=== PATIENT | female | born 1945 | race Caucasian/White ===

== ENCOUNTER 2022-06-04 05:24 | Emergency (ER) | payer OTHER ==
--- OUTSIDE RECORDS SUMMARY | 2022-06-04 05:28 | XMS REPORT | Continuity of Care Document ---
:1945 Author Organization [facility] t Address [address] [place] [address] Care Team Providers Name Role Phone Sharpless Primary Care Physician ABRAHAM RODRIGUEZ Attending Clinician Unavailable JULES STONE Attending Clinician Unavailable JONE HI Attending Clinician Unavailable Chandan DEMARCO, Abraham Jane Attending Clinician Jules Stone MD Attending Clinician JULES STONE Attending Clinician Unavailable JULES STONE Admitting Clinician Unavailable Payers Payer Name Policy Type Policy Number Effective Date Expiration Date S verónica MEDICARE PART A [id number] 1999 \T\ B - MEDICARE 00:00:00 [employer] [facility] [place] [facility] \T\ [id number] CASUALTY GENERIC PPO - [id number] GENERIC PAYOR Problems Condition Condition Condition Status Onset Resolution Last Treating Co mments Source Name Details Category Date Date Treatment Clinician Date Corectopia Corectopia Disease Active 2016-07 [facility] 00:00: of 00 Medicin e s/p DSAEK s/p DSAEK Disease Active Valatie bernardino OS OS 2-17 College ( ( 00:00: of 7) 7) 00 Medicin e Open-angle Open-angle Disease Active [facility] of both 00:[facility]: Medical eyes, eyes, 00 Center severe severe stage stage Glaucoma Glaucoma Disease Active [facility] filtering filtering 01-10 Deepika ege bleb, left bleb, left 00:00: of eye eye 00 Medicin e Corneal Corneal Disease Active [facility] edema, edema, 01-10 College secondary secondary 00:00: of 00 Medicin e Primary Primary Disease Active [facility] open angle open angle 01-10 Co llege glaucoma glaucoma 00:00: of of both of both 00 Medicin eyes, eyes, e severe severe stage stage Cataract Cataract Disease Active [facility] mature, mature, 01-10 [place] total total 00:00: of senile, senile, 00 Medicin right eye right eye e Pseudophak Pseudophak Disease Active [facility] ia, left ia, left 01-10 Colleg e eye eye 00:00: of 00 Medicin e Allergies, Adverse Reactions, Alerts This patient has no known allergies or adverse reactions. Social History Social Habit Start Date Stop Date Quantity Comments Source Alcohol intake 2016-09-15 2016-09-15 Current [facility] 00:00:00 00:00:00 non-drinker of Medical Ce nter alcohol (finding) Sex Ass[birth year] [facility] kes 00:00:00 [facility]00 [facility] Smoking Status Start Date Stop Date Source Never smoker [facility] o f Medicine Medications Ordered Filled Start Stop Current Ordering Indication Dosage Frequency Signature Comments Components Source Medication Medication Date Date Medication? Clinician (SIG) Name Name metformin 2018-07 Yes 500mg Take 500 Valatie bernardino (GLUCOPHAGE 0-18 mg by College ) 500 MG 18:28: mouth 2 of tablet 34 times Medicin daily e (with meals). glipiZIDE 2018-07 Yes 10mg Take 10 mg [facility] (GLUCOTROL) 0-18 by mouth Deepika ege 10 MG 18:28: two times of tablet 34 daily. Medicin e enalapril 2018-07 Yes 2.5mg Take 2.5 Valatie bernardino (VASOTEC) 0-18 mg by College 2.5 MG 18:28: mouth of tablet 34 daily. Medicin e aspirin 81 2018-07 Yes 81mg Take 81 mg [facility] tablet 0-18 by mouth Colleg e 18:28: daily. of 34 Medicin e simvastatin 2018-07 Yes 10mg Take 10 mg [facility] (ZOCOR) 10 0-18 by mouth Colle ge MG tablet 18:28: every of 34 evening. Medicin e brimonidine 2017-07 Yes 1[drp] Place 1 [facility] (ALPHAGAN 2-10 Drop into Colle ge P) 0.15 % 00:00: both eyes of ophthalmic 00 two times Medi didi solution daily. e dorzolamide 2017-07 Yes 1[drp] Place 1 [facility] -timolol 2-10 Drop into Colleg e (COSOPT) 00:00: both eyes of 22.3-6.8 00 two times Medici n MG/ML daily. e ophthalmic solution prednisoLON 2017-07 Yes 1[drp] Place 1 [facility] E acetate 2-10 Drop into Colle ge (PRED 00:00: the left of FORTE) 1 % 00 eye daily. Med icin ophthalmic Shake well e suspension before instillati on brimonidine 2017-07 Yes 1[drp] Place 1 [facility] (ALPHAGAN 2-10 Drop into Colle ge P) 0.15 % 00:00: both eyes of ophthalmic 00 two times Medi didi solution daily. e dorzolamide 2017-07 Yes 1[drp] Place 1 [facility] -timolol 2-10 Drop into Colleg e (COSOPT) 00:00: both eyes of 22.3-6.8 00 two times Medici n MG/ML daily. e ophthalmic solution prednisoLON 2017-07 Yes 1[drp] Place 1 [facility] E acetate 2-10 Drop into Colle ge (PRED 00:00: the left of FORTE) 1 % 00 eye daily. Med icin ophthalmic Shake well e suspension before instillati on metformin Yes 500mg Take 500 Valatie bernardino (GLUCOPHAGE 2-26 mg by College ) 500 MG 20:18: mouth 2 of tablet 22 times Medicin daily e (with meals). glipiZIDE Yes 10mg Take 10 mg [facility] (GLUCOTROL) 2-26 by mouth Deepika ege 10 MG 20:18: two times of tablet 22 daily. Medicin e enalapril Yes 2.5mg Take 2.5 Valatie bernardino (VASOTEC) 2-26 mg by College 2.5 MG 20:18: mouth of tablet 22 daily. Medicin e aspirin 81 Yes 81mg Take 81 mg [facility] MG tablet 2-26 by mouth Colleg e 20:18: daily. Medicin e simvastatin Yes 10mg Take 10 mg [facility] (ZOCOR) 10 2-26 by mouth Colle ge MG tablet 20:18: every of 22 evening. Medicin e pilocarpine Yes 1[drp] Q.25D [address] [facility] (PILOCAR) 1 2-16 (four) [facility] % 11:42: times Medical ophthalmic 00 daily. Center solution glipiZIDE Yes 10mg Take [address] [facility] [address] [facility] (GLUCOTROL) 2-16 by mouth 2 Brandie kes 10 MG 11:42: (two) Medical tablet 00 times Center daily before meals. metFORMIN Yes 500mg Take [address] [facility] (GLUCOPHAGE 2-16 mg by [facility] ) 500 MG 11:42: mouth 2 Medica l tablet 00 (two) Center times daily with breakfast and dinner. enalapril Yes 10mg QD Take [address] [facility] [address] [facility] (VASOTEC) 2-16 by mouth [facility] 10 MG 11:42: daily. Medical tablet 00 Center simvastatin Yes 10mg QD Take [address] [facility] (ZOCOR) 10 2-16 by mouth [facility] MG tablet 11:42: nightly. Medi alejandra 00 Center aspirin 81 Yes 81mg QD Take [address] MG EC 2-16 by mouth [facility] tablet 11:42: daily. Medical 00 [place] dorzolamide Yes 1[drp] Q.5D [address] [facility] -timolol 2-16 (two) [facility] (COSOPT) 11:42: times Medical 22.3-6.8 00 daily. Center mg/mL ophthalmic solution brimonidine Yes [facility] (ALPHAGAN 2-16 [facility] P) 0.1 % 11:42: Medical Drop 00 Center bimatoprost Yes 1[drp] QD [address] (LUMIGAN) 2-16 nightly. [facility] 0.03 % 11:42: Medical ophthalmic 00 Center drops Procedures This patient has no known procedures. Plan of Care Planned Activity Planned Date Details Comments Source Future Scheduled Test COLON CANCER SCREENING: [facility] COLONOSCOPY [code = Medicine COLON CANCER SCREENING: COLONOSCOPY] Future Scheduled Test MAMMOGRAM ANNUAL [code [facility] of = MAMMOGRAM ANNUAL] Medicine Future Scheduled Test MEDICARE AWV [code = [employer] MEDICARE AWV] Medicine Future Scheduled Test TETANUS SHOT (ADULT) [facility] [code = TETANUS SHOT Medicin e (ADULT)] Future Scheduled Test HEPATITIS C SCREENING [facility] [code = HEPATITIS C Medicine SCREENING] Future Scheduled Test FALL SCREEN [code = [facility] FALL SCREEN] Medicine Future Scheduled Test OSTEOPOROSIS SCREENING [facility] [code = OSTEOPOROSIS Medicin e SCREENING] Future Scheduled Test PNEUMOVAX >=65 (PPSV23) [facility] [code = PNEUMOVAX >=65 Medic ine (PPSV23)] Future Scheduled Test PREVNAR >= 65 (PCV13) [facility] [code = PREVNAR >= 65 Medici ne (PCV13)] Future Scheduled Test FLU VACCINE > 6 MONTHS [facility] [code = FLU VACCINE > 6 Medi cine MONTHS] Future Scheduled Test COLON CANCER SCREENING: [facility] COLONOSCOPY [code = Medicine COLON CANCER SCREENING: COLONOSCOPY] Future Scheduled Test MAMMOGRAM ANNUAL [code [facility] of = MAMMOGRAM ANNUAL] Medicine Future Scheduled Test MEDICARE AWV [code = [employer] MEDICARE AWV] Medicine Future Scheduled Test TETANUS SHOT (ADULT) [facility] [code = TETANUS SHOT Medicin e (ADULT)] Future Scheduled Test HEPATITIS C SCREENING [facility] [code = HEPATITIS C Medicine SCREENING] Future Scheduled Test FALL SCREEN [code = [facility] FALL SCREEN] Medicine Future Scheduled Test OSTEOPOROSIS SCREENING [facility] [code = OSTEOPOROSIS Medicin e SCREENING] Future Scheduled Test PNEUMOVAX >=65 (PPSV23) [facility] [code = PNEUMOVAX >=65 Medic ine (PPSV23)] Future Scheduled Test PREVNAR >= 65 (PCV13) [facility] [code = PREVNAR >= 65 Medici ne (PCV13)] Future Scheduled Test FLU VACCINE > 6 MONTHS [facility] [code = FLU VACCINE > 6 Medi cine MONTHS] Encounters Start End Encounter Admission Attending Care Care Encounter Source Date/Time Date/Time Type Type Clinicians Facility Department ID 2022-04-21 2022-04-21 Outpatient LEANDRA RODRIGUEZ [id number] [facility] 08:47:28 10:32:52 ABRAHAM alexander of Medicin e 2022-02-142022-02-14 Outpatient JESSIE [facility] [id number] [facility] 09:47:21 10:31:38 JULES Colle ge of Medicin e 2021-12-20 2021-12-20 Outpatient CHANDAN [facility] [id number] [facility] 13:12:30 14:48:43 ABRAHAM Colleg e of Medicin e 2021-09-01 2021-09-01 Outpatient JESSIE [facility] [id number] [facility] 12:38:03 13:39:03 JULES Colle ge of Medicin e 2021-08-23 2021-08-23 Outpatient CHANDAN [facility] [id number] [facility] 13:00:30 13:27:58 ABRAHAM Colleg e of Medicin e 2021-06-30 2021-06-30 Outpatient KOLTON [facility] [id number] [facility] 14:39:19 15:46:54 JONE Colleg e of Medicin e 2021-06-09 2021-06-09 Outpatient JESSIE [facility] [id number] [facility] 15:39:16 16:24:09 JULES Colle ge of Medicin e 2021-06-04 2021-06-04 Outpatient JESSIE [facility] [id number] [facility] 13:20:22 16:02:14 JULES Colle ge of Medicin e 2021-04-23 2021-04-23 Outpatient CHANDAN [facility] [id number] [facility] 14:25:15 16:32:18 ABRAHAM Colleg e of Medicin e 2019-05-17 2019-05-17 Office Chandan [facility] [id number] [facility] 13:25:40 13:35:40 Visit Abraham AMBULATOR [id number] College [employer] Y 0.2.7.2.686 of [id number] Medi didi 300 e 2019-03-06 2019-03-06 Office ROYAL Stone [id number] [facility] 09:14:55 09:29:55 Visit Jules To AMBULATOR [id number] College Y 0.2.7.2.686 of [id number] Medi didi 300 e Results Test Description Test Time Test Comments Results Result Comments Source POCT-GLUCOSE METER 2016-09-15 08:17:00 Test Item Value Reference Range Interpretation Comme nts POC-GLUCOSE METER (JUNIOR) (test 162 mg/dL 70-110 H TESTED AT [facility] 7200 code = 1538) [facility] [id number]
--- NOTE | 2022-06-04 06:56 | RAD REPORT ---
EXAM DESCRIPTION: RAD - Chest Single View - 06/04/2022 6:50 am CLINICAL HISTORY: MALAISE COMPARISON: Stone Protocol dated 05/14/2018Chest Pa And Lat (2 Views) dated 11/30/2021 FINDINGS: Lines: None. Lungs: Coarsening of the pulmonary interstitium. Pleural: No significant pleural effusions or pneumothorax. Cardiac: Mild cardiomegaly. Mediastinum: Within normal limits. Bones: No acute fractures. Other: None IMPRESSION: Coarsening of the pulmonary interstitium could reflect edema or atypical pneumonia.
--- NOTE | 2022-06-04 06:59 | RAD REPORT ---
EXAM DESCRIPTION: CT - Head Brain Wo Cont - 06/04/2022 6:47 am CLINICAL HISTORY: Syncope COMPARISON: No comparisons TECHNIQUE: All CT scans are performed using dose optimization technique as appropriate and may inclu de automated exposure control or mA/KV adjustment according to patient size. FINDINGS: No intracranial hemorrhage, hydrocephalus or extra-axial fluid collection.No areas of brai n edema or evidence of midline shift. Cerebral atrophy. Mild chronic small vessel ischemic changes. The paranasal sinuses and mastoids are clear. The calvarium is intact. IMPRESSION: No acute intracranial abnormality.
[2022-06-04 07:14] LABS: Absolute Lymphocytes (CBC) 1.5 K/uL (0.7-4.9); Hematocrit 41.3 % (36.0-45.0); Lymphocytes % 16.1 % (15.3-44.8); MCV 86.6 fL (80-100); RBC Red Blood Cell Count 4.77 M/uL (3.86-4.86)
[2022-06-04 07:20] LABS: Protime INR 1.03
[2022-06-04 07:35] LABS: Albumin 3.7 g/dL (3.4-5.0); Bilirubin Direct 0.4 mg/dL (0-0.2); Bilirubin Total 1.9 mg/dL (0.2-1.0); Protein, Total 7.2 g/dL (6.4-8.2); Troponin High Sensitivity 7.9 pg/mL (<58.9)
[2022-06-04] MEDS ORDERED: POTASSIUM CL SA 10 MEQ TAB PO ONE (08:09)
--- NOTE | 2022-06-04 08:55 | ER ---
Nurse's Notes [facility] Name: Indira Dunbar Age: 76 yrs Sex: Female : 1945 Arrival Date: 06/04/2022 Time: 05:31 Bed 6 Private MD: Diagnosis: near-syncope, orthostatic hypotension Presentation: 06/04 05:31 Chief complaint: EMS states: "we were called out because the patients daughter was as6 helping her use the bathroom and she reports the pt had a near syncopal episode. the daughter said she has been having diarrhea". Coronavirus screen: At this time, the client does not indicate any symptoms associated with coronavirus-19. Ebola Screen: No symptoms or risks identified at this time. Initial Sepsis Screen: Does the patient meet any 2 criteria? No. Patient's initial sepsis screen is negative. Does the patient have a suspected source of infection? No. Patient's initial sepsis screen is negative. Risk Assessment: Do you want to hurt yourself or someone else? Patient reports no desire to harm self or others. Onset of symptoms was June 04, 2022. Care prior to arrival: IV initiated. 22 GA, in the right hand. 05:31 Method Of Arrival: [facility] as6 05:31 Acuity: KYMBERLY 3 as6 Historical: - Allergies: 06:34 No Known Allergies; as6 - Home Meds: 05:35 donepezil 10 mg oral tab 1 tab once daily [Active]; metformin 1,000 mg Oral tab 1 tab 2 as6 times per day [Active]; hydrochlorothiazide 25 mg Oral tab 1 tab once daily [Active]; escitalopram oxalate 10 mg oral tab 1 tab once daily [Active]; aspirin 81 mg Oral cap 1 cap once daily [Active]; glipizide 10 mg Oral tab 1 tab once daily [Active]; simvastatin 40 mg Oral tab 1 tab once daily [Active]; - PMHx: 05:35 Glaucoma; Dementia; Alzheimer's disease; Diabetes mellitus; Hypercholesterolemia; as6 - Immunization history:: Adult Immunizations unknown. - Social history:: Smoking status: unknown. Screenin:43 Abuse screen: Denies threats or abuse. Denies injuries from another. Nutritional as6 screening: No deficits noted. Tuberculosis screening: No symptoms or risk factors identified. Fall Risk None identified. Assessment: 05:42 General: Appears in no apparent distress. Behavior is calm, cooperative. Pain: Denies as6 pain. Neuro: Level of Consciousness is awake, alert, obeys commands, confused, Oriented to person. Respiratory: Respiratory effort is even, unlabored. GI: Reports diarrhea. 07:33 Reassessment: Patient appears in no apparent distress at this time. No changes from kc6 previously documented assessment. Patient and/or family updated on plan of care and expected duration. Pain level reassessed. Patient is alert, oriented x 3, equal unlabored respirations, skin warm/dry/pink. pur wick in place, client cleaned up. Patient denies pain at this time. 08:48 Reassessment: Patient appears in no apparent distress at this time. No changes from kc6 previously documented assessment. Patient and/or family updated on plan of care and expected duration. Pain level reassessed. Patient is alert, oriented x 3, equal unlabored respirations, skin warm/dry/pink. Patient denies pain at this time. Vital Signs: 05:31 BP 148 / 58; Pulse 71; Resp 12 S; Temp 97.5(O); Pulse Ox 96% on R/A; Weight 75.3 kg as6 (M); Height 5 ft. 4 in. (162.56 cm) (R); Pain 0/10; 06:32 BP 127 / 54; Pulse 70; Resp 13 S; Pulse Ox 97% on R/A; as6 07:36 BP 132 / 59; Pulse 69; Resp 11 S; Pulse Ox 97% on R/A; kc6 08:49 BP 137 / 80 Supine; Pulse 68 LA; Resp 19 S; Pulse Ox 97% on R/A; kc6 08:49 BP 145 / 61 Sitting; Pulse 80; Resp 17 S; Pulse Ox 95% on R/A; kc6 08:49 BP 148 / 74 Standing; Pulse 74; Resp 20 S; Pulse Ox 96% on R/A; kc6 05:31 Body Mass Index 28.49 (75.30 kg, 162.56 cm) as6 ED Course: 05:31 Patient arrived in ED. as6 05:35 Triage completed. as6 05:38 Arm band placed on. as6 05:39 Kirsten Gaines MD is Attending Physician. sp3 05:42 Dominick Mcmahon, RN is Primary Nurse. as6 05:43 Bed in low position. Call light in reach. Side rails up X2. as6 06:33 Inserted saline lock: 22 gauge in right forearm, using aseptic technique. Maintain EMS as6 IV. Dressing intact. Good blood return noted. Site clean \\T\\ dry. Gauge \\T\\ site: 22g right hand . 06:49 CT Head Brain wo Cont In Process Unspecified. EDMS 06:52 XRAY Chest (1 view) In Process Unspecified. EDMS 07:[address] kc6 08:08 Primary Nurse role handed off by Dominick Mcmahon, RN kc6 08:08 Breanne Szymanski, RN is Primary Nurse. kc6 09:35 No provider procedures requiring assistance completed. IV discontinued, intact, kc6 bleeding controlled, No redness/swelling at site. Pressure dressing applied. Administered Medications: 08:37 Drug: Potassium Chloride 40 mEq Route: PO; kc6 09:35 Follow up: Response: No adverse reaction kc6 Medication: 06:33 VIS not applicable for this client. as6 Outcome: 08:54 Discharge ordered by . sp3 09:35 Discharged to home via wheelchair, with family. kc6 09:35 Condition: stable 09:35 Discharge instructions given to patient, family, Instructed on discharge instructions, Demonstrated understanding of instructions. 09:36 Patient left the ED. kc6 Signatures: Dispatcher [employer] Kirsten Huang MD MD sp3 Slawson, Ashby, MARIO RN as6 Breanne Szymanski RN RN kc6
--- NOTE | 2022-06-04 08:55 | EDPHYS ---
Physician Documentation [facility] Name: Indira Dunbar Age: 76 yrs Sex: Female : 1945 Arrival Date: 06/04/2022 Time: 05:31 Bed 6 Private MD: ED Physician Kirsten Gaines HPI: 06/04 06:04 This 76 yrs old Female presents to ER via EMS with complaints of near syncope. sp3 06:04 76-year-old female with history of dementia, diabetes, hypertension presents via EMS sp3 for chief complaint near syncope while in route to the restroom. EMS was activated by patient's daughter who witnessed the events. No fall syncope or trauma noted. Patient has dementia and is not able to answer any questions sufficiently. Finally, on ROS she denies any pain including chest pain and abdominal pain, nausea, vomiting, diarrhea, fever or any other aspects on limited exam.. Historical: - Allergies: 06:34 No Known Allergies; as6 - Home Meds: 05:35 donepezil 10 mg oral tab 1 tab once daily [Active]; metformin 1,000 mg Oral tab 1 tab 2 as6 times per day [Active]; hydrochlorothiazide 25 mg Oral tab 1 tab once daily [Active]; escitalopram oxalate 10 mg oral tab 1 tab once daily [Active]; aspirin 81 mg Oral cap 1 cap once daily [Active]; glipizide 10 mg Oral tab 1 tab once daily [Active]; simvastatin 40 mg Oral tab 1 tab once daily [Active]; - PMHx: 05:35 Glaucoma; Dementia; Alzheimer's disease; Diabetes mellitus; Hypercholesterolemia; as6 - Immunization history:: Adult Immunizations unknown. - Social history:: Smoking status: unknown. ROS: 06:06 Unable to obtain ROS due to baseline dementia. sp3 Exam: 06:06 Constitutional: This is a well developed, well nourished patient who is awake, alert, sp3 and in no acute distress. Head/Face: Normocephalic, atraumatic. ENT: Nares patent. No nasal discharge, no septal abnormalities noted. External auditory canals are clear. Oropharynx with no redness, swelling, or masses, exudates, or evidence of obstruction, uvula midline. Mucous membranes moist. Neck: Trachea midline, no thyromegaly or masses palpated, and no cervical lymphadenopathy. Supple, full range of motion without nuchal rigidity, or vertebral point tenderness. No Meningismus. Chest/axilla: Normal chest wall appearance and motion. Nontender with no deformity. No lesions are appreciated. Cardiovascular: Regular rate and rhythm with a normal S1 and S2. No gallops, murmurs, or rubs. Normal PMI, no JVD. No pulse deficits. Respiratory: Lungs have equal breath sounds bilaterally, clear to auscultation and percussion. No rales, rhonchi or wheezes noted. No increased work of breathing, no retractions or nasal flaring. Abdomen/GI: Soft, non-tender, with normal bowel sounds. No distension or tympany. No guarding or rebound. No evidence of tenderness throughout. Back: No spinal tenderness. No costovertebral tenderness. Full range of motion. Skin: Warm, dry with normal turgor. Normal color with no rashes, no lesions, and no evidence of cellulitis. MS/ Extremity: Pulses equal, no cyanosis. Neurovascular intact. Full, normal range of motion. Psych: Awake, alert, with orientation to person, place and time. Behavior, mood, and affect are within normal limits. 06:06 Neuro: No focal deficits noted based on limited exam. Patient's speech is normal, mentation is normal, there is no weakness on any of her muscle groups, sensory exam including gross pain and temperature and sensorineural are intact. Limited exam on cranial nerves II through XII demonstrate no abnormality. Patient's vision is baseline impaired.. 06:53 ECG was reviewed by the Attending Physician. She demonstrates normal sinus rhythm at 64 sp3 bpm with normal intervals, normal QRS, leftward axis, nonspecific diffuse ST/T changes without evidence of any acute ischemia. Vital Signs: 05:31 BP 148 / 58; Pulse 71; Resp 12 S; Temp 97.5(O); Pulse Ox 96% on R/A; Weight 75.3 kg as6 (M); Height 5 ft. 4 in. (162.56 cm) (R); Pain 0/10; 06:32 BP 127 / 54; Pulse 70; Resp 13 S; Pulse Ox 97% on R/A; as6 07:36 BP 132 / 59; Pulse 69; Resp 11 S; Pulse Ox 97% on R/A; kc6 08:49 BP 137 / 80 Supine; Pulse 68 LA; Resp 19 S; Pulse Ox 97% on R/A; kc6 08:49 BP 145 / 61 Sitting; Pulse 80; Resp 17 S; Pulse Ox 95% on R/A; kc6 08:49 BP 148 / 74 Standing; Pulse 74; Resp 20 S; Pulse Ox 96% on R/A; kc6 05:31 Body Mass Index 28.49 (75.30 kg, 162.56 cm) as6 MDM: 05:51 Patient medically screened. sp3 06:08 Data reviewed: vital signs, nurses notes. ED course: 76-year-old female with near sp3 syncope. Differential diagnosis includes vasovagal syncope, CVA ischemic and hemorrhagic, migraine headache, embolic process, vascular tear, among others. However likely diagnosis is vasovagal syncope given her current neurological exam. TIA is also a possibility. Work-up to include laboratory values, EKG, chest x-ray, CT scan of the head which will differentiate the above possibilities. If work-up is negative patient's neurological exam remains as is, we will attempt to ambulate patient and if she is back at baseline we will discharge patient home on her daughter's care with PCP follow-up. Further actions as deemed necessary for this high complexity patient.. 08:52 ED course: CT scans, laboratory values and orthostatic vital signs reviewed. Patient is sp3 no acute distress and is at her baseline mental status. I discussed this with daughter as well and we all agree that best course of action is to discharge her with monitoring and being careful about rising too fast to prevent any orthostatic hypotension. Patient to follow-up with her PCP as needed. No acute distress or abnormality noted on final disposition.. 11 05:51 Order name: Basic Metabolic Panel; Complete Time: 07:46 sp3 06/04 05:51 Order name: CBC with Diff; Complete Time: 07:46 sp3 06/04 05:51 Order name: LFT's; Complete Time: 07:46 sp3 06/04 05:51 Order name: PT-INR; Complete Time: 07:46 sp3 06/04 05:51 Order name: Troponin HS; Complete Time: 07:46 sp3 06/04 05:51 Order name: XRAY Chest (1 view); Complete Time: 07:46 sp3 06/04 05:51 Order name: EKG; Complete Time: 05:53 sp3 06/04 05:51 Order name: Cardiac monitoring; Complete Time: 05:58 sp3 06/04 05:51 Order name: EKG - Nurse/Tech; Complete Time: 06:20 sp3 06/04 05:51 Order name: IV Saline Lock; Complete Time: 05:58 sp3 06/04 05:51 Order name: Labs collected and sent; Complete Time: 07:03 sp3 06/04 05:51 Order name: O2 Per Protocol; Complete Time: 05:58 sp3 06/04 05:51 Order name: CT Head Brain wo Cont; Complete Time: 07:46 sp3 06/04 05:51 Order name: O2 Sat Monitoring; Complete Time: 05:58 sp3 06/04 07:47 Order name: Orthostatics; Complete Time: 08:37 sp3 Administered Medications: 08:37 Drug: Potassium Chloride 40 mEq Route: PO; kc6 09:35 Follow up: Response: No adverse reaction kc6 Disposition Summary: 06/04/22 08:54 Discharge Ordered Location: Home sp3 Condition: Stable sp3 Diagnosis - near-syncope, orthostatic hypotension sp3 Followup: sp3 - With: Private Physician - When: As needed - Reason: Continuance of care Discharge Instructions: - Discharge Summary Sheet sp3 - Orthostatic Hypotension sp3 - Syncope sp3 Forms: - Medication Reconciliation Form sp3 - Thank You Letter sp3 - Antibiotic Education sp3 - Prescription Opioid Use sp3 Signatures: Dispatcher [employer] Kirsten Huang MD MD sp3 Dominick Mcmhaon RN RN as6 Breanne Szymanski RN RN kc6
[2022-06-04 09:46] VITALS: TEMP 97.5
[2022-06-04 10:03] VITALS: BP 148/74; O2SAT 96
--- NOTE | 2022-06-06 08:33 | EKG ---
Test Date: 2022-06-04 Test Time: 06:14:11 Funds Transfer Clerk: MEASUREMENT RESULTS: Intervals: Rate: 64 WI: 190 QRSD: 96 QT: 472 QTc: 486 [place]: P: 50 WI: 190 QRS: -26 T: 35 INTERPRETIVE STATEMENTS: Normal sinus rhythm Minimal voltage criteria for LVH, may be normal variant Borderline ECG Compared to ECG 11/30/2021 12:36:41 Ventricular premature complex(es) no longer present Left-axis deviation no longer present Electronically Signed On 06-06-22 08:29:29 CONSULTANT RN by Eben Meza
== END 2022-06-04 09:36 | disposition home or self-care (01) ==
LOC: ER 05:24
DX: I95.1 Orthostatic hypotension (principal); G30.9 Alzheimer's disease, unspecified; F02.80 Dementia in other diseases classified elsewhere, unspecified severity, without behavioral disturbance, psychotic disturbance, mood disturbance, and anxiety; E11.9 Type 2 diabetes mellitus without complications
CPT/HCPCS: 36415; 70450; 71045; 80048; 80076; 84484; 85025; 85610; 93005; 99284

== ENCOUNTER 2022-09-08 15:58 | Emergency (ER) | payer OTHER ==
--- OUTSIDE RECORDS SUMMARY | 2022-09-08 16:06 | XMS REPORT | Continuity of Care Document ---
:1945 Author Organization [facility] t Address [address] [place] [address] Care Team Providers Name Role Phone Sharpless Primary Care Physician JESUS FERNANDEZ Attending Clinician Unavailable JESUS FERNANDEZ Attending Clinician Unavailable PARIS ARRIAGA Attending Clinician Unavailable Paris Arriaga MD Attending Clinician [phone] JUAN GUERRA Attending Clinician Unavailable Juan Guerra MD Attending Clinician MARIANO CALHOUN Attending Clinician Unavailable Lan PATEL Miranda Attending Clinician Unavailable Mariano Calhoun MD Attending Clinician Doctor Unassigned, Hernandez Attending Clinician Unavailable JULES STONE Attending Clinician Unavailable Jesus Fernandez MD Attending Clinician Lab, Ang - Db Attending Clinician Unavailable Nitza Simons Attending Clinician SUBHASH DUMONT Attending Clinician Unavailable ALYCIA SORIA Attending Clinician Unavailable Alycia Jim Attending Clinician Unknown, Attending Attending Clinician Unavailable Gauri Peace LMSW Attending Clinician NITZA CAGE Attending Clinician Unavailable Subhash Dumont MD Attending Clinician 2, Adc Lab Attending Clinician Unavailable Radha Greenberg Attending Clinician RADHA BURROWS Attending Clinician Unavailable ABRAHAM HAWLEY Attending Clinician Unavailable KOLTONJONE JULIETAKRISTINE Attending Clinician Unavailable Abraham Hawley MD Attending Clinician Jules Stone MD Attending Clinician JULES STONE Attending Clinician Unavailable PARIS ARRIAGA Admitting Clinician Unavailable JESUS FERNANDEZ Admitting Clinician Unavailable SUBHASH DUMONT Admitting Clinician Unavailable JULES STONE Admitting Clinician Unavailable Payers Payer Name Policy Type Policy Number Effective Date Expiration Date S verónica MEDICARE PART A [id number] 1999 \T\ B 00:00:00 [facility] [id number] 2021 INSURANCE 00:00:00 MEDICARE PART A [id number] 1999 \T\ B - MEDICARE 00:00:00 [employer] LIFE \T\ [id number] CASUALTY GENERIC PPO - [id number] GENERIC PAYOR Problems Condition Condition Condition Status Onset Resolution Last Treating Co mments Source Name Details Category Date Date Treatment Clinician Date Compressio Compressio Disease Active U nivers n fracture n fracture 1-18 it y of of T12 of T12 00:00: [place] vertebra vertebra 00 Medica l with with Branch routine routine healing healing Benign Benign Disease Active Univers essential essential 1-04 ity of hypertensi hypertensi [place] Blindness Blindness Disease Active Uni vers and low and low 1-04 ity of vision vision 00:00: [place] [facility] Branch Glaucoma Glaucoma Disease Active Unive rs 1-04 ity of 00:00: [place] [facility] Branch 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 1-04 ity of 00:00: [place] [facility] Mixed Mixed Disease Active Univers hyperlipid hyperlipid 1-04 it y of emia emia 00:00: [place] 00 Medical Branch Neurosis Neurosis Disease Active Unive rs 1-04 ity of 00:00: [place] [facility] Type 2 Type 2 Disease Active Univers diabetes diabetes 1-04 ity of mellitus mellitus 00:00: [place] without without 00 Medical complicati complicati Br anch on on Corectopia Corectopia Disease Active 2016-07 U nivers 1-22 ity of 00:00: [place] [facility] 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 [place] [facility] [place] Open-angle Open-angle Disease Active [facility] glaucoma [facility] 9[facility]22 [facility] both 00[facility]00: Medical eyes, eyes, 00 Center severe severe stage stage Cataract Cataract Disease Active Unive rs mature, mature, 6-13 ity of total total 00:00: [place] senile senile 00 [facility] Branch Corneal Corneal Disease Active Univers edema, edema, 6-13 it[place] of secondary secondary 00:[place] [facility] Primary Primary Disease Active Univers open angle open angle 6-13 it y of glaucoma glaucoma 00:00: [place] of both of both 00 Medical eyes, eyes, Branch severe severe stage stage Pseudophak Pseudophak Disease Active U nivers ia, left ia, left 6-13 ity of eye eye 00:00: [place] [facility] Branch Glaucoma Glaucoma Disease Active [place] [facility] filtering filtering 6-13 Deepika ege bleb, left bleb, left 00:00: of eye eye 00 Medicin e No known No known Disease Unive rs active active ity of problems problems [facility] Allergies, Adverse Reactions, Alerts Allergy Allergy Status Severity Reaction(s) Onset Inactive Treating Comm ents Source Name Type Date Date Clinician NO KNOWN Drug Active Univers ALLERGIE Class ity of S [facility] Social History Social Habit Start Date Stop Date Quantity Comments Source Exposure to 2022-08-26 2022-09-05 Not sure University of SARS-CoV-2 00:00:00 09:11:00 [facility] (event) [place] Tobacco use and 2022-07-09 2022-07-09 Smokeless tobacco Un iversity of exposure 00:00:00 00:00:00 non-user [facility] Alcohol intake 2016-09-15 2016-09-[address] [facility] 00:00:00 00:00:00 non-drinker of Medical Ce nter alcohol (finding) Sex [birth year] LUIZ Jaimes 00:00:00 00:00:00 [facility] Smoking Status Start Date Stop Date Source Never smoked tobacco [facility] Medical [place] Medications Ordered Filled Start Stop Current Ordering Indication Dosage Frequency Signature Comments Components Source Medication Medication Date Date Medication? Clinician (SIG) Name Name losartan 50 2022-0 Yes [id number] 50mg Take 1 U nivers mg tablet 1-24 tablet by ity o f 00:00: mouth in [place] 00 the Medical morning. Branch losartan 50 2022-0 Yes [id number] 50mg Take 1 U nivers mg tablet 1-24 tablet by ity o f 00:00: mouth in [place] the Medical morning. Branch losartan 50 2022-0 Yes [id number] 50mg Take 1 U nivers mg tablet 1-24 tablet by ity o f 00:00: mouth in [place] 00 the Medical morning. Branch losartan 50 2022-0 Yes [id number] 50mg Take 1 U nivers mg tablet 1-24 tablet by ity o f 00:00: mouth in [place] the Medical morning. Branch losartan 50 2022-0 Yes [id number] 50mg Take 1 U nivers mg tablet 1-24 tablet by ity o f 00:00: mouth in [place] the Medical morning. Branch losartan 50 2022-0 Yes [id number] 50mg Take 1 U nivers mg tablet 1-24 tablet by ity o f 00:00: mouth in [place] 00 the Medical morning. Branch losartan 50 2022-0 Yes [id number] 50mg Take 1 U nivers mg tablet 1-24 tablet by ity o f 00:00: mouth in [place] the Medical morning. Branch losartan 50 2022-0 Yes [id number] 50mg Take 1 U nivers mg tablet 1-24 tablet by ity o f 00:00: mouth in [place] 00 the Medical morning. Branch losartan 50 2022-0 Yes [id number] 50mg Take 1 U nivers mg tablet 1-24 tablet by ity o f 00:00: mouth in [place] 00 the Medical morning. Branch enalapril 5 2022-0 Yes [id number] 5mg Take 1 Univers mg tablet 1-10 tablet by ity o f 00:00: mouth in [place] 00 the Medical morning Branch and 1 tablet in the evening. enalapril 5 2022-0 Yes [id number] 5mg Take 1 Univers mg tablet 1-10 tablet by ity o f 00:00: mouth in [place] 00 the Medical morning Branch and 1 tablet in the evening. enalapril 5 2022-0 Yes [id number] 5mg Take 1 Univers mg tablet 1-10 tablet by ity o f 00:00: mouth in [place] 00 the Medical morning Branch and 1 tablet in the evening. enalapril 5 2022-0 Yes [id number] 5mg Take 1 Univers mg tablet 1-10 tablet by ity o f 00:00: mouth in [place] 00 the Medical morning Branch and 1 tablet in the evening. enalapril 5 2022-0 Yes [id number] 5mg Take 1 Univers mg tablet 1-10 tablet by ity o f 00:00: mouth in [place] 00 the Medical morning Branch and 1 tablet in the evening. enalapril 5 2022-0 Yes [id number] 5mg Take 1 Univers mg tablet 1-10 tablet by ity o f 00:00: mouth in [place] 00 the Medical morning Branch and 1 tablet in the evening. enalapril 5 2022-0 Yes [id number] 5mg Take 1 Univers mg tablet 1-10 tablet by ity o f 00:00: mouth in [place] 00 the Medical morning Branch and 1 tablet in the evening. enalapril 5 2022-0 2022- No [id number] 5mg Take 1 Univers mg tablet 1-10 -24 tablet by ity of 00:00: 00:00 mouth in [place] 00 :00 the Medical morning Branch and 1 tablet in the evening. enalapril 5 2022-0 2022- No [id number] 5mg Take 1 Univers mg tablet 1-10 -24 tablet by ity of 00:00: 00:00 mouth in [place] 00 :00 the Medical morning Branch and 1 tablet in the evening. benzonatate 0 2022- Yes [id number] 100mg Take 1 Univers 100 mg 08-0716 capsule by ity of capsule 00:00: 05:59 mouth 3 [place] 00 :00 (three) Medical times Branch daily as needed for Cough for up to 7 days. benzonatate 2022022- Yes [id number] 100mg Take 1 Univers 100 mg 1-08 01-16 capsule by ity of capsule 00:00: 05:59 mouth 3 [place] 00 :00 (three) Medical times Branch daily as needed for Cough for up to 7 days. benzonatate 2022- Yes [id number] 100mg Take 1 Univers 100 mg 1-08 01-16 capsule by ity of capsule 00:00: 05:59 mouth 3 [place] 00 :00 (three) Medical times Branch daily as needed for Cough for up to 7 days. benzonatate 2022- Yes [id number] 100mg Take 1 Univers 100 mg 1-08 01-16 capsule by ity of capsule 00:00: 05:59 mouth 3 [place] 00 :00 (three) Medical times Branch daily as needed for Cough for up to 7 days. benzonatate 2022- Yes [id number] 100mg Take 1 Univers 100 mg 1-08 01-16 capsule by ity of capsule 00:00: 05:59 mouth 3 [place] 00 :00 (three) Medical times Branch daily as needed for Cough for up to 7 days. benzonatate 2022- Yes [id number] 100mg Take 1 Univers 100 mg 1-08 01-16 capsule by ity of capsule 00:00: 05:59 mouth 3 [place] 00 :00 (three) Medical times Branch daily as needed for Cough for up to 7 days. benzonatate 2022- Yes [id number] 100mg Take 1 Univers 100 mg 1-08 01-16 capsule by ity of capsule 00:00: 05:59 mouth 3 [place] 00 :00 (three) Medical times Branch daily as needed for Cough for up to 7 days. glipiZIDE 2022- No 10mg Take 10 mg U nivers 10 mg 08-03-04 by mouth. ity of tablet 15:46: 00:00 [place] 34 :00 Medical Branch glipiZIDE 2022-2022- No 10mg Take 10 mg U nivers 10 mg 08-03- by mouth. ity of tablet 15:46: 00:00 [place] 34 :00 Medical Branch glipiZIDE 2022-2022- No 10mg Take 10 mg U nivers 10 mg 1-04 01-04 by mouth. ity of tablet 15:46: 00:00 [place] 34 :00 Medical Branch Calcium 2023-0 Yes 1{tbl} Take 1 Univer s Carb-Cholec 1-04 tablet by ity of alciferol 15:37: mouth 2 [place] (CALCIUM 04 (two) Medical 600 + D,3,) times Branch 600 mg-5 daily. mcg (200 unit) Tab Calcium 2023-0 Yes 1{tbl} Take 1 Univer s Carb-Cholec 1-04 tablet by ity of alciferol 15:37: mouth 2 [place] (CALCIUM 04 (two) Medical 600 + D,3,) times Branch 600 mg-5 daily. mcg (200 unit) Tab Calcium 2023-0 Yes 1{tbl} Take 1 Univer s Carb-Cholec 1-04 tablet by ity of alciferol 15:37: mouth 2 [place] (CALCIUM 04 (two) Medical 600 + D,3,) times Branch 600 mg-5 daily. mcg (200 unit) Tab Calcium 2023-0 Yes 1{tbl} Take 1 Univer s Carb-Cholec 1-04 tablet by ity of alciferol 15:37: mouth 2 [place] (CALCIUM 04 (two) Medical 600 + D,3,) times Branch 600 mg-5 daily. mcg (200 unit) Tab Calcium 2023-0 Yes 1{tbl} Take 1 Univer s Carb-Cholec 1-04 tablet by ity of alciferol 15:37: mouth 2 [place] (CALCIUM 04 (two) Medical 600 + D,3,) times Branch 600 mg-5 daily. mcg (200 unit) Tab Calcium 2023-0 Yes 1{tbl} Take 1 Univer s Carb-Cholec 1-04 tablet by ity of alciferol 15:37: mouth 2 [place] (CALCIUM 04 (two) Medical 600 + D,3,) times Branch 600 mg-5 daily. mcg (200 unit) Tab Calcium 2023-0 Yes 1{tbl} Take 1 Univer s Carb-Cholec 1-04 tablet by ity of alciferol 15:37: mouth 2 [place] (CALCIUM 04 (two) Medical 600 + D,3,) times Branch 600 mg-5 daily. mcg (200 unit) Tab Calcium 2023-0 Yes 1{tbl} Take 1 Univer s Carb-Cholec 1-04 tablet by ity of alciferol 15:37: mouth 2 [place] (CALCIUM 04 (two) Medical 600 + D,3,) times Branch 600 mg-5 daily. mcg (200 unit) Tab Calcium 2023-0 Yes 1{tbl} Take 1 Univer s Carb-Cholec 1-04 tablet by ity of alciferol 15:37: mouth 2 [place] (CALCIUM 04 (two) Medical 600 + D,3,) times Branch 600 mg-5 daily. mcg (200 unit) Tab Calcium 2023-0 Yes 1{tbl} Take 1 Univer s Carb-Cholec 1-04 tablet by ity of alciferol 15:37: mouth 2 [place] (CALCIUM 04 (two) Medical 600 + D,3,) times Branch 600 mg-5 daily. mcg (200 unit) Tab Calcium 2023-0 Yes 1{tbl} Take 1 Univer s Carb-Cholec 1-04 tablet by ity of alciferol 15:37: mouth 2 [place] (CALCIUM 04 (two) Medical 600 + D,3,) times Branch 600 mg-5 daily. mcg (200 unit) Tab Calcium 2023-0 Yes 1{tbl} Take 1 Univer s Carb-Cholec 1-04 tablet by ity of alciferol 15:37: mouth 2 [place] (CALCIUM 04 (two) Medical 600 + D,3,) times Branch 600 mg-5 daily. mcg (200 unit) Tab Calcium 2023-0 Yes 1{tbl} Take 1 Univer s Carb-Cholec 1-04 tablet by ity of alciferol 15:37: mouth 2 [place] (CALCIUM 04 (two) Medical 600 + D,3,) times Branch 600 mg-5 daily. mcg (200 unit) Tab Calcium 2023-0 Yes 1{tbl} Take 1 Univer s Carb-Cholec 1-04 tablet by ity of alciferol 15:37: mouth 2 [place] (CALCIUM 04 (two) Medical 600 + D,3,) times Branch 600 mg-5 daily. mcg (200 unit) Tab Calcium 2023-0 Yes 1{tbl} Take 1 Univer s Carb-Cholec 1-04 tablet by ity of alciferol 15:37: mouth 2 [place] (CALCIUM 04 (two) Medical 600 + D,3,) times Branch 600 mg-5 daily. mcg (200 unit) Tab Calcium 2023-0 Yes 1{tbl} Take 1 Univer s Carb-Cholec 1-04 tablet by ity of alciferol 15:37: mouth 2 [place] (CALCIUM 04 (two) Medical 600 + D,3,) times Branch 600 mg-5 daily. mcg (200 unit) Tab Calcium 2023-0 Yes 1{tbl} Take 1 Univer s Carb-Cholec 1-04 tablet by ity of alciferol 15:37: mouth 2 [place] (CALCIUM 04 (two) Medical 600 + D,3,) times Branch 600 mg-5 daily. mcg (200 unit) Tab Calcium 2023-0 Yes 1{tbl} Take 1 Univer s Carb-Cholec 1-04 tablet by ity of alciferol 15:37: mouth 2 [place] (CALCIUM 04 (two) Medical 600 + D,3,) times Branch 600 mg-5 daily. mcg (200 unit) Tab Calcium 3-0 Yes 1{tbl} Take 1 Univer s Carb-Cholec 1-04 tablet by ity of alciferol 15:37: mouth 2 [place] (CALCIUM 04 (two) Medical 600 + D,3,) times Branch 600 mg-5 daily. mcg (200 unit) Tab Calcium 3-0 Yes 1{tbl} Take 1 Univer s Carb-Cholec 1-04 tablet by ity of alciferol 15:37: mouth 2 [place] (CALCIUM 04 (two) Medical 600 + D,3,) times Branch 600 mg-5 daily. mcg (200 unit) Tab Calcium 3-0 Yes 1{tbl} Take 1 Univer s Carb-Cholec 1-04 tablet by ity of alciferol 15:37: mouth 2 [place] (CALCIUM 04 (two) Medical 600 + D,3,) times Branch 600 mg-5 daily. mcg (200 unit) Tab Calcium 2023-0 Yes 1{tbl} Take 1 Univer s Carb-Cholec 1-04 tablet by ity of alciferol 15:37: mouth 2 [place] (CALCIUM 04 (two) Medical 600 + D,3,) times Branch 600 mg-5 daily. mcg (200 unit) Tab Calcium 2023-0 Yes 1{tbl} Take 1 Univer s Carb-Cholec 1-04 tablet by ity of alciferol 15:37: mouth 2 [place] (CALCIUM 04 (two) Medical 600 + D,3,) times Branch 600 mg-5 daily. mcg (200 unit) Tab Calcium 2022-0 Yes 1{tbl} Take 1 Univer s Carb-Cholec 1-04 tablet by ity of alciferol 15:37: mouth 2 [place] (CALCIUM 04 (two) Medical 600 + D,3,) times Branch 600 mg-5 daily. mcg (200 unit) Tab Calcium 2022-0 Yes 1{tbl} Take 1 Univer s Carb-Cholec 1-04 tablet by ity of alciferol 15:37: mouth 2 [place] (CALCIUM 04 (two) Medical 600 + D,3,) times Branch 600 mg-5 daily. mcg (200 unit) Tab Calcium 0 Yes 1{tbl} Take 1 Univer s Carb-Cholec 1-04 tablet by ity of alciferol 15:37: mouth 2 [place] (CALCIUM 04 (two) Medical 600 + D,3,) times Branch 600 mg-5 daily. mcg (200 unit) Tab metFORMIN 2022-2022- No 1{tbl} Take 1 Uni vers 1,000 mg 08-03 tablet by ity o f tablet 15:34: 00:00 mouth in [place] 38 :00 the Medical morning Branch and 1 tablet in the evening. metFORMIN 2022-2022- No 1{tbl} Take 1 Uni vers 1,000 mg 08-03 tablet by ity o f tablet 15:34: 00:00 mouth in [place] 38 :00 the Medical morning Branch and 1 tablet in the evening. metFORMIN 2022-2022- No 1{tbl} Take 1 Uni vers 1,000 mg 08-03 tablet by ity o f tablet 15:34: 00:00 mouth in [place] 38 :00 the Medical morning Branch and 1 tablet in the evening. aspirin 2022-0 202- No 81mg 81 mg. Univers (ASPIR-81) 08-03 ity of 81 mg EC 15:34: 00:00 [place] tablet 28 :00 Medical Branch aspirin 2023-0 2023- No 81mg 81 mg. Univers (ASPIR-81) 08-03 ity of 81 mg EC 15:34: 00:00 [place] tablet 28 :00 Medical Branch aspirin 2023-0 2023- No 81mg 81 mg. Univers (ASPIR-81) 08-03 ity of 81 mg EC 15:34: 00:00 [place] tablet 28 :00 Medical Branch escitalopra 2023-0 2023- No 10mg 10 mg. Uni vers m oxalate 08-03 ity of 10 mg 15:33: 00:00 [place] tablet 35 :00 Medical Branch escitalopra 2023-0 2023- No 10mg 10 mg. Uni vers m oxalate 08-03 ity of 10 mg 15:33: 00:00 [place] tablet 35 :00 Medical Branch escitalopra 2023-0 2023- No 10mg 10 mg. Uni vers m oxalate 08-03 ity of 10 mg 15:33: 00:00 [place] tablet 35 :00 Medical Branch hydroCHLORO 2023-0 2023- No 25mg 25 mg. Uni vers thiazide 25 08-03 ity of mg tablet 15:33: 00:00 [place] 26 :00 Medical Branch hydroCHLORO 2023-0 2023- No 25mg 25 mg. Uni vers thiazide 25 08-03 ity of mg tablet 15:33: 00:00 [place] 26 :00 Medical Branch hydroCHLORO 2023-0 2023- No 25mg 25 mg. Uni vers thiazide 25 08-03 ity of mg tablet 15:33: 00:00 [place] 26 :00 Medical Branch glipiZIDE 3-0 Yes [id number] 10mg Take 1 U nivers 10 mg 1-04 tablet by ity of tablet 00:00: mouth 2 (two) Medical times Branch daily before breakfast and dinner. glipiZIDE 3-0 Yes [id number] 10mg Take 1 U nivers 10 mg 1-04 tablet by ity of tablet 00:00: mouth 2 (two) Medical times Branch daily before breakfast and dinner. glipiZIDE 3-0 Yes [id number] 10mg Take 1 U nivers 10 mg 1-04 tablet by ity of tablet 00:00: mouth 2 (two) Medical times Branch daily before breakfast and dinner. glipiZIDE 3-0 Yes [id number] 10mg Take 1 U nivers 10 mg 1-04 tablet by ity of tablet 00:00: mouth 2 (two) Medical times Branch daily before breakfast and dinner. glipiZIDE 2023-0 Yes [id number] 10mg Take 1 U nivers 10 mg 1-04 tablet by ity of tablet 00:00: mouth (two) Medical times Branch daily before breakfast and dinner. glipiZIDE 2023-0 Yes [id number] 10mg Take 1 U nivers 10 mg 1-04 tablet by ity of tablet 00:00: mouth (two) Medical times Branch daily before breakfast and dinner. glipiZIDE 2023-0 Yes [id number] 10mg Take 1 U nivers 10 mg 1-04 tablet by ity of tablet 00:00: mouth (two) Medical times Branch daily before breakfast and dinner. glipiZIDE 2023-0 Yes [id number] 10mg Take 1 U nivers 10 mg 1-04 tablet by ity of tablet 00:00: mouth (two) Medical times Branch daily before breakfast and dinner. glipiZIDE 3-0 Yes [id number] 10mg Take 1 U nivers 10 mg 1-04 tablet by ity of tablet 00:00: mouth (two) Medical times Branch daily before breakfast and dinner. glipiZIDE 2023-0 Yes [id number] 10mg Take 1 U nivers 10 mg 1-04 tablet by ity of tablet 00:00: mouth (two) Medical times Branch daily before breakfast and dinner. glipiZIDE 2023-0 Yes [id number] 10mg Take 1 U nivers 10 mg 1-04 tablet by ity of tablet 00:00: mouth (two) Medical times Branch daily before breakfast and dinner. glipiZIDE 2023-0 Yes [id number] 10mg Take 1 U nivers 10 mg 1-04 tablet by ity of tablet 00:00: mouth (two) Medical times Branch daily before breakfast and dinner. glipiZIDE 2023-0 Yes [id number] 10mg Take 1 U nivers 10 mg 1-04 tablet by ity of tablet 00:00: mouth (two) Medical times Branch daily before breakfast and dinner. glipiZIDE 2023-0 Yes [id number] 10mg Take 1 U nivers 10 mg 1-04 tablet by ity of tablet 00:00: mouth (two) Medical times Branch daily before breakfast and dinner. glipiZIDE 3-0 Yes [id number] 10mg Take 1 U nivers 10 mg 1-04 tablet by ity of tablet 00:00: mouth (two) Medical times Branch daily before breakfast and dinner. glipiZIDE 2023-0 Yes [id number] 10mg Take 1 U nivers 10 mg 1-04 tablet by ity of tablet 00:00: mouth (two) Medical times Branch daily before breakfast and dinner. glipiZIDE 3-0 Yes [id number] 10mg Take 1 U nivers 10 mg 1-04 tablet by ity of tablet 00:00: mouth (two) Medical times Branch daily before breakfast and dinner. glipiZIDE 3-0 Yes [id number] 10mg Take 1 U nivers 10 mg 1-04 tablet by ity of tablet 00:00: mouth (two) Medical times Branch daily before breakfast and dinner. glipiZIDE 3-0 Yes [id number] 10mg Take 1 U nivers 10 mg 1-04 tablet by ity of tablet 00:00: mouth (two) Medical times Branch daily before breakfast and dinner. glipiZIDE 3-0 Yes [id number] 10mg Take 1 U nivers 10 mg 1-04 tablet by ity of tablet 00:00: mouth (two) Medical times Branch daily before breakfast and dinner. glipiZIDE 3-0 Yes [id number] 10mg Take 1 U nivers 10 mg 1-04 tablet by ity of tablet 00:00: mouth (two) Medical times Branch daily before breakfast and dinner. glipiZIDE 2023-0 Yes [id number] 10mg Take 1 U nivers 10 mg 1-04 tablet by ity of tablet 00:00: mouth (two) Medical times Branch daily before breakfast and dinner. glipiZIDE 2023-0 Yes [id number] 10mg Take 1 U nivers 10 mg 1-04 tablet by ity of tablet 00:00: mouth (two) Medical times Branch daily before breakfast and dinner. glipiZIDE 2023-0 Yes [id number] 10mg Take 1 U nivers 10 mg 1-04 tablet by ity of tablet 00:00: mouth 2 [place] 00 (two) Medical times Branch daily before breakfast and dinner. glipiZIDE 2022-0 Yes [id number] 10mg Take 1 U nivers 10 mg 1-04 tablet by ity of tablet 00:00: mouth 2 [place] 00 (two) Medical times Branch daily before breakfast and dinner. glipiZIDE 2022-0 Yes [id number] 10mg Take 1 U nivers 10 mg 1-04 tablet by ity of tablet 00:00: mouth 2 [place] 00 (two) Medical times Branch daily before breakfast and dinner. enalapril 5 2022-0 Yes [id number] 5mg Take 1 Univers mg tablet 1-02 tablet by ity o f 00:00: mouth in [place] 00 the Medical morning. Branch enalapril 5 2022-0 Yes [id number] 5mg Take 1 Univers mg tablet 1-02 tablet by ity o f 00:00: mouth in [place] 00 the Medical morning. Branch enalapril 5 2022-0 Yes [id number] 5mg Take 1 Univers mg tablet 1-02 tablet by ity o f 00:00: mouth in [place] the Medical morning. Branch enalapril 5 2022-0 Yes [id number] 5mg Take 1 Univers mg tablet 1-02 tablet by ity o f 00:00: mouth in [place] 00 the Medical morning. Branch enalapril 5 2022-0 Yes [id number] 5mg Take 1 Univers mg tablet 1-02 tablet by ity o f 00:00: mouth in [place] 00 the Medical morning. Branch enalapril 5 2022-0 Yes [id number] 5mg Take 1 Univers mg tablet 1-02 tablet by ity o f 00:00: mouth in [place] 00 the Medical morning. Branch enalapril 5 2022-0 Yes [id number] 5mg Take 1 Univers mg tablet 1-02 tablet by ity o f 00:00: mouth in [place] 00 the Medical morning. Branch enalapril 5 2022-0 Yes [id number] 5mg Take 1 Univers mg tablet 1-02 tablet by ity o f 00:00: mouth in [place] 00 the Medical morning. Branch enalapril 5 2022-0 Yes [id number] 5mg Take 1 Univers mg tablet 1-02 tablet by ity o f 00:00: mouth in [place] 00 the Medical morning. Branch enalapril 5 2022-0 2022- No [id number] 5mg Take 1 Univers mg tablet 08-01- tablet by ity of 00:00: 00:00 mouth in [place] 00 :00 the Medical morning. Branch enalapril 5 2022-0 2022- No [id number] 5mg Take 1 Univers mg tablet 08-01 tablet by ity of 00:00: 00:00 mouth in [place] 00 :00 the Medical morning. Branch enalapril 5 2022-0 2022- No [id number] 5mg Take 1 Univers mg tablet 08-01 tablet by ity of 00:00: 00:00 mouth in [place] 00 :00 the Medical morning. Branch enalapril 5 2022-0 2022- No [id number] 5mg Take 1 Univers mg tablet 08-01 tablet by ity of 00:00: 00:00 mouth in [place] 00 :00 the Medical morning. Branch enalapril 2021-07- No 2.5mg Take 2.5 Un timothy 2.5 mg 2-12 12-12 mg by ity of tablet 14:21: 00:00 mouth. [place] 25 :00 Medical Branch enalapril 2021-07- No 2.5mg Take 2.5 Un timothy 2.5 mg 2-12 12-12 mg by ity of tablet 14:21: 00:00 mouth. [place] 25 :00 Medical Branch enalapril 2021-07- No 2.5mg Take 2.5 Un timothy 2.5 mg 2-12 12-12 mg by ity of tablet 14:21: 00:00 mouth. [place] 25 :00 Medical Branch enalapril 2021-07- No 2.5mg Take 2.5 Un timothy 2.5 mg 2-12 12-12 mg by ity of tablet 14:21: 00:00 mouth. [place] 25 :00 Medical Branch enalapril 2021-07 Yes [id number] 2.5mg Take 1 U nivers 2.5 mg 2-12 tablet by ity of tablet 00:00: mouth in [place] 00 the Medical morning. Branch enalapril 2021-07 Yes [id number] 2.5mg Take 1 U nivers 2.5 mg 2-12 tablet by ity of tablet 00:00: mouth in [place] the Medical morning. Branch enalapril 2021-07 Yes [id number] 2.5mg Take 1 U nivers 2.5 mg 2-12 tablet by ity of tablet 00:00: mouth in [place] the Medical morning. Branch enalapril 2021-07 Yes [id number] 2.5mg Take 1 U nivers 2.5 mg 2-12 tablet by ity of tablet 00:00: mouth in [place] the Medical morning. Branch enalapril 2021-07 Yes [id number] 2.5mg Take 1 U nivers 2.5 mg 2-12 tablet by ity of tablet 00:00: mouth in [place] the Medical morning. Branch enalapril 2021-07 Yes [id number] 2.5mg Take 1 U nivers 2.5 mg 2-12 tablet by ity of tablet 00:00: mouth in [place] the Medical morning. Branch enalapril 2021-07 Yes [id number] 2.5mg Take 1 U nivers 2.5 mg 2-12 tablet by ity of tablet 00:00: mouth in [place] the Medical morning. Branch enalapril 2021-07 Yes [id number] 2.5mg Take 1 U nivers 2.5 mg 2-12 tablet by ity of tablet 00:00: mouth in [place] the Medical morning. Branch enalapril 2021-07 Yes [id number] 2.5mg Take 1 U nivers 2.5 mg 2-12 tablet by ity of tablet 00:00: mouth in [place] the Medical morning. Branch enalapril 2021-07 Yes [id number] 2.5mg Take 1 U nivers 2.5 mg 2-12 tablet by ity of tablet 00:00: mouth in [place] the Medical morning. Branch enalapril 2021-07 Yes [id number] 2.5mg Take 1 U nivers 2.5 mg 2-12 tablet by ity of tablet 00:00: mouth in [place] 00 the Medical morning. Branch enalapril 2021-07- No [id number] 2.5mg Take 1 [facility] 2.5 mg 2-12 08-01 tablet by ity of tablet 00:00: 00:00 mouth in [place] 00 :00 the Medical morning. Branch enalapril 2021-07- No [id number] 2.5mg Take 1 [facility] 2.5 mg 2-12 08-01 tablet by ity of tablet 00:00: 00:00 mouth in [place] 00 :00 the Medical morning. Branch glipiZIDE 2021-07 Yes 10mg Take 10 mg Un timothy 10 mg 2-10 by mouth. ity of tablet 12:29: [place] [address] Medical Branch aspirin 81 2021-07 Yes 81mg Take 81 mg U nivers mg chewable 2-10 by mouth ity of tablet 12:29: in the [place] morning. Medical Branch glipiZIDE 2021- Yes 10mg Take 10 mg Un timothy 10 mg 2-10 by mouth. ity of tablet 12:29: [place] [address] [facility] Branch aspirin 81 2021- Yes 81mg Take 81 mg U nivers mg chewable 2-10 by mouth ity of tablet 12:29: in the [place] morning. Medical Branch glipiZIDE 2021- Yes 10mg Take 10 mg Un timothy 10 mg 2-10 by mouth. ity of tablet 12:29: [place] [address] [facility] Branch aspirin 81 2021-07 Yes 81mg Take 81 mg U nivers mg chewable 2-10 by mouth ity of tablet 12:29: in the [place] morning. Medical Branch glipiZIDE 2021- Yes 10mg Take 10 mg Un timothy 10 mg 2-10 by mouth. ity of tablet 12:29: [place] [address] [facility] Branch aspirin 81 2021- Yes 81mg Take 81 mg U nivers mg chewable 2-10 by mouth ity of tablet 12:29: in the [place] morning. Medical Branch glipiZIDE 2021- Yes 10mg Take 10 mg Un timothy 10 mg 2-10 by mouth. ity of tablet 12:29: [place] [address] [facility] Branch aspirin 81 2021- Yes 81mg Take 81 mg U nivers mg chewable 2-10 by mouth ity of tablet 12:29: in the [place] morning. Medical Branch glipiZIDE 2021- Yes 10mg Take 10 mg Un timothy 10 mg 2-10 by mouth. ity of tablet 12:29: [place] [address] [facility] Branch aspirin 81 2021-07 Yes 81mg Take 81 mg U nivers mg chewable 2-10 by mouth ity of tablet 12:29: in the morning. Medical Branch glipiZIDE 2021- Yes 10mg Take 10 mg Un timothy 10 mg 2-10 by mouth. ity of tablet 12:29: [place] [address] [facility] Branch aspirin 81 2021-07 Yes 81mg Take 81 mg U nivers mg chewable 2-10 by mouth ity of tablet 12:29: in the morning. Medical Branch glipiZIDE 2021- Yes 10mg Take 10 mg Un timothy 10 mg 2-10 by mouth. ity of tablet 12:29: [place] [address] [facility] Branch aspirin 81 2021-07 Yes 81mg Take 81 mg U nivers mg chewable 2-10 by mouth ity of tablet 12:29: in the morning. Medical Branch glipiZIDE 2021- Yes 10mg Take 10 mg Un timothy 10 mg 2-10 by mouth. ity of tablet 12:29: [place] [address] [facility] Branch aspirin 81 2021-07 Yes 81mg Take 81 mg U nivers mg chewable 2-10 by mouth ity of tablet 12:29: in the morning. Medical Branch glipiZIDE 2021- Yes 10mg Take 10 mg Un timothy 10 mg 2-10 by mouth. ity of tablet 12:29: [place] [address] [facility] Branch aspirin 81 2021-07 Yes 81mg Take 81 mg U nivers mg chewable 2-10 by mouth ity of tablet 12:29: in the morning. Medical Branch enalapril 2021- Yes 2.5mg Take 2.5 Uni vers 2.5 mg 2-10 mg by ity of tablet 12:29: mouth. [place] [address] [facility] Branch glipiZIDE 2021-07 Yes 10mg Take 10 mg Un timothy 10 mg 2-10 by mouth. ity of tablet 12:29: [place] [address] [facility] Branch aspirin 81 2021-07 Yes 81mg Take 81 mg U nivers mg chewable 2-10 by mouth ity of tablet 12:29: in the morning. Medical Branch glipiZIDE 2021- Yes 10mg Take 10 mg Un timothy 10 mg 2-10 by mouth. ity of tablet 12:29: [place] [address] [facility] Branch aspirin 81 2021- Yes 81mg Take 81 mg U nivers mg chewable 2-10 by mouth ity of tablet 12:29: in the morning. Medical Branch aspirin 81 2021- Yes 81mg Take 81 mg U nivers mg chewable 2-10 by mouth ity of tablet 12:29: in the morning. Medical Branch aspirin 81 2021- Yes 81mg Take 81 mg U nivers mg chewable 2-10 by mouth ity of tablet 12:29: in the morning. Medical Branch aspirin 81 2021- Yes 81mg Take 81 mg U nivers mg chewable 2-10 by mouth ity of tablet 12:29: in the morning. Medical Branch aspirin 81 2021- Yes 81mg Take 81 mg U nivers mg chewable 2-10 by mouth ity of tablet 12:29: in the morning. Medical Branch aspirin 81 2021- Yes 81mg Take 81 mg U nivers mg chewable 2-10 by mouth ity of tablet 12:29: in the morning. Medical Branch aspirin 81 2021- Yes 81mg Take 81 mg U nivers mg chewable 2-10 by mouth ity of tablet 12:29: in the morning. Medical Branch aspirin 81 2021- Yes 81mg Take 81 mg U nivers mg chewable 2-10 by mouth ity of tablet 12:29: in the morning. Medical Branch aspirin 81 2021- Yes 81mg Take 81 mg U nivers mg chewable 2-10 by mouth ity of tablet 12:29: in the morning. Medical Branch aspirin 81 2021- Yes 81mg Take 81 mg U nivers mg chewable 2-10 by mouth ity of tablet 12:29: in the morning. Medical Branch aspirin 81 2021- Yes 81mg Take 81 mg U nivers mg chewable 2-10 by mouth ity of tablet 12:29: in the morning. Medical Branch aspirin 81 2021- Yes 81mg Take 81 mg U nivers mg chewable 2-10 by mouth ity of tablet 12:29: in the morning. Medical Branch aspirin 81 2021- Yes 81mg Take 81 mg U nivers mg chewable 2-10 by mouth ity of tablet 12:29: in the morning. Medical Branch aspirin 81 2021- Yes 81mg Take 81 mg U nivers mg chewable 2-10 by mouth ity of tablet 12:29: in the morning. Medical Branch aspirin 81 2021- Yes 81mg Take 81 mg U nivers mg chewable 2-10 by mouth ity of tablet 12:29: in the morning. Medical Branch aspirin 81 2021- Yes 81mg Take 81 mg U nivers mg chewable 2-10 by mouth ity of tablet 12:29: in the morning. Medical Branch glipiZIDE 2021- Yes 10mg Take 10 mg Un timothy 10 mg 2-10 by mouth. ity of tablet 12:29: Medical Branch aspirin 81 2021- Yes 81mg Take 81 mg U nivers mg chewable 2-10 by mouth ity of tablet 12:29: in the morning. Medical Branch aspirin 81 2021- Yes 81mg Take 81 mg U nivers mg chewable 2-10 by mouth ity of tablet 12:29: in the morning. Medical Branch aspirin 81 2021- Yes 81mg Take 81 mg U nivers mg chewable 2-10 by mouth ity of tablet 12:29: in the morning. Medical Branch aspirin 81 2021- Yes 81mg Take 81 mg U nivers mg chewable 2-10 by mouth ity of tablet 12:29: in the morning. Medical Branch aspirin 81 2021- Yes 81mg Take 81 mg U nivers mg chewable 2-10 by mouth ity of tablet 12:29: in the morning. Medical Branch aspirin 81 2021- Yes 81mg Take 81 mg U nivers mg chewable 2-10 by mouth ity of tablet 12:29: in the morning. Medical Branch aspirin 81 2021-1 Yes 81mg Take 81 mg U nivers mg chewable 2-10 by mouth ity of tablet 12:29: in the morning. Medical Branch aspirin 81 2021- Yes 81mg Take 81 mg U nivers mg chewable 2-10 by mouth ity of tablet 12:29: in the morning. Medical Branch aspirin 81 2021- Yes 81mg Take 81 mg U nivers mg chewable 2-10 by mouth ity of tablet 12:29: in the morning. Medical Branch glipiZIDE 2021-07 Yes 10mg Take 10 mg Un timothy 10 mg 2-10 by mouth. ity of tablet 12:29: Medical Branch aspirin 81 2021-07 Yes 81mg Take 81 mg U nivers mg chewable 2-10 by mouth ity of tablet 12:29: in the morning. Medical Branch aspirin 81 2021-07 Yes 81mg Take 81 mg U nivers mg chewable 2-10 by mouth ity of tablet 12:29: in the morning. Medical Branch aspirin 81 2021-07 Yes 81mg Take 81 mg U nivers mg chewable 2-10 by mouth ity of tablet 12:29: in the morning. Medical Branch aspirin 81 2021-07 Yes 81mg Take 81 mg U nivers mg chewable 2-10 by mouth ity of tablet 12:29: in the [place] morning. Medical Branch aspirin 81 2021-07 Yes 81mg Take 81 mg U nivers mg chewable 2-10 by mouth ity of tablet 12:29: in the [place] morning. Medical Branch cephALEXin 2021-07- Yes [id number] 500mg Take 1 [facility] (KEFLEX) 2-10 12-18 capsule by ity of 500 mg 00:00: 05:59 mouth in [place] capsule 00 :[facility] and 1 capsule at noon and 1 capsule in the evening. Do all this for 7 days. cephALEXin 2021-07- Yes [id number] 500mg Take 1 [facility] (KEFLEX) 2-10 12-18 capsule by ity of 500 mg 00:00: 05:59 mouth in [place] capsule 00 :00 [facility] and 1 capsule at noon and 1 capsule in the evening. Do all this for 7 days. cephALEXin 2021-07- Yes [id number] 500mg Take 1 [facility] (KEFLEX) 2-10 12-18 capsule by ity of 500 mg 00:00: 05:59 mouth in [place] capsule 00 :00 the [facility] morning Branch and 1 capsule at noon and 1 capsule in the evening. Do all this for 7 days. cephALEXin 2021-07- Yes [id number] 500mg Take 1 [facility] (KEFLEX) 2-10 12-18 capsule by ity of 500 mg 00:00: 05:59 mouth in [place] capsule 00 :00 the Medical morning Branch and 1 capsule at noon and 1 capsule in the evening. Do all this for 7 days. cephALEXin 2021-07- Yes [id number] 500mg Take 1 [facility] (KEFLEX) 2-10 12-18 capsule by ity of 500 mg 00:00: 05:59 mouth in [place] capsule 00 :00 the Medical morning Branch and 1 capsule at noon and 1 capsule in the evening. Do all this for 7 days. cephALEXin 2021-07- No [id number] 500mg Take 1 [facility] (KEFLEX) 2-10 12-18 capsule by ity of 500 mg 00:00: 05:59 mouth in [place] capsule 00 :00 the Medical morning Branch and 1 capsule at noon and 1 capsule in the evening. Do all this for 7 days. cephALEXin 2021-07- Yes [id number] 500mg Take 1 [facility] (KEFLEX) 2-10 12-18 capsule by ity of 500 mg 00:00: 05:59 mouth in [place] capsule 00 :00 the Medical morning Branch and 1 capsule at noon and 1 capsule in the evening. Do all this for 7 days. cephALEXin 2021-07- Yes [id number] 500mg Take 1 [facility] (KEFLEX) 2-10 12-18 capsule by ity of 500 mg 00:00: 05:59 mouth in [place] capsule 00 :00 the Medical morning Branch and 1 capsule at noon and 1 capsule in the evening. Do all this for 7 days. cephALEXin 2021-07- Yes [id number] 500mg Take 1 [facility] (KEFLEX) 2-10 12-18 capsule by ity of 500 mg 00:00: 05:59 mouth in [place] capsule 00 :00 the Medical morning Branch and 1 capsule at noon and 1 capsule in the evening. Do all this for 7 days. donepeziL 2021-07 Yes [facility] 10 mg 2-08 ity of tablet 00:00: [facility] donepeziL 2021-07 Yes [facility] 10 mg 2-08 ity of tablet 00:00: [facility] donepeziL 2021-07 Yes [facility] 10 mg 2-08 ity of tablet 00:00: [facility] donepeziL 2021-07 Yes [facility] 10 mg 2-08 ity of tablet 00:00: Medical Branch donepeziL 2021-07 Yes [facility] 10 mg 2-08 ity of tablet 00:00: [place] [facility] donepeziL 2021-07 Yes [facility] 10 mg 2-08 ity of tablet 00:00: [place] [facility] donepeziL 2021-07 Yes [facility] 10 mg 2-08 ity of tablet 00:00: [place] [address] Medical Branch donepeziL 2021-07 Yes [facility] 10 mg 2-08 ity of tablet 00:00: [place] [facility] donepeziL 2021-07 Yes [facility] 10 mg 2-08 ity of tablet 00:00: [place] [address] Medical Branch donepeziL 2021-07 Yes [facility] 10 mg 2-08 ity of tablet 00:00: [place] [address] [facility] Branch donepeziL 2021-07 Yes [facility] 10 mg 2-08 ity of tablet 00:00: [place] [address] Medical Branch donepeziL 2021-07 Yes [facility] 10 mg 2-08 ity of tablet 00:00: [place] [address] Medical Branch donepeziL 2021-07 Yes [facility] 10 mg 2-08 ity of tablet 00:00: [place] [address] Medical Branch donepeziL 2021-07 Yes [facility] 10 mg 2-08 ity of tablet 00:00: [place] [address] Medical Branch donepeziL 2021-07 Yes [facility] 10 mg 2-08 ity of tablet 00:00: [place] [address] Medical Branch donepeziL 2021-07 Yes [facility] 10 mg 2-08 ity of tablet 00:00: [place] [address] [facility] Branch donepeziL 2021-07 Yes [facility] 10 mg 2-08 ity of tablet 00:00: [place] [facility] donepeziL 2021-07 Yes [facility] 10 mg 2-08 ity of tablet 00:00: [place] [address] Medical Branch donepeziL 2021-07 Yes [facility] 10 mg 2-08 ity of tablet 00:00: [place] [address] Medical Branch donepeziL 2021-07 Yes [facility] 10 mg 2-08 ity of tablet 00:00: [place] [address] Medical Branch donepeziL 2021-07 Yes [facility] 10 mg 2-08 ity of tablet 00:00: [place] [address] [facility] Branch donepeziL 2021-07 Yes [facility] 10 mg 2-08 ity of tablet 00:00: [place] [address] [facility] Branch donepeziL 2021-07 Yes [facility] 10 mg 2-08 ity of tablet 00:00: [place] [facility] donepeziL 2021- Yes [facility] 10 mg 2-08 ity of tablet 00:00: [place] [facility] donepeziL 2021- Yes [facility] 10 mg 2-08 ity of tablet 00:00: [place] [facility] donepeziL 2021-07 Yes [facility] 10 mg 2-08 ity of tablet 00:00: [place] [facility] donepeziL 2021- Yes [facility] 10 mg 2-08 ity of tablet 00:00: [place] [facility] donepeziL 2021- Yes [facility] 10 mg 2-08 ity of tablet 00:00: [place] [address] Medical Branch donepeziL 2021- Yes [facility] 10 mg 2-08 ity of tablet 00:00: [place] [address] Medical Branch donepeziL 2021-07 Yes [facility] 10 mg 2-08 ity of tablet 00:00: [place] [address] Medical Branch donepeziL 2021- Yes [facility] 10 mg 2-08 ity of tablet 00:00: [place] [facility] donepeziL 2021-07 Yes [facility] 10 mg 2-08 ity of tablet 00:00: [place] [address] Medical Branch donepeziL 2021-07 Yes [facility] 10 mg 2-08 ity of tablet 00:00: [place] [facility] donepeziL 2021- Yes [facility] 10 mg 2-08 ity of tablet 00:00: [place] [address] Medical Branch donepeziL 2021-07 Yes [facility] 10 mg 2-08 ity of tablet 00:00: [place] [address] Medical Branch donepeziL 2021- Yes [facility] 10 mg 2-08 ity of tablet 00:00: [place] [facility] donepeziL 2021- Yes [facility] 10 mg 2-08 ity of tablet 00:00: [place] [address] Medical Branch donepeziL 2021- Yes [facility] 10 mg 2-08 ity of tablet 00:00: [place] [address] Medical Branch donepeziL 2021- Yes [facility] 10 mg 2-08 ity of tablet 00:00: [place] [address] Medical Branch donepeziL 2021- Yes [facility] 10 mg 2-08 ity of tablet 00:00: [place] [address] Medical Branch donepeziL 2021- Yes [facility] 10 mg 2-08 ity of tablet 00:00: [place] [address] Medical Branch escitalopra 2022- Yes 10mg Take 10 mg [facility] m oxalate 2-04 by mouth ity of 10 mg 00:00: in the [place] tablet 00 morning. Medical Branch escitalopra 2021- Yes 10mg Take 10 mg [facility] m oxalate 2-04 by mouth ity of 10 mg 00:00: in the [place] tablet 00 morning. Medical Branch escitalopra 2021- Yes 10mg Take 10 mg [facility] m oxalate 2-04 by mouth ity of 10 mg 00:00: in the [place] tablet 00 morning. Medical Branch escitalopra 2021- Yes 10mg Take 10 mg [facility] m oxalate 2-04 by mouth ity of 10 mg 00:00: in the [place] tablet 00 morning. Medical Branch escitalopra 2021- Yes 10mg Take 10 mg [facility] m oxalate 2-04 by mouth ity of 10 mg 00:00: in the [place] tablet 00 morning. Medical Branch escitalopra 2021- Yes 10mg Take 10 mg [facility] m oxalate 2-04 by mouth ity of 10 mg 00:00: in the [place] tablet 00 morning. Medical Branch escitalopra 2021- Yes 10mg Take 10 mg [facility] m oxalate 2-04 by mouth ity of 10 mg 00:00: in the [place] tablet 00 morning. Medical Branch escitalopra 2021- Yes 10mg Take 10 mg [facility] m oxalate 2-04 by mouth ity of 10 mg 00:00: in the [place] tablet 00 morning. Medical Branch escitalopra 2021- Yes 10mg Take 10 mg [facility] m oxalate 2-04 by mouth ity of 10 mg 00:00: in the [place] tablet 00 morning. Medical Branch escitalopra 2021- Yes 10mg Take 10 mg [facility] m oxalate 2-04 by mouth ity of 10 mg 00:00: in the [place] tablet 00 morning. Medical Branch escitalopra 2021- Yes 10mg Take 10 mg [facility] m oxalate 2-04 by mouth ity of 10 mg 00:00: in the [place] tablet 00 morning. Medical Branch escitalopra 2021-1 Yes 10mg Take 10 mg [facility] m oxalate 2-04 by mouth ity of 10 mg 00:00: in the [place] tablet 00 morning. Medical Branch escitalopra 2021-1 Yes 10mg Take 10 mg [facility] m oxalate 2-04 by mouth ity of 10 mg 00:00: in the [place] tablet 00 morning. Medical Branch escitalopra 2021- Yes 10mg Take 10 mg [facility] m oxalate 2-04 by mouth ity of 10 mg 00:00: in the [place] tablet 00 morning. Medical Branch escitalopra 2021- Yes 10mg Take 10 mg [facility] m oxalate 2-04 by mouth ity of 10 mg 00:00: in the [place] tablet 00 morning. Medical Branch escitalopra 2021- Yes 10mg Take 10 mg [facility] m oxalate 2-04 by mouth ity of 10 mg 00:00: in the [place] tablet 00 morning. Medical Branch escitalopra 2021- Yes 10mg Take 10 mg [facility] m oxalate 2-04 by mouth ity of 10 mg 00:00: in the [place] tablet 00 morning. Medical Branch escitalopra 2021- Yes 10mg Take 10 mg [facility] m oxalate 2-04 by mouth ity of 10 mg 00:00: in the [place] tablet 00 morning. Medical Branch escitalopra 2021- Yes 10mg Take 10 mg [facility] m oxalate 2-04 by mouth ity of 10 mg 00:00: in the [place] tablet 00 morning. Medical Branch escitalopra 2021- Yes 10mg Take 10 mg [facility] m oxalate 2-04 by mouth ity of 10 mg 00:00: in the [place] tablet 00 morning. Medical Branch escitalopra 2021- Yes 10mg Take 10 mg [facility] m oxalate 2-04 by mouth ity of 10 mg 00:00: in the [place] tablet 00 morning. Medical Branch escitalopra 2021- Yes 10mg Take 10 mg [facility] m oxalate 2-04 by mouth ity of 10 mg 00:00: in the [place] tablet 00 morning. Medical Branch escitalopra 2021- Yes 10mg Take 10 mg [facility] m oxalate 2-04 by mouth ity of 10 mg 00:00: in the [place] tablet 00 morning. Medical Branch escitalopra 2021- Yes 10mg Take 10 mg [facility] m oxalate 2-04 by mouth ity of 10 mg 00:00: in the [place] tablet 00 morning. Medical Branch escitalopra 2021-1 Yes 10mg Take 10 mg [facility] m oxalate 2-04 by mouth ity of 10 mg 00:00: in the [place] tablet 00 morning. Medical Branch escitalopra 2021- Yes 10mg Take 10 mg [facility] m oxalate 2-04 by mouth ity of 10 mg 00:00: in the [place] tablet 00 morning. Medical Branch escitalopra 2021-07 Yes 10mg Take 10 mg [facility] m oxalate 2-04 by mouth ity of 10 mg 00:00: in the [place] tablet 00 morning. Medical Branch escitalopra 2021-07 Yes 10mg Take 10 mg [facility] m oxalate 2-04 by mouth ity of 10 mg 00:00: in the [place] tablet 00 morning. Medical Branch escitalopra 2021-07 Yes 10mg Take 10 mg [facility] m oxalate 2-04 by mouth ity of 10 mg 00:00: in the [place] tablet 00 morning. Medical Branch escitalopra 2021-07 Yes 10mg Take 10 mg [facility] m oxalate 2-04 by mouth ity of 10 mg 00:00: in the [place] tablet 00 morning. Medical Branch escitalopra 2021-07 Yes 10mg Take 10 mg [facility] m oxalate 2-04 by mouth ity of 10 mg 00:00: in the [place] tablet 00 morning. Medical Branch escitalopra 2021-07 Yes 10mg Take 10 mg [facility] m oxalate 2-04 by mouth ity of 10 mg 00:00: in the [place] tablet 00 morning. Medical Branch escitalopra 2021-07 Yes 10mg Take 10 mg [facility] m oxalate 2-04 by mouth ity of 10 mg 00:00: in the [place] tablet 00 morning. Medical Branch escitalopra 2021-07 Yes 10mg Take 10 mg [facility] m oxalate 2-04 by mouth ity of 10 mg 00:00: in the [place] tablet 00 morning. Medical Branch escitalopra 2021- Yes 10mg Take 10 mg [facility] m oxalate 2-04 by mouth ity of 10 mg 00:00: in the [place] tablet 00 morning. Medical Branch escitalopra 2021- Yes 10mg Take 10 mg [facility] m oxalate 2-04 by mouth ity of 10 mg 00:00: in the [place] tablet 00 morning. [facility] Branch escitalopra 2021-07 Yes 10mg Take 10 mg [facility] m oxalate 2-04 by mouth ity of 10 mg 00:00: in the [place] tablet 00 morning. Medical Branch escitalopra 2021-1 Yes 10mg Take 10 mg [facility] m oxalate 2-04 by mouth ity of 10 mg 00:00: in the [place] tablet 00 morning. Medical Branch escitalopra 2021- Yes 10mg Take 10 mg [facility] m oxalate 2-04 by mouth ity of 10 mg 00:00: in the [place] tablet 00 morning. Medical Branch escitalopra 2021- Yes 10mg Take 10 mg [facility] m oxalate 2-04 by mouth ity of 10 mg 00:00: in the [place] tablet 00 morning. Medical Branch escitalopra 2021- Yes 10mg Take 10 mg [facility] m oxalate 2-04 by mouth ity of 10 mg 00:00: in the [place] tablet 00 morning. Medical Branch metFORMIN 2021-1 Yes 1000mg Take 1,000 [facility] 1,000 mg 0-27 mg by ity of tablet 00:00: mouth in [place] 00 the Medical morning Branch and 1,000 mg in the evening. metFORMIN 2021-1 Yes 1000mg Take 1,000 [facility] 1,000 mg 0-27 mg by ity of tablet 00:00: mouth in [place] [address] the Medical morning Branch and 1,000 mg in the evening. metFORMIN 2022-1 Yes 1000mg Take 1,000 [facility] 1,000 mg 0-27 mg by ity of tablet 00:00: mouth in [place] [address] the Medical morning Branch and 1,000 mg in the evening. metFORMIN 2022-1 Yes 1000mg Take 1,000 [facility] 1,000 mg 0-27 mg by ity of tablet 00:00: mouth in [place] [address] the Medical morning Branch and 1,000 mg in the evening. metFORMIN 2022-1 Yes 1000mg Take 1,000 [facility] 1,000 mg 0-27 mg by ity of tablet 00:00: mouth in [place] [address] the Medical morning Branch and 1,000 mg in the evening. metFORMIN 2022-1 Yes 1000mg Take 1,000 [facility] 1,000 mg 0-27 mg by ity of tablet 00:00: mouth in [place] [address] the Medical morning Branch and 1,000 mg in the evening. metFORMIN 2022-1 Yes 1000mg Take 1,000 [facility] 1,000 mg 0-27 mg by ity of tablet 00:00: mouth in [place] [address] the Medical morning Branch and 1,000 mg in the evening. metFORMIN 2022-1 Yes 1000mg Take 1,000 [facility] 1,000 mg 0-27 mg by ity of tablet 00:00: mouth in [address] morning [place] and 1,000 mg in the evening. metFORMIN 2022-1 Yes 1000mg Take 1,000 [facility] 1,000 mg 0-27 mg by ity of tablet 00:00: mouth in [address] morning [place] and 1,000 mg in the evening. metFORMIN 2022-1 Yes 1000mg Take 1,000 [facility] 1,000 mg 0-27 mg by ity of tablet 00:00: mouth in [address] morning [place] and 1,000 mg in the evening. metFORMIN 2022-1 Yes 1000mg Take 1,000 [facility] 1,000 mg 0-27 mg by ity of tablet 00:00: mouth in [address] morning [place] and 1,000 mg in the evening. metFORMIN 2022-1 Yes 1000mg Take 1,000 [facility] 1,000 mg 0-27 mg by ity of tablet 00:00: mouth in [address] and 1,000 mg in the evening. metFORMIN 2022-1 Yes 1000mg Take 1,000 [facility] 1,000 mg 0-27 mg by ity of tablet 00:00: mouth in [address] morning [place] and 1,000 mg in the evening. metFORMIN 2022-1 Yes 1000mg Take 1,000 [facility] 1,000 mg 0-27 mg by ity of tablet 00:00: mouth in [address] morning [place] and 1,000 mg in the evening. metFORMIN 2022-1 Yes 1000mg Take 1,000 [facility] 1,000 mg 0-27 mg by ity of tablet 00:00: mouth in [address] and 1,000 mg in the evening. metFORMIN 2022-1 Yes 1000mg Take 1,000 [facility] 1,000 mg 0-27 mg by ity of tablet 00:00: mouth in [address] and 1,000 mg in the evening. metFORMIN 2022-1 Yes 1000mg Take 1,000 [facility] 1,000 mg 0-27 mg by ity of tablet 00:00: mouth in [address] and 1,000 mg in the evening. metFORMIN 2022-1 Yes 1000mg Take 1,000 [facility] 1,000 mg 0-27 mg by ity of tablet 00:00: mouth in [address] morning [place] and 1,000 mg in the evening. metFORMIN 2022-1 Yes 1000mg Take 1,000 [facility] 1,000 mg 0-27 mg by ity of tablet 00:00: mouth in [address] morning [place] and 1,000 mg in the evening. metFORMIN 2022-1 Yes 1000mg Take 1,000 [facility] 1,000 mg 0-27 mg by ity of tablet 00:00: mouth in [address] morning [place] and 1,000 mg in the evening. metFORMIN 2022-1 Yes 1000mg Take 1,000 [facility] 1,000 mg 0-27 mg by ity of tablet 00:00: mouth in [address] morning [place] and 1,000 mg in the evening. metFORMIN 2022-1 Yes 1000mg Take 1,000 [facility] 1,000 mg 0-27 mg by ity of tablet 00:00: mouth in [address] morning [place] and 1,000 mg in the evening. metFORMIN 2022-1 Yes 1000mg Take 1,000 [facility] 1,000 mg 0-27 mg by ity of tablet 00:00: mouth in [address] and 1,000 mg in the evening. metFORMIN 2022-1 Yes 1000mg Take 1,000 [facility] 1,000 mg 0-27 mg by ity of tablet 00:00: mouth in [address] and 1,000 mg in the evening. metFORMIN 2022-1 Yes 1000mg Take 1,000 [facility] 1,000 mg 0-27 mg by ity of tablet 00:00: mouth in [address] morning [place] and 1,000 mg in the evening. metFORMIN 2022-1 Yes 1000mg Take 1,000 [facility] 1,000 mg 0-27 mg by ity of tablet 00:00: mouth in [address] and 1,000 mg in the evening. metFORMIN 2022-1 Yes 1000mg Take 1,000 [facility] 1,000 mg 0-27 mg by ity of tablet 00:00: mouth in [address] morning [place] and 1,000 mg in the evening. metFORMIN 2022-1 Yes 1000mg Take 1,000 [facility] 1,000 mg 0-27 mg by ity of tablet 00:00: mouth in [address] and 1,000 mg in the evening. metFORMIN 2022-1 Yes 1000mg Take 1,000 [facility] 1,000 mg 0-27 mg by ity of tablet 00:00: mouth in [address] and 1,000 mg in the evening. metFORMIN 2022-1 Yes 1000mg Take 1,000 [facility] 1,000 mg 0-27 mg by ity of tablet 00:00: mouth in [place] [id number] the [facility] morning [place] and 1,000 mg in the evening. metFORMIN 2022-1 Yes 1000mg Take 1,000 [facility] 1,000 mg 0-27 mg by ity of tablet 00:00: mouth in [address] morning [place] and 1,000 mg in the evening. metFORMIN 2022-1 Yes 1000mg Take 1,000 [facility] 1,000 mg 0-27 mg by ity of tablet 00:00: mouth in [address] morning [place] and 1,000 mg in the evening. metFORMIN 2022-1 Yes 1000mg Take 1,000 [facility] 1,000 mg 0-27 mg by ity of tablet 00:00: mouth in [address] morning [place] and 1,000 mg in the evening. metFORMIN 2022-1 Yes 1000mg Take 1,000 [facility] 1,000 mg 0-27 mg by ity of tablet 00:00: mouth in [address] morning [place] and 1,000 mg in the evening. metFORMIN 2022-1 Yes 1000mg Take 1,000 [facility] 1,000 mg 0-27 mg by ity of tablet 00:00: mouth in [address] morning [place] and 1,000 mg in the evening. metFORMIN 2022-1 Yes 1000mg Take 1,000 [facility] 1,000 mg 0-27 mg by ity of tablet 00:00: mouth in [address] and 1,000 mg in the evening. metFORMIN 2022-1 Yes 1000mg Take 1,000 [facility] 1,000 mg 0-27 mg by ity of tablet 00:00: mouth in [address] morning [place] and 1,000 mg in the evening. metFORMIN 2022-1 Yes 1000mg Take 1,000 [facility] 1,000 mg 0-27 mg by ity of tablet 00:00: mouth in [address] morning [place] and 1,000 mg in the evening. metFORMIN 2022-1 Yes 1000mg Take 1,000 [facility] 1,000 mg 0-27 mg by ity of tablet 00:00: mouth in [address] morning [place] and 1,000 mg in the evening. metFORMIN 2022-1 Yes 1000mg Take 1,000 [facility] 1,000 mg 0-27 mg by ity of tablet 00:00: mouth in [place] 00 the Medical morning Branch and 1,000 mg in the evening. metFORMIN 2021-07 Yes 1000mg Take 1,000 [facility] 1,000 mg 0-27 mg by ity of tablet 00:00: mouth in [place] 00 the Medical morning Branch and 1,000 mg in the evening. hydroCHLORO 2021-07 Yes TAKE 1 Univ ers thiazide 25 0-15 TABLET BY ity of mg tablet 00:00: MOUTH ONCE [place] 00 DAILY WITH Medical ENALAPRIL Branch hydroCHLORO 2021-07- No TAKE 1 Uni vers thiazide 25 0-15 12-12 TABLET BY it y of mg tablet 00:00: 00:00 MOUTH ONCE [place] :00 DAILY WITH Medical ENALAPRIL Branch hydroCHLORO 2021-07- No TAKE 1 Uni vers thiazide 25 0-15 12-12 TABLET BY it y of mg tablet 00:00: 00:00 MOUTH ONCE [place] 00 :00 DAILY WITH Medical ENALAPRIL Branch hydroCHLORO 2021-07- No TAKE 1 Uni vers thiazide 25 0-15 12-12 TABLET BY it y of mg tablet 00:00: 00:00 MOUTH ONCE [place] 00 :00 DAILY WITH Medical ENALAPRIL Branch hydroCHLORO 2021-07- No TAKE 1 Uni vers thiazide 25 0-15 12-12 TABLET BY it y of mg tablet 00:00: 00:00 MOUTH ONCE [place] 00 :00 DAILY WITH Medical ENALAPRIL Branch simvastatin 2021-07 Yes 40mg Take 40 mg [facility] 40 mg 0-10 by mouth ity of tablet 00:00: every [place] 00 evening. Medical Branch simvastatin 2021-07 Yes 40mg Take 40 mg [facility] 40 mg 0-10 by mouth ity of tablet 00:00: every [place] 00 evening. Medical Branch simvastatin 2021-07 Yes 40mg Take 40 mg [facility] 40 mg 0-10 by mouth ity of tablet 00:00: every [place] 00 evening. Medical Branch simvastatin 2021-07 Yes 40mg Take 40 mg [facility] 40 mg 0-10 by mouth ity of tablet 00:00: every [place] 00 evening. Medical Branch simvastatin 2021-07 Yes 40mg Take 40 mg [facility] 40 mg 0-10 by mouth ity of tablet 00:00: every [place] 00 evening. Medical Branch simvastatin 2022-1 Yes 40mg Take 40 mg [facility] 40 mg 0-10 by mouth ity of tablet 00:00: every [place] 00 evening. [facility] Branch simvastatin 2021- Yes 40mg Take 40 mg [facility] 40 mg 0-10 by mouth ity of tablet 00:00: every [place] 00 evening. Medical Branch simvastatin 2021- Yes 40mg Take 40 mg [facility] 40 mg 0-10 by mouth ity of tablet 00:00: every 00 evening. [facility] Branch simvastatin 2021- Yes 40mg Take 40 mg [facility] 40 mg 0-10 by mouth ity of tablet 00:00: every 00 evening. [facility] Branch simvastatin 2021- Yes 40mg Take 40 mg [facility] 40 mg 0-10 by mouth ity of tablet 00:00: every 00 evening. [facility] Branch simvastatin 2021- Yes 40mg Take 40 mg [facility] 40 mg 0-10 by mouth ity of tablet 00:00: every 00 evening. [facility] Branch simvastatin 2021- Yes 40mg Take 40 mg [facility] 40 mg 0-10 by mouth ity of tablet 00:00: every 00 evening. [facility] Branch simvastatin 2021- Yes 40mg Take 40 mg [facility] 40 mg 0-10 by mouth ity of tablet 00:00: every 00 evening. [facility] Branch simvastatin 2021- Yes 40mg Take 40 mg [facility] 40 mg 0-10 by mouth ity of tablet 00:00: every 00 evening. [facility] Branch simvastatin 2021- Yes 40mg Take 40 mg [facility] 40 mg 0-10 by mouth ity of tablet 00:00: every 00 evening. [facility] Branch simvastatin 2021- Yes 40mg Take 40 mg [facility] 40 mg 0-10 by mouth ity of tablet 00:00: every 00 evening. [facility] Branch simvastatin 2021-1 Yes 40mg Take 40 mg [facility] 40 mg 0-10 by mouth ity of tablet 00:00: every [place] 00 evening. [facility] simvastatin 2021-1 Yes 40mg Take 40 mg Univers 40 mg 0-10 by mouth ity of tablet 00:00: every 00 evening. [facility] simvastatin 2021-1 Yes 40mg Take 40 mg [facility] 40 mg 0-10 by mouth ity of tablet 00:00: every 00 evening. [facility] simvastatin 2021-1 Yes 40mg Take 40 mg [facility] 40 mg 0-10 by mouth ity of tablet 00:00: every [place] 00 evening. Medical Branch simvastatin 2021- Yes 40mg Take 40 mg [facility] 40 mg 0-10 by mouth ity of tablet 00:00: every 00 evening. [facility] Branch simvastatin 2021- Yes 40mg Take 40 mg [facility] 40 mg 0-10 by mouth ity of tablet 00:00: every 00 evening. [facility] simvastatin 2021- Yes 40mg Take 40 mg [facility] 40 mg 0-10 by mouth ity of tablet 00:00: every 00 evening. [facility] Branch simvastatin 2021- Yes 40mg Take 40 mg [facility] 40 mg 0-10 by mouth ity of tablet 00:00: every 00 evening. [facility] Branch simvastatin 2021- Yes 40mg Take 40 mg [facility] 40 mg 0-10 by mouth ity of tablet 00:00: every 00 evening. [facility] simvastatin 2021- Yes 40mg Take 40 mg [facility] 40 mg 0-10 by mouth ity of tablet 00:00: every 00 evening. [facility] simvastatin 2021- Yes 40mg Take 40 mg Univers 40 mg 0-10 by mouth ity of tablet 00:00: every [place] 00 evening. [facility] simvastatin 2021- Yes 40mg Take 40 mg [facility] 40 mg 0-10 by mouth ity of tablet 00:00: every 00 evening. [facility] simvastatin 2021- Yes 40mg Take 40 mg [facility] 40 mg 0-10 by mouth ity of tablet 00:00: every 00 evening. [facility] simvastatin 2021- Yes 40mg Take 40 mg [facility] 40 mg 0-10 by mouth ity of tablet 00:00: every [place] 00 evening. [facility] simvastatin 2021- Yes 40mg Take 40 mg [facility] 40 mg 0-10 by mouth ity of tablet 00:00: every 00 evening. [facility] simvastatin 2021- Yes 40mg Take 40 mg [facility] 40 mg 0-10 by mouth ity of tablet 00:00: every [place] 00 evening. [facility] simvastatin 2021-1 Yes 40mg Take 40 mg [facility] 40 mg 0-10 by mouth ity of tablet 00:00: every [place] 00 evening. [facility] simvastatin 2021-1 Yes 40mg Take 40 mg [facility] 40 mg 0-10 by mouth ity of tablet 00:00: every 00 evening. [facility] simvastatin 2021-1 Yes 40mg Take 40 mg [facility] 40 mg 0-10 by mouth ity of tablet 00:00: every evening. Medical Branch simvastatin 2021-07 Yes 40mg Take 40 mg [facility] 40 mg 0-10 by mouth ity of tablet 00:00: every evening. Medical Branch simvastatin 2021-07 Yes 40mg Take 40 mg [facility] 40 mg 0-10 by mouth ity of tablet 00:00: every evening. Medical Branch simvastatin 2021-07 Yes 40mg Take 40 mg [facility] 40 mg 0-10 by mouth ity of tablet 00:00: every evening. Medical Branch simvastatin 2021-07 Yes 40mg Take 40 mg [facility] 40 mg 0-10 by mouth ity of tablet 00:00: every evening. Medical Branch simvastatin 2021-07 Yes 40mg Take 40 mg [facility] 40 mg 0-10 by mouth ity of tablet 00:00: every evening. Medical Branch simvastatin 2021-07 Yes 40mg Take 40 mg [facility] 40 mg 0-10 by mouth ity of tablet 00:00: every evening. Medical Branch cyanocobala Yes INJECT 1 [facility] [place] min 1,000 9-26 ML ity of mcg/mL 00:00: INTRAMUSCU [place] injection 00 LARLY ONCE [facility] EVERY Branch MONTH cyanocobala Yes INJECT 1 [place] min 1,000 9-26 ML ity of mcg/mL 00:00: INTRAMUSCU [place] injection 00 LARLY ONCE [facility] EVERY Branch MONTH cyanocobala Yes INJECT 1 [place] min 1,000 9-26 ML ity of mcg/mL 00:00: INTRAMUSCU [place] injection 00 LARLY ONCE [facility] EVERY Branch MONTH cyanocobala Yes INJECT 1 [place] min 1,000 9-26 ML ity of mcg/mL 00:00: INTRAMUSCU [place] injection 00 LARLY ONCE Med[facility] EVERY Branch MONTH cyanocobala Yes INJECT 1 [place] min 1,000 9-26 ML ity of mcg/mL 00:00: INTRAMUSCU [place] injection 00 LARLY ONCE [facility] EVERY Branch MONTH cyanocobala Yes INJECT 1 [place] min 1,000 9-26 ML ity of mcg/mL 00:00: INTRAMUSCU [place] injection 00 LARLY ONCE [facility] EVERY Branch MONTH cyanocobala 2022-0 Yes INJECT 1 [place] min 1,000 9-26 ML ity of mcg/mL 00:00: INTRAMUSCU [place] injection 00 LARLY ONCE Medi [facility] EVERY Branch MONTH cyanocobala 0 Yes INJECT 1 [place] min 1,000 9-26 ML ity of mcg/mL 00:00: INTRAMUSCU [place] injection 00 LARLY ONCE Medi [facility] EVERY Branch MONTH cyanocobala 0 Yes INJECT 1 [place] min 1,000 9-26 ML ity of mcg/mL 00:00: INTRAMUSCU [place] injection 00 LARLY ONCE Med[facility] EVERY Branch MONTH cyanocobala 0 Yes INJECT 1 [place] min 1,000 9-26 ML ity of mcg/mL 00:00: INTRAMUSCU [place] injection 00 LARLY ONCE [facility] EVERY Branch MONTH cyanocobala Yes INJECT 1 [place] min 1,000 9-26 ML ity of mcg/mL 00:00: INTRAMUSCU [place] injection 00 LARLY ONCE Med[facility] EVERY Branch MONTH cyanocobala Yes INJECT 1 [place] min 1,000 9-26 ML ity of mcg/mL 00:00: INTRAMUSCU [place] injection 00 LARLY ONCE Med[facility] EVERY Branch MONTH cyanocobala 0 Yes INJECT 1 [place] min 1,000 9-26 ML ity of mcg/mL 00:00: INTRAMUSCU [place] injection 00 LARLY ONCE Med[facility] EVERY Branch MONTH cyanocobala 0 Yes INJECT 1 [place] min 1,000 9-26 ML ity of mcg/mL 00:00: INTRAMUSCU [place] injection 00 LARLY ONCE Medi [facility] EVERY Branch MONTH cyanocobala 2021-0 Yes INJECT 1 [place] min 1,000 9-26 ML ity of mcg/mL 00:00: INTRAMUSCU [place] injection 00 LARLY ONCE Med[facility] EVERY Branch MONTH cyanocobala 0 Yes INJECT 1 [place] min 1,000 9-26 ML ity of mcg/mL 00:00: INTRAMUSCU [place] injection 00 LARLY ONCE Med[facility] EVERY Branch MONTH cyanocobala 0 Yes INJECT 1 [place] min 1,000 9-26 ML ity of mcg/mL 00:00: INTRAMUSCU [place] injection 00 LARLY ONCE Med[facility] EVERY Branch MONTH cyanocobala Yes INJECT 1 [place] min 1,000 9-26 ML ity of mcg/mL 00:00: INTRAMUSCU [place] injection 00 LARLY ONCE Med[facility] EVERY Branch MONTH cyanocobala Yes INJECT 1 [place] min 1,000 9-26 ML ity of mcg/mL 00:00: INTRAMUSCU [place] injection 00 LARLY ONCE Med[facility] EVERY Branch MONTH cyanocobala 0 Yes INJECT 1 [place] min 1,000 9-26 ML ity of mcg/mL 00:00: INTRAMUSCU [place] injection 00 LARLY ONCE Med[facility] EVERY Branch MONTH cyanocobala Yes INJECT 1 [place] min 1,000 9-26 ML ity of mcg/mL 00:00: INTRAMUSCU [place] injection 00 LARLY ONCE Med[facility] EVERY Branch MONTH cyanocobala Yes INJECT 1 [place] min 1,000 9-26 ML ity of mcg/mL 00:00: INTRAMUSCU [place] injection 00 LARLY ONCE Medi [facility] EVERY Branch MONTH cyanocobala Yes INJECT 1 [place] min 1,000 9-26 ML ity of mcg/mL 00:00: INTRAMUSCU [place] injection 00 LARLY ONCE Med[facility] EVERY Branch MONTH cyanocobala 0 Yes INJECT 1 [place] min 1,000 9-26 ML ity of mcg/mL 00:00: INTRAMUSCU [place] injection 00 LARLY ONCE [facility] EVERY Branch MONTH cyanocobala 0 Yes INJECT 1 [place] min 1,000 9-26 ML ity of mcg/mL 00:00: INTRAMUSCU [place] injection 00 LARLY ONCE [facility] EVERY Branch MONTH cyanocobala 0 Yes INJECT 1 [place] min 1,000 9-26 ML ity of mcg/mL 00:00: INTRAMUSCU [place] injection 00 LARLY ONCE [facility] EVERY Branch MONTH cyanocobala 0 Yes INJECT 1 [place] min 1,000 9-26 ML ity of mcg/mL 00:00: INTRAMUSCU [place] injection 00 LARLY ONCE [facility] EVERY Branch MONTH cyanocobala 0 Yes INJECT 1 [place] min 1,000 9-26 ML ity of mcg/mL 00:00: INTRAMUSCU [place] injection 00 LARLY ONCE Med[facility] EVERY Branch MONTH cyanocobala Yes INJECT 1 [place] min 1,000 9-26 ML ity of mcg/mL 00:00: INTRAMUSCU [place] injection 00 LARLY ONCE [facility] EVERY Branch MONTH cyanocobala 0 Yes INJECT 1 [place] min 1,000 9-26 ML ity of mcg/mL 00:00: INTRAMUSCU [place] injection 00 LARLY ONCE Medi [facility] EVERY Branch MONTH cyanocobala Yes INJECT 1 [place] min 1,000 9-26 ML ity of mcg/mL 00:00: INTRAMUSCU [place] injection 00 LARLY ONCE [facility] EVERY Branch MONTH cyanocobala Yes INJECT 1 [place] min 1,000 9-26 ML ity of mcg/mL 00:00: INTRAMUSCU [place] injection 00 LARLY ONCE Med[facility] EVERY Branch MONTH cyanocobala Yes INJECT 1 [place] min 1,000 9-26 ML ity of mcg/mL 00:00: INTRAMUSCU [place] injection 00 LARLY ONCE Med[facility] EVERY Branch MONTH cyanocobala Yes INJECT 1 [place] min 1,000 9-26 ML ity of mcg/mL 00:00: INTRAMUSCU [place] injection 00 LARLY ONCE Med[facility] EVERY Branch MONTH cyanocobala Yes INJECT 1 [place] min 1,000 9-26 ML ity of mcg/mL 00:00: INTRAMUSCU [place] injection 00 LARLY ONCE [facility] EVERY Branch MONTH cyanocobala Yes INJECT 1 [place] min 1,000 9-26 ML ity of mcg/mL 00:00: INTRAMUSCU [place] injection 00 LARLY ONCE [facility] EVERY Branch MONTH cyanocobala Yes INJECT 1 [place] min 1,000 9-26 ML ity of mcg/mL 00:00: INTRAMUSCU [place] injection 00 LARLY ONCE Medi [facility] EVERY Branch MONTH cyanocobala Yes INJECT 1 [place] min 1,000 9-26 ML ity of mcg/mL 00:00: INTRAMUSCU [place] injection 00 LARLY ONCE [facility] EVERY Branch MONTH cyanocobala 0 Yes INJECT 1 [place] min 1,000 9-26 ML ity of mcg/mL 00:00: INTRAMUSCU [place] injection 00 LARLY ONCE [facility] EVERY Branch MONTH cyanocobala Yes INJECT 1 [place] min 1,000 9-26 ML ity of mcg/mL 00:00: INTRAMUSCU [place] injection 00 LARLY ONCE [facility] EVERY Branch MONTH cyanocobala Yes INJECT 1 [place] min 1,000 9-26 ML ity of mcg/mL 00:00: INTRAMUSCU [place] injection 00 LARLY ONCE [facility] EVERY Branch MONTH brimonidine Yes 1[drp] Place 1 U nivers 0.15 % 5-23 Drop in ity of ophthalmic 00:00: each eye [place] as drops 00 in the Medical morning Branch and 1 Drop in the evening. dorzolamide Yes 1[drp] Place 1 U nivers -timoloL 5-23 Drop in ity of 22.3-6.8 00:00: [place] mg/mL 00 in the Medical ophthalmic morning Branch drops and 1 Drop in the evening. prednisoLON Yes 1[drp] Take 1 Un [place] E acetate 1 5-23 Drop by ity o f % 00:00: Intraocula [place] ophthalmic 00 r route in Med ical suspension the Branch drops morning and 1 Drop at noon and 1 Drop in the evening. brimonidine Yes 1[drp] Place 1 U nivers 0.15 % 5-23 Drop in ity of ophthalmic 00:00: each eye [place] as drops 00 in the Medical morning Branch and 1 Drop in the evening. dorzolamide Yes 1[drp] Place 1 U nivers -timoloL 5-23 Drop in ity of 22.3-6.8 00:00: [place] mg/mL 00 in the Medical ophthalmic morning Branch drops and 1 Drop in the evening. prednisoLON Yes 1[drp] Take 1 Un [place] E acetate 1 5-23 Drop by ity o f % 00:00: Intraocula [place] ophthalmic 00 r route in Med ical suspension the Branch drops morning and 1 Drop at noon and 1 Drop in the evening. brimonidine Yes 1[drp] Place 1 U nivers 0.15 % 5-23 Drop in ity of ophthalmic 00:00: each eye [place] as drops 00 in the Medical morning Branch and 1 Drop in the evening. dorzolamide Yes 1[drp] Place 1 U nivers -timoloL 5-23 Drop in ity of 22.3-6.8 00:00: [place] mg/mL 00 in the Medical ophthalmic morning Branch drops and 1 Drop in the evening. prednisoLON Yes 1[drp] Take 1 Un [place] E acetate 1 5-23 Drop by ity o f % 00:00: Intraocula [place] ophthalmic 00 r route in Med ical suspension the Branch drops morning and 1 Drop at noon and 1 Drop in the evening. brimonidine Yes 1[drp] Place 1 U nivers 0.15 % 5-23 Drop in ity of ophthalmic 00:00: each eye [place] as drops 00 in the Medical morning Branch and 1 Drop in the evening. dorzolamide Yes 1[drp] Place 1 U nivers -timoloL 5-23 Drop in ity of 22.3-6.8 00:00: [place] mg/mL 00 in the Medical ophthalmic morning Branch drops and 1 Drop in the evening. prednisoLON Yes 1[drp] Take 1 Un [place] E acetate 1 5-23 Drop by ity o f % 00:00: Intraocula [place] ophthalmic 00 r route in Med ical suspension the Branch drops morning and 1 Drop at noon and 1 Drop in the evening. brimonidine Yes 1[drp] Place 1 U nivers 0.15 % 5-23 Drop in ity of ophthalmic 00:00: each eye [place] as drops 00 in the Medical morning Branch and 1 Drop in the evening. dorzolamide Yes 1[drp] Place 1 U nivers -timoloL 5-23 Drop in ity of 22.3-6.8 00:00: [place] mg/mL 00 in the Medical ophthalmic morning Branch drops and 1 Drop in the evening. prednisoLON Yes 1[drp] Take 1 Un [place] E acetate 1 5-23 Drop by ity o f % 00:00: Intraocula [place] ophthalmic 00 r route in Med ical suspension the Branch drops morning and 1 Drop at noon and 1 Drop in the evening. brimonidine 2021-0 Yes 1[drp] Place 1 U nivers 0.15 % 5-23 Drop in ity of ophthalmic 00:00: each eye [place] drops 00 in the Medical morning Branch and 1 Drop in the evening. dorzolamide 2021-0 Yes 1[drp] Place 1 U nivers -timoloL 5-23 Drop in ity of 22.3-6.8 00:00: [place] mg/mL 00 in the Medical ophthalmic morning Branch drops and 1 Drop in the evening. prednisoLON 2021-0 Yes 1[drp] Take 1 Un [place] E acetate 1 5-23 Drop by ity o f % 00:00: Intraocula [place] ophthalmic 00 r route in Med ical suspension the Branch drops morning and 1 Drop at noon and 1 Drop in the evening. brimonidine 2021- Yes 1[drp] Place 1 U nivers 0.15 % 5-23 Drop in ity of ophthalmic 00:00: each eye [place] drops 00 in the Medical morning Branch and 1 Drop in the evening. dorzolamide 2021-0 Yes 1[drp] Place 1 U nivers -timoloL 5-23 Drop in ity of 22.3-6.8 00:00: [place] mg/mL 00 in the Medical ophthalmic morning Branch drops and 1 Drop in the evening. prednisoLON 2021-0 Yes 1[drp] Take 1 Un [place] E acetate 1 5-23 Drop by ity o f % 00:00: Intraocula [place] ophthalmic 00 r route in Med ical suspension the Branch drops morning and 1 Drop at noon and 1 Drop in the evening. brimonidine 2021-0 Yes 1[drp] Place 1 U nivers 0.15 % 5-23 Drop in ity of ophthalmic 00:00: each eye [place] drops 00 in the Medical morning Branch and 1 Drop in the evening. dorzolamide 2021-0 Yes 1[drp] Place 1 U nivers -timoloL 5-23 Drop in ity of 22.3-6.8 00:00: [place] mg/mL 00 in the Medical ophthalmic morning Branch drops and 1 Drop in the evening. prednisoLON 2022-0 Yes 1[drp] Take 1 Un [place] E acetate 1 5-23 Drop by ity o f % 00:00: Intraocula [place] ophthalmic 00 r route in Med ical suspension the Branch drops morning and 1 Drop at noon and 1 Drop in the evening. brimonidine Yes 1[drp] Place 1 U nivers 0.15 % 5-23 Drop in ity of ophthalmic 00:00: each eye [place] drops 00 in the Medical morning Branch and 1 Drop in the evening. dorzolamide Yes 1[drp] Place 1 U nivers -timoloL 5-23 Drop in ity of 22.3-6.8 00:00: [place] mg/mL 00 in the Medical ophthalmic morning Branch drops and 1 Drop in the evening. prednisoLON Yes 1[drp] Take 1 Un [place] E acetate 1 5-23 Drop by ity o f % 00:00: Intraocula [place] ophthalmic 00 r route in Med ical suspension the Branch drops morning and 1 Drop at noon and 1 Drop in the evening. brimonidine Yes 1[drp] Place 1 U nivers 0.15 % 5-23 Drop in ity of ophthalmic 00:00: each eye [place] drops 00 in the Medical morning Branch and 1 Drop in the evening. dorzolamide Yes 1[drp] Place 1 U nivers -timoloL 5-23 Drop in ity of 22.3-6.8 00:00: [place] mg/mL 00 in the Medical ophthalmic morning Branch drops and 1 Drop in the evening. prednisoLON Yes 1[drp] Take 1 Un [place] E acetate 1 5-23 Drop by ity o f % 00:00: Intraocula [place] ophthalmic 00 r route in Med ical suspension the Branch drops morning and 1 Drop at noon and 1 Drop in the evening. brimonidine Yes 1[drp] Place 1 U nivers 0.15 % 5-23 Drop in ity of ophthalmic 00:00: each eye [place] drops 00 in the Medical morning Branch and 1 Drop in the evening. dorzolamide Yes 1[drp] Place 1 U nivers -timoloL 5-23 Drop in ity of 22.3-6.8 00:00: [place] mg/mL 00 in the Medical ophthalmic morning Branch drops and 1 Drop in the evening. prednisoLON 2021-0 Yes 1[drp] Take 1 Un [place] E acetate 1 5-23 Drop by ity o f % 00:00: Intraocula [place] ophthalmic 00 r route in Med ical suspension the Branch drops morning and 1 Drop at noon and 1 Drop in the evening. brimonidine Yes 1[drp] Place 1 U nivers 0.15 % 5-23 Drop in ity of ophthalmic 00:00: each eye [place] drops 00 in the Medical morning Branch and 1 Drop in the evening. dorzolamide Yes 1[drp] Place 1 U nivers -timoloL 5-23 Drop in ity of 22.3-6.8 00:00: [place] eyes [place] mg/mL 00 in the Medical ophthalmic morning Branch drops and 1 Drop in the evening. prednisoLON 2021-0 Yes 1[drp] Take 1 Un [place] E acetate 1 5-23 Drop by ity o f % 00:00: Intraocula [place] ophthalmic 00 r route in Med ical suspension the Branch drops morning and 1 Drop at noon and 1 Drop in the evening. brimonidine 0 Yes 1[drp] Place 1 U nivers 0.15 % 5-23 Drop in ity of ophthalmic 00:00: each eye [place] drops 00 in the Medical morning Branch and 1 Drop in the evening. dorzolamide 2021- Yes 1[drp] Place 1 U nivers -timoloL 5-23 Drop in ity of 22.3-6.8 00:00: [place] eyes [place] mg/mL 00 in the Medical ophthalmic morning Branch drops and 1 Drop in the evening. prednisoLON 2021-0 Yes 1[drp] Take 1 Un [place] E acetate 1 5-23 Drop by ity o f % 00:00: Intraocula [place] ophthalmic 00 r route in Med ical suspension the Branch drops morning and 1 Drop at noon and 1 Drop in the evening. brimonidine 2021-0 Yes 1[drp] Place 1 U nivers 0.15 % 5-23 Drop in ity of ophthalmic 00:00: each eye [place] drops 00 in the Medical morning Branch and 1 Drop in the evening. dorzolamide Yes 1[drp] Place 1 U nivers -timoloL 5-23 Drop in ity of 22.3-6.8 00:00: [place] mg/mL 00 in the Medical ophthalmic morning Branch drops and 1 Drop in the evening. prednisoLON Yes 1[drp] Take 1 Un [place] E acetate 1 5-23 Drop by ity o f % 00:00: Intraocula [place] ophthalmic 00 r route in Med ical suspension the Branch drops morning and 1 Drop at noon and 1 Drop in the evening. brimonidine Yes 1[drp] Place 1 U nivers 0.15 % 5-23 Drop in ity of ophthalmic 00:00: each eye [place] drops 00 in the Medical morning Branch and 1 Drop in the evening. dorzolamide Yes 1[drp] Place 1 U nivers -timoloL 5-23 Drop in ity of 22.3-6.8 00:00: both eyes [place] mg/mL 00 in the Medical ophthalmic morning Branch drops and 1 Drop in the evening. prednisoLON Yes 1[drp] Take 1 Un [place] E acetate 1 5-23 Drop by ity o f % 00:00: Intraocula [place] ophthalmic 00 r route in Med ical suspension the Branch drops morning and 1 Drop at noon and 1 Drop in the evening. brimonidine Yes 1[drp] Place 1 U nivers 0.15 % 5-23 Drop in ity of ophthalmic 00:00: each eye [place] drops 00 in the Medical morning Branch and 1 Drop in the evening. dorzolamide Yes 1[drp] Place 1 U nivers -timoloL 5-23 Drop in ity of 22.3-6.8 00:00: [place] mg/mL 00 in the Medical ophthalmic morning Branch drops and 1 Drop in the evening. prednisoLON Yes 1[drp] Take 1 Un [place] E acetate 1 5-23 Drop by ity o f % 00:00: Intraocula [place] ophthalmic 00 r route in Med ical suspension the Branch drops morning and 1 Drop at noon and 1 Drop in the evening. brimonidine 2021-0 Yes 1[drp] Place 1 U nivers 0.15 % 5-23 Drop in ity of ophthalmic 00:00: each eye [place] drops 00 in the Medical morning Branch and 1 Drop in the evening. dorzolamide 2021-0 Yes 1[drp] Place 1 U nivers -timoloL 5-23 Drop in ity of 22.3-6.8 [place] 00 in the [facility] ophthalmic morning Branch drops and 1 Drop in the evening. prednisoLON 2021-0 Yes 1[drp] Take 1 Un timothy E acetate 1 5-23 Drop by ity o f % 00:00: [facility] [place] [facility]mic 00 r route in Med ical suspension the Branch drops morning and 1 Drop at noon and 1 Drop in the evening. brimonidine 2021- Yes 1[drp] Place 1 U nivers 0.15 % 5-23 Drop in ity of ophthalmic 00:00: [place] drops 00 in the Medical morning Branch and 1 Drop in the evening. dorzolamide 2021-0 Yes 1[drp] Place 1 U nivers -timoloL 5-23 Drop in ity of 22.3-6.8 00:[place] mg/[place] 00 in the [facility] ophthalmic morning Branch drops and 1 Drop in the evening. prednisoLON 2021-0 Yes 1[drp] Take 1 Un timothy E acetate 1 5-23 Drop by ity o f % 00:00: [facility] [place] [facility] 00 r route in Med ical suspension the Branch drops morning and 1 Drop at noon and 1 Drop in the evening. brimonidine 2021-0 Yes 1[drp] Place 1 U nivers 0.15 % 5-23 Drop in ity of ophthalmic 00:00: [place] drops 00 in the Medical morning Branch and 1 Drop in the evening. dorzolamide 2021-0 Yes 1[drp] Place 1 U nivers -timoloL 5-23 Drop in ity of 22.3-6.8 00:[place] mg[place] 00 in the [facility] ophthalmic morning Branch drops and 1 Drop in the evening. prednisoLON 2022-0 Yes 1[drp] Take 1 Un timothy E acetate 1 5-23 Drop by ity o f % 00:00: [facility] [place] ophthalmic 00 r route in Med ical suspension the Branch drops morning and 1 Drop at noon and 1 Drop in the evening. brimonidine Yes 1[drp] Place 1 U nivers 0.15 % 5-23 Drop in ity of ophthalmic 00:00: each [place] drops 00 in the Medical morning Branch and 1 Drop in the evening. dorzolamide Yes 1[drp] Place 1 [facility]ivers -timoloL 5-23 Drop in ity of 22.3-6.8 00:[place]: [place] mg/[place] 00 in the [facility] ophthalmic morning Branch drops and 1 Drop in the evening. prednisoLON Yes 1[drp] Take 1 Un timothy E acetate 1 5-23 Drop by ity o f % 00:00: [facility] [place] [facility] 00 r route in Med ical suspension the Branch drops morning and 1 Drop at noon and 1 Drop in the evening. brimonidine Yes 1[drp] Place 1 [facility] 0.15 % 5-23 Drop in ity of ophthalmic 00:00: [place] 00 in the Medical morning Branch and 1 Drop in the evening. dorzolamide Yes 1[drp] Place 1 [facility]ivers -timoloL 5-23 Drop in ity of 22.3-6.8 00:[place]: [place] mg[place]mL 00 in the [facility] ophthalmic morning Branch drops and 1 Drop in the evening. prednisoLON Yes 1[drp] Take 1 Un tim[place] E acetate 1 5-23 Drop by ity o f % 00:00: [facility] [place] [facility] 00 r route in Med ical suspension the Branch drops morning and 1 Drop at noon and 1 Drop in the evening. brimonidine Yes 1[drp] Place 1 U nivers 0.15 % 5-23 Drop in ity of ophthalmic 00:00: [place] 00 in the Medical morning Branch and 1 Drop in the evening. dorzolamide Yes 1[drp] Place 1 U nivers -timoloL 5-23 Drop in ity of 22.3-6.8 00:[place]: [place] mg/mL 00 in the [facility] ophthalmic morning Branch drops and 1 Drop in the evening. prednisoLON Yes 1[drp] Take 1 Un tim[facility] E acetate 1 5-23 Drop by ity o f % 00:00: [facility] [place] [facility] 00 r route in Med ical suspension the Branch drops morning and 1 Drop at noon and 1 Drop in the evening. brimonidine Yes 1[drp] Place 1 [facility]ivers 0.15 % 5-23 Drop in ity of ophthalmic 00:00: each [place] drops 00 in the Medical morning Branch and 1 Drop in the evening. dorzolamide Yes 1[drp] Place 1 U nivers -timoloL 5-23 Drop in ity of 22.3-6.8 00:[place]: [place] mg/mL 00 in the [facility] ophthalmic morning Branch drops and 1 Drop in the evening. prednisoLON Yes 1[drp] Take 1 Un timothy E acetate 1 5-23 Drop by ity o f % 00:00: [facility] [place] [facility] 00 r route in Med ical suspension the Branch drops morning and 1 Drop at noon and 1 Drop in the evening. brimonidine Yes 1[drp] Place 1 U nivers 0.15 % 5-23 Drop in ity of ophthalmic 00:00: each [place] 00 in the Medical morning Branch and 1 Drop in the evening. dorzolamide Yes 1[drp] Place 1 U nivers -timoloL 5-23 Drop in ity of 22.3-6.8 00:00: [place] mg/mL 00 in the [facility] ophthalmic morning Branch drops and 1 Drop in the evening. prednisoLON 2021-0 Yes 1[drp] Take 1 Un timothy E acetate 1 5-23 Drop by ity o f % 00:00: [facility] [place] [facility] 00 r route in Med ical suspension the Branch drops morning and 1 Drop at noon and 1 Drop in the evening. brimonidine Yes 1[drp] Place 1 U nivers 0.15 % 5-23 Drop in ity of ophthalmic 00:00: each [place] 00 in the Medical morning Branch and 1 Drop in the evening. dorzolamide Yes 1[drp] Place 1 [facility] nivers -timoloL 5-23 Drop in ity of 22.3-6.8 00:[place]: [place] mg/mL 00 in the [facility] ophthalmic morning Branch drops and 1 Drop in the evening. prednisoLON Yes 1[drp] Take 1 Un timothy E acetate 1 5-23 Drop by ity o f % 00:00: Intraocula [place] [facility] 00 r route in Med ical suspension the Branch drops morning and 1 Drop at noon and 1 Drop in the evening. brimonidine Yes 1[drp] Place 1 U nivers 0.15 % 5-23 Drop in ity of ophthalmic 00:00: each [place] 00 in the Medical morning Branch and 1 Drop in the evening. dorzolamide Yes 1[drp] Place 1 U [facility]ivers -timoloL 5-23 Drop in ity of 22.3-6.8 00:00: [place] mg/mL 00 in the Medical ophthalmic morning Branch drops and 1 Drop in the evening. prednisoLON Yes 1[drp] Take 1 Un timothy E acetate 1 5-23 Drop by ity o f % 00:00: [facility] [place] [facility] 00 r route in Med ical suspension the Branch drops morning and 1 Drop at noon and 1 Drop in the evening. metformin 2018-07 Yes 500mg Take 500 [facility] (GLUCOPHAGE 0-18 mg by [facility] ) 500 MG 18:28: mouth 2 of tablet 34 times Medicin daily e (with meals). glipiZIDE 2018-07 Yes 10mg Take 10 mg [facility] (GLUCOTROL) 0-18 by mouth Deepika ege 10 MG 18:28: two times of tablet 34 daily. Medicin e enalapril 2018-07 Yes 2.5mg Take 2.5 [facility] (VASOTEC) 0-18 mg by [facility] 2.5 MG 18:28: mouth of tablet 34 [...] instillati on metformin Yes 500mg Take 500 [facility] (GLUCOPHAGE 2-26 mg by [facility] ) 500 MG 20:18: mouth 2 of tablet 22 times Medicin daily e (with meals). glipiZIDE Yes 10mg Take 10 mg [facility] (GLUCOTROL) 2-26 by mouth Deepika ege 10 MG 20:18: two times of tablet 22 daily. Medicin e enalapril Yes 2.5mg Take 2.5 [facility] (VASOTEC) 2-26 mg by [facility] 2.5 MG 20:18: mouth of tablet 22 daily. Medicin e aspirin 81 Yes 81mg Take 81 mg [facility] tablet 2-26 by mouth Colleg e 20:18: daily. of Medicin e simvastatin Yes 10mg Take 10 mg [facility] (ZOCOR) 10 2-26 by mouth Colle ge MG tablet 20:18: every of 22 evening. Medicin e bimatoprost Yes 1[drp] QD [address] [facility] (LUMIGAN[facility] 2-16 [facility] % 11:[facility]: [facility] ophthalmic 00 Center drops pilocarpine Yes 1[drp] Q.25D 1 drop 4 [...] mouth [facility] tablet 11:42: daily. Medical 00 Center dorzolamide Yes 1[drp] Q.5D [address] [facility] -timolol 2-16 (two) [facility] (COSOPT) 11:42: times Medical 22.3-6.8 00 daily. Center mg/mL ophthalmic solution brimonidine Yes [facility] (ALPHAGAN 2-16 [facility]) 0.1 % 11:42: Medical Drop 00 Center bimatoprost Yes 1[drp] QD [address] [facility] (LUMIGAN) 2-16 nightly. [facility] 0.03 % 11:42: Medical ophthalmic 00 Center drops pilocarpine 0 Yes 1[drp] Q.25D [address] [facility] (PILOCAR) 1 2-16 (four) [facility] % 11:42: times Medical ophthalmic 00 daily. Center solution glipiZIDE Yes 10mg Take [address] [facility] (GLUCOTROL) 2-16 by mouth 2 Brandie kes 10 MG 11:42: (two) Medical tablet 00 times Center daily before meals. metFORMIN 2017 Yes 500mg Take [address] [facility] (GLUCOPHAGE 2-16 mg by [facility] ) 500 MG 11:42: mouth 2 Medica l tablet 00 (two) Center times daily with breakfast and dinner. enalapril Yes 10mg QD Take [address] [facility] [address] [facility] (VASOTEC) 2-16 by mouth [facility] 10 MG 11:42: daily. Medical tablet 00 [place] simvastatin Yes 10mg QD Take [address] [facility] (ZOCOR) 10 2-16 by mouth [facility] MG tablet 11:42: nightly. Medi alejandra 00 [place] aspirin 81 Yes 81mg QD Take [address] [facility] EC 2-16 by mouth [facility] tablet 11:42: daily. Medical 00 [place] dorzolamide Yes 1[drp] Q.5D [address] [facility] -timolol 2-16 (two) [facility] (COSOPT) 11:42: times Medical 22.3-6.8 00 daily. Center mg/mL ophthalmic solution brimonidine Yes [facility] (ALPHAGAN 2-16 [facility]) 0.1 % 11:42: Medical Drop 00 [place] Immunizations Ordered Filled Immunization Date Status Comments [facility] e Immunization Name Name Influenza Virus 2022-05-09 Completed [facility]it [facility] Vaccine - Whole 00:00:00 [facility] [place] Influenza Virus 2022-05-09 Completed Universit y of Vaccine - Whole 00:00:00 [facility] [place] Influenza Virus 2022-05-09 Completed Universit y of Vaccine - Whole 00:00:00 [facility] [place] Influenza Virus 2022-05-09 Completed Universit y of Vaccine - Whole 00:00:00 [facility] [place] Influenza Virus 2022-05-09 Completed Universit y of Vaccine - Whole 00:00:00 [facility] [place] Influenza Virus 2022-05-09 Completed Universit y of Vaccine - Whole 00:00:00 [facility] [place] Influenza Virus 2022-05-09 Completed Universit y of Vaccine - Whole 00:00:00 [facility] [place] Influenza Virus 2022-05-09 Completed Universit y of Vaccine - Whole 00:00:00 [facility] [place] Influenza Virus 2022-05-09 Completed Universit y of Vaccine - Whole 00:00:00 [facility] [place] Influenza Virus 2022-05-09 Completed Universit y of Vaccine - Whole 00:00:00 [facility] [place] Influenza Virus 2022-05-09 Completed Universit y of Vaccine - Whole 00:00:00 [facility] [place] Influenza Virus 2022-05-09 Completed Universit y of Vaccine - Whole 00:00:00 [facility] [place] Influenza Virus 2022-05-09 Completed Universit y of Vaccine - Whole 00:00:00 [facility] [place] Influenza Virus 2022-05-09 Completed Universit y of Vaccine - Whole 00:00:00 [facility] [place] Influenza Virus 2022-05-09 Completed Universit y of Vaccine - Whole 00:00:00 [facility] [place] Influenza Virus 2022-05-09 Completed Universit y of Vaccine - Whole 00:00:00 [facility] [place] Influenza Virus 2022-05-09 Completed Universit y of Vaccine - Whole 00:00:00 [facility] [place] Influenza Virus 2022-05-09 Completed Universit y of Vaccine - Whole 00:00:00 [facility] [place] Influenza Virus 2022-05-09 Completed Universit y of Vaccine - Whole 00:00:00 [facility] [place] Influenza Virus 2022-05-09 Completed Universit y of Vaccine - Whole 00:00:00 [facility] [place] Influenza Virus 2022-05-09 Completed Universit y of Vaccine - Whole 00:00:00 [facility] [place] Influenza Virus 2022-05-09 Completed Universit y of Vaccine - Whole 00:00:00 [facility] [place] Influenza Virus 2022-05-09 Completed Universit y of Vaccine - Whole 00:00:00 [facility] [place] Influenza Virus 2022-05-09 Completed Universit y of Vaccine - Whole 00:00:00 [facility] [place] Influenza Virus 2022-05-09 Completed Universit y of Vaccine - Whole 00:00:00 [facility] [place] Influenza Virus 2022-05-09 Completed Universit y of Vaccine - Whole 00:00:00 [facility] [place] Influenza Virus 2022-05-09 Completed Universit y of Vaccine - Whole 00:00:00 [facility] [place] Influenza Virus 2021-04-29 Completed Universit y of Vaccine (3+ yrs) 00:00:00 [facility] Influenza Virus 2021-04-29 Completed Universit y of Vaccine (3+ yrs) 00:00:00 [facility] Influenza Virus 2021-04-29 Completed Universit y of Vaccine (3+ yrs) 00:00:00 [facility] Influenza Virus 2021-04-29 Completed Universit y of Vaccine (3+ yrs) 00:00:00 [facility] Influenza Virus 2021-04-29 Completed Universit y of Vaccine (3+ yrs) 00:00:00 [facility] Influenza Virus 2021-04-29 Completed Universit y of Vaccine (3+ yrs) 00:00:00 [facility] Influenza Virus 2021-04-29 Completed Universit y of Vaccine (3+ yrs) 00:00:00 [facility] Influenza Virus 2021-04-29 Completed Universit y of Vaccine (3+ yrs) 00:00:00 [facility] Influenza Virus 2021-04-29 Completed Universit y of Vaccine (3+ yrs) 00:00:00 [facility] Influenza Virus 2021-04-29 Completed Universit y of Vaccine (3+ yrs) 00:00:00 [facility] Influenza Virus 2021-04-29 Completed Universit y of Vaccine (3+ yrs) 00:00:00 [facility] Influenza Virus 2021-04-29 Completed Universit y of Vaccine (3+ yrs) 00:00:00 [facility] Influenza Virus 2021-04-29 Completed Universit y of Vaccine (3+ yrs) 00:00:00 [facility] Influenza Virus 2021-04-29 Completed Universit y of Vaccine (3+ yrs) 00:00:00 [facility] Influenza Virus 2021-04-29 Completed Universit y of Vaccine (3+ yrs) 00:00:00 [facility] Influenza Virus 2021-04-29 Completed Universit y of Vaccine (3+ yrs) 00:00:00 [facility] Branch Influenza Virus 2021-04-29 Completed Universit y of Vaccine (3+ yrs) 00:00:00 [facility] Influenza Virus 2021-04-29 Completed Universit y of Vaccine (3+ yrs) 00:00:00 [facility] Influenza Virus 2021-04-29 Completed Universit y of Vaccine (3+ yrs) 00:00:00 [facility] Influenza Virus 2021-04-29 Completed Universit y of Vaccine (3+ yrs) 00:00:00 [facility] Influenza Virus 2021-04-29 Completed Universit y of Vaccine (3+ yrs) 00:00:00 [facility] Influenza Virus 2021-04-29 Completed Universit y of Vaccine (3+ yrs) 00:00:00 [facility] Influenza Virus 2021-04-29 Completed Universit y of Vaccine (3+ yrs) 00:00:00 [facility] Influenza Virus 2021-04-29 Completed Universit y of Vaccine (3+ yrs) 00:00:00 [facility] Influenza Virus 2021-04-29 Completed Universit y of Vaccine (3+ yrs) 00:00:00 [facility] Influenza Virus 2021-04-29 Completed Universit y of Vaccine (3+ yrs) 00:00:00 [facility] Influenza Virus 2021-04-29 Completed Universit y of Vaccine (3+ yrs) 00:00:00 [facility] Influenza Virus 2017-07-27 Completed Universit y of Vaccine (3+ yrs) 00:00:00 [facility] Influenza Virus 2017-07-27 Completed Universit y of Vaccine (3+ yrs) 00:00:00 [facility] Branch Influenza Virus 2017-07-27 Completed Universit y of Vaccine (3+ yrs) 00:00:00 [facility] Influenza Virus 2017-07-27 Completed Universit y of Vaccine (3+ yrs) 00:00:00 [facility] Influenza Virus 2017-07-27 Completed Universit y of Vaccine (3+ yrs) 00:00:00 [facility] Influenza Virus 2017-07-27 Completed Universit y of Vaccine (3+ yrs) 00:00:00 [facility] Influenza Virus 2017-07-27 Completed Universit y of Vaccine (3+ yrs) 00:00:00 [facility] Influenza Virus 2017-07-27 Completed Universit y of Vaccine (3+ yrs) 00:00:00 [facility] Influenza Virus 2017-07-27 Completed Universit y of Vaccine (3+ yrs) 00:00:00 [facility] Influenza Virus 2017-07-27 Completed Universit y of Vaccine (3+ yrs) 00:00:00 [facility] Influenza Virus 2017-07-27 Completed Universit y of Vaccine (3+ yrs) 00:00:00 [facility] Influenza Virus 2017-07-27 Completed Universit y of Vaccine (3+ yrs) 00:00:00 [facility] Influenza Virus 2017-07-27 Completed Universit y of Vaccine (3+ yrs) 00:00:00 [facility] Influenza Virus 2017-07-27 Completed Universit y of Vaccine (3+ yrs) 00:00:00 [facility] Influenza Virus 2017-07-27 Completed Universit y of Vaccine (3+ yrs) 00:00:00 [facility] Influenza Virus 2017-07-27 Completed Universit y of Vaccine (3+ yrs) 00:00:00 [facility] Influenza Virus 2017-07-27 Completed Universit y of Vaccine (3+ yrs) 00:00:00 [facility] Influenza Virus 2017-07-27 Completed Universit y of Vaccine (3+ yrs) 00:00:00 [facility] Influenza Virus 2017-07-27 Completed Universit y of Vaccine (3+ yrs) 00:00:00 [facility] Influenza Virus 2017-07-27 Completed Universit y of Vaccine (3+ yrs) 00:00:00 [facility] Influenza Virus 2017-07-27 Completed Universit y of Vaccine (3+ yrs) 00:00:00 [facility] Influenza Virus 2017-07-27 Completed Universit y of Vaccine (3+ yrs) 00:00:00 [facility] Influenza Virus 2017-07-27 Completed Universit y of Vaccine (3+ yrs) 00:00:00 [facility] Influenza Virus 2017-07-27 Completed Universit y of Vaccine (3+ yrs) 00:00:00 [facility] Influenza Virus 2017-07-27 Completed Universit y of Vaccine (3+ yrs) 00:00:00 [facility] Influenza Virus 2017-07-27 Completed Universit y of Vaccine (3+ yrs) 00:00:00 [facility] Influenza Virus 2017-07-27 Completed Universit y of Vaccine (3+ yrs) 00:00:00 [facility] Completed University o f Polysaccharide, 00:00:00 [place] [facility] ical PPSV23 (PNEUMOVAX) Branch Pneumococcal 2017-03-06 Completed University o f Polysaccharide, 00:00:00 [place] [facility] ical PPSV23 (PNEUMOVAX) Branch Pneumococcal 2017-03-06 Completed University o f Polysaccharide, 00:00:00 [place] [facility] ical PPSV23 (PNEUMOVAX) Branch Pneumococcal 2017-03-06 Completed University o f Polysaccharide, 00:00:00 [place] [facility] ical PPSV23 (PNEUMOVAX) Branch Pneumococcal 2017-03-06 Completed University o f Polysaccharide, 00:00:00 [place] [facility] ical PPSV23 (PNEUMOVAX) Branch Pneumococcal 2017-03-06 Completed University o f Polysaccharide, 00:00:00 [place] [facility] ical PPSV23 (PNEUMOVAX) Branch Pneumococcal 2017-03-06 Completed University o f Polysaccharide, 00:00:00 [place] [facility] PPSV23 (PNEUMOVAX) Branch Pneumococcal 2017-03-06 Completed University o f Polysaccharide, 00:00:00 [place] [facility] PPSV23 (PNEUMOVAX) Branch Pneumococcal 2017-03-06 Completed University o f Polysaccharide, 00:00:00 [place] [facility] PPSV23 (PNEUMOVAX) Branch Pneumococcal 2017-03-06 Completed University o f Polysaccharide, 00:00:00 [place] [facility] ical PPSV23 (PNEUMOVAX) Branch Pneumococcal 2017-03-06 Completed University o f Polysaccharide, 00:00:00 [place] [facility] ical PPSV23 (PNEUMOVAX) Branch Pneumococcal 2017-03-06 Completed University o f Polysaccharide, 00:00:00 [place] [facility] ical PPSV23 (PNEUMOVAX) Branch Pneumococcal 2017-03-06 Completed University o f Polysaccharide, 00:00:00 [place] [facility] ical PPSV23 (PNEUMOVAX) Branch Pneumococcal 2017-03-06 Completed University o f Polysaccharide, 00:00:00 [place] [facility] ical PPSV23 (PNEUMOVAX) Branch Pneumococcal 2017-03-06 Completed University o f Polysaccharide, 00:00:00 [place] [facility] ical PPSV23 (PNEUMOVAX) Branch Pneumococcal 2017-03-06 Completed University o f Polysaccharide, 00:00:00 [place] [facility] ical PPSV23 (PNEUMOVAX) Branch Pneumococcal 2017-03-06 Completed University o f Polysaccharide, 00:00:00 [place] [facility] ical PPSV23 (PNEUMOVAX) Branch Pneumococcal 2017-03-06 Completed University o f Polysaccharide, 00:00:00 [place] [facility] ical PPSV23 (PNEUMOVAX) Branch Pneumococcal 2017-03-06 Completed University o f Polysaccharide, 00:00:00 [place] [facility] ical PPSV23 (PNEUMOVAX) Branch Pneumococcal 2017-03-06 Completed University o f Polysaccharide, 00:00:00 [place] [facility] PPSV23 (PNEUMOVAX) Branch Pneumococcal 2017-03-06 Completed University o f Polysaccharide, 00:00:00 [place] [facility] PPSV23 (PNEUMOVAX) Branch Pneumococcal 2017-03-06 Completed University o f Polysaccharide, 00:00:00 [place] [facility] ical PPSV23 (PNEUMOVAX) Branch Pneumococcal 2017-03-06 Completed University o f Polysaccharide, 00:00:00 [place] [facility] ical PPSV23 (PNEUMOVAX) Branch Pneumococcal 2017-03-06 Completed University o f Polysaccharide, 00:00:00 [place] [facility] PPSV23 (PNEUMOVAX) Branch Pneumococcal 2017-03-06 Completed University o f Polysaccharide, 00:00:00 [place] [facility] ical PPSV23 (PNEUMOVAX) Branch Pneumococcal 2017-03-06 Completed University o f Polysaccharide, 00:00:00 [place] [facility] PPSV23 (PNEUMOVAX) Branch Pneumococcal 2017-03-06 Completed University o f Polysaccharide, 00:00:00 [place] [facility] PPSV23 (PNEUMOVAX) Branch Influenza Virus 2016-06-06 Completed Universit y of Vaccine (3+ yrs) 00:00:00 [facility] Influenza Virus 2016-06-06 Completed Universit y of Vaccine (3+ yrs) 00:00:00 [facility] Influenza Virus 2016-06-06 Completed Universit y of Vaccine (3+ yrs) 00:00:00 [facility] Influenza Virus 2016-06-06 Completed Universit y of Vaccine (3+ yrs) 00:00:00 [facility] Influenza Virus 2016-06-06 Completed Universit y of Vaccine (3+ yrs) 00:00:00 [facility] Influenza Virus 2016-06-06 Completed Universit y of Vaccine (3+ yrs) 00:00:00 [facility] Influenza Virus 2016-06-06 Completed Universit y of Vaccine (3+ yrs) 00:00:00 [facility] Influenza Virus 2016-06-06 Completed Universit y of Vaccine (3+ yrs) 00:00:00 [facility] Influenza Virus 2016-06-06 Completed Universit y of Vaccine (3+ yrs) 00:00:00 [facility] Influenza Virus 2016-06-06 Completed Universit y of Vaccine (3+ yrs) 00:00:00 [facility] Influenza Virus 2016-06-06 Completed Universit y of Vaccine (3+ yrs) 00:00:00 [facility] Influenza Virus 2016-06-06 Completed Universit y of Vaccine (3+ yrs) 00:00:00 [facility] Influenza Virus 2016-06-06 Completed Universit y of Vaccine (3+ yrs) 00:00:00 [facility] Influenza Virus 2016-06-06 Completed Universit y of Vaccine (3+ yrs) 00:00:00 [facility] Influenza Virus 2016-06-06 Completed Universit y of Vaccine (3+ yrs) 00:00:00 [facility] Influenza Virus 2016-06-06 Completed Universit y of Vaccine (3+ yrs) 00:00:00 [facility] Influenza Virus 2016-06-06 Completed Universit y of Vaccine (3+ yrs) 00:00:00 [facility] Influenza Virus 2016-06-06 Completed Universit y of Vaccine (3+ yrs) 00:00:00 [facility] Influenza Virus 2016-06-06 Completed Universit y of Vaccine (3+ yrs) 00:00:00 [facility] Influenza Virus 2016-06-06 Completed Universit y of Vaccine (3+ yrs) 00:00:00 [facility] Influenza Virus 2016-06-06 Completed Universit y of Vaccine (3+ yrs) 00:00:00 [facility] Influenza Virus 2016-06-06 Completed Universit y of Vaccine (3+ yrs) 00:00:00 [facility] Influenza Virus 2016-06-06 Completed Universit y of Vaccine (3+ yrs) 00:00:00 [facility] Influenza Virus 2016-06-06 Completed Universit y of Vaccine (3+ yrs) 00:00:00 [facility] Influenza Virus 2016-06-06 Completed Universit y of Vaccine (3+ yrs) 00:00:00 [facility] Influenza Virus 2016-06-06 Completed Universit y of Vaccine (3+ yrs) 00:00:00 [facility] Influenza Virus 2016-06-06 Completed Universit y of Vaccine (3+ yrs) 00:00:00 [facility] Influenza Virus 2015-06-22 Completed Universit y of Vaccine (3+ yrs) 00:00:00 [facility] Pneumococcal 2015-06-22 Completed University o f Polysaccharide, 00:00:00 [facility] ical PPSV23 (PNEUMOVAX) Branch Influenza Virus 2015-06-22 Completed Universit y of Vaccine (3+ yrs) 00:00:00 [facility] Pneumococcal 2015-06-22 Completed University o f Polysaccharide, 00:00:00 [place] [facility] PPSV23 (PNEUMOVAX) Branch Influenza Virus 2015-06-22 Completed Universit y of Vaccine (3+ yrs) 00:00:00 [facility] Pneumococcal 2015-06-22 Completed University o f Polysaccharide, 00:00:00 [place] [facility] PPSV23 (PNEUMOVAX) Branch Influenza Virus 2015-06-22 Completed Universit y of Vaccine (3+ yrs) 00:00:00 [facility] Pneumococcal 2015-06-22 Completed University o f Polysaccharide, 00:00:00 [place] [facility] PPSV23 (PNEUMOVAX) Branch Influenza Virus 2015-06-22 Completed Universit y of Vaccine (3+ yrs) 00:00:00 [facility] Pneumococcal 2015-06-22 Completed University o f Polysaccharide, 00:00:00 [place] [facility] PPSV23 (PNEUMOVAX) Branch Influenza Virus 2015-06-22 Completed Universit y of Vaccine (3+ yrs) 00:00:00 [place] [facility] Pneumococcal 2015-06-22 Completed University o f Polysaccharide, 00:00:00 [place] [facility] PPSV23 (PNEUMOVAX) Branch Influenza Virus 2015-06-22 Completed Universit y of Vaccine (3+ yrs) 00:00:00 [facility] dical Branch Pneumococcal 2015-06-22 Completed University o f Polysaccharide, 00:00:00 [place] [facility] PPSV23 (PNEUMOVAX) Branch Influenza Virus 2015-06-22 Completed Universit y of Vaccine (3+ yrs) 00:00:00 [facility] dicmi Branch Pneumococcal 2015-06-22 Completed University o f Polysaccharide, 00:00:00 [place] [facility] PPSV23 (PNEUMOVAX) Branch Influenza Virus 2015-06-22 Completed Universit y of Vaccine (3+ yrs) 00:00:00 [facility] Pneumococcal 2015-06-22 Completed University o f Polysaccharide, 00:00:00 [place] [facility] PPSV23 (PNEUMOVAX) Branch Influenza Virus 2015-06-22 Completed Universit y of Vaccine (3+ yrs) 00:00:00 [facility] Pneumococcal 2015-06-22 Completed University o f Polysaccharide, 00:00:00 [place] [facility] PPSV23 (PNEUMOVAX) Branch Influenza Virus 2015-06-22 Completed Universit y of Vaccine (3+ yrs) 00:00:00 [facility] Pneumococcal 2015-06-22 Completed University o f Polysaccharide, 00:00:00 [place] [facility] PPSV23 (PNEUMOVAX) Branch Influenza Virus 2015-06-22 Completed Universit y of Vaccine (3+ yrs) 00:00:00 [facility] Pneumococcal 2015-06-22 Completed University o f Polysaccharide, 00:00:00 [place] [facility] PPSV23 (PNEUMOVAX) Branch Influenza Virus 2015-06-22 Completed Universit y of Vaccine (3+ yrs) 00:00:00 [facility] Pneumococcal 2015-06-22 Completed University o f Polysaccharide, 00:00:00 [place] [facility] PPSV23 (PNEUMOVAX) Branch Influenza Virus 2015-06-22 Completed Universit y of Vaccine (3+ yrs) 00:00:00 [facility] Pneumococcal 2015-06-22 Completed University o f Polysaccharide, 00:00:00 [place] [facility] PPSV23 (PNEUMOVAX) Branch Influenza Virus 2015-06-22 Completed Universit y of Vaccine (3+ yrs) 00:00:00 [facility] dical Branch Pneumococcal 2015-06-22 Completed University o f Polysaccharide, 00:00:00 [place] [facility] PPSV23 (PNEUMOVAX) Branch Influenza Virus 2015-06-22 Completed Universit y of Vaccine (3+ yrs) 00:00:00 [facility] dical Branch Pneumococcal 2015-06-22 Completed University o f Polysaccharide, 00:00:00 [place] [facility] PPSV23 (PNEUMOVAX) Branch Influenza Virus 2015-06-22 Completed Universit y of Vaccine (3+ yrs) 00:00:00 [facility] dical Branch Pneumococcal 2015-06-22 Completed University o f Polysaccharide, 00:00:00 [place] [facility] PPSV23 (PNEUMOVAX) Branch Influenza Virus 2015-06-22 Completed Universit y of Vaccine (3+ yrs) 00:00:00 [facility] dical Branch Pneumococcal 2015-06-22 Completed University o f Polysaccharide, 00:00:00 [place] [facility] PPSV23 (PNEUMOVAX) Branch Influenza Virus 2015-06-22 Completed Universit y of Vaccine (3+ yrs) 00:00:00 [facility] Pneumococcal 2015-06-22 Completed University o f Polysaccharide, 00:00:00 [place] [facility] PPSV23 (PNEUMOVAX) Branch Influenza Virus 2015-06-22 Completed Universit y of Vaccine (3+ yrs) 00:00:00 [facility] Pneumococcal 2015-06-22 Completed University o f Polysaccharide, 00:00:00 [place] [facility] PPSV23 (PNEUMOVAX) Branch Influenza Virus 2015-06-22 Completed Universit y of Vaccine (3+ yrs) 00:00:00 [facility] Pneumococcal 2015-06-22 Completed University o f Polysaccharide, 00:00:00 [place] [facility] PPSV23 (PNEUMOVAX) Branch Influenza Virus 2015-06-22 Completed Universit y of Vaccine (3+ yrs) 00:00:00 [facility] Pneumococcal 2015-06-22 Completed University o f Polysaccharide, 00:00:00 [place] [facility] PPSV23 (PNEUMOVAX) Branch Influenza Virus 2015-06-22 Completed Universit y of Vaccine (3+ yrs) 00:00:00 [facility] Pneumococcal 2015-06-22 Completed University o f Polysaccharide, 00:00:00 [place] [facility] PPSV23 (PNEUMOVAX) Branch Influenza Virus 2015-06-22 Completed Universit y of Vaccine (3+ yrs) 00:00:00 [place] [facility] Pneumococcal 2015-06-22 Completed University o f Polysaccharide, 00:00:00 [place] [facility] PPSV23 (PNEUMOVAX) Branch Influenza Virus 2015-06-22 Completed Universit y of Vaccine (3+ yrs) 00:00:00 [place] [facility] Pneumococcal 2015-06-22 Completed University o f Polysaccharide, 00:00:00 [place] [facility] PPSV23 (PNEUMOVAX) Branch Influenza Virus 2015-06-22 Completed Universit y of Vaccine (3+ yrs) 00:00:00 [place] [facility] Pneumococcal 2015-06-22 Completed University o f Polysaccharide, 00:00:00 [place] [facility] PPSV23 (PNEUMOVAX) Branch Influenza Virus 2015-06-22 Completed Universit y of Vaccine (3+ yrs) 00:00:00 [facility] dical Branch Pneumococcal 2015-06-22 Completed University o f Polysaccharide, 00:00:00 [place] [facility] PPSV23 (PNEUMOVAX) Branch Vital Signs Vital Name Observation Time Observation Value Comments Source Systolic blood 2022-09-01 14:18:00 158 mm[Hg] Univer sity of [facility] Diastolic blood 2022-09-01 14:18:00 78 mm[Hg] Unive rsity of [facility] Heart rate 2022-09-01 14:18:00 62 /min [facility] Respiratory rate 2022-09-01 14:14:00 18 /min [facility] 2022-09-01 14:14:00 73.029 kg [facility] BMI 2022-09-01 14:14:00 27.64 kg/m2 [facility] Oxygen saturation in 2022-09-01 14:14:00 96 /min [facility] Arterial blood by [facility] Pulse oximetry Branch Systolic blood 2022-08-23 22:30:00 165 mm[Hg] Univer sity of pressure [facility] Diastolic blood 2022-08-23 22:30:00 80 mm[Hg] Unive rsity of pressure [facility] Heart rate 2022-08-23 22:16:00 66 /min [facility] [place] [facility] Body temperature 2022-08-23 22:16:00 36.78 Kristina [facility] [place] [facility] Body height 2022-08-23 22:16:00 162.6 cm [facility] [place] [facility] Body weight 2022-08-23 22:16:00 72.576 kg [facility] [place] [facility] BMI 2022-08-23 22:16:00 27.46 kg/m2 [facility] [place] [facility] Oxygen saturation in 2022-08-23 22:16:00 95 /min University of Arterial blood by [facility] Pulse oximetry Branch Systolic blood 2022-08-09 14:44:00 162 mm[Hg] Univer sity of [facility] Diastolic blood 2022-08-09 14:44:00 70 mm[Hg] Unive rsity of [facility] Heart rate 2022-08-09 14:43:00 73 /min [facility] Body temperature 2022-08-09 14:43:00 36.89 Kristina [facility] [place] [facility] Body height 2022-08-09 14:43:00 162.6 cm [facility] Body weight 2022-08-09 14:43:00 71.215 kg [facility] BMI 2022-08-09 14:43:00 26.95 kg/m2 [facility] Oxygen saturation in 2022-08-09 14:43:00 96 /min University of Arterial blood by [facility] Pulse oximetry Branch Systolic blood 2022-08-07 22:18:00 158 mm[Hg] Univer sity of [facility] Diastolic blood 2022-08-07 22:18:00 62 mm[Hg] Unive rsity of pressure [facility] Heart rate 2022-08-07 22:17:00 65 /min [facility] Body temperature 2022-08-07 22:17:00 37.11 Kristina [facility] Body height 2022-08-07 22:17:00 162.6 cm [facility] Body weight 2022-08-07 22:17:00 73.936 kg [facility] [place] [facility] BMI 2022-08-07 22:17:00 27.98 kg/m2 [facility] [place] [facility] Oxygen saturation in 2022-08-07 22:17:00 97 /min University of Arterial blood by [facility] alejandra Pulse oximetry Branch Systolic blood 2022-08-05 15:15:00 164 mm[Hg] Univer sity of [facility] Diastolic blood 2022-08-05 15:15:00 61 mm[Hg] Unive rsity of pressure [facility] Heart rate 2022-08-05 15:15:00 69 /min [facility] Body height 2022-08-05 14:06:00 162.6 cm [facility] Body weight 2022-08-05 14:06:00 73.029 kg [facility] BMI 2022-08-05 14:06:00 27.64 kg/m2 [facility] Oxygen saturation in 2022-08-05 14:06:00 94 /min University of Arterial blood by [facility] Pulse oximetry Branch Systolic blood 2022-08-03 21:48:00 168 mm[Hg] Univer sity of pressure [facility] Diastolic blood 2022-08-03 21:48:00 72 mm[Hg] Unive rsity of pressure [facility] Heart rate 2022-08-03 21:04:00 77 /min [facility] Body height 2022-08-03 21:04:00 162.6 cm [facility] Body weight 2022-08-03 21:04:00 73.029 kg [facility] BMI 2022-08-03 21:04:00 27.64 kg/m2 [facility] Oxygen saturation in 2022-08-03 21:04:00 95 /min University of Arterial blood by [facility] Pulse oximetry Branch Systolic blood 2022-08-01 14:53:00 168 mm[Hg] Univer sity of [facility] Diastolic blood 2022-08-01 14:53:00 64 mm[Hg] Unive rsity of pressure [facility] Heart rate 2022-08-01 14:53:00 69 /min [facility] Body height 2022-08-01 14:50:00 162.6 cm [facility] Body weight 2022-08-01 14:50:00 73.483 kg [facility] BMI 2022-08-01 14:50:00 27.81 kg/m2 [facility] Oxygen saturation in 2022-08-01 14:50:00 96 /min University of Arterial blood by [facility] Pulse oximetry Branch Systolic blood 2022-07-11 19:58:00 137 mm[Hg] Univer sity of pressure [facility] Diastolic blood 2022-07-11 19:58:00 57 mm[Hg] Unive rsity of pressure [facility] Heart rate 2022-07-11 19:58:00 67 /min [facility] Oxygen saturation in 2022-07-11 19:58:00 95 /min University of Arterial blood by [facility] Pulse oximetry Branch Body temperature 2022-07-11 19:56:00 36.44 Kristina [facility] Respiratory rate 2022-07-11 19:56:00 16 /min Univ [facility] Body height 2022-07-11 19:56:00 162.6 cm per pt [facility] Body weight 2022-07-11 19:56:00 72.031 kg [facility] BMI 2022-07-11 19:56:00 27.26 kg/m2 [facility] Systolic blood 2022-07-09 18:27:00 135 mm[Hg] Univer sity of pressure [facility] Diastolic blood 2022-07-09 18:27:00 78 mm[Hg] Unive rsity of pressure [facility] Heart rate 2022-07-09 18:27:00 65 /min [facility] Body temperature 2022-07-09 18:27:00 37 Kristina [facility] Respiratory rate 2022-07-09 18:27:00 16 /min [facility] Body weight 2022-07-09 18:27:00 68.04 kg [facility] Oxygen saturation in 2022-07-09 18:27:00 96 /min University of Arterial blood by [facility] Pulse oximetry Branch Procedures Procedure Date / Time Performing Clinician Source Performed [place] MODIFIED BARIUM 2022-08-31 18:26:06 Corina [facility] RITU [facility] EXTERNAL PROVIDER 2022-08-24 06:01:00 Doctor Unassigned, No [facility] RECORDS [facility] MR BRAIN WO CONTRAST 2022-08-16 14:59:37 [facility] 2022-08-03 06:01:00 Doctor Unassigned, No [facility] PHI TO [facility] POCT HEMOGLOBIN A1C TEST 2022-08-03 00:00:00 Heather Arriaga [facility] [place] [facility] PATIENT QUESTIONNAIRE 2022-07-19 06:01:00 Doctor Unassigned, No [facility] HB ECG ROUTINE & RHYTHM 2022-07-11 20:00:11 Subhash Dumont [facility] POCT URINALYSIS 2022-07-09 18:29:00 Radha Burrows [facility] Plan of Care Planned Activity Planned Date Details Comments Source Future Scheduled Test COLON CANCER SCREENING: [facility] COLONOSCOPY [code = Medicine COLON CANCER SCREENING: COLONOSCOPY] Future Scheduled Test MAMMOGRAM ANNUAL [code [facility] = MAMMOGRAM ANNUAL] Medicine Future Scheduled Test MEDICARE AWV [code = [facility] MEDICARE AWV] Medicine Future Scheduled Test TETANUS SHOT (ADULT) [facility] [code = TETANUS SHOT Medicin e (ADULT)] Future Scheduled Test HEPATITIS C SCREENING [facility] [code = HEPATITIS C Medicine SCREENING] Future Scheduled Test FALL SCREEN [code = [facility] FALL SCREEN] Medicine Future Scheduled Test OSTEOPOROSIS SCREENING [facility] [code = OSTEOPOROSIS Medicin e SCREENING] Future Scheduled Test PNEUMOVAX >=65 (PPSV23) [facility] [code = PNEUMOVAX >=65 Medic ine (PPSV23)] Future Scheduled Test PREVNAR >= 65 (PCV13) [facility] [code = PREVNAR >= 65 Medici ne (PCV13)] Future Scheduled Test FLU VACCINE > 6 MONTHS [facility] [code = FLU VACCINE > 6 Medi cine MONTHS] Future Scheduled Test COLON CANCER SCREENING: [facility] COLONOSCOPY [code = Medicine COLON CANCER SCREENING: COLONOSCOPY] Future Scheduled Test MAMMOGRAM ANNUAL [code [facility] = MAMMOGRAM ANNUAL] Medicine Future Scheduled Test MEDICARE AWV [code = [facility] MEDICARE AWV] Medicine Future Scheduled Test TETANUS SHOT (ADULT) [facility] [code = TETANUS SHOT Medicin e (ADULT)] Future Scheduled Test HEPATITIS C SCREENING [facility] [code = HEPATITIS C Medicine SCREENING] Future Scheduled Test FALL SCREEN [code = [facility] FALL SCREEN] Medicine Future Scheduled Test OSTEOPOROSIS SCREENING [facility] [code = OSTEOPOROSIS Medicin e SCREENING] Future Scheduled Test PNEUMOVAX >=65 (PPSV23) [facility] [code = PNEUMOVAX >=65 Medic ine (PPSV23)] Future Scheduled Test PREVNAR >= 65 (PCV13) [facility] [code = PREVNAR >= 65 Medici ne (PCV13)] Future Scheduled Test FLU VACCINE > 6 MONTHS [facility] [code = FLU VACCINE > 6 Medi cine MONTHS] Encounters Start End Encounter Admission Attending Care Care Encounter Source Date/Time Date/Time Type Type Clinicians Facility Department ID 2022-10-03 2022-10-03 Outpatient JESUS ROBB [facility] [id number] Univers 09:20:00 09:20:00 JESUS FERNANDEZ [facility] 2022-09-21 2022-09-21 Outpatient Krista ARRIAGA [facility] [id number] Univers 16:15:00 16:15:00 , [place] [facility] 2022-09-08 2022-09-08 Telephone [facility] [id number] [id number] Univers 00:00[facility]00 [facility]00 [id number] [id number] [place] YOSVANY?BLEA [id number] [address] MEDICAL OFFICE BUILDING 2022-09-05 2022-09-05 Outpatient JESUS ROBB [facility] [id number] Univers 09:20:00 09:20:00 JESUS FERNANDEZ [facility] 2022-09-05 2022-09-05 Outpatient JESUS ROBB [facility] [id number] Univers 09:20:00 09:20:00 JESUS FERNANDEZ [facility] 2022-09-02 2022-09-02 Telephone [facility] [id number] Univers 00:00:00 00:00:00 , [place] [facility] 350.1.13.10 ity of Gema DE PAZ [id number] [place] as YOSVANY?BLEA [id number] Mo dical KNEY 044 [facility] OFFICE [facility] 2022-09-01 2022-09-01 Outpatient R CHARLIE [facility] [id number] Univers 08:20:00 08:45:46 JUAN ity of [facility] 2022-09-01 2022-09-01 [facility] [id number] Univers 08:20:00 08:45:46 Visit Juan DE PAZ 350.1.13.10 i ty of [facility] 4.2.[place].2.[place] [id number] Mo dical NAL 059 [facility] 2022-08-31 2022-08-31 Outpatient R CORINA [facility] [id number] Univers 10:57:42 23:59:00 , [place] it y of [facility] 2022-08-31 2022-08-31 [facility] [id number] Univers 10:57:42 23:59:00 Encounter , [place] DE PAZ 350.1.13.10 ity of [place]2.7.2.686 [place] [id number] [facility] [address] 2022-08-31 2022-08-31 Outpatient R UNIQUE [facility] [id number] Univers 13:45:00 14:36:03 MARIANO ity of [facility] 2022-08-31 2022-08-31 Ancillary Miranda Montenegro [facility] [id number] [id number] Univers 13:45:00 14:36:03 Visit Mariano Calhoun 350.1.13.10 ity of [facility] [id number] [id number] Mo dical NAL 145 [facility] 2022-08-26 2022-08-26 Outpatient R JESUS FERNANDEZ [facility] [id number] Univers 09:40:00 09:40:00 JESUS FERNANDEZ of [facility] 2022-08-24 2022-08-24 Orders Doctor AMANDA 1.2.840.114 [id number] Univers 00:00:00 00:00:00 Only Unassigned, ARTURO 350.1.13.10 ity of Hernandez [facility] 4.2.7.2.686 [place] as [phone] [facility] 009 Branch 2022-08-23 2022-08-23 Outpatient R CORINA [facility] [id number] Univers 16:00:00 16:39:01 , [place] eckert of [facility] 2022-08-23 2022-08-23 Office [facility] 1.2.840.114 [id number] Univers 16:00:00 16:39:01 Visit , [place] ORR 350.1.13.10 ity of Gema DE PAZ 4.2.7.2.686 Oseas as YOSVANY?BLEA [phone] [address] MEDICAL OFFICE BUILDING 2022-08-23 2022-08-23 Outpatient R CORINA [facility] [id number] Univers 10:00:00 10:00:00 , [place] draper babar [facility] 2022-08-17 2022-08-17 Outpatient LEANDRA [facility] [id number] [facility] 14:24:57 16:05:13 JULES porter Medicin e 2022-08-16 2022-08-16 Outpatient R JESUS FERNANDEZ [facility] [id number] Univers 08:06:52 23:59:00 JESUS FERNANDEZ of [facility] 2022-08-16 2022-08-16 [facility] [id number] Univers 08:06:52 23:59:00 Encounter Jesus DE PAZ 350.1.13.10 ity of [place]2.7.2.686 [place] [id number] [facility] 804 Branch 2022-08-11 2022-08-11 [facility] 1.2.840.114 [id number] Univers 00:00:00 00:00:00 Management , [place] ORR 350.1.13.10 ity of Gema DE PAZ 4.2.7.2.686 [place] as YOSVANY?BLEA [id number] Mo azael WILSON [address] MEDICAL OFFICE [facility] 2022-08-10 2022-08-10 Telephone [facility] 1.2.840.114 [id number] Univers 00:00:00 00:00:00 , [place] HEALTH 350.1.13.10 ity of Gema DE PAZ 4.2.7.2.686 Oseas as YOSVANY?BLEA [phone] Mo azael WILSON 044 [facility] OFFICE [facility] 2022-08-09 2022-08-09 [facility], [facility] [id number] Univers 09:30:00 09:45:00 Visit Corina [place] Ribeiro HEALTH 350.1 .13.10 ity of ZANDRA 4.2.7.2.686 Oseas as YOSVANY?BLEA [phone] Mo azael WILSON 353 [facility] OFFICE [facility] 2022-08-09 2022-08-09 Outpatient R [facility] [id number] Univers 08:30:00 09:17:03 , [place] it y of [facility] 2022-08-09 2022-08-09 Office [facility] 1.2.840.114 [id number] Univers 08:30:00 09:17:03 Visit , [place] ORR 350.1.13.10 ity of Gema DE PAZ 4.2.7.2.686 Oseas as YOSVANY?BLEA [id number] Mo azael WILSON [address] [place] [address] MEDICAL OFFICE [facility] 2022-08-09 2022-08-09 Telephone [facility] [id number] Univers 00:00:00 00:00:00 Nitza V[place] ZANDRA 350.1.13.10 i ty [place]7.2.686 [place]EL [id number] Mo azael RICHTER 059 [facility] 2022-08-07 2022-08-07 [id number] Univers 16:20:00 16:34:39 ALYCIA vaz o f [facility] 2022-08-07 2022-08-07 Urgent Alycia Soria [facility] 1.2.840 .114 [id number] Univers 16:20:00 16:34:39 Care Unknown, [facility] 350.1.13.10 ity of [place] 4.2.7.2.686 [place] as YOSVANY?BLEA [phone] Mo dicmagali [address]SON [address] MEDICAL OFFICE BUILDING 2022-08-05 2022-08-05 Outpatient R JESUS FERNANDEZ [facility] [id number] Univers 08:00:00 09:24:43 JESUS FERNANDEZ [facility] 2022-08-05 2022-08-05 Office Jim [facility] 1.2.840.114 [id number] Univers 08:00:00 09:24:43 Visit Jesus [facility] 350.1.13.10 ity of [place] 4.2.7.2.686 Ose[place] as YOSVANY?BLEA [id number] Mo azael [address]SON [address] MEDICAL OFFICE [facility] 2022-08-04 2022-08-04 Patient Kobi [facility] 1.2.840.114 [id number] Univers 00:00:00 00:00:00 Outreach Gauri [facility] 350.1.13.10 i ty of [place] 4.2.7.2.686 Oseas as YOSVANY?BLEA [phone] Mo dicmagali [address]ILSON [address] MEDICAL OFFICE BUILDING 2022-08-03 2022-08-03 Outpatient R CORINA [facility] [id number] Univers 15:00:00 16:25:15 , [place] eckert of [facility] 2022-08-03 2022-08-03 Office [place] [facility] 1.2.840.114 [id number] Univers 15:00:00 16:25:15 Visit , [place] [facility] 350.1.13.10 ity of Gema [place] 4.2.7.2.686 Oseas as YOSVANY?BLEA [id number] Mo dical KATIE [address] MEDICAL OFFICE BUILDING 2022-08-03 2022-08-03 Orders Doctor PATEL 1.2.840.114 [id number] Univers 00:00:00 00:00:00 Only Unassigned, ARTURO 350.1.13.10 [facility] 4.2.7.2.686 [place] as [phone] [address] 2022-08-01 2022-08-01 [facility] [id number] Univers 08:40:00 09:24:21 NITZA itbabar of [facility] 2022-08-01 2022-08-01 Office [facility] [id number] Univers 08:40:00 09:24:21 Visit Nitza Yared DE PAZ [id number] i ty of [facility] [place] [id number] [address] 2022-07-29 2022-07-29 Outpatient R [facility] [id number] Univers 08:58:29 08:58:29 QIAORESTES ity o [facility] 2022-07-28 2022-07-28 Outpatient R [facility] [id number] Univers 11:00:00 23:59:00 QIAFRITZJUN ity o [facility] 2022-07-28 2022-07-28 Patient [facility] [id number] Univers 00:00:00 00:00:00 Outreach Gauri Vail ZANDRA [id number] ity of [id number] [phone] Mo dical NAL 9 [facility] 2022-07-20 2022-07-20 Outpatient R [facility] [id number] Univers 16:00:00 23:59:00 QIANGJUN ity o f [facility] 2022-07-19 2022-07-19 Telephone [facility] [id number] Univers 00:00:00 00:00:00 Subhash DE PAZ 350.1.13.10 ity of [place] [phone] Mo dical NAL 9 [facility] 2022-07-19 2022-07-19 Orders Doctor AMANDA [id number] Univers 00:00:00 00:00:00 Only Unassigned, ARTURO 350.1.13.10 ity of [place] [facility] 4.2.7.2.686 [place] as [phone] [address] 2022-07-18 2022-07-18 [facility] [id number] Univers 12:54:03 23:59:00 SUBHASH vaz o f [facility] 2022-07-18 2022-07-18 Telephone [facility] [id number] Univers 00:00:00 00:00:00 Subhash DE PAZ 350.1.13.10 ity of [place] [id number] Mo dical NEELAM 9 [facility] 2022-07-14 2022-07-14 Telephone [facility] [id number] Univers 00:00:00 00:00:00 Subhash DE PAZ [id number] ity [facility] [place] [phone] Mo dical NEELAM 059 [facility] 2022-07-12 2022-07-12 Telephone [facility] [id number] Univers 00:00:00 00:00:00 Subhash DE PAZ 350.1.13.10 ity of [place] [phone] Mo dical NAL 059 [facility] 2022-07-11 2022-07-11 Assembler Filters 2, Adc Lab [facility] [id number] Univers 15:00:00 15:15:00 Visit Subhash Dumont 350.1.13.10 ity of [place] [phone] Mo azael [facility] 353 [facility] 2022-07-11 2022-07-11 Office [facility] [id number] [facility] 13:40:00 14:26:01 Visit [facility] [id number] ity lizandro [facility] 4.2.7.2.[place] GOODIO [phone] Mo azael RICHTER 059 [facility] 2022-07-11 2022-07-11 Outpatient Krista DUMONT [facility] [id number] [facility] 13:40:00 14:26:01 SUBHASH montelongo [facility] 2022-07-09 2022-07-09 Urgent Vanessa Burroswtany [facility] 1.2.840. [id number] [facility] 12:00:00 12:56:23 Care Unknown, Attending HEALTH [id number] ity lizandro [place] 4.2.7.2.686 [place] YOSVANY?BLEA [phone] Mo azael EY [address] [facility] 2022-07-09 2022-07-09 [facility] [id number] [facility] 12:00:00 12:56:23 RDAHA татьяна stewart reginald [facility] 2022-04-21 2022-04-21 Outpatient JENNIFER [facility] [id number] [facility] 08:47:28 10:32:52 ABRAHAM George e of Medicin e 2022-02-14 2022-02-14 Outpatient JESSIE [facility] [id number] [facility] 09:47:21 10:31:38 JULES Gordon ge of Medicin e 2021-12-20 2021-12-20 Outpatient JENINFER [facility] [id number] [facility] 13:12:30 14:48:43 ABRAHAM George e of Medicin e 2021-09-01 2021-09-01 Outpatient JESSIE [facility] [id number] [facility] 12:38:03 13:39:03 JULES Gordon ge of Medicin e 2021-08-23 2021-08-23 Outpatient JENNIFER [facility] [id number] [facility] 13:00:30 13:27:58 ABRAHAM alexander of Medicin e 2021-06-30 2021-06-30 Outpatient KOLTON [facility] [id number] [facility] 14:39:19 15:46:54 JONE George e of Medicin e 2021-06-09 2021-06-09 Outpatient LEANDRA STONE [facility] [id number] [facility] 15:39:16 16:24:09 JULES Evan ge of Medicin e 2021-06-04 2021-06-04 Outpatient LEANDRA STONE [facility] [id number] [facility] 13:20:22 16:02:14 JULES Gordon ge of Medicin e 2021-04-23 2021-04-23 Outpatient LEANDRA HAWLEY [facility] [id number] [facility] 14:25:15 16:32:18 ABRAHAM Gordonmichael e of Medicin e 2019-05-17 2019-05-17 Office LEANDRA Hawley [id number] [facility] 13:25:40 13:35:40 Visit Abraham AMBULATOR 350.1.13.21 College Tae-Jin Y 0.2.7.2.686 of [id number] Medi didi 300 e 2019-03-06 2019-03-06 Office LEANDRA Stone [id number] [facility] 09:14:55 09:29:55 Visit Jules Zuleika AMBULATOR 350.1.13.21 College Y 0.2.7.2.686 of [id number] Medi didi 300 e Results Test Description Test Time Test Comments Results Result Comments Source POCT HEMOGLOBIN A1C TEST 2022-08-03 22:16:00 Test Item Value Reference Range Interpretation Comme nts POCT HBA1C (test code = 4548-4) 7.0 % 4-6 A Lab Interpretation (test code = 75953-8) Abnormal [facility] HEMOGLOBIN A1C [id number] 22:16:00 Test Item Value Reference Range Interpretation Comments POCT HBA1C (test code = 4548-4) 7.0 % 4-6 A Lab Interpretation (test code = Abnormal 81672-8) [facility] HEMOGLOBIN A1C [id number] 22:16:00 Test Item Value Reference Range Interpretation Comments POCT HBA1C (test code = 4548-4) 7.0 % 4-6 A Lab Interpretation (test code = Abnormal 51114-1) [facility] URINALYSIS W SPECIFIC [id number] 18:30:00 Test Item Value Reference Range Interpretation Comments POCT U SP GRAV (test code = 1.005 mg/dl 1.005-1.025 3255) POCT PH U (test code = 3254) 8 mg/dl 5-8 POCT U LEUK EST (test code = ++ Negative - Negative 3263) POCT U NIT (test code = 3262) pos Negative - Negative POCT U PROT (test code = trace Negative - Negative 3259) POCT U GLU (test code = 3256) norm Negative - Negative POCT U KETONE (test code = neg Negative - Negative 3258) POCT U UROBILI (test code = norm 0.2-1 3260) POCT U BILI (test code = neg Negative - Negative 3261) POCT U BLD (test code = 3257) neg Negative - Negative POCT U COLOR (test code = yellow 3266) POCT U APPEAR (test code = clear 3267) Lab Interpretation (test code Abnormal = 81674-4) [id number] 08:17:00 Test Item Value Reference Range Interpretation Comments POC-GLUCOSE METER 162 mg/dL 70-110 H TESTED AT [facility] 7200 (JUNIOR) (test code MARGARITA E ANNA [place] = 1538) [place] [address]
[2022-09-08] MEDS ORDERED: NA CHLORIDE 0.9% 1,000 ML ONE (16:40)
[2022-09-08 16:46] LABS: Urine Blood Trace-intact (Negative); Urine Glucose Negative (Negative); Urine Protein 1+ (Negative); Urine Specific Gravity 1.015 (1.005-1.030)
--- NOTE | 2022-09-08 16:51 | RAD REPORT ---
EXAM DESCRIPTION: RAD - Chest Single View - 09/08/2022 4:44 pm CLINICAL HISTORY: visual hallucinations Chest pain. COMPARISON: Chest Single View dated 06/04/2022; Chest Pa And Lat (2 Views) dated 11/30/2021 FINDINGS: Portable technique limits examination quality. The lungs are grossly clear. The heart is mildly enlarged in size. No displaced fractures.Aortic athe rosclerosis. IMPRESSION: No acute intrathoracic process suspected.
[2022-09-08 17:07] LABS: Urine Bacteria None Seen /HPF (<20); Urine RBC <5 /HPF (None Seen); Urine WBC Clump Rare /HPF (None Seen)
[2022-09-08 17:08] LABS: Hematocrit 39.8 % (36.0-45.0); Lymphocytes % 29.1 % (15.3-44.8); MCV 85.6 fL (80-100); MPV 8.2 fL (7.6-11.3); RBC Red Blood Cell Count 4.65 M/uL (3.86-4.86)
[2022-09-08 17:12] LABS: Protime INR 1.07
[2022-09-08 18:06] LABS: Albumin 3.2 g/dL (3.4-5.0); Bilirubin Total 1.5 mg/dL (0.2-1.0); Protein, Total 6.4 g/dL (6.4-8.2)
[2022-09-08 18:09] LABS: Potassium 3.4 mmol/L (3.5-5.1)
--- NOTE | 2022-09-08 18:11 | RAD REPORT ---
EXAM DESCRIPTION: CT - Head Brain Wo Cont - 09/08/2022 6:03 pm CLINICAL HISTORY: CONFUSED Headache, drowsiness COMPARISON: Head Brain Wo Cont dated 06/04/2022 TECHNIQUE: All CT scans are performed using dose optimization technique as appropriate and may inclu de automated exposure control or mA/KV adjustment according to patient size. FINDINGS: No intracranial hemorrhage, hydrocephalus or extra-axial fluid collection.Mild generalized brain atrophy is present with mild periventricular and deep white matter chronic microvascular ische yasmin changes.No areas of brain edema or evidence of midline shift. The paranasal sinuses and mastoids are clear. The calvarium is intact. IMPRESSION: No acute intracranial abnormality.
--- NOTE | 2022-09-08 18:54 | EDPHYS ---
Physician Documentation [facility] Name: Indira Dunbar Age: 76 yrs Sex: Female : 1945 Arrival Date: 09/08/2022 Time: 15:59 Bed 7 Private MD: ED Physician Oswaldo Ross HPI: 09/08 16:44 This 76 yrs old Female presents to ER via Wheelchair with complaints of low heart rate, snw Altered Mental Status. 16:44 The patient presents with confusion, visual hallucinations from 2200 last pm to about snw noon today. Onset: The symptoms/episode began/occurred acutely. Associated signs and symptoms: Pertinent positives: none. Current symptoms: In the emergency department the patient's symptoms have improved, moderately, is less confused. Patient's baseline: Neuro: The patient has a previous history of dementia, being evaluated for Parkinsons. Needs a pacemaker for bradycardia, orthostatic hypotension. Hx of glaucoma, blind. The patient has not experienced similar symptoms in the past. The patient has been recently seen by a physician: the patient's primary care provider. appt with Neuro to further eval for Parkinson's. Historical: - Allergies: 16:07 No Known Allergies; mb9 - Home Meds: 16:07 simvastatin 40 mg Oral tab 1 tab once daily [Active]; metformin 1,000 mg Oral tab 1 tab mb9 2 times per day [Active]; escitalopram oxalate 10 mg Oral tab 1 tab once daily [Active]; aspirin 81 mg Oral cap 1 cap once daily [Active]; donepezil 10 mg Oral tab 1 tab once daily [Active]; glipizide 10 mg Oral tab 1 tab once daily [Active]; losartan 50 mg oral tab once daily [Active]; - PMHx: 16:07 Alzheimer's disease; Dementia; diabetes mellitus; Glaucoma; Hypercholesterolemia; mb9 - PSHx: 16:07 None; mb9 - Immunization history:: Adult Immunizations up to date. - Social history:: Smoking status: Patient denies any tobacco usage or history of. ROS: 16:48 Constitutional: Negative for fever, chills, and weight loss, Eyes: Negative for injury, snw pain, redness, and discharge, ENT: Negative for injury, pain, and discharge, + blindness from glaucoma Neck: Negative for injury, pain, and swelling, Cardiovascular: Negative for chest pain, palpitations, and edema, Respiratory: Negative for shortness of breath, cough, wheezing, and pleuritic chest pain, Abdomen/GI: Negative for abdominal pain, nausea, vomiting, diarrhea, and constipation, Back: Negative for injury and pain, : Negative for injury, bleeding, discharge, and swelling, MS/Extremity: Negative for injury and deformity, Skin: Negative for injury, rash, and discoloration. 16:48 Neuro: Positive for from 10pm to 12pm today, pt had visual hallucinations, saw children, people who are , etc. Hx of dementia but has never had sundowning or this level of confusion. Exam: 16:57 Constitutional: This is a well developed, well nourished patient who is awake, alert, snw and in no acute distress. Head/Face: Normocephalic, atraumatic. 16:57 ENT: Nares patent. No nasal discharge, no septal abnormalities noted. Tympanic membranes are normal and external auditory canals are clear. Oropharynx with no redness, swelling, or masses, exudates, or evidence of obstruction, uvula midline. Mucous membranes moist. Neck: Trachea midline, no thyromegaly or masses palpated, and no cervical lymphadenopathy. Supple, full range of motion without nuchal rigidity, or vertebral point tenderness. No Meningismus. Chest/axilla: Normal chest wall appearance and motion. Nontender with no deformity. No lesions are appreciated. Cardiovascular: Regular rate and rhythm with a normal S1 and S2. No gallops, murmurs, or rubs. Normal PMI, no JVD. No pulse deficits. Respiratory: Lungs have equal breath sounds bilaterally, clear to auscultation and percussion. No rales, rhonchi or wheezes noted. No increased work of breathing, no retractions or nasal flaring. Abdomen/GI: Soft, non-tender, with normal bowel sounds. No distension or tympany. No guarding or rebound. No evidence of tenderness throughout. Back: No spinal tenderness. No costovertebral tenderness. Full range of motion. Skin: Warm, dry with normal turgor. Normal color with no rashes, no lesions, and no evidence of cellulitis. MS/ Extremity: Pulses equal, no cyanosis. Neurovascular intact. Full, normal range of motion. Neuro: Awake and alert, GCS 15, oriented to person, place, and situation. Cranial nerves II-XII grossly intact. Motor strength 5/5 in all extremities. Sensory grossly intact. Cerebellar exam normal. gait not tested Psych: Awake, alert, with orientation to person, place and time. Behavior, mood, and affect are within normal limits. 16:57 Eyes: blind. 16:57 Special observations: pre-existing blindness. Vital Signs: 16:02 BP 165 / 59; Pulse 70; Resp 18; Temp 98.2; Pulse Ox 95% ; Weight 73.03 kg; Height 5 ft. mb9 4 in. (162.56 cm); Pain 0/10; 18:04 BP 117 / 64; Pulse 67; Resp 18 S; Pulse Ox 96% on R/A; kc6 16:02 Body Mass Index 27.64 (73.03 kg, 162.56 cm) mb9 NIH Stroke Scale Scores: 16:57 NIHSS Score: 1 snw MDM: 16:10 Patient medically screened. snw 17:04 Differential Diagnosis: sepsis, UTI, volume depletion. Data reviewed: vital signs, snw nurses notes. Care significantly affected by the following Social Determinants of Health: hx of dementia. 18:50 Historians other than the Patient: Daughter/Son: No VANCE. Care significantly snw affected by the following chronic conditions: Dementia. Counseling: I had a detailed discussion with the patient and/or guardian regarding: the historical points, exam findings, and any diagnostic results supporting the discharge/admit diagnosis, lab results, radiology results, the need for outpatient follow up, for definitive care, to return to the emergency department if symptoms worsen or persist or if there are any questions or concerns that arise at home. Response to treatment: There is no appreciated change of the patient's symptoms at this time. Special discussion: Based on the history and exam findings, there is no indication for further emergent testing or inpatient evaluation. I discussed with the patient/guardian the need to see the neurologist for further evaluation of the symptoms. I discussed with the patient/guardian the need to see the primary care provider for further evaluation of the symptoms. 19:51 Consideration of Admission/Observation Escalation of care including snw admission/observation considered. pt is without s/s infection, dehydration, + need for structure and routine with dementia diagnosis, will discharge to home with Daughter for familiar environment. 02/09 16:22 Order name: Blood Culture Adult (2) snw 09/08 16:22 Order name: CBC with Diff; Complete Time: 17:58 snw 09/08 16:22 Order name: CMP; Complete Time: 18:25 snw 09/08 16:22 Order name: Lactate w/ 2H reflex if indic.; Complete Time: 18:25 snw 09/08 16:22 Order name: Protime (+inr); Complete Time: 17:13 snw 09/08 16:22 Order name: Ptt, Activated; Complete Time: 17:13 snw 09/08 16:22 Order name: Urine Culture snw 09/08 16:22 Order name: Urine Microscopic Only; Complete Time: 17:11 snw 09/08 16:22 Order name: Chest Single View XRAY; Complete Time: 17:04 snw 09/08 16:22 Order name: EKG; Complete Time: 16:23 snw 09/08 16:22 Order name: Accucheck; Complete Time: 16:46 snw 09/08 16:46 Order name: Urine Dipstick-Ancillary; Complete Time: 17:04 EDMS 09/08 17:12 Order name: CT Head Brain wo Cont; Complete Time: 18:25 snw 09/08 16:22 Order name: Cardiac monitoring; Complete Time: 16:23 snw 09/08 16:22 Order name: Cath; Complete Time: 16:35 snw 09/08 16:22 Order name: EKG - Nurse/Tech; Complete Time: 16:46 snw 09/08 16:22 Order name: IV Saline Lock - Large Bore; Complete Time: 17:02 snw 09/08 16:22 Order name: Labs collected and sent; Complete Time: 17:02 snw 09/08 16:22 Order name: O2 Per Protocol; Complete Time: 16:23 snw 09/08 16:22 Order name: O2 Sat Monitoring; Complete Time: 16:23 snw 09/08 16:22 Order name: Urine Dipstick-Ancillary (obtain specimen); Complete Time: 16:46 snw 09/08 16:22 Order name: Vital Signs; Complete Time: 16:46 snw 09/08 17:15 Order name: Labs - recollect needed: GREEN TOP AND LACTATE; Complete Time: 17:29 em1 Administered Medications: 17:01 Drug: NS 0.9% 1000 ml Route: IV; Rate: 75 ml/hr; Site: right hand; kc6 18:57 Follow up: Response: No adverse reaction; IV Status: Completed infusion kc6 Disposition: 09/09 07:44 Co-signature as Attending Physician, Oswaldo Ross MD I reviewed the patient's care rt provided by the Advanced Practice Provider and agree with the diagnosis and treatment plan. Disposition Summary: 09/08/22 18:53 Discharge Ordered Location: Home snw Condition: Stable snw Diagnosis - Unspecified dementia with behavioral disturbance snw Followup: snw - With: Emergency Department - When: As needed - Reason: Worsening of condition Followup: snw - With: Private Physician - When: 1 - 2 days - Reason: Recheck today's complaints, Continuance of care, Re-evaluation by your physician Discharge Instructions: - Discharge Summary Sheet snw - Dementia snw - Dementia Caregiver Guide snw Forms: - Medication Reconciliation Form snw - Thank You Letter snw - Antibiotic Education snw - Prescription Opioid Use snw NIH Stroke Scale - NIH Stroke Score Date: 09/08/2022 Time: 16:57 Total Score = 1 1a. Level of Consciousness (LOC) - 0(Alert) 1b. Level of Consciousness (LOC) (Month \T\ Age) - 1(One) 1c. LOC Commands (Open \T\ Closes Eyes/Medical Biller Coder) - 0(Both) 2. Best Gaze (Lateral Gaze Paresis) - 0(Normal) 3. Visual Field Loss - 0(No visual loss) 4. Facial Palsy - 0(Normal) 5a. Left Arm: Motor (10-second hold) - 0(No drift) 5b. Right Arm: Motor (10-second hold) - 0(No drift) 6a. Left Leg: Motor (5-second hold - always test supine) - 0(No drift) 6b. Right Leg: Motor (5-second hold - always test supine) - 0(No drift) 7. Limb Ataxia (finger/nose \T\ heel/shea - test with eyes open) - 0(Absent) 8. Sensory Loss (pinprick arms/legs/face) - 0(Normal) 9. Best Language: Aphasia (description/naming/reading) - 0(No aphasia) 10. Dysarthria (speech clarity - read or repeat words) - 0(Normal) 11. Extinction and Inattention (visual/tactile/auditory/spatial/personal) - 0(No abnormality) Initials: snw Signatures: Dispatcher [employer] Luna Alejandro, MAIL TELLER-C MAIL TELLER-Csnw Raghu Diaz em1 Breanne Szymanski RN RN kc6 Debra Patel RN RN mb9 Oswaldo Ross MD MD rt
--- NOTE | 2022-09-08 18:54 | ER ---
Nurse's Notes [facility] Name: Indira Dunbar Age: 76 yrs Sex: Female : 1945 Arrival Date: 09/08/2022 Time: 15:59 Bed 7 Private MD: Diagnosis: Unspecified dementia with behavioral disturbance Presentation: 09/08 16:02 Chief complaint: Patient's son or daughter states: "Last night at 10pm she started mb9 hallucinating about kids running around, people, and people talking to her. Also, her home health nurse stated her HR was in the 40s today. A doctor recommened a pacemaker for her but I don't know if I want to put her under". Coronavirus screen:. Coronavirus screen: Vaccine status: Patient reports being unvaccinated. Ebola Screen: No symptoms or risks identified at this time. Initial Sepsis Screen: Does the patient meet any 2 criteria? No. Patient's initial sepsis screen is negative. Does the patient have a suspected source of infection? No. Patient's initial sepsis screen is negative. Risk Assessment: Do you want to hurt yourself or someone else? Patient reports no desire to harm self or others. Onset of symptoms was September 07, 2022. 16:02 Method Of Arrival: Wheelchair mb9 16:02 Acuity: KYMBERLY 3 mb9 Historical: - Allergies: 16:07 No Known Allergies; mb9 - Home Meds: 16:07 simvastatin 40 mg Oral tab 1 tab once daily [Active]; metformin 1,000 mg Oral tab 1 tab mb9 2 times per day [Active]; escitalopram oxalate 10 mg Oral tab 1 tab once daily [Active]; aspirin 81 mg Oral cap 1 cap once daily [Active]; donepezil 10 mg Oral tab 1 tab once daily [Active]; glipizide 10 mg Oral tab 1 tab once daily [Active]; losartan 50 mg oral tab once daily [Active]; - PMHx: 16:07 Alzheimer's disease; Dementia; diabetes mellitus; Glaucoma; Hypercholesterolemia; mb9 - PSHx: 16:07 None; mb9 - Immunization history:: Adult Immunizations up to date. - Social history:: Smoking status: Patient denies any tobacco usage or history of. Screenin:21 [facility] ED Fall Risk Assessment (Adult) History of falling in the last 3 months, kc6 including since admission No falls in past 3 months (0 pts) Confusion or Disorientation No (0 pts) Intoxicated or Sedated No (0 pts) Impaired Gait No (0 pts) Mobility Assist Device Used No (0 pt) Altered Elimination No (0 pt) Score/Fall Risk Level 0 - 2 = Low Risk Oriented to surroundings, Maintained a safe environment, Educated pt \\T\\ family on fall prevention, incl call for assistance when getting out of bed, Assessed \\T\\ reinforced patient's understanding of fall precautions, Hourly rounding (assess needs \\T\\ fall precautionary measures) done. Abuse screen: Denies threats or abuse. Denies injuries from another. Nutritional screening: No deficits noted. Tuberculosis screening: No symptoms or risk factors identified. Assessment: 16:20 General: Appears in no apparent distress. comfortable, Behavior is calm, cooperative, kc6 appropriate for age. Pain: Denies pain. Neuro: Parada Agitation-Sedation Scale (RASS): 0 - Alert and Calm Level of Consciousness is awake, alert, obeys commands, Oriented to person, place, Appropriate for age. Cardiovascular: Capillary refill < 3 seconds. Respiratory: Airway is patent Trachea midline Respiratory effort is even, unlabored, Respiratory pattern is regular, symmetrical. GI: No signs and/or symptoms were reported involving the gastrointestinal system. : No signs and/or symptoms were reported regarding the genitourinary system. EENT: No signs and/or symptoms were reported regarding the EENT system. Derm: No signs and/or symptoms reported regarding the dermatologic system. Skin is intact, Skin is pink, warm \\T\\ dry. Musculoskeletal: No signs and/or symptoms reported regarding the musculoskeletal system. Circulation, motion, and sensation intact. Capillary refill < 3 seconds, Range of motion: intact in all extremities. 17:02 Reassessment: spoke with Kareen from inside lab. stated she is on her way for [facility] assistance with second set of blood cultures. 17:20 Reassessment: Patient appears in no apparent distress at this time. No changes from kc6 previously documented assessment. Patient and/or family updated on plan of care and expected duration. Pain level reassessed. Patient is alert, oriented x 3, equal unlabored respirations, skin warm/dry/pink. 18:20 Reassessment: Patient appears in no apparent distress at this time. No changes from kc6 previously documented assessment. Patient and/or family updated on plan of care and expected duration. Pain level reassessed. Patient is alert, oriented x 3, equal unlabored respirations, skin warm/dry/pink. Vital Signs: 16:02 BP 165 / 59; Pulse 70; Resp 18; Temp 98.2; Pulse Ox 95% ; Weight 73.03 kg; Height 5 ft. mb9 4 in. (162.56 cm); Pain 0/10; 18:04 BP 117 / 64; Pulse 67; Resp 18 S; Pulse Ox 96% on R/A; kc6 16:02 Body Mass Index 27.64 (73.03 kg, 162.56 cm) mb9 NIH Stroke Scale Scores: 16:57 NIHSS Score: 1 snw ED Course: 15:59 Patient arrived in ED. am2 16:02 Arm band placed on. mb9 16:07 Triage completed. mb9 16:10 Luna Rodriguez FNP-C [facility]. snw 16:10 Oswaldo Ross MD is Attending Physician. snw 16:20 Breanne Szymanski, MARIO is Primary Nurse. kc6 16:21 Patient has correct armband on for positive identification. Bed in low position. Call kc6 light in reach. Side rails up X2. Adult w/ patient. 16:45 Chest Single View XRAY In Process Unspecified. EDMS 16:46 Urine Culture Sent. kc6 16:46 Urine Microscopic Only Sent. kc6 17:10 Inserted saline lock: 20 gauge in right wrist, using aseptic technique. Blood collected.ap3 17:11 Second set of blood cultures drawn by me. vg1 18:05 CT Head Brain wo Cont In Process Unspecified. EDMS 19:14 No provider procedures requiring assistance completed. IV discontinued, intact, kc6 bleeding controlled, No redness/swelling at site. Pressure dressing applied. Administered Medications: 17:01 Drug: NS 0.9% 1000 ml Route: IV; Rate: 75 ml/hr; Site: right hand; kc6 18:57 Follow up: Response: No adverse reaction; IV Status: Completed infusion kc6 Medication: 19:14 VIS not applicable for this client. kc6 Outcome: 18:53 Discharge ordered by . snw 19:14 Discharged to home via wheelchair, with family. kc6 19:14 Condition: stable 19:14 Discharge instructions given to patient, family, Instructed on discharge instructions, follow up and referral plans. Demonstrated understanding of instructions, follow-up care. 19:14 Patient left the ED. kc6 NIH Stroke Scale - NIH Stroke Score Date: 09/08/2022 Time: 16:57 Total Score = 1 1a. Level of Consciousness (LOC) - 0(Alert) 1b. Level of Consciousness (LOC) (Month \\T\\ Age) - 1(One) 1c. LOC Commands (Open \\T\\ Closes Eyes/Plug Cutting Machine Operator) - 0(Both) 2. Best Gaze (Lateral Gaze Paresis) - 0(Normal) 3. Visual Field Loss - 0(No visual loss) 4. Facial Palsy - 0(Normal) 5a. Left Arm: Motor (10-second hold) - 0(No drift) 5b. Right Arm: Motor (10-second hold) - 0(No drift) 6a. Left Leg: Motor (5-second hold - always test supine) - 0(No drift) 6b. Right Leg: Motor (5-second hold - always test supine) - 0(No drift) 7. Limb Ataxia (finger/nose \\T\\ heel/shea - test with eyes open) - 0(Absent) 8. Sensory Loss (pinprick arms/legs/face) - 0(Normal) 9. Best Language: Aphasia (description/naming/reading) - 0(No aphasia) 10. Dysarthria (speech clarity - read or repeat words) - 0(Normal) 11. Extinction and Inattention (visual/tactile/auditory/spatial/personal) - 0(No abnormality) Initials: snw Signatures: Dispatcher [employer] EDMS Luna Rodriguez, FIELD SCOUT-C FIELD SCOUT-Csnw Maki Figueroa Amanda, RN RN ap3 Laura White, RN RN vg1 Breanne Szymanski RN RN kc6 Debra Patel RN RN mb9 Corrections: (The following items were deleted from the chart) 16:11 16:02 Chief complaint: Patient's son or daughter states: "Last night at 10pm mb9 she started hallucinating about kids running around, people, and people talking to her. Also, her home health nurse stated her HR was in the 40s today" mb9
[2022-09-08 19:19] VITALS: TEMP 98.2
[2022-09-08 19:20] VITALS: BP 117/64; O2SAT 96
== END 2022-09-08 19:14 | disposition home or self-care (01) ==
LOC: ER 15:58
DX: G30.9 Alzheimer's disease, unspecified (principal); F02.818 Dementia in other diseases classified elsewhere, unspecified severity, with other behavioral disturbance; E11.9 Type 2 diabetes mellitus without complications; Z79.82 Long term (current) use of aspirin
CPT/HCPCS: 96361; 93005; 87040 ×2; 85025; 87086; 36415; 85610; 83605; 85730; 80053; 70450; 71045; 96360; 99284; J7030; 81003; 81015; 87088

== ENCOUNTER 2023-01-02 16:15 | Emergency (ER) | payer OTHER ==
--- OUTSIDE RECORDS SUMMARY | 2023-01-02 16:44 | XMS REPORT | Continuity of Care Document ---
:1945 Author Organization [facility] t Address [address] [place] [address]. [address] [place] [address] Care Team Providers Name Role Phone Sharpless Primary Care Physician MIKHAIL DANIEL Attending Clinician Unavailable PARIS ARRIAGA Attending Clinician Unavailable UNKNOWN, ATTENDING Attending Clinician Unavailable Paris Arriaga MD Attending Clinician [phone] Denise Mcdonald MD Attending Clinician DENISE MCDONALD Attending Clinician Unavailable Doctor Unassigned, [place] Attending Clinician Unavailable Gauri Peace LMSW Attending Clinician Lab, Ang - Db Attending Clinician Unavailable Juan Guerra MD Attending Clinician Jacquie Nathan Attending Clinician Unknown, Attending Attending Clinician Unavailable JACQUIE LENNON Attending Clinician Unavailable ABRAHAM HAWLEY Attending Clinician Unavailable Jesus Fernandez MD Attending Clinician JESUS FERNANDEZ Attending Clinician Unavailable JESUS FERNANDEZ Attending Clinician Unavailable JUAN GUERRA Attending Clinician Unavailable MARIANO CALHOUN Attending Clinician Unavailable Lan PATEL, Miranda Attending Clinician Unavailable Mariano Calhoun MD Attending Clinician JULES STONE Attending Clinician Unavailable Nitza Simons Attending Clinician SUBHASH DUMONT Attending Clinician Unavailable ALYCIA SORIA Attending Clinician Unavailable Alycia Jim Attending Clinician NITZA CAGE Attending Clinician Unavailable Subhash [place] MD Attending Clinician 2, [facility] Attending Clinician Unavailable Radha Greenberg Attending Clinician RADHA BURROWS Attending Clinician Unavailable JONE HI Attending Clinician Unavailable Jennifer DEMARCO, Abraham Jane Attending Clinician Jules Stone MD Attending Clinician JULES STONE Attending Clinician Unavailable PARIS ARRIAGA Admitting Clinician Unavailable JESUS FERNANDEZ Admitting Clinician Unavailable SUBHASH DUMONT Admitting Clinician Unavailable JULES STONE Admitting Clinician Unavailable Payers Payer Name Policy Type Policy Number Effective Date Expiration Date S verónica MEDICARE PART A [id number] 1999 \T\ B 00:00:00 [facility] LIFE [id number] 2021 INSURANCE 00:00:00 MEDICARE PART A [id number] 1999 \T\ B - MEDICARE 00:00:00 [employer] LIFE \T\ [id number] CASUALTY GENERIC O - [id number] GENERIC PAYOR Problems Condition Condition Condition Status Onset Resolution Last Treating Co mments Source Name Details Category Date Date Treatment Clinician Date Compressio Compressio Disease Active U nivers n fracture n fracture -18 it y of of T12 of T12 00:00: [place] vertebra vertebra 00 Medica l with with Branch routine routine healing healing Benign Benign Disease Active Univers essential essential 1-04 [place] of hypertensi hypertensi [place] Blindness Blindness Disease Active Uni vers and low and low 1-04 ity of vision vision 00:00: [place] 00 Medical Branch Glaucoma Glaucoma Disease Active Unive rs 1-04 ity of 00:00: [place] 00 Medical Branch 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 1-04 ity of 00:00: [place] [facility] Mixed Mixed Disease Active Univers hyperlipid hyperlipid 1-04 it y of emia emia 00:00: [place] [facility] Neurosis Neurosis Disease Active [facility]ive [...] [place] [facility] [place] 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 [facility]ce 9[facility] both 00:[facility]: Medical eyes, eyes, 00 Center severe severe stage stage Glaucoma Glaucoma Disease Active [facility] filtering filtering 6-13 Deepika ege bleb, left bleb, left 00:00: of eye eye 00 Medicin e Cataract Cataract Disease Active Unive rs mature, mature, 6-13 ity of total total 00:00: [place] senile senile 00 Medical Branch Corneal Corneal Disease Active Univers edema, edema, 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 [place] of secondary secondary 00:[place] [facility] [place] Primary Primary Disease Active [facility] open angle open angle 6-13 it y of glaucoma glaucoma 00:00: [place] of both of both 00 Medical eyes, eyes, Branch severe severe stage stage Pseudophak Pseudophak Disease Active U nivers ia, left ia, left 6-13 ity of eye eye 00:00: [place] 00 Medical Branch History of History of Disease Active 2011-07 U nivers total total 0-12 [place] of right [place] right [place] 00[place] replacemen replacemen 00 Me dical t t Branch No known No known Disease Unive rs active active ity of problems problems [facility] Branch Allergies, Adverse Reactions, Alerts Allergy Allergy Status Severity Reaction(s) Onset Inactive Treating Comm ents Source Name Type Date Date Clinician PADMINI Drug Active COUGH Univers INHIBITO Class 2-22 ity of RS 00:00: [place] 00 Medical Branch Padmini Propensi Active Cough Univers Inhibito ty to 2-22 ity of rs adverse 00:00: [place] reaction 00 Medical s to Branch drug NO KNOWN Drug Active Univers ALLERGIE Class ity of S [facility] Social History Social Habit Start Date Stop Date Quantity Comments Source Exposure to 2022-11-19 2022-11-29 Not sure [facility] SARS-CoV-2 00:00:00 15:59:00 [facility] (event) [place] Tobacco use and 2022-07-09 2022-07-09 Smokeless tobacco Un iversity of exposure 00:00:00 00:00:00 non-user [facility] Alcohol intake 2016-09-15 2016-09-[address] [facility] 00:00:00 00:00:00 non-drinker of [facility] nter alcohol (finding) Sex Assigned At [address] [facility] k[facility] 00:00:00 00:[facility] Smoking Status Start Date Stop Date Source Never smoked tobacco [facility] Medications Ordered Filled Start Stop Current Ordering Indication Dosage Frequency Signature Comments Components Source Medication Medication Date Date Medication? Clinician (SIG) Name Name iopamidol 2022- No [id number] 80mL 80 mL, U nivers (ISOVUE 11-08- Intravenou ity o f 370-500 mL) 15:15: 15:01 s, ONCE, 1 [place] injection 00 :00 dose, On Medica l 80 mL e [place] 11/08/22 at 1015, Routine clonazePAM Yes [id number] .5mg Take 1 Univers 0.5 mg 3-06 tablet by ity of tablet 00:00: mouth 2 00 (two) Medical times Branch daily as needed for Other (Sundownin g.). clonazePAM 2022-0 Yes [id number] .5mg Take 1 Univers 0.5 mg 3-06 tablet by ity of tablet 00:00: mouth 2 00 (two) Medical times Branch daily as needed for Other (Sundownin g.). clonazePAM 2022-0 Yes [id number] .5mg Take 1 Univers 0.5 mg 3-06 tablet by ity of tablet 00:00: mouth 2 (two) Medical times Branch daily as needed for Other (Sundownin g.). clonazePAM 2023-0 Yes [id number] .5mg Take 1 Univers 0.5 mg 3-06 tablet by ity of tablet 00:00: mouth (two) Medical times Branch daily as needed for Other (Sundownin g.). clonazePAM 2023-0 Yes [id number] .5mg Take 1 Univers 0.5 mg 3-06 tablet by ity of tablet 00:00: mouth (two) Medical times Branch daily as needed for Other (Sundownin g.). clonazePAM 2023-0 Yes [id number] .5mg Take 1 Univers 0.5 mg 3-06 tablet by ity of tablet 00:00: mouth (two) Medical times Branch daily as needed for Other (Sundownin g.). clonazePAM 2023-0 Yes [id number] .5mg Take 1 Univers 0.5 mg 3-06 tablet by ity of tablet 00:00: mouth (two) Medical times Branch daily as needed for Other (Sundownin g.). clonazePAM 2023-0 Yes [id number] .5mg Take 1 Univers 0.5 mg 3-06 tablet by ity of tablet 00:00: mouth (two) Medical times Branch daily as needed for Other (Sundownin g.). clonazePAM 2023-0 Yes [id number] .5mg Take 1 Univers 0.5 mg 3-06 tablet by ity of tablet 00:00: mouth (two) Medical times Branch daily as needed for Other (Sundownin g.). clonazePAM 2023-0 Yes [id number] .5mg Take 1 Univers 0.5 mg 3-06 tablet by ity of tablet 00:00: mouth (two) Medical times Branch daily as needed for Other (Sundownin g.). clonazePAM 2023-0 Yes [id number] .5mg Take 1 Univers 0.5 mg 3-06 tablet by ity of tablet 00:00: mouth (two) Medical times Branch daily as needed for Other (Sundownin g.). clonazePAM 2023-0 Yes [id number] .5mg Take 1 Univers 0.5 mg 3-06 tablet by ity of tablet 00:00: mouth 2 (two) Medical times Branch daily as needed for Other (Sundownin g.). clonazePAM 2023-0 Yes [id number] .5mg Take 1 Univers 0.5 mg 3-06 tablet by ity of tablet 00:00: mouth 2 (two) Medical times Branch daily as needed for Other (Sundownin g.). clonazePAM 2023-0 Yes [id number] .5mg Take 1 Univers 0.5 mg 3-06 tablet by ity of tablet 00:00: mouth (two) Medical times Branch daily as needed for Other (Sundownin g.). clonazePAM 2023-0 Yes [id number] .5mg Take 1 Univers 0.5 mg 3-06 tablet by ity of tablet 00:00: mouth (two) Medical times Branch daily as needed for Other (Sundownin g.). clonazePAM 2023-0 Yes [id number] .5mg Take 1 Univers 0.5 mg 3-06 tablet by ity of tablet 00:00: mouth (two) Medical times Branch daily as needed for Other (Sundownin g.). clonazePAM 2023-0 Yes [id number] .5mg Take 1 Univers 0.5 mg 3-06 tablet by ity of tablet 00:00: mouth (two) Medical times Branch daily as needed for Other (Sundownin g.). clonazePAM 2023-0 Yes [id number] .5mg Take 1 Univers 0.5 mg 3-06 tablet by ity of tablet 00:00: mouth (two) Medical times Branch daily as needed for Other (Sundownin g.). clonazePAM 2023-0 Yes [id number] .5mg Take 1 Univers 0.5 mg 3-06 tablet by ity of tablet 00:00: mouth (two) Medical times Branch daily as needed for Other (Sundownin g.). clonazePAM 2023-0 Yes [id number] .5mg Take 1 Univers 0.5 mg 3-06 tablet by ity of tablet 00:00: mouth 2 (two) Medical times Branch daily as needed for Other (Sundownin g.). clonazePAM 2023-0 Yes [id number] .5mg Take 1 Univers 0.5 mg 3-06 tablet by ity of tablet 00:00: mouth 2 (two) Medical times Branch daily as needed for Other (Sundownin g.). clonazePAM 2023-0 Yes [id number] .5mg Take 1 Univers 0.5 mg 3-06 tablet by ity of tablet 00:00: mouth (two) Medical times Branch daily as needed for Other (Sundownin g.). clonazePAM 2023-0 Yes [id number] .5mg Take 1 Univers 0.5 mg 3-06 tablet by ity of tablet 00:00: mouth (two) Medical times Branch daily as needed for Other (Sundownin g.). clonazePAM 2023-0 Yes [id number] .5mg Take 1 Univers 0.5 mg 3-06 tablet by ity of tablet 00:00: mouth (two) Medical times Branch daily as needed for Other (Sundownin g.). clonazePAM 2023-0 Yes [id number] .5mg Take 1 Univers 0.5 mg 3-06 tablet by ity of tablet 00:00: mouth (two) Medical times Branch daily as needed for Other (Sundownin g.). clonazePAM 2023-0 Yes [id number] .5mg Take 1 Univers 0.5 mg 3-06 tablet by ity of tablet 00:00: mouth (two) Medical times Branch daily as needed for Other (Sundownin g.). clonazePAM 2023-0 Yes [id number] .5mg Take 1 Univers 0.5 mg 3-06 tablet by ity of tablet 00:00: mouth (two) Medical times Branch daily as needed for Other (Sundownin g.). clonazePAM 2023-0 Yes [id number] .5mg Take 1 Univers 0.5 mg 3-06 tablet by ity of tablet 00:00: mouth (two) Medical times Branch daily as needed for Other (Sundownin g.). clonazePAM 2023-0 Yes [id number] .5mg Take 1 Univers 0.5 mg 3-06 tablet by ity of tablet 00:00: mouth 2 (two) Medical times Branch daily as needed for Other (Sundownin g.). clonazePAM 2023-0 Yes [id number] .5mg Take 1 Univers 0.5 mg 3-06 tablet by ity of tablet 00:00: mouth (two) Medical times Branch daily as needed for Other (Sundownin g.). clonazePAM 2023-0 Yes [id number] .5mg Take 1 Univers 0.5 mg 3-06 tablet by ity of tablet 00:00: mouth (two) Medical times Branch daily as needed for Other (Sundownin g.). clonazePAM 2023-0 Yes [id number] .5mg Take 1 Univers 0.5 mg 3-06 tablet by ity of tablet 00:00: mouth (two) Medical times Branch daily as needed for Other (Sundownin g.). clonazePAM 2023-0 Yes [id number] .5mg Take 1 Univers 0.5 mg 3-06 tablet by ity of tablet 00:00: mouth (two) Medical times Branch daily as needed for Other (Sundownin g.). clonazePAM 2023-0 Yes [id number] .5mg Take 1 Univers 0.5 mg 3-06 tablet by ity of tablet 00:00: mouth (two) Medical times Branch daily as needed for Other (Sundownin g.). clonazePAM 2023-0 Yes [id number] .5mg Take 1 Univers 0.5 mg 3-06 tablet by ity of tablet 00:00: mouth (two) Medical times Branch daily as needed for Other (Sundownin g.). clonazePAM 2023-0 Yes [id number] .5mg Take 1 Univers 0.5 mg 3-06 tablet by ity of tablet 00:00: mouth (two) Medical times Branch daily as needed for Other (Sundownin g.). clonazePAM 2023-0 Yes [id number] .5mg Take 1 Univers 0.5 mg 3-06 tablet by ity of tablet 00:00: mouth (two) Medical times Branch daily as needed for Other (Sundownin g.). clonazePAM 2023-0 Yes [id number] .5mg Take 1 Univers 0.5 mg 3-06 tablet by ity of tablet 00:00: mouth 2 [place] 00 (two) Medical times Branch daily as needed for Other (Sundownin g.). clonazePAM 2022-0 Yes [id number] .5mg Take 1 Univers 0.5 mg 3-06 tablet by ity of tablet 00:00: mouth 2 [place] 00 (two) Medical times Branch daily as needed for Other (Sundownin g.). clonazePAM 2022-0 Yes [id number] .5mg Take 1 Univers 0.5 mg 3-06 tablet by ity of tablet 00:00: mouth 2 [place] (two) Medical times Branch daily as needed for Other (Sundownin g.). ioflupane I 2022- No [id number] 4.8mCi 4.8 Univers 123 09-21 millicurie ity of (DATSCAN) 16:30: 16:28 , [place] injection 00 :00 Intravenou Medi alejandra 4.8 s, ONCE, 1 Branch millicurie dose, On Mon09/21/22 at 1030, Routine Calcium 0 Yes 1{tbl} Take 1 Univer s Carb-Cholec 2-22 tablet by ity of alciferol 16:14: mouth 2 [place] 600 mg-5 50 (two) Medical mcg (200 times Branch unit) Tab daily. Calcium 0 Yes 1{tbl} Take 1 Univer s Carb-Cholec 2-22 tablet by ity of alciferol 16:14: mouth 2 [place] 600 mg-5 50 (two) Medical mcg (200 times Branch unit) Tab daily. Calcium 0 Yes 1{tbl} Take 1 Univer s Carb-Cholec 2-22 tablet by ity of alciferol 16:14: mouth 2 [place] 600 mg-5 50 (two) Medical mcg (200 times Branch unit) Tab daily. Calcium 2022-0 Yes 1{tbl} Take 1 Univer s Carb-Cholec 2-22 tablet by ity of alciferol 16:14: mouth 2 [place] 600 mg-5 50 (two) Medical mcg (200 times Branch unit) Tab daily. Calcium 2022-0 Yes 1{tbl} Take 1 Univer s Carb-Cholec 2-22 tablet by ity of alciferol 16:14: mouth 2 [place] 600 mg-5 50 (two) Medical mcg (200 times Branch unit) Tab daily. Calcium 3-0 Yes 1{tbl} Take 1 Univer s Carb-Cholec 2-22 tablet by ity of alciferol 16:14: mouth 2 [place] 600 mg-5 50 (two) Medical mcg (200 times Branch unit) Tab daily. Calcium 2022-0 Yes 1{tbl} Take 1 Univer s Carb-Cholec 2-22 tablet by ity of alciferol 16:14: mouth 2 [place] 600 mg-5 50 (two) Medical mcg (200 times Branch unit) Tab daily. Calcium 2022-0 Yes 1{tbl} Take 1 Univer s Carb-Cholec 2-22 tablet by ity of alciferol 16:14: mouth 2 [place] 600 mg-5 50 (two) Medical mcg (200 times Branch unit) Tab daily. Calcium 2022-0 Yes 1{tbl} Take 1 Univer s Carb-Cholec 2-22 tablet by ity of alciferol 16:14: mouth 2 [place] 600 mg-5 50 (two) Medical mcg (200 times Branch unit) Tab daily. Calcium 2022-0 Yes 1{tbl} Take 1 Univer s Carb-Cholec 2-22 tablet by ity of alciferol 16:14: mouth 2 [place] 600 mg-5 50 (two) Medical mcg (200 times Branch unit) Tab daily. Calcium 2022-0 Yes 1{tbl} Take 1 Univer s Carb-Cholec 2-22 tablet by ity of alciferol 16:14: mouth 2 [place] 600 mg-5 50 (two) Medical mcg (200 times Branch unit) Tab daily. Calcium 2022-0 Yes 1{tbl} Take 1 Univer s Carb-Cholec 2-22 tablet by ity of alciferol 16:14: mouth 2 [place] 600 mg-5 50 (two) Medical mcg (200 times Branch unit) Tab daily. Calcium 3-0 Yes 1{tbl} Take 1 Univer s Carb-Cholec 2-22 tablet by ity of alciferol 16:14: mouth 2 [place] 600 mg-5 50 (two) Medical mcg (200 times Branch unit) Tab daily. Calcium 2022-0 Yes 1{tbl} Take 1 Univer s Carb-Cholec 2-22 tablet by ity of alciferol 16:14: mouth 2 [place] 600 mg-5 50 (two) Medical mcg (200 times Branch unit) Tab daily. Calcium 3-0 Yes 1{tbl} Take 1 Univer s Carb-Cholec 2-22 tablet by ity of alciferol 16:14: mouth 2 [place] 600 mg-5 50 (two) Medical mcg (200 times Branch unit) Tab daily. Calcium 2022-0 Yes 1{tbl} Take 1 Univer s Carb-Cholec 2-22 tablet by ity of alciferol 16:14: mouth 2 [place] 600 mg-5 50 (two) Medical mcg (200 times Branch unit) Tab daily. Calcium 2022-0 Yes 1{tbl} Take 1 Univer s Carb-Cholec 2-22 tablet by ity of alciferol 16:14: mouth 2 [place] 600 mg-5 50 (two) Medical mcg (200 times Branch unit) Tab daily. Calcium 2022-0 Yes 1{tbl} Take 1 Univer s Carb-Cholec 2-22 tablet by ity of alciferol 16:14: mouth 2 [place] 600 mg-5 50 (two) Medical mcg (200 times Branch unit) Tab daily. Calcium 2022-0 Yes 1{tbl} Take 1 Univer s Carb-Cholec 2-22 tablet by ity of alciferol 16:14: mouth 2 [place] 600 mg-5 50 (two) Medical mcg (200 times Branch unit) Tab daily. Calcium 2022-0 Yes 1{tbl} Take 1 Univer s Carb-Cholec 2-22 tablet by ity of alciferol 16:14: mouth 2 [place] 600 mg-5 50 (two) Medical mcg (200 times Branch unit) Tab daily. Calcium 2022-0 Yes 1{tbl} Take 1 Univer s Carb-Cholec 2-22 tablet by ity of alciferol 16:14: mouth 2 [place] 600 mg-5 50 (two) Medical mcg (200 times Branch unit) Tab daily. Calcium 2022-0 Yes 1{tbl} Take 1 Univer s Carb-Cholec 2-22 tablet by ity of alciferol 16:14: mouth 2 [place] 600 mg-5 50 (two) Medical mcg (200 times Branch unit) Tab daily. Calcium 2022-0 Yes 1{tbl} Take 1 Univer s Carb-Cholec 2-22 tablet by ity of alciferol 16:14: mouth 2 [place] 600 mg-5 50 (two) Medical mcg (200 times Branch unit) Tab daily. Calcium 3-0 Yes 1{tbl} Take 1 Univer s Carb-Cholec 2-22 tablet by ity of alciferol 16:14: mouth 2 [place] 600 mg-5 50 (two) Medical mcg (200 times Branch unit) Tab daily. Calcium 2022-0 Yes 1{tbl} Take 1 Univer s Carb-Cholec 2-22 tablet by ity of alciferol 16:14: mouth 2 [place] 600 mg-5 50 (two) Medical mcg (200 times Branch unit) Tab daily. Calcium 2022-0 Yes 1{tbl} Take 1 Univer s Carb-Cholec 2-22 tablet by ity of alciferol 16:14: mouth 2 [place] 600 mg-5 50 (two) Medical mcg (200 times Branch unit) Tab daily. Calcium 2022-0 Yes 1{tbl} Take 1 Univer s Carb-Cholec 2-22 tablet by ity of alciferol 16:14: mouth 2 [place] 600 mg-5 50 (two) Medical mcg (200 times Branch unit) Tab daily. Calcium 2022-0 Yes 1{tbl} Take 1 Univer s Carb-Cholec 2-22 tablet by ity of alciferol 16:14: mouth 2 [place] 600 mg-5 50 (two) Medical mcg (200 times Branch unit) Tab daily. Calcium 2022-0 Yes 1{tbl} Take 1 Univer s Carb-Cholec 2-22 tablet by ity of alciferol 16:14: mouth 2 [place] 600 mg-5 50 (two) Medical mcg (200 times Branch unit) Tab daily. Calcium 2022-0 Yes 1{tbl} Take 1 Univer s Carb-Cholec 2-22 tablet by ity of alciferol 16:14: mouth 2 [place] 600 mg-5 50 (two) Medical mcg (200 times Branch unit) Tab daily. Calcium 2022-0 Yes 1{tbl} Take 1 Univer s Carb-Cholec 2-22 tablet by ity of alciferol 16:14: mouth 2 [place] 600 mg-5 50 (two) Medical mcg (200 times Branch unit) Tab daily. Calcium 2022-0 Yes 1{tbl} Take 1 Univer s Carb-Cholec 2-22 tablet by ity of alciferol 16:14: mouth 2 [place] 600 mg-5 50 (two) Medical mcg (200 times Branch unit) Tab daily. Calcium 2023-0 Yes 1{tbl} Take 1 Univer s Carb-Cholec 2-22 tablet by ity of alciferol 16:14: mouth 2 [place] 600 mg-5 50 (two) Medical mcg (200 times Branch unit) Tab daily. Calcium 2023-0 Yes 1{tbl} Take 1 Univer s Carb-Cholec 2-22 tablet by ity of alciferol 16:14: mouth 2 [place] 600 mg-5 50 (two) Medical mcg (200 times Branch unit) Tab daily. Calcium 3-0 Yes 1{tbl} Take 1 Univer s Carb-Cholec 2-22 tablet by ity of alciferol 16:14: mouth 2 [place] 600 mg-5 50 (two) Medical mcg (200 times Branch unit) Tab daily. Calcium 3-0 Yes 1{tbl} Take 1 Univer s Carb-Cholec 2-22 tablet by ity of alciferol 16:14: mouth 2 [place] 600 mg-5 50 (two) Medical mcg (200 times Branch unit) Tab daily. Calcium 2022-0 Yes 1{tbl} Take 1 Univer s Carb-Cholec 2-22 tablet by ity of alciferol 16:14: mouth 2 [place] 600 mg-5 50 (two) Medical mcg (200 times Branch unit) Tab daily. Calcium 3-0 Yes 1{tbl} Take 1 Univer s Carb-Cholec 2-22 tablet by ity of alciferol 16:14: mouth 2 [place] 600 mg-5 50 (two) Medical mcg (200 times Branch unit) Tab daily. Calcium 2023-0 Yes 1{tbl} Take 1 Univer s Carb-Cholec 2-22 tablet by ity of alciferol 16:14: mouth 2 [place] 600 mg-5 50 (two) Medical mcg (200 times Branch unit) Tab daily. Calcium 2023-0 Yes 1{tbl} Take 1 Univer s Carb-Cholec 2-22 tablet by ity of alciferol 16:14: mouth 2 [place] 600 mg-5 50 (two) Medical mcg (200 times Branch unit) Tab daily. Calcium 2023-0 Yes 1{tbl} Take 1 Univer s Carb-Cholec 2-22 tablet by ity of alciferol 16:14: mouth 2 [place] 600 mg-5 50 (two) Medical mcg (200 times Branch unit) Tab daily. Calcium 2022-0 Yes 1{tbl} Take 1 Univer s Carb-Cholec 2-22 tablet by ity of alciferol 16:14: mouth 2 [place] 600 mg-5 50 (two) Medical mcg (200 times Branch unit) Tab daily. Calcium 2022-0 Yes 1{tbl} Take 1 Univer s Carb-Cholec 2-22 tablet by ity of alciferol 16:14: mouth 2 [place] 600 mg-5 50 (two) Medical mcg (200 times Branch unit) Tab daily. Calcium 2022-0 Yes 1{tbl} Take 1 Univer s Carb-Cholec 2-22 tablet by ity of alciferol 16:14: mouth 2 [place] 600 mg-5 50 (two) Medical mcg (200 times Branch unit) Tab daily. Calcium 2022-0 Yes 1{tbl} Take 1 Univer s Carb-Cholec 2-22 tablet by ity of alciferol 16:14: mouth 2 [place] 600 mg-5 50 (two) Medical mcg (200 times Branch unit) Tab daily. Calcium 2022-0 Yes 1{tbl} Take 1 Univer s Carb-Cholec 2-22 tablet by ity of alciferol 16:14: mouth 2 [place] 600 mg-5 50 (two) Medical mcg (200 times Branch unit) Tab daily. potassium 2022-0 2023- No [id number] 100mg 0.1 mL Univers iodide 09-21 (100 mg), ity of (SSKI) 1 15:45: 15:18 Oral, [place] gram/mL 00 :00 ONCE, 1 Medical solution dose, On Branch 0.1 mL Mon09/21/22 at 0945, Routine losartan 50 2022-0 Yes [id number] 50mg Take 1 U nivers mg tablet 2-22 tablet by ity o f 00:00: mouth in [place] 00 the Medical morning Branch and 1 tablet in the evening. glipiZIDE 2022-0 Yes [id number] 10mg Take 1 U nivers 10 mg 2-22 tablet by ity of tablet 00:00: mouth 2 [place] 00 (two) Medical times Branch daily before breakfast and dinner. metFORMIN 2022-0 Yes [id number] 1000mg Take 1 Univers 1,000 mg 2-22 tablet by ity of tablet 00:00: mouth in [place] 00 the Medical morning Branch and 1 tablet in the evening. simvastatin 2022-0 Yes [id number] 40mg Take 1 Univers 40 mg 2-22 tablet by ity of tablet 00:00: mouth [place] 00 every Medical evening. Branch donepeziL 2022-0 Yes [id number] 10mg Take 1 Un timothy 10 mg 2-22 tablet by ity of tablet 00:00: mouth at [place] 00 bedtime. Medical Branch escitalopra 2022-0 Yes [id number] 10mg Take 1 Univers m oxalate 2-22 tablet by ity o f 10 mg 00:00: mouth in [place] tablet 00 the Medical morning. Branch cyanocobala 2022-0 Yes [id number] INJECT 1 Univers min 1,000 2-22 ML ity of mcg/mL 00:00: INTRAMUSCU [place] injection 00 LARLY ONCE Medi alejandra EVERY Branch MONTH losartan 50 2022-0 Yes [id number] 50mg Take 1 U nivers mg tablet 2-22 tablet by ity o f 00:00: mouth in [place] 00 the Medical morning Branch and 1 tablet in the evening. glipiZIDE 2022-0 Yes [id number] 10mg Take 1 U nivers 10 mg 2-22 tablet by ity of tablet 00:00: mouth [place] 00 (two) Medical times [place] daily before breakfast and dinner. metFORMIN 2022-0 Yes [id number] 1000mg Take 1 Univers 1,000 mg 2-22 tablet by ity of tablet 00:00: mouth in [place] 00 the Medical morning Branch and 1 tablet in the evening. simvastatin 2022-0 Yes [id number] 40mg Take 1 Univers 40 mg 2-22 tablet by ity of tablet 00:00: mouth [place] 00 every Medical evening. Branch donepeziL 2022-0 Yes [id number] 10mg Take 1 Un timothy 10 mg 2-22 tablet by ity of tablet 00:00: mouth at [place] 00 bedtime. [facility] Branch escitalopra 2022-0 Yes [id number] 10mg Take 1 Univers m oxalate 2-22 tablet by ity o f 10 mg 00:00: mouth in [place] tablet 00 the Medical morning. Branch cyanocobala 2022-0 Yes [id number] INJECT 1 Univers min 1,000 2-22 ML ity of mcg/mL 00:00: INTRAMUSCU [place] injection 00 LARLY ONCE Medi alejandra EVERY Branch MONTH losartan 50 2022-0 Yes [id number] 50mg Take 1 U nivers mg tablet 2-22 tablet by ity o f 00:00: mouth in [place] 00 the Medical morning Branch and 1 tablet in the evening. glipiZIDE 2022-0 Yes [id number] 10mg Take 1 U nivers 10 mg 2-22 tablet by ity of tablet 00:00: mouth 2 (two) Medical times Branch daily before breakfast and dinner. metFORMIN 2022-0 Yes [id number] 1000mg Take 1 Univers 1,000 mg 2-22 tablet by ity of tablet 00:00: mouth in [place] 00 the Medical morning Branch and 1 tablet in the evening. simvastatin 2022-0 Yes [id number] 40mg Take 1 Univers 40 mg 2-22 tablet by ity of tablet 00:00: mouth [place] 00 every Medical evening. Branch donepeziL 2022-0 Yes [id number] 10mg Take 1 Un tim[facility] 10 mg 2-22 tablet by [facility] tablet 00:00: mouth at [place] 00 bedtime. Medical Branch escitalopra 2022-0 Yes [id number] 10mg Take 1 [facility] oxalate 2-22 tablet by [facility] o f 10 mg 00:00: mouth in [place] tablet 00 the Medical morning. Branch cyanocobala 2022-0 Yes [id number] INJECT 1 [facility] min 1,000 2-22 ML [facility] of mcg/mL 00:00: INTRAMUSCU [place] injection 00 LARLY ONCE Medi alejandra EVERY Branch MONTH losartan 50 2022-0 Yes [id number] 50mg Take 1 [facility] n[facility] mg tablet 2-22 tablet by [facility] o f 00:00: mouth in [place] 00 the Medical morning Branch and 1 tablet in the evening. glipiZIDE 2022-0 Yes [id number] 10mg Take 1 [facility] n[facility] 10 mg 2-22 tablet by [facility] tablet 00:00: mouth 2 [place] (two) Medical times Branch daily before breakfast and dinner. metFORMIN 2022-0 Yes [id number] 1000mg Take 1 [facility] 1,000 mg 2-22 tablet by [facility] tablet 00:00: mouth in [place] 00 the Medical morning Branch and 1 tablet in the evening. simvastatin 2022-0 Yes [id number] 40mg Take 1 [facility] 40 mg 2-22 tablet by [facility] tablet 00:00: mouth [place] 00 every Medical evening. Branch donepeziL 2022-0 Yes [id number] 10mg Take 1 [facility] [place] 10 mg 2-22 tablet by [facility] tablet 00:00: mouth at [place] 00 bedtime. Medical Branch escitalopra 2022-0 Yes [id number] 10mg Take 1 [facility] m oxalate 2-22 tablet by [facility] o f 10 mg 00:00: mouth in [place] tablet 00 the Medical morning. Branch cyanocobala 2022-0 Yes [id number] INJECT 1 [facility] min 1,000 2-22 ML [facility] of mcg/mL 00:00: INTRAMUSCU [place] injection 00 LARLY ONCE Medi alejandra EVERY Branch MONTH losartan 50 2022-0 Yes [id number] 50mg Take 1 [facility] n[facility] mg tablet 2-22 tablet by [facility] o f 00:00: mouth in [place] 00 the Medical morning Branch and 1 tablet in the evening. glipiZIDE 2022-0 Yes [id number] 10mg Take 1 [facility] n[facility] 10 mg 2-22 tablet by [facility] tablet 00:00: mouth 2 00 (two) Medical times Branch daily before breakfast and dinner. metFORMIN 2022-0 Yes [id number] 1000mg Take 1 [facility] 1,000 mg 2-22 tablet by [facility] tablet 00:00: mouth in [place] 00 the Medical morning Branch and 1 tablet in the evening. simvastatin 2022-0 Yes [id number] 40mg Take 1 [facility] 40 mg 2-22 tablet by [facility] tablet 00:00: mouth [place] 00 every Medical evening. Branch donepeziL 2022-0 Yes [id number] 10mg Take 1 [facility] [place] 10 mg 2-22 tablet by [facility] tablet 00:00: mouth at [place] 00 bedtime. Medical Branch escitalopra 2022-0 Yes [id number] 10mg Take 1 [facility] m oxalate 2-22 tablet by [facility] o f 10 mg 00:00: mouth in [place] tablet 00 the Medical morning. Branch cyanocobala 2022-0 Yes [id number] INJECT 1 [facility] min 1,000 2-22 ML [facility] of mcg/mL 00:00: INTRAMUSCU [place] injection 00 LARLY ONCE Medi alejandra EVERY Branch MONTH losartan 50 2022-0 Yes [id number] 50mg Take 1 [facility] n[facility] mg tablet 2-22 tablet by [facility] o f 00:00: mouth in [place] 00 the Medical morning Branch and 1 tablet in the evening. glipiZIDE 2022-0 Yes [id number] 10mg Take 1 [facility] n[facility] 10 mg 2-22 tablet by [facility] of tablet 00:00: mouth 2 [place] 00 (two) [facility] daily before breakfast and dinner. metFORMIN 2022-0 Yes [id number] 1000mg Take 1 [facility] 1,000 mg 2-22 tablet by [facility] of tablet 00:00: mouth in [place] 00 the Medical morning Branch and 1 tablet in the evening. simvastatin 2022-0 Yes [id number] 40mg Take 1 [facility] 40 mg 2-22 tablet by [facility] of tablet 00:00: mouth [place] 00 every Medical evening. Branch donepeziL 2022-0 Yes [id number] 10mg Take 1 Un [place] 10 mg 2-22 tablet by [facility] of tablet 00:00: mouth at [place] 00 bedtime. Medical Branch escitalopra 2022-0 Yes [id number] 10mg Take 1 [facility] m oxalate 2-22 tablet by ity o f 10 mg 00:00: mouth in [place] tablet 00 the Medical morning. Branch cyanocobala 2022-0 Yes [id number] INJECT 1 [facility] min 1,000 2-22 ML it[facility] of mcg/mL 00:00: INTRAMUSCU [place] injection 00 LARLY ONCE Medi alejandra EVERY Branch MONTH losartan 50 2022-0 Yes [id number] 50mg Take 1 [facility] n[facility] mg tablet 2-22 tablet by it[facility] o f 00:00: mouth in [place] 00 the Medical morning Branch and 1 tablet in the evening. glipiZIDE 2022-0 Yes [id number] 10mg Take 1 [facility] n[facility] 10 mg 2-22 tablet by [facility] of tablet 00:00: mouth 2 [place] (two) [facility] daily before breakfast and dinner. metFORMIN 2022-0 Yes [id number] 1000mg Take 1 [facility] 1,000 mg 2-22 tablet by [facility] of tablet 00:00: mouth in [place] 00 the Medical morning Branch and 1 tablet in the evening. simvastatin 2022-0 Yes [id number] 40mg Take 1 [facility] 40 mg 2-22 tablet by [facility] of tablet 00:00: mouth [place] 00 every Medical evening. Branch donepeziL 2022-0 Yes [id number] 10mg Take 1 Un [place] 10 mg 2-22 tablet by [facility] of tablet 00:00: mouth at [place] 00 bedtime. Medical Branch escitalopra 2022-0 Yes [id number] 10mg Take 1 [facility] m oxalate 2-22 tablet by ity o f 10 mg 00:00: mouth in [place] tablet 00 the Medical morning. Branch cyanocobala 0 Yes [id number] INJECT 1 [facility] min 1,000 2-22 ML it[facility] of mcg/mL 00:00: INTRAMUSCU [place] injection 00 LARLY ONCE Medi alejandra EVERY Branch MONTH losartan 50 2022-0 Yes [id number] 50mg Take 1 [facility] nivers mg tablet 2-22 tablet by ity o f 00:00: mouth in [place] 00 the Medical morning Branch and 1 tablet in the evening. glipiZIDE 2022-0 Yes [id number] 10mg Take 1 [facility] nivers 10 mg 2-22 tablet by [facility] of tablet 00:00: mouth 2 [place] 00 (two) Medical times Branch daily before breakfast and dinner. metFORMIN 2022-0 Yes [id number] 1000mg Take 1 [facility] 1,000 mg 2-22 tablet by [facility] of tablet 00:00: mouth in [place] 00 the Medical morning Branch and 1 tablet in the evening. simvastatin 2022-0 Yes [id number] 40mg Take 1 [facility] 40 mg 2-22 tablet by [facility] of tablet 00:00: mouth [place] 00 every Medical evening. Branch donepeziL 2022-0 Yes [id number] 10mg Take 1 [facility] [place] 10 mg 2-22 tablet by [facility] of tablet 00:00: mouth at [place] 00 bedtime. Medical Branch escitalopra 2022-0 Yes [id number] 10mg Take 1 [facility] m oxalate 2-22 tablet by ity o f 10 mg 00:00: mouth in [place] tablet 00 the Medical morning. Branch cyanocobala Yes [id number] INJECT 1 [facility] min 1,000 2-22 ML ity of mcg/mL 00:00: INTRAMUSCU [place] injection 00 LARLY ONCE Medi alejandra EVERY Branch MONTH losartan 50 2022-0 Yes [id number] 50mg Take 1 [facility] nivers mg tablet 2-22 tablet by ity o f 00:00: mouth in [place] 00 the Medical morning Branch and 1 tablet in the evening. glipiZIDE 2022-0 Yes [id number] 10mg Take 1 [facility] nivers 10 mg 2-22 tablet by [facility] of tablet 00:00: mouth 2 [place] (two) Medical times Branch daily before breakfast and dinner. metFORMIN 2022-0 Yes [id number] 1000mg Take 1 [facility] 1,000 mg 2-22 tablet by [facility] of tablet 00:00: mouth in [place] 00 the Medical morning Branch and 1 tablet in the evening. simvastatin 2022-0 Yes [id number] 40mg Take 1 [facility] 40 mg 2-22 tablet by [facility] of tablet 00:00: mouth [place] 00 every Medical evening. Branch donepeziL 2022-0 Yes [id number] 10mg Take 1 Un [place] 10 mg 2-22 tablet by [facility] of tablet 00:00: mouth at [place] 00 bedtime. Medical Branch escitalopra 2022-0 Yes [id number] 10mg Take 1 [facility] m oxalate 2-22 tablet by ity o f 10 mg 00:00: mouth in [place] tablet 00 the Medical morning. Branch cyanocobala 2022-0 Yes [id number] INJECT 1 [facility] min 1,000 2-22 ML ity of mcg/mL 00:00: INTRAMUSCU [place] injection 00 LARLY ONCE Medi alejandra EVERY Branch MONTH losartan 50 2022-0 Yes [id number] 50mg Take 1 [facility] nivers mg tablet 2-22 tablet by ity o f 00:00: mouth in [place] 00 the Medical morning Branch and 1 tablet in the evening. glipiZIDE 2022-0 Yes [id number] 10mg Take 1 [facility] nivers 10 mg 2-22 tablet by [facility] of tablet 00:00: mouth 2 [place] (two) Medical times Branch daily before breakfast and dinner. metFORMIN 2022-0 Yes [id number] 1000mg Take 1 [facility] 1,000 mg 2-22 tablet by [facility] of tablet 00:00: mouth in [place] 00 the Medical morning Branch and 1 tablet in the evening. simvastatin 2022-0 Yes [id number] 40mg Take 1 [facility] 40 mg 2-22 tablet by it[facility] of tablet 00:00: mouth [place] 00 every Medical evening. Branch donepeziL 2022-0 Yes [id number] 10mg Take 1 Un [place] 10 mg 2-22 tablet by [facility] of tablet 00:00: mouth at [place] 00 bedtime. Medical Branch escitalopra 2023-0 Yes [id number] 10mg Take 1 [facility] m oxalate 2-22 tablet by ity o f 10 mg 00:00: mouth in [place] tablet 00 the Medical morning. Branch cyanocobala Yes [id number] INJECT 1 [facility] min 1,000 2-22 ML ity of mcg/mL 00:00: INTRAMUSCU [place] injection 00 LARLY ONCE Medi alejandra EVERY Branch MONTH losartan 50 2022-0 Yes [id number] 50mg Take 1 [facility] nivers mg tablet 2-22 tablet by ity o f 00:00: mouth in [place] 00 the Medical morning Branch and 1 tablet in the evening. glipiZIDE 0 Yes [id number] 10mg Take 1 [facility] nivers 10 mg 2-22 tablet by it[facility] of tablet 00:00: mouth (two) Medical times Branch daily before breakfast and dinner. metFORMIN 2022- Yes [id number] 1000mg Take 1 [facility] 1,000 mg 2-22 tablet by ity of tablet 00:00: mouth in [place] 00 the Medical morning Branch and 1 tablet in the evening. simvastatin Yes [id number] 40mg Take 1 [facility] 40 mg 2-22 tablet by it[facility] of tablet 00:00: mouth [place] 00 every Medical evening. Branch donepeziL Yes [id number] 10mg Take 1 Un [place] 10 mg 2-22 tablet by [facility] of tablet 00:00: mouth at [place] 00 bedtime. Medical Branch escitalopra Yes [id number] 10mg Take 1 [facility] m oxalate 2-22 tablet by ity o f 10 mg 00:00: mouth in [place] tablet 00 the Medical morning. Branch cyanocobala Yes [id number] INJECT 1 [facility] min 1,000 2-22 ML ity of mcg/mL 00:00: INTRAMUSCU [place] injection 00 LARLY ONCE Medi alejandra EVERY Branch MONTH losartan 50 2022-0 Yes [id number] 50mg Take 1 U nivers mg tablet 2-22 tablet by ity o f 00:00: mouth in [place] 00 the Medical morning Branch and 1 tablet in the evening. glipiZIDE 2022-0 Yes [id number] 10mg Take 1 [facility] nivers 10 mg 2-22 tablet by ity of tablet 00:00: mouth 2 (two) Medical times Branch daily before breakfast and dinner. metFORMIN 2022-0 Yes [id number] 1000mg Take 1 [facility] 1,000 mg 2-22 tablet by ity of tablet 00:00: mouth in [place] 00 the Medical morning Branch and 1 tablet in the evening. simvastatin 2022-0 Yes [id number] 40mg Take 1 [facility] 40 mg 2-22 tablet by ity of tablet 00:00: mouth [place] 00 every Medical evening. Branch donepeziL 2022-0 Yes [id number] 10mg Take 1 Un [place] 10 mg 2-22 tablet by [facility] of tablet 00:00: mouth at [place] 00 bedtime. Medical Branch escitalopra 2022-0 Yes [id number] 10mg Take 1 [facility] m oxalate 2-22 tablet by ity o f 10 mg 00:00: mouth in [place] tablet 00 the Medical morning. Branch cyanocobala 2022-0 Yes [id number] INJECT 1 [facility] min 1,000 2-22 ML ity of mcg/mL 00:00: INTRAMUSCU [place] injection 00 LARLY ONCE Medi alejandra EVERY Branch MONTH losartan 50 2022-0 Yes [id number] 50mg Take 1 U nivers mg tablet 2-22 tablet by ity o f 00:00: mouth in [place] 00 the Medical morning Branch and 1 tablet in the evening. glipiZIDE 2022-0 Yes [id number] 10mg Take 1 U nivers 10 mg 2-22 tablet by ity of tablet 00:00: mouth 2 [place] 00 (two) Medical times Branch daily before breakfast and dinner. metFORMIN 2022-0 Yes [id number] 1000mg Take 1 [facility] 1,000 mg 2-22 tablet by ity of tablet 00:00: mouth in [place] 00 the Medical morning Branch and 1 tablet in the evening. simvastatin 2022-0 Yes [id number] 40mg Take 1 [facility] 40 mg 2-22 tablet by ity of tablet 00:00: mouth [place] 00 every Medical evening. Branch donepeziL 2022-0 Yes [id number] 10mg Take 1 Un [place] 10 mg 2-22 tablet by ity of tablet 00:00: mouth at [place] 00 bedtime. Medical Branch escitalopra 2022-0 Yes [id number] 10mg Take 1 [facility] m oxalate 2-22 tablet by ity o f 10 mg 00:00: mouth in [place] tablet 00 the Medical morning. Branch cyanocobala 2022-0 Yes [id number] INJECT 1 [facility] min 1,000 2-22 ML ity of mcg/mL 00:00: INTRAMUSCU [place] injection 00 LARLY ONCE Medi alejandra EVERY Branch MONTH losartan 50 2022-0 Yes [id number] 50mg Take 1 U nivers mg tablet 2-22 tablet by ity o f 00:00: mouth in [place] 00 the Medical morning Branch and 1 tablet in the evening. glipiZIDE 2022-0 Yes [id number] 10mg Take 1 U nivers 10 mg 2-22 tablet by ity of tablet 00:00: mouth 2 (two) Medical times Branch daily before breakfast and dinner. metFORMIN 2022-0 Yes [id number] 1000mg Take 1 [facility] 1,000 mg 2-22 tablet by ity of tablet 00:00: mouth in [place] 00 the Medical morning Branch and 1 tablet in the evening. simvastatin 2022-0 Yes [id number] 40mg Take 1 [facility] 40 mg 2-22 tablet by ity of tablet 00:00: mouth [place] 00 every Medical evening. Branch donepeziL 2022-0 Yes [id number] 10mg Take 1 Un [place] 10 mg 2-22 tablet by ity of tablet 00:00: mouth at [place] 00 bedtime. Medical Branch escitalopra 2022-0 Yes [id number] 10mg Take 1 [facility] m oxalate 2-22 tablet by ity o f 10 mg 00:00: mouth in [place] tablet 00 the Medical morning. Branch cyanocobala 0 Yes [id number] INJECT 1 [facility] min 1,000 2-22 ML ity of mcg/mL 00:00: INTRAMUSCU [place] injection 00 LARLY ONCE Medi alejandra EVERY Branch MONTH losartan 50 2022-0 Yes [id number] 50mg Take 1 U nivers mg tablet 2-22 tablet by ity o f 00:00: mouth in [place] 00 the Medical morning Branch and 1 tablet in the evening. glipiZIDE 2022-0 Yes [id number] 10mg Take 1 [facility] nivers 10 mg 2-22 tablet by ity of tablet 00:00: mouth 2 [place] (two) Medical times Branch daily before breakfast and dinner. metFORMIN 2022-0 Yes [id number] 1000mg Take 1 [facility] 1,000 mg 2-22 tablet by ity of tablet 00:00: mouth in [place] 00 the Medical morning Branch and 1 tablet in the evening. simvastatin 2022-0 Yes [id number] 40mg Take 1 [facility] 40 mg 2-22 tablet by ity of tablet 00:00: mouth [place] 00 every Medical evening. Branch donepeziL 2022-0 Yes [id number] 10mg Take 1 Un [place] 10 mg 2-22 tablet by ity of tablet 00:00: mouth at [place] 00 bedtime. Medical Branch escitalopra 2022-0 Yes [id number] 10mg Take 1 [facility] m oxalate 2-22 tablet by ity o f 10 mg 00:00: mouth in [place] tablet 00 the Medical morning. Branch cyanocobala 2022-0 Yes [id number] INJECT 1 [facility] min 1,000 2-22 ML ity of mcg/mL 00:00: INTRAMUSCU [place] injection 00 LARLY ONCE Medi alejandra EVERY Branch MONTH losartan 50 2022-0 Yes [id number] 50mg Take 1 U nivers mg tablet 2-22 tablet by ity o f 00:00: mouth in [place] 00 the Medical morning Branch and 1 tablet in the evening. glipiZIDE 2022-0 Yes [id number] 10mg Take 1 U nivers 10 mg 2-22 tablet by ity of tablet 00:00: mouth 2 [place] 00 (two) Medical times Branch daily before breakfast and dinner. metFORMIN 2022-0 Yes [id number] 1000mg Take 1 [facility] 1,000 mg 2-22 tablet by ity of tablet 00:00: mouth in [place] 00 the Medical morning Branch and 1 tablet in the evening. simvastatin 2022-0 Yes [id number] 40mg Take 1 [facility] 40 mg 2-22 tablet by ity of tablet 00:00: mouth [place] 00 every Medical evening. Branch donepeziL 2022-0 Yes [id number] 10mg Take 1 Un [place] 10 mg 2-22 tablet by ity of tablet 00:00: mouth at [place] 00 bedtime. Medical Branch escitalopra 2022-0 Yes [id number] 10mg Take 1 [facility] m oxalate 2-22 tablet by ity o f 10 mg 00:00: mouth in [place] tablet 00 the Medical morning. Branch cyanocobala 2022-0 Yes [id number] INJECT 1 [facility] min 1,000 2-22 ML ity of mcg/mL 00:00: INTRAMUSCU [place] injection 00 LARLY ONCE Medi alejandra EVERY Branch MONTH losartan 50 2022-0 Yes [id number] 50mg Take 1 U nivers mg tablet 2-22 tablet by ity o f 00:00: mouth in [place] 00 the Medical morning Branch and 1 tablet in the evening. glipiZIDE 2022-0 Yes [id number] 10mg Take 1 U nivers 10 mg 2-22 tablet by ity of tablet 00:00: mouth 2 [place] 00 (two) Medical times [place] daily before breakfast and dinner. metFORMIN 2022-0 Yes [id number] 1000mg Take 1 [facility] 1,000 mg 2-22 tablet by ity of tablet 00:00: mouth in [place] 00 the Medical morning Branch and 1 tablet in the evening. simvastatin 2022-0 Yes [id number] 40mg Take 1 [facility] 40 mg 2-22 tablet by ity of tablet 00:00: mouth [place] 00 every Medical evening. Branch donepeziL 0 Yes [id number] 10mg Take 1 Un [place] 10 mg 2-22 tablet by ity of tablet 00:00: mouth at [place] 00 bedtime. Medical Branch escitalopra 0 Yes [id number] 10mg Take 1 [facility] m oxalate 2-22 tablet by ity o f 10 mg 00:00: mouth in [place] tablet 00 the Medical morning. Branch cyanocobala 0 Yes [id number] INJECT 1 [facility] min 1,000 2-22 ML ity of mcg/mL 00:00: INTRAMUSCU [place] injection 00 LARLY ONCE Medi alejandra EVERY Branch MONTH losartan 50 2022-0 Yes [id number] 50mg Take 1 U nivers mg tablet 2-22 tablet by ity o f 00:00: mouth in [place] 00 the Medical morning Branch and 1 tablet in the evening. glipiZIDE 2022-0 Yes [id number] 10mg Take 1 U nivers 10 mg 2-22 tablet by ity of tablet 00:00: mouth 2 [place] (two) Medical times [place] daily before breakfast and dinner. metFORMIN 2022-0 Yes [id number] 1000mg Take 1 [facility] 1,000 mg 2-22 tablet by ity of tablet 00:00: mouth in [place] 00 the Medical morning Branch and 1 tablet in the evening. simvastatin 2022-0 Yes [id number] 40mg Take 1 [facility] 40 mg 2-22 tablet by ity of tablet 00:00: mouth [place] 00 every Medical evening. Branch donepeziL 2022-0 Yes [id number] 10mg Take 1 Un [place] 10 mg 2-22 tablet by ity of tablet 00:00: mouth at [place] 00 bedtime. Medical Branch escitalopra 2022-0 Yes [id number] 10mg Take 1 [facility] m oxalate 2-22 tablet by ity o f 10 mg 00:00: mouth in [place] tablet 00 the Medical morning. Branch cyanocobala 2022-0 Yes [id number] INJECT 1 [facility] min 1,000 2-22 ML ity of mcg/mL 00:00: INTRAMUSCU [place] injection 00 LARLY ONCE Medi alejandra EVERY Branch MONTH losartan 50 2022-0 Yes [id number] 50mg Take 1 U nivers mg tablet 2-22 tablet by ity o f 00:00: mouth in [place] 00 the Medical morning Branch and 1 tablet in the evening. glipiZIDE 2022-0 Yes [id number] 10mg Take 1 U nivers 10 mg 2-22 tablet by ity of tablet 00:00: mouth 00 (two) Medical times Branch daily before breakfast and dinner. metFORMIN 2022-0 Yes [id number] 1000mg Take 1 [facility] 1,000 mg 2-22 tablet by ity of tablet 00:00: mouth in [place] 00 the Medical morning Branch and 1 tablet in the evening. simvastatin 2022-0 Yes [id number] 40mg Take 1 [facility] 40 mg 2-22 tablet by ity of tablet 00:00: mouth [place] 00 every Medical evening. Branch donepeziL 2022-0 Yes [id number] 10mg Take 1 Un [place] 10 mg 2-22 tablet by ity of tablet 00:00: mouth at [place] 00 bedtime. Medical Branch escitalopra 2022-0 Yes [id number] 10mg Take 1 [facility] m oxalate 2-22 tablet by ity o f 10 mg 00:00: mouth in [place] tablet 00 the Medical morning. Branch cyanocobala 2022-0 Yes [id number] INJECT 1 [facility] min 1,000 2-22 ML ity of mcg/mL 00:00: INTRAMUSCU [place] injection 00 LARLY ONCE Medi alejandra EVERY Branch MONTH losartan 50 2022-0 Yes [id number] 50mg Take 1 U nivers mg tablet 2-22 tablet by ity o f 00:00: mouth in [place] 00 the Medical morning Branch and 1 tablet in the evening. glipiZIDE 2022-0 Yes [id number] 10mg Take 1 U nivers 10 mg 2-22 tablet by ity of tablet 00:00: mouth 2 [place] (two) Medical times [place] daily before breakfast and dinner. metFORMIN 2022-0 Yes [id number] 1000mg Take 1 [facility] 1,000 mg 2-22 tablet by ity of tablet 00:00: mouth in [place] 00 the Medical morning Branch and 1 tablet in the evening. simvastatin 2022-0 Yes [id number] 40mg Take 1 [facility] 40 mg 2-22 tablet by ity of tablet 00:00: mouth [place] 00 every Medical evening. Branch donepeziL 2022-0 Yes [id number] 10mg Take 1 Un [place] 10 mg 2-22 tablet by ity of tablet 00:00: mouth at [place] [address] bedtime. Medical Branch escitalopra 2022-0 Yes [id number] 10mg Take 1 [facility] m oxalate 2-22 tablet by ity o f 10 mg 00:00: mouth in [place] tablet 00 the Medical morning. Branch cyanocobala 2022-0 Yes [id number] INJECT 1 [facility] min 1,000 2-22 ML ity of mcg/mL 00:00: INTRAMUSCU [place] injection 00 LARLY ONCE Medi alejandra EVERY Branch MONTH losartan 50 2022-0 Yes [id number] 50mg Take 1 U nivers mg tablet 2-22 tablet by ity o f 00:00: mouth in [place] 00 the Medical morning Branch and 1 tablet in the evening. glipiZIDE 2022-0 Yes [id number] 10mg Take 1 U nivers 10 mg 2-22 tablet by ity of tablet 00:00: mouth 2 [place] (two) [facility] times [place] daily before breakfast and dinner. metFORMIN 2022-0 Yes [id number] 1000mg Take 1 [facility] 1,000 mg 2-22 tablet by ity of tablet 00:00: mouth in [place] 00 the Medical morning Branch and 1 tablet in the evening. simvastatin 2022-0 Yes [id number] 40mg Take 1 [facility] 40 mg 2-22 tablet by ity of tablet 00:00: mouth [place] 00 every Medical evening. Branch donepeziL 2022-0 Yes [id number] 10mg Take 1 Un [place] 10 mg 2-22 tablet by ity of tablet 00:00: mouth at [place] [address] bedtime. Medical Branch escitalopra 2022-0 Yes [id number] 10mg Take 1 [facility] m oxalate 2-22 tablet by ity o f 10 mg 00:00: mouth in [place] tablet 00 the Medical morning. Branch cyanocobala 2022-0 Yes [id number] INJECT 1 [facility] min 1,000 2-22 ML ity of mcg/mL 00:00: INTRAMUSCU [place] injection 00 LARLY ONCE Medi alejandra EVERY Branch MONTH losartan 50 2022-0 Yes [id number] 50mg Take 1 U nivers mg tablet 2-22 tablet by ity o f 00:00: mouth in [place] 00 the Medical morning Branch and 1 tablet in the evening. glipiZIDE 2022-0 Yes [id number] 10mg Take 1 U nivers 10 mg 2-22 tablet by ity of tablet 00:00: mouth 2 (two) Medical times Branch daily before breakfast and dinner. metFORMIN 2022-0 Yes [id number] 1000mg Take 1 [facility] 1,000 mg 2-22 tablet by ity of tablet 00:00: mouth in [place] 00 the Medical morning Branch and 1 tablet in the evening. simvastatin 2022-0 Yes [id number] 40mg Take 1 [facility] 40 mg 2-22 tablet by ity of tablet 00:00: mouth [place] 00 every Medical evening. Branch donepeziL 2022-0 Yes [id number] 10mg Take 1 Un [place] 10 mg 2-22 tablet by ity of tablet 00:00: mouth at [place] 00 bedtime. Medical Branch escitalopra 2022-0 Yes [id number] 10mg Take 1 [facility] m oxalate 2-22 tablet by ity o f 10 mg 00:00: mouth in [place] tablet 00 the Medical morning. Branch cyanocobala 2022-0 Yes [id number] INJECT 1 [facility] min 1,000 2-22 ML ity of mcg/mL 00:00: INTRAMUSCU [place] injection 00 LARLY ONCE Medi alejandra EVERY Branch MONTH losartan 50 2022-0 Yes [id number] 50mg Take 1 U nivers mg tablet 2-22 tablet by ity o f 00:00: mouth in [place] 00 the Medical morning Branch and 1 tablet in the evening. glipiZIDE 2022-0 Yes [id number] 10mg Take 1 U nivers 10 mg 2-22 tablet by ity of tablet 00:00: mouth 2 (two) Medical times Branch daily before breakfast and dinner. metFORMIN 3-0 Yes [id number] 1000mg Take 1 [facility] 1,000 mg 2-22 tablet by ity of tablet 00:00: mouth in [place] 00 the Medical morning Branch and 1 tablet in the evening. simvastatin 2022-0 Yes [id number] 40mg Take 1 [facility] 40 mg 2-22 tablet by ity of tablet 00:00: mouth [place] 00 every Medical evening. Branch donepeziL 2022-0 Yes [id number] 10mg Take 1 [facility] [place] 10 mg 2-22 tablet by ity of tablet 00:00: mouth at [place] [address] bedtime. Medical Branch escitalopra 2022-0 Yes [id number] 10mg Take 1 [facility] m oxalate 2-22 tablet by ity o f 10 mg 00:00: mouth in [place] tablet 00 the Medical morning. Branch cyanocobala 2022-0 Yes [id number] INJECT 1 [facility] min 1,000 2-22 ML ity of mcg/mL 00:00: INTRAMUSCU [place] injection 00 LARLY ONCE Medi alejandra EVERY Branch MONTH losartan 50 2022-0 Yes [id number] 50mg Take 1 U nivers mg tablet 2-22 tablet by ity o f 00:00: mouth in [place] the Medical morning Branch and 1 tablet in the evening. glipiZIDE 2022-0 Yes [id number] 10mg Take 1 U nivers 10 mg 2-22 tablet by ity of tablet 00:00: mouth [place] (two) [facility] times [place] daily before breakfast and dinner. metFORMIN 2022-0 Yes [id number] 1000mg Take 1 [facility] 1,000 mg 2-22 tablet by ity of tablet 00:00: mouth in [place] 00 the Medical morning Branch and 1 tablet in the evening. simvastatin 2022-0 Yes [id number] 40mg Take 1 [facility] 40 mg 2-22 tablet by ity of tablet 00:00: mouth [place] 00 every Medical evening. Branch donepeziL 2022-0 Yes [id number] 10mg Take 1 [facility] [place] 10 mg 2-22 tablet by ity of tablet 00:00: mouth at [place] [address] bedtime. Medical Branch escitalopra 2022-0 Yes [id number] 10mg Take 1 [facility] m oxalate 2-22 tablet by ity o f 10 mg 00:00: mouth in [place] tablet 00 the Medical morning. Branch cyanocobala 2022-0 Yes [id number] INJECT 1 [facility] min 1,000 2-22 ML ity of mcg/mL 00:00: INTRAMUSCU [place] injection 00 LARLY ONCE Medi alejandra EVERY Branch MONTH losartan 50 2022-0 Yes [id number] 50mg Take 1 U nivers mg tablet 2-22 tablet by ity o f 00:00: mouth in [place] 00 the Medical morning Branch and 1 tablet in the evening. glipiZIDE 2022-0 Yes [id number] 10mg Take 1 [facility] 10 mg 2-22 tablet by [facility] tablet 00:00: mouth 2 (two) Medical times Branch daily before breakfast and dinner. metFORMIN 2022-0 Yes [id number] 1000mg Take 1 [facility] 1,000 mg 2-22 tablet by [facility] of tablet 00:00: mouth in [place] 00 the Medical morning Branch and 1 tablet in the evening. simvastatin 2022-0 Yes [id number] 40mg Take 1 [facility] 40 mg 2-22 tablet by [facility] tablet 00:00: mouth [place] 00 every Medical evening. Branch donepeziL 2022-0 Yes [id number] 10mg Take 1 [facility] 10 mg 2-22 tablet by [facility] tablet 00:00: mouth at [place] 00 bedtime. Medical Branch escitalopra 2022-0 Yes [id number] 10mg Take 1 [facility] m oxalate 2-22 tablet by it[facility] o f 10 mg 00:00: mouth in [place] tablet 00 the Medical morning. Branch cyanocobala 2022-0 Yes [id number] INJECT 1 [facility] min 1,000 2-22 ML it[facility] of mcg/mL 00:00: INTRAMUSCU [place] injection 00 LARLY ONCE Medi alejandra EVERY Branch MONTH losartan 50 2022-0 Yes [id number] 50mg Take 1 [facility] mg tablet 2-22 tablet by [facility] o f 00:00: mouth in [place] 00 the Medical morning Branch and 1 tablet in the evening. glipiZIDE 2022-0 Yes [id number] 10mg Take 1 [facility] 10 mg 2-22 tablet by [facility] tablet 00:00: mouth 2 [place] 00 (two) Medical times Branch daily before breakfast and dinner. metFORMIN 2022-0 Yes [id number] 1000mg Take 1 [facility] 1,000 mg 2-22 tablet by [facility] of tablet 00:00: mouth in [place] 00 the Medical morning Branch and 1 tablet in the evening. simvastatin 3-0 Yes [id number] 40mg Take 1 [facility] 40 mg 2-22 tablet by [facility] of tablet 00:00: mouth [place] 00 every Medical evening. Branch donepeziL 2022-0 Yes [id number] 10mg Take 1 [facility] 10 mg 2-22 tablet by [facility] of tablet 00:00: mouth at [place] 00 bedtime. Medical Branch escitalopra 2022-0 Yes [id number] 10mg Take 1 [facility] m oxalate 2-22 tablet by it[facility] o f 10 mg 00:00: mouth in [place] tablet 00 the Medical morning. Branch cyanocobala 2022-0 Yes [id number] INJECT 1 [facility] min 1,000 2-22 ML ity of mcg/mL 00:00: INTRAMUSCU [place] injection 00 LARLY ONCE Medi alejandra EVERY Branch MONTH losartan 50 3-0 Yes [id number] 50mg Take 1 [facility] mg tablet 2-22 tablet by [facility] o f 00:00: mouth in [place] 00 the Medical morning Branch and 1 tablet in the evening. glipiZIDE 3-0 Yes [id number] 10mg Take 1 [facility] 10 mg 2-22 tablet by [facility] tablet 00:00: mouth 00 (two) Medical times Branch daily before breakfast and dinner. metFORMIN 3-0 Yes [id number] 1000mg Take 1 [facility] 1,000 mg 2-22 tablet by [facility] of tablet 00:00: mouth in [place] 00 the Medical morning Branch and 1 tablet in the evening. simvastatin 3-0 Yes [id number] 40mg Take 1 [facility] 40 mg 2-22 tablet by [facility] of tablet 00:00: mouth [place] 00 every Medical evening. Branch donepeziL 2022-0 Yes [id number] 10mg Take 1 [facility] 10 mg 2-22 tablet by [facility] tablet 00:00: mouth at [place] 00 bedtime. Medical Branch escitalopra 2022-0 Yes [id number] 10mg Take 1 [facility] m oxalate 2-22 tablet by it[facility] o f 10 mg 00:00: mouth in [place] tablet 00 the Medical morning. Branch cyanocobala 2022-0 Yes [id number] INJECT 1 [facility] min 1,000 2-22 ML ity of mcg/mL 00:00: INTRAMUSCU [place] injection 00 LARLY ONCE Medi alejandra EVERY Branch MONTH losartan 50 2022-0 Yes [id number] 50mg Take 1 [facility] mg tablet 2-22 tablet by it[facility] o f 00:00: mouth in [place] 00 the Medical morning Branch and 1 tablet in the evening. glipiZIDE 2022-0 Yes [id number] 10mg Take 1 [facility] 10 mg 2-22 tablet by [facility] of tablet 00:00: mouth 2 [place] 00 (two) Medical times [place] daily before breakfast and dinner. metFORMIN 2022-0 Yes [id number] 1000mg Take 1 [facility] 1,000 mg 2-22 tablet by [facility] of tablet 00:00: mouth in [place] 00 the Medical morning Branch and 1 tablet in the evening. simvastatin 2022-0 Yes [id number] 40mg Take 1 [facility] 40 mg 2-22 tablet by [facility] of tablet 00:00: mouth [place] 00 every Medical evening. Branch donepeziL 2022-0 Yes [id number] 10mg Take 1 [facility] 10 mg 2-22 tablet by [facility] tablet 00:00: mouth at [place] 00 bedtime. Medical Branch escitalopra 2022-0 Yes [id number] 10mg Take 1 [facility] m oxalate 2-22 tablet by it[facility] o f 10 mg 00:00: mouth in [place] tablet 00 the Medical morning. Branch cyanocobala 2022-0 Yes [id number] INJECT 1 [facility] min 1,000 2-22 ML it[facility] of mcg/mL 00:00: INTRAMUSCU [place] injection 00 LARLY ONCE Medi alejandra EVERY Branch MONTH losartan 50 2022-0 Yes [id number] 50mg Take 1 [facility] mg tablet 2-22 tablet by [facility] o f 00:00: mouth in [place] 00 the Medical morning Branch and 1 tablet in the evening. glipiZIDE 2022-0 Yes [id number] 10mg Take 1 [facility] 10 mg 2-22 tablet by [facility] of tablet 00:00: mouth 2 [place] 00 (two) Medical times [place] daily before breakfast and dinner. metFORMIN 2022-0 Yes [id number] 1000mg Take 1 [facility] 1,000 mg 2-22 tablet by [facility] of tablet 00:00: mouth in [place] 00 the Medical morning Branch and 1 tablet in the evening. simvastatin 2022-0 Yes [id number] 40mg Take 1 [facility] 40 mg 2-22 tablet by [facility] of tablet 00:00: mouth [place] 00 every Medical evening. Branch donepeziL 2022-0 Yes [id number] 10mg Take 1 [facility] 10 mg 2-22 tablet by [facility] tablet 00:00: mouth at [place] 00 bedtime. Medical Branch escitalopra 2022-0 Yes [id number] 10mg Take 1 [facility] m oxalate 2-22 tablet by it[facility] o f 10 mg 00:00: mouth in [place] tablet 00 the Medical morning. Branch cyanocobala 2022-0 Yes [id number] INJECT 1 [facility] min 1,000 2-22 ML it[facility] of mcg/mL 00:00: INTRAMUSCU [place] injection 00 LARLY ONCE Medi alejandra EVERY Branch MONTH losartan 50 2022-0 Yes [id number] 50mg Take 1 [facility] mg tablet 2-22 tablet by it[facility] o f 00:00: mouth in [place] 00 the Medical morning Branch and 1 tablet in the evening. glipiZIDE 2022-0 Yes [id number] 10mg Take 1 [facility] 10 mg 2-22 tablet by [facility] tablet 00:00: mouth (two) Medical times Branch daily before breakfast and dinner. metFORMIN 2022-0 Yes [id number] 1000mg Take 1 [facility] 1,000 mg 2-22 tablet by [facility] of tablet 00:00: mouth in [place] 00 the Medical morning Branch and 1 tablet in the evening. simvastatin 2022-0 Yes [id number] 40mg Take 1 [facility] 40 mg 2-22 tablet by [facility] of tablet 00:00: mouth [place] 00 every Medical evening. Branch donepeziL 2022-0 Yes [id number] 10mg Take 1 [facility] 10 mg 2-22 tablet by [facility] tablet 00:00: mouth at [place] 00 bedtime. Medical Branch escitalopra 2022-0 Yes [id number] 10mg Take 1 [facility] m oxalate 2-22 tablet by it[facility] o f 10 mg 00:00: mouth in [place] tablet 00 the Medical morning. Branch cyanocobala 2022-0 Yes [id number] INJECT 1 [facility] min 1,000 2-22 ML it[facility] of mcg/mL 00:00: INTRAMUSCU [place] injection 00 LARLY ONCE Medi alejandra EVERY Branch MONTH losartan 50 2022-0 Yes [id number] 50mg Take 1 [facility] mg tablet 2-22 tablet by it[facility] o f 00:00: mouth in [place] 00 the Medical morning Branch and 1 tablet in the evening. glipiZIDE 2022-0 Yes [id number] 10mg Take 1 [facility] 10 mg 2-22 tablet by [facility] of tablet 00:00: mouth 2 [place] (two) [facility] daily before breakfast and dinner. metFORMIN 2022-0 Yes [id number] 1000mg Take 1 [facility] 1,000 mg 2-22 tablet by it[facility] of tablet 00:00: mouth in [place] 00 the Medical morning Branch and 1 tablet in the evening. simvastatin 2022-0 Yes [id number] 40mg Take 1 [facility] 40 mg 2-22 tablet by it[facility] of tablet 00:00: mouth [place] 00 every Medical evening. Branch donepeziL 2022-0 Yes [id number] 10mg Take 1 [facility] [place] 10 mg 2-22 tablet by it[facility] of tablet 00:00: mouth at [place] [address] bedtime. Medical Branch escitalopra 2022-0 Yes [id number] 10mg Take 1 [facility] m oxalate 2-22 tablet by ity o f 10 mg 00:00: mouth in [place] tablet 00 the Medical morning. Branch cyanocobala 2022-0 Yes [id number] INJECT 1 [facility] min 1,000 2-22 ML ity of mcg/mL 00:00: INTRAMUSCU [place] injection 00 LARLY ONCE Medi alejandra EVERY Branch MONTH losartan 50 2022-0 Yes [id number] 50mg Take 1 [facility] mg tablet 2-22 tablet by it[facility] o f 00:00: mouth in [place] 00 the Medical morning Branch and 1 tablet in the evening. glipiZIDE 2022-0 Yes [id number] 10mg Take 1 [facility] 10 mg 2-22 tablet by it[facility] of tablet 00:00: mouth 2 [place] (two) [facility] daily before breakfast and dinner. metFORMIN 2022-0 Yes [id number] 1000mg Take 1 [facility] 1,000 mg 2-22 tablet by it[facility] of tablet 00:00: mouth in [place] 00 the Medical morning Branch and 1 tablet in the evening. simvastatin 2022-0 Yes [id number] 40mg Take 1 [facility] 40 mg 2-22 tablet by it[facility] of tablet 00:00: mouth [place] 00 every Medical evening. Branch donepeziL 2022-0 Yes [id number] 10mg Take 1 [facility] 10 mg 2-22 tablet by [facility] of tablet 00:00: mouth at [place] 00 bedtime. Medical Branch escitalopra 2022-0 Yes [id number] 10mg Take 1 [facility] m oxalate 2-22 tablet by ity o f 10 mg 00:00: mouth in [place] tablet 00 the Medical morning. Branch cyanocobala 2022-0 Yes [id number] INJECT 1 [facility] min 1,000 2-22 ML ity of mcg/mL 00:00: INTRAMUSCU [place] injection 00 LARLY ONCE Medi alejandra EVERY Branch MONTH losartan 50 2022-0 Yes [id number] 50mg Take 1 [facility] mg tablet 2-22 tablet by ity o f 00:00: mouth in [place] 00 the Medical morning Branch and 1 tablet in the evening. glipiZIDE 2022-0 Yes [id number] 10mg Take 1 [facility] 10 mg 2-22 tablet by it[facility] of tablet 00:00: mouth 2 [place] (two) Medical times Branch daily before breakfast and dinner. metFORMIN 2022-0 Yes [id number] 1000mg Take 1 [facility] 1,000 mg 2-22 tablet by it[facility] of tablet 00:00: mouth in [place] 00 the Medical morning Branch and 1 tablet in the evening. simvastatin 2022-0 Yes [id number] 40mg Take 1 [facility] 40 mg 2-22 tablet by it[facility] of tablet 00:00: mouth [place] 00 every Medical evening. Branch donepeziL 2022-0 Yes [id number] 10mg Take 1 [facility] 10 mg 2-22 tablet by it[facility] of tablet 00:00: mouth at [place] 00 bedtime. Medical Branch escitalopra 2022-0 Yes [id number] 10mg Take 1 [facility] m oxalate 2-22 tablet by ity o f 10 mg 00:00: mouth in [place] tablet 00 the Medical morning. Branch cyanocobala 2022-0 Yes [id number] INJECT 1 [facility] min 1,000 2-22 ML ity of mcg/mL 00:00: INTRAMUSCU [place] injection 00 LARLY ONCE Medi alejandra EVERY Branch MONTH losartan 50 2022-0 Yes [id number] 50mg Take 1 [facility] mg tablet 2-22 tablet by ity o f 00:00: mouth in [place] 00 the Medical morning Branch and 1 tablet in the evening. glipiZIDE 2022-0 Yes [id number] 10mg Take 1 [facility] 10 mg 2-22 tablet by ity of tablet 00:00: mouth 2 00 (two) Medical times Branch daily before breakfast and dinner. metFORMIN 3-0 Yes [id number] 1000mg Take 1 [facility] 1,000 mg 2-22 tablet by it[facility] of tablet 00:00: mouth in [place] 00 the Medical morning Branch and 1 tablet in the evening. simvastatin 2022-0 Yes [id number] 40mg Take 1 [facility] 40 mg 2-22 tablet by ity of tablet 00:00: mouth [place] 00 every Medical evening. Branch donepeziL 2022-0 Yes [id number] 10mg Take 1 [facility] 10 mg 2-22 tablet by ity of tablet 00:00: mouth at [place] 00 bedtime. Medical Branch escitalopra 2022-0 Yes [id number] 10mg Take 1 [facility] m oxalate 2-22 tablet by ity o f 10 mg 00:00: mouth in [place] tablet 00 the Medical morning. Branch cyanocobala 2022-0 Yes [id number] INJECT 1 [facility] min 1,000 2-22 ML ity of mcg/mL 00:00: INTRAMUSCU [place] injection 00 LARLY ONCE Medi alejandra EVERY Branch MONTH losartan 50 3-0 Yes [id number] 50mg Take 1 [facility] mg tablet 2-22 tablet by ity o f 00:00: mouth in [place] 00 the Medical morning Branch and 1 tablet in the evening. glipiZIDE 2022-0 Yes [id number] 10mg Take 1 [facility] 10 mg 2-22 tablet by it[facility] of tablet 00:00: mouth 2 [place] (two) Medical times [place] daily before breakfast and dinner. metFORMIN 2022-0 Yes [id number] 1000mg Take 1 [facility] 1,000 mg 2-22 tablet by ity of tablet 00:00: mouth in [place] 00 the Medical morning Branch and 1 tablet in the evening. simvastatin 2022-0 Yes [id number] 40mg Take 1 [facility] 40 mg 2-22 tablet by it[facility] of tablet 00:00: mouth [place] 00 every Medical evening. Branch donepeziL 2022-0 Yes [id number] 10mg Take 1 [facility] 10 mg 2-22 tablet by it[facility] of tablet 00:00: mouth at [place] 00 bedtime. Medical Branch escitalopra 2022-0 Yes [id number] 10mg Take 1 [facility] m oxalate 2-22 tablet by ity o f 10 mg 00:00: mouth in [place] tablet 00 the Medical morning. Branch cyanocobala 2022-0 Yes [id number] INJECT 1 [facility] min 1,000 2-22 ML ity of mcg/mL 00:00: INTRAMUSCU [place] injection 00 LARLY ONCE Medi alejanrda EVERY Branch MONTH losartan 50 2022-0 Yes [id number] 50mg Take 1 [facility] mg tablet 2-22 tablet by ity o f 00:00: mouth in [place] 00 the Medical morning Branch and 1 tablet in the evening. glipiZIDE 2022-0 Yes [id number] 10mg Take 1 [facility] 10 mg 2-22 tablet by ity of tablet 00:00: mouth 2 [place] 00 (two) Medical times Branch daily before breakfast and dinner. metFORMIN 2022-0 Yes [id number] 1000mg Take 1 [facility] 1,000 mg 2-22 tablet by ity of tablet 00:00: mouth in [place] 00 the Medical morning Branch and 1 tablet in the evening. simvastatin 2022-0 Yes [id number] 40mg Take 1 [facility] 40 mg 2-22 tablet by ity of tablet 00:00: mouth [place] 00 every Medical evening. Branch donepeziL 2022-0 Yes [id number] 10mg Take 1 [facility] 10 mg 2-22 tablet by it[facility] of tablet 00:00: mouth at [place] 00 bedtime. Medical Branch escitalopra 2022-0 Yes [id number] 10mg Take 1 [facility] m oxalate 2-22 tablet by ity o f 10 mg 00:00: mouth in [place] tablet 00 the Medical morning. Branch cyanocobala 2022-0 Yes [id number] INJECT 1 [facility] min 1,000 2-22 ML ity of mcg/mL 00:00: INTRAMUSCU [place] injection 00 LARLY ONCE Medi alejandra EVERY Branch MONTH losartan 50 2022-0 Yes [id number] 50mg Take 1 [facility] mg tablet 2-22 tablet by ity o f 00:00: mouth in [place] 00 the Medical morning Branch and 1 tablet in the evening. glipiZIDE 2022-0 Yes [id number] 10mg Take 1 [facility] 10 mg 2-22 tablet by ity of tablet 00:00: mouth 2 [place] 00 (two) Medical times Branch daily before breakfast and dinner. metFORMIN 2022-0 Yes [id number] 1000mg Take 1 [facility] 1,000 mg 2-22 tablet by ity of tablet 00:00: mouth in [place] 00 the Medical morning Branch and 1 tablet in the evening. simvastatin 2022-0 Yes [id number] 40mg Take 1 [facility] 40 mg 2-22 tablet by ity of tablet 00:00: mouth [place] 00 every Medical evening. Branch donepeziL 2022-0 Yes [id number] 10mg Take 1 [facility] 10 mg 2-22 tablet by ity of tablet 00:00: mouth at [place] 00 bedtime. Medical Branch escitalopra 2022-0 Yes [id number] 10mg Take 1 [facility] m oxalate 2-22 tablet by ity o f 10 mg 00:00: mouth in [place] tablet 00 the Medical morning. Branch cyanocobala 2022-0 Yes [id number] INJECT 1 [facility] min 1,000 2-22 ML ity of mcg/mL 00:00: INTRAMUSCU [place] injection 00 LARLY ONCE Medi alejandra EVERY Branch MONTH losartan 50 2022-0 Yes [id number] 50mg Take 1 [facility] mg tablet 2-22 tablet by ity o f 00:00: mouth in [place] 00 the Medical morning Branch and 1 tablet in the evening. glipiZIDE 2022-0 Yes [id number] 10mg Take 1 [facility] 10 mg 2-22 tablet by ity of tablet 00:00: mouth [place] (two) Medical times [place] daily before breakfast and dinner. metFORMIN 2022-0 Yes [id number] 1000mg Take 1 [facility] 1,000 mg 2-22 tablet by ity of tablet 00:00: mouth in [place] 00 the Medical morning Branch and 1 tablet in the evening. simvastatin 2022-0 Yes [id number] 40mg Take 1 [facility] 40 mg 2-22 tablet by ity of tablet 00:00: mouth [place] 00 every Medical evening. Branch donepeziL 2022-0 Yes [id number] 10mg Take 1 [facility] [place] 10 mg 2-22 tablet by ity of tablet 00:00: mouth at [place] 00 bedtime. Medical Branch escitalopra 2022-0 Yes [id number] 10mg Take 1 [facility] m oxalate 2-22 tablet by ity o f 10 mg 00:00: mouth in [place] tablet 00 the Medical morning. Branch cyanocobala 2022-0 Yes [id number] INJECT 1 [facility] min 1,000 2-22 ML ity of mcg/mL 00:00: INTRAMUSCU [place] injection 00 LARLY ONCE Medi alejandra EVERY Branch MONTH losartan 50 2022-0 Yes [id number] 50mg Take 1 [facility] mg tablet 2-22 tablet by ity o f 00:00: mouth in [place] 00 the Medical morning Branch and 1 tablet in the evening. glipiZIDE 2022-0 Yes [id number] 10mg Take 1 [facility] 10 mg 2-22 tablet by ity of tablet 00:00: mouth 2 [place] (two) Medical times [place] daily before breakfast and dinner. metFORMIN 2022-0 Yes [id number] 1000mg Take 1 [facility] 1,000 mg 2-22 tablet by ity of tablet 00:00: mouth in [place] 00 the Medical morning Branch and 1 tablet in the evening. simvastatin 2022-0 Yes [id number] 40mg Take 1 [facility] 40 mg 2-22 tablet by ity of tablet 00:00: mouth [place] 00 every Medical evening. Branch donepeziL 2022-0 Yes [id number] 10mg Take 1 [facility] [place] 10 mg 2-22 tablet by ity of tablet 00:00: mouth at [place] 00 bedtime. Medical Branch escitalopra 2022-0 Yes [id number] 10mg Take 1 [facility] m oxalate 2-22 tablet by ity o f 10 mg 00:00: mouth in [place] tablet 00 the Medical morning. Branch cyanocobala 2022-0 Yes [id number] INJECT 1 [facility] min 1,000 2-22 ML ity of mcg/mL 00:00: INTRAMUSCU [place] injection 00 LARLY ONCE Medi alejandra EVERY Branch MONTH losartan 50 2022-0 Yes [id number] 50mg Take 1 [facility] mg tablet 2-22 tablet by ity o f 00:00: mouth in [place] 00 the Medical morning Branch and 1 tablet in the evening. glipiZIDE 2022-0 Yes [id number] 10mg Take 1 [facility] 10 mg 2-22 tablet by ity of tablet 00:00: mouth 2 [place] (two) Medical times [place] daily before breakfast and dinner. metFORMIN 2022-0 Yes [id number] 1000mg Take 1 [facility] 1,000 mg 2-22 tablet by ity of tablet 00:00: mouth in [place] 00 the Medical morning Branch and 1 tablet in the evening. simvastatin 2022-0 Yes [id number] 40mg Take 1 [facility] 40 mg 2-22 tablet by ity of tablet 00:00: mouth [place] 00 every Medical evening. Branch donepeziL 2022-0 Yes [id number] 10mg Take 1 [facility] [place] 10 mg 2-22 tablet by ity of tablet 00:00: mouth at [place] 00 bedtime. Medical Branch escitalopra 2022-0 Yes [id number] 10mg Take 1 [facility] m oxalate 2-22 tablet by ity o f 10 mg 00:00: mouth in [place] tablet 00 the Medical morning. Branch cyanocobala 2022-0 Yes [id number] INJECT 1 [facility] min 1,000 2-22 ML ity of mcg/mL 00:00: INTRAMUSCU [place] injection 00 LARLY ONCE Medi alejandra EVERY Branch MONTH losartan 50 2022-0 Yes [id number] 50mg Take 1 [facility] mg tablet 2-22 tablet by ity o f 00:00: mouth in [place] 00 the Medical morning Branch and 1 tablet in the evening. metFORMIN 2022-0 Yes [id number] 1000mg Take 1 [facility] 1,000 mg 2-22 tablet by ity of tablet 00:00: mouth in [place] 00 the Medical morning Branch and 1 tablet in the evening. simvastatin 2022-0 Yes [id number] 40mg Take 1 [facility] 40 mg 2-22 tablet by ity of tablet 00:00: mouth [place] 00 every Medical evening. Branch donepeziL 2022-0 Yes [id number] 10mg Take 1 [facility] [place] 10 mg 2-22 tablet by ity of tablet 00:00: mouth at [place] 00 bedtime. Medical Branch escitalopra 2022-0 Yes [id number] 10mg Take 1 [facility] m oxalate 2-22 tablet by ity o f 10 mg 00:00: mouth in [place] tablet 00 the Medical morning. Branch cyanocobala 2022-0 Yes [id number] INJECT 1 [facility] min 1,000 2-22 ML ity of mcg/mL 00:00: INTRAMUSCU [place] injection 00 LARLY ONCE Medi alejandra EVERY Branch MONTH losartan 50 2022-0 Yes [id number] 50mg Take 1 [facility] mg tablet 2-22 tablet by ity o f 00:00: mouth in [place] 00 the Medical morning Branch and 1 tablet in the evening. metFORMIN 2022-0 Yes [id number] 1000mg Take 1 [facility] 1,000 mg 2-22 tablet by ity of tablet 00:00: mouth in [place] 00 the Medical morning Branch and 1 tablet in the evening. simvastatin 3-0 Yes [id number] 40mg Take 1 [facility] 40 mg 2-22 tablet by ity of tablet 00:00: mouth [place] 00 every Medical evening. Branch donepeziL 2022-0 Yes [id number] 10mg Take 1 [facility] [place] 10 mg 2-22 tablet by ity of tablet 00:00: mouth at [place] 00 bedtime. Medical Branch escitalopra 2022-0 Yes [id number] 10mg Take 1 [facility] m oxalate 2-22 tablet by ity o f 10 mg 00:00: mouth in [place] tablet 00 the Medical morning. Branch cyanocobala 2022-0 Yes [id number] INJECT 1 [facility] min 1,000 2-22 ML ity of mcg/mL 00:00: INTRAMUSCU [place] injection 00 LARLY ONCE Medi alejandra EVERY Branch MONTH losartan 50 2022-0 Yes [id number] 50mg Take 1 [facility] mg tablet 2-22 tablet by ity o f 00:00: mouth in [place] 00 the Medical morning Branch and 1 tablet in the evening. metFORMIN 2022-0 Yes [id number] 1000mg Take 1 [facility] 1,000 mg 2-22 tablet by ity of tablet 00:00: mouth in [place] 00 the Medical morning Branch and 1 tablet in the evening. simvastatin 2022-0 Yes [id number] 40mg Take 1 [facility] 40 mg 2-22 tablet by ity of tablet 00:00: mouth [place] 00 every Medical evening. Branch donepeziL 2022-0 Yes [id number] 10mg Take 1 [facility] [place] 10 mg 2-22 tablet by ity of tablet 00:00: mouth at [place] 00 bedtime. Medical Branch escitalopra 2022-0 Yes [id number] 10mg Take 1 [facility] m oxalate 2-22 tablet by ity o f 10 mg 00:00: mouth in [place] tablet 00 the Medical morning. Branch cyanocobala 2022-0 Yes [id number] INJECT 1 [facility] min 1,000 2-22 ML ity of mcg/mL 00:00: INTRAMUSCU [place] injection 00 LARLY ONCE Medi alejandra EVERY Branch MONTH losartan 50 3-0 Yes [id number] 50mg Take 1 [facility] mg tablet 2-22 tablet by ity o f 00:00: mouth in [place] 00 the Medical morning Branch and 1 tablet in the evening. metFORMIN 0 Yes [id number] 1000mg Take 1 [facility] 1,000 mg 2-22 tablet by ity of tablet 00:00: mouth in [place] 00 the Medical morning Branch and 1 tablet in the evening. simvastatin 2022-0 Yes [id number] 40mg Take 1 [facility] 40 mg 2-22 tablet by ity of tablet 00:00: mouth [place] 00 every Medical evening. Branch donepeziL 0 Yes [id number] 10mg Take 1 [facility] [place] 10 mg 2-22 tablet by ity of tablet 00:00: mouth at [place] 00 bedtime. Medical Branch escitalopra Yes [id number] 10mg Take 1 [facility] m oxalate 2-22 tablet by ity o f 10 mg 00:00: mouth in [place] tablet 00 the Medical morning. Branch cyanocobala Yes [id number] INJECT 1 [facility] min 1,000 2-22 ML ity of mcg/mL 00:00: INTRAMUSCU [place] injection 00 LARLY ONCE Medi alejandra EVERY Branch MONTH glipiZIDE 2022- No [id number] 10mg Take 1 [facility] 10 mg 2-22 - tablet by ity of tablet 00:00: 00:00 mouth 2 [place] 00 :00 (two) Medical times Branch daily before breakfast and dinner. losartan 50 2022-0 2022- No [id number] 50mg Take 1 [facility] mg tablet 2-21 09-22 tablet by ity of 00:00: 00:00 mouth in [place] 00 :00 the Medical morning Branch and 1 tablet in the evening. losartan 50 2022-0 2022- No [id number] 50mg Take 1 [facility] mg tablet 2-22 -22 tablet by ity of 00:00: 00:00 mouth in [place] 00 :00 the Medical morning Branch and 1 tablet in the evening. losartan 50 2022-0 Yes [id number] 50mg Take 1 [facility] mg tablet 1-24 tablet by ity o f 00:00: mouth in [place] 00 the Medical morning. Branch losartan 50 2022-0 Yes [id number] 50mg Take 1 [facility] mg tablet 1-24 tablet by ity o f 00:00: mouth in [place] 00 the Medical morning. Branch losartan 50 2022-0 Yes [id number] 50mg Take 1 [facility] mg tablet 1-24 tablet by ity o f 00:00: mouth in [place] 00 the Medical morning. Branch losartan 50 3-0 Yes [id number] 50mg Take 1 [facility] mg tablet 1-24 tablet by ity o f 00:00: mouth in [place] the Medical morning. Branch losartan 50 3-0 Yes [id number] 50mg Take 1 [facility] mg tablet 1-24 tablet by ity o f 00:00: mouth in [place] the Medical morning. Branch losartan 50 3-0 Yes [id number] 50mg Take 1 [facility] mg tablet 1-24 tablet by ity o f 00:00: mouth in [place] the Medical morning. Branch losartan 50 3-0 Yes [id number] 50mg Take 1 [facility] mg tablet 1-24 tablet by ity o f 00:00: mouth in [place] the Medical morning. Branch losartan 50 3-0 Yes [id number] 50mg Take 1 [facility] mg tablet 1-24 tablet by ity o f 00:00: mouth in [place] the Medical morning. Branch losartan 50 3-0 Yes [id number] 50mg Take 1 [facility] mg tablet 1-24 tablet by ity o f 00:00: mouth in [place] the Medical morning. Branch losartan 50 3-0 Yes [id number] 50mg Take 1 [facility] mg tablet 1-24 tablet by ity o f 00:00: mouth in [place] the Medical morning. Branch losartan 50 3-0 Yes [id number] 50mg Take 1 [facility] mg tablet 1-24 tablet by ity o f 00:00: mouth in [place] the Medical morning. Branch losartan 50 3-0 Yes [id number] 50mg Take 1 [facility] mg tablet 1-24 tablet by ity o f 00:00: mouth in [place] the Medical morning. Branch losartan 50 3-0 Yes [id number] 50mg Take 1 [facility] mg tablet 1-24 tablet by ity o f 00:00: mouth in [place] the Medical morning. Branch losartan 50 3-0 Yes [id number] 50mg Take 1 [facility] mg tablet 1-24 tablet by ity o f 00:00: mouth in [place] 00 the Medical morning. Branch losartan 50 3-0 2023- No [id number] 50mg Take 1 [facility] mg tablet 1-24 - tablet by ity of 00:00: 00:00 mouth in [place] 00 :00 the Medical morning. Branch losartan 50 2022-0 3- No [id number] 50mg Take 1 [facility] mg tablet 08-23- tablet by it[facility] of 00:00: 00:00 mouth in [place] 00 :00 the Medical morning. Branch losartan 50 2022-0 2023- No [id number] 50mg Take 1 [facility] mg tablet 08-23 tablet by ity of 00:00: 00:00 mouth in [place] 00 :00 the Medical morning. Branch losartan 50 2022-0 2023- No [id number] 50mg Take 1 [facility] mg tablet 08-23 tablet by ity of 00:00: 00:00 mouth in [place] 00 :00 the Medical morning. Branch enalapril 5 2022-0 Yes [id number] 5mg Take 1 [facility] mg tablet 1-10 tablet by ity o f 00:00: mouth in [place] 00 the Medical morning Branch and 1 tablet in the evening. enalapril 5 2022-0 Yes [id number] 5mg Take 1 [facility] mg tablet 1-10 tablet by ity o f 00:00: mouth in [place] 00 the Medical morning Branch and 1 tablet in the evening. enalapril 5 2022-0 Yes [id number] 5mg Take 1 [facility] mg tablet 1-10 tablet by ity o f 00:00: mouth in [place] 00 the Medical morning Branch and 1 tablet in the evening. enalapril 5 2022-0 Yes [id number] 5mg Take 1 [facility] mg tablet 1-10 tablet by ity o f 00:00: mouth in [place] 00 the Medical morning Branch and 1 tablet in the evening. enalapril 5 2022-0 Yes [id number] 5mg Take 1 [facility] mg tablet 1-10 tablet by ity o f 00:00: mouth in [place] 00 the Medical morning Branch and 1 tablet in the evening. enalapril 5 2022-0 Yes [id number] 5mg Take 1 [facility] mg tablet 1-10 tablet by ity o f 00:00: mouth in [place] 00 the Medical morning Branch and 1 tablet in the evening. enalapril 5 2022-0 Yes [id number] 5mg Take 1 [facility] mg tablet 1-10 tablet by ity o f 00:00: mouth in [place] 00 the Medical morning Branch and 1 tablet in the evening. enalapril 5 2022- No [id number] 5mg Take 1 [facility] mg tablet 08-09 tablet by ity of 00:00: 00:00 mouth in [place] 00 :00 the Medical morning Branch and 1 tablet in the evening. enalapril 5 2022- No [id number] 5mg Take 1 [facility] mg tablet 08-09 tablet by ity of 00:00: 00:00 mouth in [place] 00 :00 the Medical morning Branch and 1 tablet in the evening. benzonatate 2022- No [id number] 100mg Take 1 [facility] 100 mg 08-07 capsule by ity of capsule 00:00: 05:59 mouth 3 [place] 00 :00 (three) Medical times Branch daily as needed for Cough for up to 7 days. benzonatate 2022- No [id number] 100mg Take 1 [facility] 100 mg 08-07 capsule by ity of capsule 00:00: 05:59 mouth 3 [place] 00 :00 (three) Medical times Branch daily as needed for Cough for up to 7 days. benzonatate 2022- No [id number] 100mg Take 1 [facility] 100 mg 08-07 capsule by ity of capsule 00:00: 05:59 mouth 3 [place] 00 :00 (three) Medical times Branch daily as needed for Cough for up to 7 days. benzonatate 2022- No [id number] 100mg Take 1 [facility] 100 mg 08-07 capsule by ity of capsule 00:00: 05:59 mouth 3 [place] 00 :00 (three) Medical times Branch daily as needed for Cough for up to 7 days. benzonatate 2022- No [id number] 100mg Take 1 [facility] 100 mg 08-0716 capsule by ity of capsule 00:00: 05:59 mouth 3 [place] 00 :00 (three) Medical times Branch daily as needed for Cough for up to 7 days. benzonatate 2022- No [id number] 100mg Take 1 [facility] 100 mg 08-0716 capsule by ity of capsule 00:00: 05:59 mouth 3 [place] 00 :00 (three) Medical times Branch daily as needed for Cough for up to 7 days. benzonatate 2022- No [id number] 100mg Take 1 [facility] 100 mg 08-07 capsule by ity of capsule 00:00: 05:59 mouth 3 [place] 00 :00 (three) Medical times Branch daily as needed for Cough for up to 7 days. glipiZIDE 2022- No 10mg Take 10 mg U nivers 10 mg 08-0304 by mouth. ity of tablet 15:46: 00:00 [place] 34 :00 Medical Branch glipiZIDE 2022- No 10mg Take 10 mg U nivers 10 mg 08-03 by mouth. ity of tablet 15:46: 00:00 [place] 34 :00 Medical Branch glipiZIDE 2022- No 10mg Take 10 mg U nivers 10 mg 08-03 by mouth. ity of tablet 15:46: 00:00 [place] 34 :00 Medical Branch Calcium Yes 1{tbl} Take 1 [facility] s Carb-Cholec 1-04 tablet by ity of alciferol 15:37: mouth 2 [place] (CALCIUM 04 (two) Medical 600 + D,3,) times Branch 600 mg-5 daily. mcg (200 unit) Tab Calcium Yes 1{tbl} Take 1 [facility]iver s Carb-Cholec 1-04 tablet by ity of alciferol 15:37: mouth 2 [place] (CALCIUM 04 (two) Medical 600 + D,3,) times Branch 600 mg-5 daily. mcg (200 unit) Tab Calcium Yes 1{tbl} Take 1 [facility] Carb-Cholec 1-04 tablet by ity of alciferol 15:37: mouth 2 [place] (CALCIUM 04 (two) Medical 600 + D,3,) times Branch 600 mg-5 daily. mcg (200 unit) Tab Calcium Yes 1{tbl} Take 1 [facility] Carb-Cholec 1-04 tablet by ity of alciferol 15:37: mouth 2 [place] (CALCIUM 04 (two) Medical 600 + D,3,) times Branch 600 mg-5 daily. mcg (200 unit) Tab Calcium Yes 1{tbl} Take 1 [facility] s Carb-Cholec [...] mg-5 daily. mcg (200 unit) Tab Calcium Yes 1{tbl} Take 1 [facility] s Carb-Cholec 1-04 tablet by ity of alciferol 15:37: mouth 2 [place] (CALCIUM 04 (two) Medical 600 + D,3,) times Branch 600 mg-5 daily. mcg (200 unit) Tab metFORMIN 2022-2022- No 1{tbl} Take 1 [facility] vers 1,000 mg 08-03 tablet by ity o f tablet 15:34: 00:00 mouth in [place] 38 :00 the Medical morning Branch and 1 tablet in the evening. metFORMIN 2022-2022- No 1{tbl} Take 1 [facility] vers 1,000 mg 08-03 tablet by ity o f tablet 15:34: 00:00 mouth in [place] 38 :00 the Medical morning Branch and 1 tablet in the evening. metFORMIN 2022-2022- No 1{tbl} Take 1 [facility] vers 1,000 mg 08-03 tablet by ity o f tablet 15:34: 00:00 mouth in [place] 38 :00 the Medical morning Branch and 1 tablet in the evening. aspirin 2022-0 202- No 81mg 81 mg. [facility] (ASPIR-81) 08-03 ity of 81 mg EC 15:34: 00:00 [place] tablet 28 :00 Medical Branch aspirin 2022-0 202- No 81mg 81 mg. [facility] (ASPIR-81) 08-03 ity of 81 mg EC 15:34: 00:00 [place] tablet 28 :00 Medical Branch aspirin 2022-0 2023- No 81mg 81 mg. [facility] (ASPIR-81) [...] 00:00 [place] 26 :00 Medical Branch glipiZIDE 2023-0 Yes [id number] 10mg Take 1 U nivers 10 mg 1-04 tablet by ity of tablet 00:00: mouth 2 (two) Medical times Branch daily before breakfast and dinner. glipiZIDE 3-0 Yes [id number] 10mg Take 1 [facility] nivers 10 mg 1-04 tablet by ity of tablet 00:00: mouth 2 (two) Medical times Branch daily before breakfast and dinner. glipiZIDE 2023-0 Yes [id number] 10mg Take 1 [facility] nivers 10 mg 1-04 tablet by ity of tablet 00:00: mouth 2 (two) Medical times Branch daily before breakfast and dinner. glipiZIDE 2023-0 Yes [id number] 10mg Take 1 [facility] nivers 10 mg 1-04 tablet by ity of tablet 00:00: mouth 2 (two) Medical times Branch daily before breakfast and dinner. glipiZIDE 2023-0 Yes [id number] 10mg Take 1 U nivers 10 mg 1-04 tablet by ity of tablet 00:00: mouth (two) Medical times Branch daily before breakfast and dinner. glipiZIDE 2023-0 Yes [id number] 10mg Take 1 U nivers 10 mg 1-04 tablet by ity of tablet 00:00: mouth (two) Medical times Branch daily before breakfast and dinner. glipiZIDE 2023-0 Yes [id number] 10mg Take 1 U nivers 10 mg 1-04 tablet by ity of tablet 00:00: mouth (two) Medical times Branch daily before breakfast and dinner. glipiZIDE 2023-0 Yes [id number] 10mg Take 1 U nivers 10 mg 1-04 tablet by ity of tablet 00:00: mouth (two) Medical times Branch daily before breakfast and dinner. glipiZIDE 3-0 Yes [id number] 10mg Take 1 U nivers 10 mg 1-04 tablet by ity of tablet 00:00: mouth (two) Medical times Branch daily before breakfast and dinner. glipiZIDE 3-0 Yes [id number] 10mg Take 1 U nivers 10 mg 1-04 tablet by ity of tablet 00:00: mouth (two) Medical times Branch daily before breakfast and dinner. glipiZIDE 2023-0 Yes [id number] 10mg Take 1 U nivers 10 mg 1-04 tablet by ity of tablet 00:00: mouth (two) Medical times Branch daily before breakfast and dinner. glipiZIDE 2023-0 Yes [id number] 10mg Take 1 U nivers 10 mg 1-04 tablet by ity of tablet 00:00: mouth (two) Medical times Branch daily before breakfast and dinner. glipiZIDE 2023-0 Yes [id number] 10mg Take 1 U nivers 10 mg 1-04 tablet by ity of tablet 00:00: mouth (two) Medical times Branch daily before breakfast and dinner. glipiZIDE 2023-0 Yes [id number] 10mg Take 1 U nivers 10 mg 1-04 tablet by ity of tablet 00:00: mouth (two) Medical times Branch daily before breakfast and dinner. glipiZIDE 3-0 Yes [id number] 10mg Take 1 U nivers 10 mg 1-04 tablet by ity of tablet 00:00: mouth (two) Medical times Branch daily before breakfast and dinner. glipiZIDE 3-0 Yes [id number] 10mg Take 1 U nivers 10 mg 1-04 tablet by ity of tablet 00:00: mouth (two) Medical times Branch daily before breakfast and dinner. glipiZIDE 3-0 Yes [id number] 10mg Take 1 U nivers 10 mg 1-04 tablet by ity of tablet 00:00: mouth (two) Medical times Branch daily before breakfast and dinner. glipiZIDE 3-0 Yes [id number] 10mg Take 1 U nivers 10 mg 1-04 tablet by ity of tablet 00:00: mouth (two) Medical times Branch daily before breakfast and dinner. glipiZIDE 3-0 Yes [id number] 10mg Take 1 U nivers 10 mg 1-04 tablet by ity of tablet 00:00: mouth (two) Medical times Branch daily before breakfast and dinner. glipiZIDE 3-0 Yes [id number] 10mg Take 1 U nivers 10 mg 1-04 tablet by ity of tablet 00:00: mouth (two) Medical times Branch daily before breakfast and dinner. glipiZIDE 3-0 Yes [id number] 10mg Take 1 U nivers 10 mg 1-04 tablet by ity of tablet 00:00: mouth (two) Medical times Branch daily before breakfast and dinner. glipiZIDE 3-0 Yes [id number] 10mg Take 1 U nivers 10 mg 1-04 tablet by ity of tablet 00:00: mouth (two) Medical times Branch daily before breakfast and dinner. glipiZIDE 2023-0 Yes [id number] 10mg Take 1 U nivers 10 mg 1-04 tablet by ity of tablet 00:00: mouth (two) Medical times Branch daily before breakfast and dinner. glipiZIDE 3-0 Yes [id number] 10mg Take 1 U nivers 10 mg 1-04 tablet by ity of tablet 00:00: mouth (two) Medical times Branch daily before breakfast and dinner. glipiZIDE 3-0 Yes [id number] 10mg Take 1 U nivers 10 mg 1-04 tablet by ity of tablet 00:00: mouth (two) Medical times Branch daily before breakfast and dinner. glipiZIDE 3-0 Yes [id number] 10mg Take 1 U nivers 10 mg 1-04 tablet by ity of tablet 00:00: mouth (two) Medical times Branch daily before breakfast and dinner. glipiZIDE 3-0 Yes [id number] 10mg Take 1 U nivers 10 mg 1-04 tablet by ity of tablet 00:00: mouth (two) Medical times Branch daily before breakfast and dinner. glipiZIDE 2022-0 Yes [id number] 10mg Take 1 U nivers 10 mg 1-04 tablet by ity of tablet 00:00: mouth (two) Medical times Branch daily before breakfast and dinner. glipiZIDE 2022-0 Yes [id number] 10mg Take 1 U nivers 10 mg 1-04 tablet by ity of tablet 00:00: mouth (two) Medical times Branch daily before breakfast and dinner. glipiZIDE 3-0 Yes [id number] 10mg Take 1 U nivers 10 mg 1-04 tablet by ity of tablet 00:00: mouth (two) Medical times Branch daily before breakfast and dinner. glipiZIDE 3-0 Yes [id number] 10mg Take 1 U nivers 10 mg 1-04 tablet by ity of tablet 00:00: mouth (two) Medical times Branch daily before breakfast and dinner. glipiZIDE 2023-0 3- No [id number] 10mg Take 1 [facility] 10 mg 1-04 - tablet by ity of tablet 00:00: 00:00 mouth 2 [place] 00 :00 (two) Medical times Branch daily before breakfast and dinner. glipiZIDE 3-0 2023- No [id number] 10mg Take 1 [facility] 10 mg 1-04 02-22 tablet by ity of tablet 00:00: 00:00 mouth 2 [place] 00 :00 (two) Medical times [place] daily before breakfast and dinner. glipiZIDE 2022-0 2022- No [id number] 10mg Take 1 [facility] 10 mg -09-21 tablet by ity of tablet 00:00: 00:00 mouth 2 [place] 00 :00 (two) Medical times Branch daily before breakfast and dinner. glipiZIDE 2022- No [id number] 10mg Take 1 [facility] 10 mg 08-03 tablet by ity of tablet 00:00: 00:00 mouth 2 [place] 00 :00 (two) Medical times [place] daily before breakfast and dinner. enalapril 5 2022-0 Yes [id number] 5mg Take 1 [facility] mg tablet 1-02 tablet by ity o f 00:00: mouth in [place] 00 the Medical morning. Branch enalapril 5 2022-0 Yes [id number] 5mg Take 1 [facility] mg tablet 1-02 tablet by ity o f 00:00: mouth in [place] 00 the Medical morning. Branch enalapril 5 2022-0 Yes [id number] 5mg Take 1 [facility] mg tablet 1-02 tablet by ity o f 00:00: mouth in [place] 00 the Medical morning. Branch enalapril 5 2022-0 Yes [id number] 5mg Take 1 [facility] mg tablet 1-02 tablet by ity o f 00:00: mouth in [place] 00 the Medical morning. Branch enalapril 5 2022-0 Yes [id number] 5mg Take 1 [facility] mg tablet 1-02 tablet by ity o f 00:00: mouth in [place] 00 the Medical morning. Branch enalapril 5 2022-0 Yes [id number] 5mg Take 1 [facility] mg tablet 1-02 tablet by ity o f 00:00: mouth in [place] 00 the Medical morning. Branch enalapril 5 2022-0 Yes [id number] 5mg Take 1 [facility] mg tablet 1-02 tablet by ity o f 00:00: mouth in [place] 00 the Medical morning. Branch enalapril 5 2022-0 Yes [id number] 5mg Take 1 [facility] mg tablet 1-02 tablet by ity o f 00:00: mouth in [place] 00 the Medical morning. Branch enalapril 5 Yes [id number] 5mg Take 1 [facility] mg tablet 08-01 tablet by ity o f 00:00: mouth in [place] 00 the Medical morning. Branch enalapril 5 2022-0 2022- No [id number] 5mg Take 1 [facility] mg tablet 08-01 tablet by ity of 00:00: 00:00 mouth in [place] 00 :00 the Medical morning. Branch enalapril 5 2022- No [id number] 5mg Take 1 [facility] mg tablet 08-01 tablet by ity of 00:00: 00:00 mouth in [place] 00 :00 the Medical morning. Branch enalapril 5 2022-0 2022- No [id number] 5mg Take 1 [facility] mg tablet 08-01 tablet by ity of 00:00: 00:00 mouth in [place] 00 :00 the Medical morning. Branch enalapril 5 2022- No [id number] 5mg Take 1 [facility] mg tablet 08-01 tablet by ity of 00:00: 00:00 mouth in [place] 00 :00 the Medical morning. Branch enalapril 2021-07- No 2.5mg Take 2.5 Un timothy 2.5 mg 2-12 12-12 mg by ity of tablet 14:21: 00:00 mouth. [place] 25 :00 Medical Branch enalapril 2021-07- No 2.5mg Take 2.5 Un timothy 2.5 mg 2-12 12-12 mg by ity of tablet 14:21: 00:00 mouth. [place] 25 :00 Medical Branch enalapril 2021-07- No 2.5mg Take 2.5 Un timothy 2.5 mg 2-12 12-12 mg by ity of tablet 14:21: 00:00 mouth. [place] 25 :00 Medical Branch enalapril 2021-07- No 2.5mg Take 2.5 Un timothy 2.5 mg 2-12 12-12 mg by ity of tablet 14:21: 00:00 mouth. [place] 25 :00 [facility] Branch enalapril 2021-07 Yes [id number] 2.5mg Take 1 U nivers 2.5 mg 2-12 tablet by ity of tablet 00:00: mouth in [place] the Medical morning. Branch enalapril 2021-07 Yes [id number] 2.5mg Take 1 U nivers 2.5 mg 2-12 tablet by ity of tablet 00:00: mouth in [place] the Medical morning. Branch enalapril 2021-07 Yes [id number] 2.5mg Take 1 U nivers 2.5 mg 2-12 tablet by ity of tablet 00:00: mouth in [place] the Medical morning. Branch enalapril 2021-07 Yes [id number] 2.5mg Take 1 U nivers 2.5 mg 2-12 tablet by ity of tablet 00:00: mouth in [place] the Medical morning. Branch enalapril 2021-07 Yes [id number] 2.5mg Take 1 U nivers 2.5 mg 2-12 tablet by ity of tablet 00:00: mouth in [place] the Medical morning. Branch enalapril 2021-07 Yes [id number] 2.5mg Take 1 U nivers 2.5 mg 2-12 tablet by ity of tablet 00:00: mouth in [place] the Medical morning. Branch enalapril 2021-07 Yes [id number] 2.5mg Take 1 U nivers 2.5 mg 2-12 tablet by ity of tablet 00:00: mouth in [place] the Medical morning. Branch enalapril 2021-07 Yes [id number] 2.5mg Take 1 U nivers 2.5 mg 2-12 tablet by ity of tablet 00:00: mouth in [place] the Medical morning. Branch enalapril 2021-07 Yes [id number] 2.5mg Take 1 U nivers 2.5 mg 2-12 tablet by ity of tablet 00:00: mouth in [place] the Medical morning. Branch enalapril 2021-07 Yes [id number] 2.5mg Take 1 U nivers 2.5 mg 2-12 tablet by ity of tablet 00:00: mouth in [place] 00 the Medical morning. Branch enalapril 2021-07 Yes [id number] 2.5mg Take 1 U nivers 2.5 mg 2-12 tablet by ity of tablet 00:00: mouth in [place] 00 the Medical morning. Branch enalapril 2021-07- No [id number] 2.5mg Take 1 [facility] 2.5 mg 2-12 08-01 tablet by ity of tablet 00:00: 00:00 mouth in [place] 00 :00 the Medical morning. Branch enalapril 2021-073- No [id number] 2.5mg Take 1 [facility] 2.5 mg 2-12 - tablet by ity of tablet 00:00: 00:00 mouth in [place] 00 :00 the Medical morning. Branch aspirin 81 2021-07 Yes 81mg Take 81 mg U nivers mg chewable 2-10 by mouth ity of tablet 12:29: in the [place] morning. Medical Branch glipiZIDE 2021-07 Yes 10mg Take 10 mg Un timothy 10 mg 2-10 by mouth. ity of tablet 12:29: Medical Branch aspirin 81 2021-07 Yes 81mg Take 81 mg U nivers mg chewable 2-10 by mouth ity of tablet 12:29: in the [place] morning. Medical Branch aspirin 81 2021-07 Yes 81mg Take 81 mg U nivers mg chewable 2-10 by mouth ity of tablet 12:29: in the [place] morning. Medical Branch aspirin 81 2021-07 Yes 81mg Take 81 mg U nivers mg chewable 2-10 by mouth ity of tablet 12:29: in the [place] morning. Medical Branch aspirin 81 2021- Yes 81mg Take 81 mg U nivers mg chewable 2-10 by mouth ity of tablet 12:29: in the [place] morning. Medical Branch aspirin 81 2021- Yes 81mg Take 81 mg U nivers mg chewable 2-10 by mouth ity of tablet 12:29: in the [place] morning. Medical Branch glipiZIDE 2021- Yes 10mg [...] mouth ity of tablet 12:29: in the [place] morning. Medical Branch aspirin 81 2021- Yes [...] mouth ity of tablet 12:29: in the [place] morning. Medical Branch aspirin 81 2021- Yes 81mg Take 81 mg U nivers mg chewable 2-10 by mouth ity of tablet 12:29: in the [place] morning. Medical Branch glipiZIDE 2021- Yes 10mg [...] mg by ity of tablet 12:29: mouth. Medical Branch glipiZIDE 2021- Yes 10mg Take 10 mg Un timothy 10 mg 2-10 by mouth. ity of tablet 12:29: Medical Branch aspirin 81 2021- Yes 81mg Take 81 mg U nivers mg chewable 2-10 by mouth ity of tablet 12:29: in the [place] morning. Medical Branch glipiZIDE 2021- Yes 10mg [...] mouth ity of tablet 12:29: in the [place] morning. Medical Branch aspirin 81 2021-07 Yes 81mg Take 81 mg U nivers mg chewable 2-10 by mouth ity of tablet 12:29: in the morning. Medical Branch aspirin 81 2021-07 Yes 81mg Take 81 mg U nivers mg chewable 2-10 by mouth ity of tablet 12:29: in the [place] morning. Medical Branch aspirin 81 2021-07 Yes 81mg Take 81 mg U nivers mg chewable 2-10 by mouth ity of tablet 12:29: in the [place] morning. Medical Branch aspirin 81 2021-07 Yes 81mg Take 81 mg U nivers mg chewable 2-10 by mouth ity of tablet 12:29: in the [place] morning. Medical Branch cephALEXin 2021-07- No [id number] 500mg Take 1 [facility] (KEFLEX) 2-10 12-18 capsule by ity of 500 mg 00:00: 05:59 mouth in [place] capsule 00 :00 the [facility] Branch and 1 capsule at noon and 1 capsule in the evening. Do all this for 7 days. cephALEXin 2021-07- No [id number] 500mg Take 1 [facility] (KEFLEX) 2-10 12-18 capsule by ity of 500 mg 00:00: 05:59 mouth in [place] capsule 00 :00 the [facility] Branch and 1 capsule at noon and 1 capsule in the evening. Do all this for 7 days. cephALEXin 2021-07- No [id number] 500mg Take 1 [facility] (KEFLEX) 2-10 12-18 capsule by ity of 500 mg 00:00: 05:59 mouth in [place] capsule 00 :00 the [facility] morning Branch and 1 capsule at noon and 1 capsule in the evening. Do all this for 7 days. cephALEXin 2021-07- No [id number] 500mg Take 1 [facility] (KEFLEX) 2-10 12-18 capsule by ity of 500 mg 00:00: 05:59 mouth in [place] capsule 00 :00 the Medical morning Branch and 1 capsule at noon and 1 capsule in the evening. Do all this for 7 days. cephALEXin 2021-07- No [id number] 500mg Take 1 [facility] (KEFLEX) 2-10 12-18 capsule by ity of 500 mg 00:00: 05:59 mouth in [place] capsule 00 :00 the Medical morning Branch and 1 capsule at noon and 1 capsule in the evening. Do all this for 7 days. cephALEXin 2021-2021- No [id number] 500mg Take 1 [facility] (KEFLEX) 2-10 12-18 capsule by ity of 500 mg 00:00: 05:59 mouth in [place] capsule 00 :00 the Medical morning Branch and 1 capsule at noon and 1 capsule in the evening. Do all this for 7 days. cephALEXin 2021-07- No [id number] 500mg Take 1 [facility] (KEFLEX) 2-10 12-18 capsule by ity of 500 mg 00:00: 05:59 mouth in [place] capsule 00 :00 the Medical morning Branch and 1 capsule at noon and 1 capsule in the evening. Do all this for 7 days. cephALEXin 2021-2021- No [id number] 500mg Take 1 [facility] (KEFLEX) 2-10 12-18 capsule by ity of 500 mg 00:00: 05:59 mouth in [place] capsule 00 :00 the Medical morning Branch and 1 capsule at noon and 1 capsule in the evening. Do all this for 7 days. cephALEXin 2021-07- No [id number] 500mg Take 1 [facility] (KEFLEX) 2-10 12-18 capsule by ity of 500 mg 00:00: 05:59 mouth in [place] capsule 00 :00 the Medical morning Branch and 1 capsule at noon and 1 capsule in the evening. Do all this for 7 days. [email or web address] 2021-07 Yes [facility] 10 mg 2-08 ity of tablet 00:00: [facility] donepeziL 2021-07 Yes Univers 10 mg 2-08 ity of tablet 00:00: [facility] donepeziL 2021-07 Yes Univers 10 mg 2-08 ity of tablet 00:00: [facility] donepeziL 2021-07 Yes Univers 10 mg 2-08 ity of tablet 00:00: Medical Branch donepeziL 2021-07 Yes [facility] 10 mg 2-08 ity of tablet 00:00: [place] Medical Branch donepeziL 2021-07 Yes [facility] 10 mg 2-08 ity of tablet 00:00: [place] [address] Medical Branch donepeziL 2021-07 Yes Univers 10 mg 2-08 ity of tablet 00:00: [place] [address] Medical Branch donepeziL 2021-07 Yes [facility] 10 mg 2-08 ity of tablet 00:00: [place] Medical Branch donepeziL 2021-07 Yes [facility] 10 mg 2-08 ity of tablet 00:00: [place] [address] Medical Branch donepeziL 2021-07 Yes [facility] 10 mg 2-08 ity of tablet 00:00: [address] Branch donepeziL 2021-07 Yes [facility] 10 mg 2-08 ity of tablet 00:00: [address] Branch donepeziL 2021-07 Yes Univers 10 mg 2-08 ity of tablet 00:00: [address] Branch donepeziL 2021-07 Yes Univers 10 mg 2-08 ity of tablet 00:00: [place] [address] Medical Branch donepeziL 2021-07 Yes Univers 10 mg 2-08 ity of tablet 00:00: [address] Branch donepeziL 2021-07 Yes Univers 10 mg 2-08 ity of tablet 00:00: [address] Branch donepeziL 2021-07 Yes Univers 10 mg 2-08 ity of tablet 00:00: [address] Branch donepeziL 2021-07 Yes Univers 10 mg 2-08 ity of tablet 00:00: [place] Medical Branch donepeziL 2021-07 Yes Univers 10 mg 2-08 ity of tablet 00:00: [place] [address] Medical Branch donepeziL 2021-07 Yes Univers 10 mg 2-08 ity of tablet 00:00: [address] Branch donepeziL 2021-07 Yes Univers 10 mg 2-08 ity of tablet 00:00: [address] Branch donepeziL 2021-07 Yes Univers 10 mg 2-08 ity of tablet 00:00: [address] Branch donepeziL 2021-07 Yes Univers 10 mg 2-08 ity of tablet 00:00: [place] [address] Medical Branch donepeziL 2021-07 Yes Univers 10 mg 2-08 ity of tablet 00:00: [place] Medical Branch donepeziL 2021-07 Yes [facility] 10 mg 2-08 ity of tablet 00:00: [place] Medical Branch donepeziL 2021-07 Yes Univers 10 mg 2-08 ity of tablet 00:00: [place] [address] Medical Branch donepeziL 2021-07 Yes [facility] 10 mg 2-08 ity of tablet 00:00: [place] Medical Branch donepeziL 2021-07 Yes [facility] 10 mg 2-08 ity of tablet 00:00: [place] [address] Medical Branch donepeziL 2021-07 Yes [facility] 10 mg 2-08 ity of tablet 00:00: [place] [address] Medical Branch donepeziL 2021-07 Yes [facility] 10 mg 2-08 ity of tablet 00:00: [place] [address] Medical Branch donepeziL 2021-07 Yes [facility] 10 mg 2-08 ity of tablet 00:00: [place] [address] Medical Branch donepeziL 2021-07 Yes [facility] 10 mg 2-08 ity of tablet 00:00: [place] [address] Medical Branch donepeziL 2021-07 Yes [facility] 10 mg 2-08 ity of tablet 00:00: [place] [address] Medical Branch donepeziL 2021-07 Yes [facility] 10 mg 2-08 ity of tablet 00:00: [place] [address] Medical Branch donepeziL 2021-07 Yes [facility] 10 mg 2-08 ity of tablet 00:00: [place] [address] Medical Branch donepeziL 2021-07 Yes [facility] 10 mg 2-08 ity of tablet 00:00: [place] [address] Medical Branch donepeziL 2021-07 Yes [facility] 10 mg 2-08 ity of tablet 00:00: [place] [address] Medical Branch donepeziL 2021-07 Yes [facility] 10 mg 2-08 ity of tablet 00:00: [place] [address] Medical Branch donepeziL 2021-07 Yes [facility] 10 mg 2-08 ity of tablet 00:00: [place] [address] Medical Branch donepeziL 2021-07 Yes [facility] 10 mg 2-08 ity of tablet 00:00: [place] [address] Medical Branch donepeziL 2021-07 Yes [facility] 10 mg 2-08 ity of tablet 00:00: [place] [address] Medical Branch donepeziL 2021-07 Yes [facility] 10 mg 2-08 ity of tablet 00:00: [place] 00 Medical Branch donepeziL 2021-07 Yes [facility] 10 mg 2-08 ity of tablet 00:00: 00 Medical Branch donepeziL 2021- Yes [facility] 10 mg 2-08 ity of tablet 00:00: [place] 00 Medical Branch donepeziL 2021- Yes [facility] 10 mg 2-08 ity of tablet 00:00: [place] 00 Medical Branch donepeziL 2021- Yes [facility] 10 mg 2-08 ity of tablet 00:00: [place] 00 Medical Branch donepeziL 2021-07 Yes [facility] 10 mg 2-08 ity of tablet 00:00: [place] 00 Medical Branch donepeziL 2021-2022- No at [facility] 10 mg 2-08 09-21 bedtime. ity of tablet 00:00: 00:00 [place] 00 :00 Medical Branch donepeziL 2021-2022- No at [facility] 10 mg 2-08 09-21 bedtime. ity of tablet 00:00: 00:00 [place] 00 :00 Medical Branch donepeziL 2021-2022- No at [facility] 10 mg 2-08 09-21 bedtime. ity of tablet 00:00: 00:00 [place] 00 :00 Medical Branch donepeziL 2021-2022- No at [facility] 10 mg 2-08 09-21 bedtime. ity of tablet 00:00: 00:00 [place] 00 :00 Medical Branch escitalopra 2021- Yes 10mg Take [...] 00:00: in the [place] tablet 00 morning. [facility] escitalopra 2021-1 Yes 10mg Take 10 mg Univers m oxalate 2-04 by mouth ity of 10 mg 00:00: in the [place] tablet 00 morning. Medical Branch escitalopra 2021-1 Yes 10mg Take 10 mg [facility] m oxalate 2-04 by mouth ity of 10 mg 00:00: in the [place] tablet 00 morning. [facility] escitalopra 2021-07 Yes 10mg Take 10 mg [facility] m oxalate 2-04 by mouth ity of 10 mg 00:00: in the [place] tablet 00 morning. [facility] escitalopra 2021-07 Yes 10mg Take 10 mg [facility] m oxalate 2-04 by mouth ity of 10 mg 00:00: in the [place] tablet 00 morning. [facility] escitalopra 2021-07 Yes 10mg Take 10 mg Univers m oxalate 2-04 by mouth ity of 10 mg 00:00: in the [place] tablet 00 morning. [facility] escitalopra 2021-07 Yes 10mg Take 10 mg [facility] m oxalate 2-04 by mouth ity of 10 mg 00:00: in the [place] tablet 00 morning. [facility] escitalopra 2021-07 Yes 10mg Take 10 mg Univers m oxalate 2-04 by mouth ity of 10 mg 00:00: in the [place] tablet 00 morning. [facility] escitalopra 2021-07 Yes 10mg Take 10 mg [facility] m oxalate 2-04 by mouth ity of 10 mg 00:00: in the [place] tablet 00 morning. [facility] escitalopra 2021-07 Yes 10mg Take 10 mg Univers m oxalate 2-04 by mouth ity of 10 mg 00:00: in the [place] tablet 00 morning. [facility] escitalopra 2021-07 Yes 10mg Take 10 mg [facility] m oxalate 2-04 by mouth ity of 10 mg 00:00: in the [place] tablet 00 morning. [facility] escitalopra 2021- Yes 10mg Take 10 mg [facility] m oxalate 2-04 by mouth ity of 10 mg 00:00: in the [place] tablet 00 morning. [facility] escitalopra 2021-07 Yes 10mg Take 10 mg [facility] m oxalate 2-04 by mouth ity of 10 mg 00:00: in the [place] tablet 00 morning. [facility] escitalopra 2021-07 Yes 10mg Take 10 mg [facility] m oxalate 2-04 by mouth ity of 10 mg 00:00: in the [place] tablet 00 morning. [facility] escitalopra 2021- Yes 10mg Take 10 mg [...] 00:00: in the [place] tablet 00 morning. [facility] escitalopra 2021-1 Yes 10mg Take 10 mg [facility] m oxalate 2-04 by mouth ity of 10 mg 00:00: in the [place] tablet 00 morning. Medical Branch escitalopra 2021-1 Yes 10mg Take 10 mg [facility] m oxalate 2-04 by mouth ity of 10 mg 00:00: in the [place] tablet 00 morning. [facility] Yes 10mg Take 10 mg [facility] m oxalate 2-04 by mouth ity of 10 mg 00:00: in the [place] tablet 00 morning. [facility]-07 Yes 10mg Take 10 mg [facility] m oxalate 2-04 by mouth ity of 10 mg 00:00: in the [place] tablet 00 morning. [facility] 2021-07 Yes 10mg Take 10 mg [facility] m oxalate 2-04 by mouth ity of 10 mg 00:00: in the [place] tablet 00 morning. [facility] 2021-07- No 10mg Take 10 mg [facility] m oxalate 2-04 -22 by mouth ity o f 10 mg 00:00: 00:00 in the [place] tablet 00 :00 morning. [facility] 2021-07- No 10mg Take 10 mg Univers m oxalate 2-04 -22 by mouth ity o f 10 mg 00:00: 00:00 in the [place] tablet 00 :00 morning. [facility]-07- No 10mg Take 10 mg [facility] m oxalate 2-04 -22 by mouth ity o f 10 mg 00:00: 00:00 in the [place] tablet 00 :00 morning. [facility] 2021-07- No 10mg Take 10 mg [facility] m oxalate 2-04 -22 by mouth ity o f 10 mg 00:00: 00:00 in the [place] tablet 00 :00 morning. [facility] metFORMIN 2021-07 Yes 1000mg Take 1,000 [facility] 1,000 mg 0-27 mg by ity of tablet 00:00: mouth in [place] 00 the Medical morning Branch and 1,000 mg in the evening. metFORMIN 2021-07 Yes 1000mg Take 1,000 [facility] 1,000 mg 0-27 mg by ity of tablet 00:00: mouth in [place] 00 the Medical morning Branch and 1,000 mg in the evening. metFORMIN 2021-07 Yes 1000mg Take 1,000 [facility] 1,000 mg 0-27 mg by ity of tablet 00:00: mouth in [place] 00 the Medical morning Branch and 1,000 mg in the evening. metFORMIN 2022-1 Yes 1000mg Take 1,000 [facility] 1,000 mg 0-27 mg by ity of tablet 00:00: mouth in [place] [address] the Medical morning [place] and 1,000 mg in the evening. metFORMIN 2022-1 Yes 1000mg Take 1,000 [facility] 1,000 mg 0-27 mg by ity of tablet 00:00: mouth in [place] [address] the Medical morning [place] and 1,000 mg in the evening. metFORMIN 2022-1 Yes 1000mg Take 1,000 [facility] 1,000 mg 0-27 mg by ity of tablet 00:00: mouth in [place] [address] the [facility] morning [place] and 1,000 mg in the evening. metFORMIN 2022-1 Yes 1000mg Take 1,000 [facility] 1,000 mg 0-27 mg by ity of tablet 00:00: mouth in [address] morning [place] and 1,000 mg in the evening. metFORMIN 2022-1 Yes 1000mg Take 1,000 [facility] 1,000 mg 0-27 mg by ity of tablet 00:00: mouth in [address] Medical morning [place] and 1,000 mg in the evening. metFORMIN 2022-1 Yes 1000mg Take 1,000 [facility] 1,000 mg 0-27 mg by ity of tablet 00:00: mouth in [address] morning [place] and 1,000 mg in the evening. metFORMIN 2022-1 Yes 1000mg Take 1,000 [facility] 1,000 mg 0-27 mg by ity of tablet 00:00: mouth in [address] and 1,000 mg in the evening. metFORMIN 2022-1 Yes 1000mg Take 1,000 [facility] 1,000 mg 0-27 mg by ity of tablet 00:00: mouth in [address] Medical morning [place] and 1,000 mg in the evening. metFORMIN 2022-1 Yes 1000mg Take 1,000 [facility] 1,000 mg 0-27 mg by ity of tablet 00:00: mouth in [address] morning [place] and 1,000 mg in the evening. metFORMIN 2022-1 Yes 1000mg Take 1,000 [facility] 1,000 mg 0-27 mg by ity of tablet 00:00: mouth in [address] morning [place] and 1,000 mg in the evening. metFORMIN 2022-1 Yes 1000mg Take 1,000 [facility] 1,000 mg 0-27 mg by ity of tablet 00:00: mouth in [address] morning [place] and 1,000 mg in the evening. metFORMIN 2022-1 Yes 1000mg Take 1,000 [facility] 1,000 mg 0-27 mg by ity of tablet 00:00: mouth in [address] morning [place] and 1,000 mg in the evening. metFORMIN 2022-1 Yes 1000mg Take 1,000 [facility] 1,000 mg 0-27 mg by ity of tablet 00:00: mouth in [address] morning [place] and 1,000 mg in the evening. metFORMIN 2022-1 Yes 1000mg Take 1,000 [facility] 1,000 mg 0-27 mg by ity of tablet 00:00: mouth in [address] morning [place] and 1,000 mg in the evening. metFORMIN 2022-1 Yes 1000mg Take 1,000 [facility] 1,000 mg 0-27 mg by ity of tablet 00:00: mouth in [address] and 1,000 mg in the evening. metFORMIN 2022-1 Yes 1000mg Take 1,000 [facility] 1,000 mg 0-27 mg by ity of tablet 00:00: mouth in [address] morning [place] and 1,000 mg in the evening. metFORMIN 2022-1 Yes 1000mg Take 1,000 [facility] 1,000 mg 0-27 mg by ity of tablet 00:00: mouth in [address] and 1,000 mg in the evening. metFORMIN 2022-1 Yes 1000mg Take 1,000 [facility] 1,000 mg 0-27 mg by ity of tablet 00:00: mouth in [address] and 1,000 mg in the evening. metFORMIN 2022-1 Yes 1000mg Take 1,000 [facility] 1,000 mg 0-27 mg by ity of tablet 00:00: mouth in [address] and 1,000 mg in the evening. metFORMIN 2022-1 Yes 1000mg Take 1,000 [facility] 1,000 mg 0-27 mg by ity of tablet 00:00: mouth in [address] and 1,000 mg in the evening. metFORMIN 2022-1 Yes 1000mg Take 1,000 [facility] 1,000 mg 0-27 mg by ity of tablet 00:00: mouth in [address] and 1,000 mg in the evening. metFORMIN 2022-1 Yes 1000mg Take 1,000 [facility] 1,000 mg 0-27 mg by ity of tablet 00:00: mouth in [address] morning [place] and 1,000 mg in the evening. metFORMIN 2022-1 Yes 1000mg Take 1,000 [facility] 1,000 mg 0-27 mg by ity of tablet 00:00: mouth in [address] morning [place] and 1,000 mg in the evening. metFORMIN 2022-1 Yes 1000mg Take 1,000 [facility] 1,000 mg 0-27 mg by ity of tablet 00:00: mouth in [address] and 1,000 mg in the evening. metFORMIN 2022-1 Yes 1000mg Take 1,000 [facility] 1,000 mg 0-27 mg by ity of tablet 00:00: mouth in [address] morning [place] and 1,000 mg in the evening. metFORMIN 2022-1 Yes 1000mg Take 1,000 [facility] 1,000 mg 0-27 mg by ity of tablet 00:00: mouth in [address] and 1,000 mg in the evening. metFORMIN 2022-1 Yes 1000mg Take 1,000 [facility] 1,000 mg 0-27 mg by ity of tablet 00:00: mouth in [address] and 1,000 mg in the evening. metFORMIN 2022-1 Yes 1000mg Take 1,000 [facility] 1,000 mg 0-27 mg by ity of tablet 00:00: mouth in [address] and 1,000 mg in the evening. metFORMIN 2022-1 Yes 1000mg Take 1,000 [facility] 1,000 mg 0-27 mg by ity of tablet 00:00: mouth in [address] and 1,000 mg in the evening. metFORMIN 2022-1 Yes 1000mg Take 1,000 [facility] 1,000 mg 0-27 mg by ity of tablet 00:00: mouth in [address] and 1,000 mg in the evening. metFORMIN 2022-1 Yes 1000mg Take 1,000 [facility] 1,000 mg 0-27 mg by ity of tablet 00:00: mouth in [address] and 1,000 mg in the evening. metFORMIN 2022-1 Yes 1000mg Take 1,000 Univers 1,000 mg 0-27 mg by ity of tablet 00:00: mouth in [address] and 1,000 mg in the evening. metFORMIN 2022-1 Yes 1000mg Take 1,000 [facility] 1,000 mg 0-27 mg by ity of tablet 00:00: mouth in [place] [address] the Medical morning [place] and 1,000 mg in the evening. metFORMIN 2022-1 Yes 1000mg Take 1,000 Univers 1,000 mg 0-27 mg by ity of tablet 00:00: mouth in [place] [address] the [facility] morning [place] and 1,000 mg in the evening. metFORMIN 2022-1 Yes 1000mg Take 1,000 Univers 1,000 mg 0-27 mg by ity of tablet 00:00: mouth in [address] morning [place] and 1,000 mg in the evening. metFORMIN 2022-1 Yes 1000mg Take 1,000 Univers 1,000 mg 0-27 mg by ity of tablet 00:00: mouth in [address] morning [place] and 1,000 mg in the evening. metFORMIN 2022-1 Yes 1000mg Take 1,000 Univers 1,000 mg 0-27 mg by ity of tablet 00:00: mouth in [address] morning [place] and 1,000 mg in the evening. metFORMIN 2022-1 Yes 1000mg Take 1,000 [facility] 1,000 mg 0-27 mg by ity of tablet 00:00: mouth in [address] morning [place] and 1,000 mg in the evening. metFORMIN 2022-1 Yes 1000mg Take 1,000 [facility] 1,000 mg 0-27 mg by ity of tablet 00:00: mouth in [address] morning [place] and 1,000 mg in the evening. metFORMIN 2022-1 Yes 1000mg Take 1,000 [facility] 1,000 mg 0-27 mg by ity of tablet 00:00: mouth in [address] morning [place] and 1,000 mg in the evening. metFORMIN 2022-1 Yes 1000mg Take 1,000 [facility] 1,000 mg 0-27 mg by ity of tablet 00:00: mouth in [address] morning [place] and 1,000 mg in the evening. metFORMIN 2022-1 Yes 1000mg Take 1,000 [facility] 1,000 mg 0-27 mg by ity of tablet 00:00: mouth in [address] morning [place] and 1,000 mg in the evening. metFORMIN 2022-1 Yes 1000mg Take 1,000 [facility] 1,000 mg 0-27 mg by ity of tablet 00:00: mouth in [place] 00 the Medical morning Branch and 1,000 mg in the evening. metFORMIN 2021-07- No 1000mg Take 1,000 [facility] 1,000 mg 0-27 02-22 mg by ity of tablet 00:00: 00:00 mouth in [place] 00 :00 the Medical morning Branch and 1,000 mg in the evening. metFORMIN 2021-07- No 1000mg Take 1,000 [facility] 1,000 mg 0-27 02-22 mg by ity of tablet 00:00: 00:00 mouth in [place] 00 :00 the Medical morning Branch and 1,000 mg in the evening. metFORMIN 2021-07- No 1000mg Take 1,000 [facility] 1,000 mg 0-27 02-22 mg by ity of tablet 00:00: 00:00 mouth in [place] 00 :00 the Medical morning Branch and 1,000 mg in the evening. metFORMIN 2021-07 No 1000mg Take 1,000 [facility] 1,000 mg 0-27 02-22 mg by ity of tablet 00:00: 00:00 mouth in [place] 00 :00 the Medical morning Branch and 1,000 mg [...] of tablet 00:00: every [place] 00 evening. [facility] Branch simvastatin 2021- Yes 40mg Take 40 mg Univers 40 mg 0-10 by mouth ity of tablet 00:00: every 00 evening. [facility] simvastatin 2021- Yes 40mg Take 40 mg [facility] 40 mg 0-10 by mouth ity of tablet 00:00: every [place] 00 evening. [facility] simvastatin 2021- Yes 40mg Take 40 mg [facility] 40 mg 0-10 by mouth ity of tablet 00:00: every [place] 00 evening. [facility] simvastatin 2021- Yes 40mg Take 40 mg [facility] 40 mg 0-10 by mouth ity of tablet 00:00: every [place] 00 evening. [facility] simvastatin 2021- Yes 40mg Take 40 mg Univers 40 mg 0-10 by mouth ity of tablet 00:00: every [place] 00 evening. [facility] simvastatin 2021- Yes 40mg Take 40 mg [facility] 40 mg 0-10 by mouth ity of tablet 00:00: every [place] 00 evening. [facility] simvastatin 2021- Yes 40mg Take 40 mg [facility] 40 mg 0-10 by mouth ity of tablet 00:00: every [place] 00 evening. [facility] simvastatin 2021- Yes 40mg Take 40 mg [facility] 40 mg 0-10 by mouth ity of tablet 00:00: every [place] 00 evening. [facility] simvastatin 2021- Yes 40mg Take 40 mg [facility] 40 mg 0-10 by mouth ity of tablet 00:00: every [place] 00 evening. [facility] simvastatin 2021- Yes 40mg Take 40 mg [facility] 40 mg 0-10 by mouth ity of tablet 00:00: every 00 evening. [facility] simvastatin 2021- Yes 40mg Take 40 mg [facility] 40 mg 0-10 by mouth ity of tablet 00:00: every [place] 00 evening. [facility] simvastatin 2021- Yes 40mg Take 40 mg [facility] 40 mg 0-10 by mouth ity of tablet 00:00: every [place] 00 evening. [facility] simvastatin 2021- Yes 40mg Take 40 mg [facility] 40 mg 0-10 by mouth ity of tablet 00:00: every [place] 00 evening. [facility] simvastatin 2021-1 Yes 40mg Take 40 mg [facility] 40 mg 0-10 by mouth ity of tablet 00:00: every 00 evening. [facility] Branch simvastatin 2021- Yes 40mg Take 40 mg [facility] 40 mg 0-10 by mouth ity of tablet 00:00: every 00 evening. [facility] simvastatin 2021- Yes 40mg Take 40 mg [facility] 40 mg 0-10 by mouth ity of tablet 00:00: every 00 evening. [facility] simvastatin 2021- Yes 40mg Take 40 mg [facility] 40 mg 0-10 by mouth ity of tablet 00:00: every 00 evening. [facility] simvastatin 2021- Yes 40mg Take 40 mg Univers 40 mg 0-10 by mouth ity of tablet 00:00: every 00 evening. [facility] simvastatin 2021- Yes 40mg Take 40 mg [facility] 40 mg 0-10 by mouth ity of tablet 00:00: every [place] 00 evening. [facility] simvastatin 2021- Yes 40mg Take 40 mg [facility] 40 mg 0-10 by mouth ity of tablet 00:00: every [place] 00 evening. [facility] simvastatin 2021- Yes 40mg Take 40 mg Univers 40 mg 0-10 by mouth ity of tablet 00:00: every 00 evening. [facility] simvastatin 2021- Yes 40mg Take 40 mg Univers 40 mg 0-10 by mouth ity of tablet 00:00: every [place] 00 evening. [facility] simvastatin 2021- Yes 40mg Take 40 mg Univers 40 mg 0-10 by mouth ity of tablet 00:00: every 00 evening. [facility] simvastatin 2021- Yes 40mg Take 40 mg [facility] 40 mg 0-10 by mouth ity of tablet 00:00: every [place] 00 evening. [facility] simvastatin 2021- Yes 40mg Take 40 mg Univers 40 mg 0-10 by mouth ity of tablet 00:00: every 00 evening. [facility] simvastatin 2021- Yes 40mg Take 40 mg Univers 40 mg 0-10 by mouth ity of tablet 00:00: every 00 evening. [facility] simvastatin 2021-1 Yes 40mg Take 40 mg Univers 40 mg 0-10 by mouth ity of tablet 00:00: every 00 evening. [facility] simvastatin 2021-1 Yes 40mg Take 40 mg [facility] 40 mg 0-10 by mouth ity of tablet 00:00: every [place] 00 evening. [facility] simvastatin 2021-1 Yes 40mg Take 40 mg [facility] 40 mg 0-10 by mouth ity of tablet 00:00: every [place] 00 evening. [facility] simvastatin 2021-07 Yes 40mg Take 40 mg [facility] 40 mg 0-10 by mouth ity of tablet 00:00: every 00 evening. [facility] simvastatin 2021-07 Yes 40mg Take 40 mg Univers 40 mg 0-10 by mouth ity of tablet 00:00: every 00 evening. [facility] simvastatin 2021- Yes 40mg Take 40 mg [facility] 40 mg 0-10 by mouth ity of tablet 00:00: every 00 evening. [facility] simvastatin 2021- Yes 40mg Take 40 mg [facility] 40 mg 0-10 by mouth ity of tablet 00:00: every 00 evening. [facility] simvastatin 2021- Yes 40mg Take 40 mg Univers 40 mg 0-10 by mouth ity of tablet 00:00: every 00 evening. [facility] simvastatin 2021- Yes 40mg Take 40 mg Univers 40 mg 0-10 by mouth ity of tablet 00:00: every 00 evening. [facility] simvastatin 2021- Yes 40mg Take 40 mg [facility] 40 mg 0-10 by mouth ity of tablet 00:00: every 00 evening. [facility] simvastatin 2021- Yes 40mg Take 40 mg [facility] 40 mg 0-10 by mouth ity of tablet 00:00: every 00 evening. [facility] simvastatin 2021- Yes 40mg Take 40 mg Univers 40 mg 0-10 by mouth ity of tablet 00:00: every 00 evening. [facility] simvastatin 2021- Yes 40mg Take 40 mg [facility] 40 mg 0-10 by mouth ity of tablet 00:00: every 00 evening. [facility] simvastatin 2021- Yes 40mg Take 40 mg Univers 40 mg 0-10 by mouth ity of tablet 00:00: every [place] 00 evening. [facility] simvastatin 2021- Yes 40mg Take 40 mg Univers 40 mg 0-10 by mouth ity of tablet 00:00: every 00 evening. [facility] simvastatin 2021- Yes 40mg Take 40 mg Univers 40 mg 0-10 by mouth ity of tablet 00:00: every 00 evening. [facility] simvastatin 2021- Yes 40mg Take 40 mg Univers 40 mg 0-10 by mouth ity of tablet 00:00: every 00 evening. Medical Branch simvastatin 2021-07 Yes 40mg Take 40 mg [facility] 40 mg 0-10 by mouth ity of tablet 00:00: every 00 evening. [facility] simvastatin 2021-07 Yes 40mg Take 40 mg Univers 40 mg 0-10 by mouth ity of tablet 00:00: every 00 evening. [facility] simvastatin 2021-07- No 40mg Take 40 mg Univers 40 mg 09-21 by mouth ity of tablet 00:00: 00:00 every [place] 00 :00 evening. [facility] simvastatin 2021-07- No 40mg Take 40 mg Univers 40 mg 09-21 by mouth ity of tablet 00:00: 00:00 every [place] 00 :00 evening. [facility] simvastatin 2021-07- No 40mg Take 40 mg Univers 40 mg 09-21 by mouth ity of tablet 00:00: 00:00 every [place] 00 :00 evening. [facility] simvastatin 2021-07- No 40mg Take 40 mg Univers 40 mg 09-21 by mouth ity of tablet 00:00: 00:00 every [place] 00 :00 evening. [facility] Branch cyanocobala Yes INJECT 1 Un timothy [...] INTRAMUSCU [place] injection 00 LARLY ONCE Medi alejnadra EVERY Branch MONTH cyanocobala Yes INJECT 1 [...] Medi alejandra EVERY Branch MONTH cyanocobala 0 2022- No INJECT 1 U nivers min 1,000 9-26 02-22 ML ity of mcg/mL 00:00: 00:[place] injection 00 :[place] LARLY ONCE Medi alejandra EVERY Branch MONTH cyanocobala 2022- No INJECT 1 U nivers min 1,000 9-26 02-22 ML ity of mcg/mL 00:00: 00:[place] injection 00 :00 LARLY ONCE Medi alejandra EVERY Branch MONTH cyanocobala 2022- No INJECT 1 U nivers min 1,000 9-26 02-22 ML ity of mcg/mL 00:00: 00:[place]AM[place] injection 00 :00 LARLY ONCE Medi alejandra EVERY Branch MONTH cyanocobala 2022- No INJECT 1 U nivers min 1,000 9-26 02-22 ML ity of mcg/mL 00:00: 00:[place]AM[place] injection 00 :00 LARLY ONCE Medi alejandra EVERY Branch MONTH [...] and 1 Drop in the evening. prednisoLON 0 Yes 1[drp] Take 1 Un timothy E [...] and 1 Drop in the evening. prednisoLON 2021- Yes 1[drp] Take 1 Un timothy E [...] and 1 Drop in the evening. prednisoLON 2021- Yes 1[drp] Take 1 Un timothy E [...] and 1 Drop in the evening. dorzolamide 0 Yes 1[drp] Place 1 U nivers -timoloL [...] and 1 Drop in the evening. dorzolamide 0 Yes 1[drp] Place 1 U nivers -timoloL [...] and 1 Drop in the evening. prednisoLON 2021- Yes 1[drp] Take 1 Un timothy E [...] and 1 Drop in the evening. dorzolamide 0 Yes 1[drp] Place 1 U nivers -timoloL 5-23 Drop in ity of 22.3-6.8 00:00: [place] mg/mL 00 in the Medical ophthalmic morning Branch drops and 1 Drop in the evening. prednisoLON 0 Yes 1[drp] Take 1 Un timothy E [...] and 1 Drop in the evening. dorzolamide 0 Yes 1[drp] Place 1 U nivers -timoloL 5-23 Drop in ity of 22.3-6.8 00:00: [place] mg/mL 00 in the Medical ophthalmic morning Branch drops and 1 Drop in the evening. prednisoLON 0 Yes 1[drp] Take 1 Un timothy E [...] and 1 Drop in the evening. prednisoLON 0 Yes 1[drp] Take 1 Un timothy E [...] and 1 Drop in the evening. dorzolamide 0 Yes 1[drp] Place 1 U nivers -timoloL [...] and 1 Drop in the evening. prednisoLON 2021- Yes 1[drp] Take 1 Un timothy E [...] and 1 Drop in the evening. prednisoLON 2021- Yes 1[drp] Take 1 Un timothy E [...] evening. metformin 2018-07 Yes 500mg Take 500 [place] [facility] (GLUCOPHAGE 0-18 mg by [facility] ) 500 MG 18:28: mouth 2 of tablet 34 times Medicin daily e (with meals). glipiZIDE 2018-07 Yes 10mg Take 10 mg [facility] (GLUCOTROL) 0-18 by mouth Deepika ege 10 MG 18:28: two times of tablet 34 daily. Medicin e enalapril 2018-07 Yes 2.5mg Take 2.5 [place] [facility] (VASOTEC) 0-18 mg by [place] 2.5 MG 18:28: mouth of tablet 34 daily. Medicin e aspirin 81 2018-07 Yes 81mg Take 81 mg [facility] MG tablet 0-18 by mouth Colleg e 18:28: daily. of 34 Medicin e simvastatin 2018-07 Yes 10mg Take 10 mg [facility] (ZOCOR) 10 0-18 by mouth Colle ge [...] Shake well e suspension before instillati on simvastatin Yes 10mg Take 10 mg [facility] (ZOCOR) 10 2-26 by mouth Colle ge MG tablet 20:18: every of 22 evening. Medicin e metformin Yes 500mg Take 500 [place] [facility] (GLUCOPHAGE 2-26 mg by [place] ) 500 MG 20:18: mouth 2 of tablet 22 times Medicin daily e (with meals). glipiZIDE Yes 10mg Take 10 mg [facility] (GLUCOTROL) 2-26 by mouth Deepika ege 10 MG 20:18: two times of tablet 22 daily. Medicin e enalapril Yes 2.5mg Take 2.5 [place] [facility] (VASOTEC) 2-26 mg by [place] 2.5 MG 20:18: mouth of tablet 22 daily. Medicin e aspirin 81 Yes 81mg Take 81 mg [facility] MG tablet 2-26 by mouth Colleg e 20:18: daily. of 22 Medicin e bimatoprost Yes 1[drp] QD 1 [...] MG tablet 11:42: nightly. Medi alejandra [address] [place] aspirin 81 Yes 81mg QD Take [address] [facility] EC 2-16 by mouth [facility] tablet 11:42: daily. Medical [address] [place] dorzolamide Yes 1[drp] Q.5D 1 drop 2 [...] by mouth [facility] tablet 11:42: nightly. [address] glipiZIDE 2017-0 Yes 10mg Take [address] [facility] [address] [facility] (GLUCOTROL) 2-16 by mouth 2 Brandie kes 10 MG 11:42: (two) Medical tablet 00 times Center daily before meals. metFORMIN 20170 Yes 500mg Take [address] (GLUCOPHAGE 2-16 mg by [facility] ) 500 MG 11:42: mouth 2 Medica l tablet 00 (two) Center times daily with breakfast and dinner. enalapril 20170 Yes 10mg QD Take [address] (VASOTEC) 2-16 [facility] 10 MG 11:42: daily. Medical tablet [address] [place] [address] simvastatin 2017 Yes 10mg QD Take [address] [facility] (ZOCOR) 10 2-16 by mouth [facility] tablet 11:42: nightly. [address] aspirin 81 Yes 81mg QD Take [address] MG EC 2-16 by mouth [facility] tablet 11:42: daily. [address] dorzolamide Yes 1[drp] Q.5D [address] [facility] -timolol 2-16 (two) [facility] (COSOPT) 11:42: times Medical 22.3-6.8 00 daily. Center mg/mL ophthalmic solution brimonidine Yes [facility] (ALPHAGAN 2-16 [facility]) 0.1 % 11:42: Medical Drop [address] bimatoprost [id number] Yes 1[drp] QD [address] [facility] [address] [facility] (LUMIGAN) 2-16 nightly. [facility] 0.03 % 11:42: Medical ophthalmic 00 Center drops pilocarpine 0 Yes 1[drp] Q.25D [address] [facility] (PILOCAR) 1 2-16 (four) [facility] % 11:42: times Medical ophthalmic 00 daily. [facility] solution aspirin 81 [address] Yes 81mg QD Take [address] MG EC 2-16 by mouth [facility] tablet 11:42: daily. [address] dorzolamide [address] Yes 1[drp] Q.5D [address] [facility] -timolol 2-16 (two) [facility] (COSOPT) 11:42: times Medical 22.3-6.8 00 daily. Center mg/mL ophthalmic solution brimonidine Yes [facility] (ALPHAGAN 2-16 [facility]) 0.1 % 11:42: Medical Drop [address] bimatoprost Yes 1[drp] QD 1 drop [facility] [...] 10 MG 11:42: daily. Medical tablet 00 [facility] simvastatin Yes 10mg QD Take [address] [facility] (ZOCOR) 10 2-16 by mouth [facility] tablet 11:42: nightly. Medi alejandra [address] aspirin 81 Yes 81mg QD Take [address] MG EC 2-16 by mouth [facility] tablet 11:42: daily. [facility] [address] dorzolamide Yes 1[drp] Q.5D [address] [facility] -timolol 2-16 (two) [facility] (COSOPT) 11:42: times Medical 22.3-6.8 00 daily. Center mg/mL ophthalmic solution brimonidine Yes [facility] (AL[facility]AGAN 2-16 [facility]) 0.1 % 11:42: Medical Drop 00 [facility] Immunizations Ordered Filled Immunization Date Status Comments [facility] e Immunization Name Name Influenza Virus 2022-05-09 Completed [facility] - [facility] 00:00:00 [facility] Influenza Virus 2022-05-09 Completed [facility] Vaccine - Whole 00:00:00 [facility] Influenza Virus 2022-05-09 Completed [facility] Vaccine - Whole 00:00:00 [facility] Influenza Virus 2022-05-09 Completed [facility] Vaccine - Whole 00:00:00 [facility] Influenza Virus 2022-05-09 Completed [facility] of Vaccine - Whole 00:00:00 [facility] Influenza Virus 2022-05-09 Completed [facility] Vaccine - Whole 00:00:00 [facility] Influenza Virus 2022-05-09 Completed [facility] of Vaccine - Whole 00:00:00 [facility] Influenza Virus 2022-05-09 Completed [facility] of Vaccine - Whole 00:00:00 [facility] Influenza Virus 2022-05-09 Completed [facility] of Vaccine - Whole 00:00:00 [facility] Influenza Virus 2022-05-09 Completed [facility] of Vaccine - Whole 00:00:00 [facility] Influenza Virus 2022-05-09 Completed [facility] y of Vaccine - Whole 00:00:00 [facility] Influenza Virus 2022-05-09 Completed [facility] y of Vaccine - Whole 00:00:00 [facility] Influenza Virus 2022-05-09 Completed [facility] y of Vaccine - Whole 00:00:00 [facility] Influenza Virus 2022-05-09 Completed [facility] y of Vaccine - Whole 00:00:00 [facility] Influenza Virus 2022-05-09 Completed [facility] y of Vaccine - Whole 00:00:00 [facility] Influenza Virus 2022-05-09 Completed [facility] y of Vaccine - Whole 00:00:00 [facility] Influenza Virus 2022-05-09 Completed [facility] y of Vaccine - Whole 00:00:00 [facility] Influenza Virus 2022-05-09 Completed [facility] y of Vaccine - Whole 00:00:00 [facility] Influenza Virus 2022-05-09 Completed [facility] y of Vaccine - Whole 00:00:00 [facility] Influenza Virus 2022-05-09 Completed [facility] y of Vaccine - Whole 00:00:00 [facility] Influenza Virus 2022-05-09 Completed [facility] y of Vaccine - Whole 00:00:00 [facility] Influenza Virus 2022-05-09 Completed [facility] y of Vaccine - Whole 00:00:00 [facility] Influenza Virus 2022-05-09 Completed [facility] y of Vaccine - Whole 00:00:00 [facility] Influenza Virus 2022-05-09 Completed [facility] y of Vaccine - Whole 00:00:00 [facility] Influenza Virus 2022-05-09 Completed [facility] y of Vaccine - Whole 00:00:00 [facility] Influenza Virus 2022-05-09 Completed [facility] y of Vaccine - Whole 00:00:00 [facility] Influenza Virus 2022-05-09 Completed [facility] y of Vaccine - Whole 00:00:00 [facility] Influenza Virus 2022-05-09 Completed [facility] y of Vaccine - Whole 00:00:00 [facility] Influenza Virus 2022-05-09 Completed [facility] y of Vaccine - Whole 00:00:00 [facility] Influenza Virus 2022-05-09 Completed [facility] y of Vaccine - Whole 00:00:00 [facility] Influenza Virus 2022-05-09 Completed [facility] y of Vaccine - Whole 00:00:00 [facility] Influenza Virus 2022-05-09 Completed [facility] y of Vaccine - Whole 00:00:00 [facility] Influenza Virus 2022-05-09 Completed [facility] y of Vaccine - Whole 00:00:00 [facility] Influenza Virus 2022-05-09 Completed [facility] y of Vaccine - Whole 00:00:00 [facility] Influenza Virus 2022-05-09 Completed [facility] y of Vaccine - Whole 00:00:00 [facility] Influenza Virus 2022-05-09 Completed [facility] y of Vaccine - Whole 00:00:00 [facility] Influenza Virus 2022-05-09 Completed [facility] y of Vaccine - Whole 00:00:00 [facility] Influenza Virus 2022-05-09 Completed [facility] y of Vaccine - Whole 00:00:00 [facility] Influenza Virus 2022-05-09 Completed [facility] y of Vaccine - Whole 00:00:00 [facility] Influenza Virus 2022-05-09 Completed [facility] y of Vaccine - Whole 00:00:00 [facility] Influenza Virus 2022-05-09 Completed [facility] y of Vaccine - Whole 00:00:00 [facility] Influenza Virus 2022-05-09 Completed [facility] y of Vaccine - Whole 00:00:00 [facility] Influenza Virus 2022-05-09 Completed [facility] y of Vaccine - Whole 00:00:00 [facility] Influenza Virus 2022-05-09 Completed [facility] y of Vaccine - Whole 00:00:00 [facility] Influenza Virus 2022-05-09 Completed [facility] y of Vaccine - Whole 00:00:00 [facility] Influenza Virus 2022-05-09 Completed [facility] y of Vaccine - Whole 00:00:00 [facility] Influenza Virus 2022-05-09 Completed [facility] y of Vaccine - Whole 00:00:00 [facility] Influenza Virus 2022-05-09 Completed [facility] y of Vaccine - Whole 00:00:00 [facility] Influenza Virus 2022-05-09 Completed [facility] y of Vaccine - Whole 00:00:00 [facility] Influenza Virus 2022-05-09 Completed [facility] y of Vaccine - Whole 00:00:00 [facility] Influenza Virus 2022-05-09 Completed [facility] y of Vaccine - Whole 00:00:00 [facility] Influenza Virus 2022-05-09 Completed [facility] y of Vaccine - Whole 00:00:00 [facility] Influenza Virus 2022-05-09 Completed [facility] y of Vaccine - Whole 00:00:00 [facility] Influenza Virus 2022-05-09 Completed [facility] y of Vaccine - Whole 00:00:00 [facility] Influenza Virus 2022-05-09 Completed [facility] y of Vaccine - Whole 00:00:00 [facility] Influenza Virus 2022-05-09 Completed [facility] y of Vaccine - Whole 00:00:00 [facility] Influenza Virus 2022-05-09 Completed [facility] y of Vaccine - Whole 00:00:00 [facility] Influenza Virus 2022-05-09 Completed [facility] of Vaccine - Whole 00:00:00 [facility] Influenza Virus 2022-05-09 Completed [facility] y of Vaccine - Whole 00:00:00 [facility] Influenza Virus 2022-05-09 Completed [facility] Vaccine - Whole 00:00:00 [facility] Influenza Virus 2022-05-09 Completed [facility] y of Vaccine - Whole 00:00:00 [facility] Influenza Virus 2022-05-09 Completed [facility] y of Vaccine - Whole 00:00:00 [facility] Influenza Virus 2022-05-09 Completed [facility] y of Vaccine - Whole 00:00:00 [facility] Influenza Virus 2022-05-09 Completed [facility] y of Vaccine - Whole 00:00:00 [facility] Influenza Virus 2022-05-09 Completed [facility] y of Vaccine - Whole 00:00:00 [facility] Influenza Virus 2022-05-09 Completed [facility] y of Vaccine - Whole 00:00:00 [facility] Influenza Virus 2022-05-09 Completed [facility] y of Vaccine - Whole 00:00:00 [facility] Influenza Virus 2022-05-09 Completed [facility] y of Vaccine - Whole 00:00:00 [facility] Influenza Virus 2022-05-09 Completed [facility] y of Vaccine - Whole 00:00:00 [facility] Influenza Virus 2022-05-09 Completed [facility] y of Vaccine - Whole 00:00:00 [facility] Influenza Virus 2022-05-09 Completed [facility] y of Vaccine - Whole 00:00:00 [facility] Influenza Virus 2022-05-09 Completed [facility] y of Vaccine - Whole 00:00:00 [facility] Influenza Virus 2022-05-09 Completed [facility] y of Vaccine - Whole 00:00:00 [facility] Influenza Virus 2022-05-09 Completed [facility] y of Vaccine - Whole 00:00:00 [facility] Influenza Virus 2022-05-09 Completed [facility] y of Vaccine - Whole 00:00:00 [facility] Influenza Virus 2022-05-09 Completed [facility] y of Vaccine - Whole 00:00:00 [facility] Influenza Virus 2022-05-09 Completed [facility] y of Vaccine - Whole 00:00:00 [facility] Influenza Virus 2022-05-09 Completed [facility] y of Vaccine - Whole 00:00:00 [facility] Influenza Virus 2021-04-29 Completed [facility] y [facility] Vaccine (3+ yrs) 00:00:00 [facility] Influenza Virus 2021-04-29 Completed [facility] y of Vaccine (3+ yrs) 00:00:00 [facility] Influenza Virus 2021-04-29 Completed [facility] y of Vaccine (3+ yrs) 00:00:00 [facility] Influenza Virus 2021-04-29 Completed [facility] y of Vaccine (3+ yrs) 00:00:00 [facility] Influenza Virus 2021-04-29 Completed [facility] Vaccine (3+ yrs) 00:00:00 [facility] Influenza Virus 2021-04-29 Completed [facility] Vaccine (3+ yrs) 00:00:00 [facility] Influenza Virus 2021-04-29 Completed [facility] y of Vaccine (3+ yrs) 00:00:00 [facility] Influenza Virus 2021-04-29 Completed [facility] Vaccine (3+ yrs) 00:00:00 [facility] Influenza Virus 2021-04-29 Completed [facility] of Vaccine (3+ yrs) 00:00:00 [facility] Influenza Virus 2021-04-29 Completed [facility] of Vaccine (3+ yrs) 00:00:00 [facility] Influenza Virus 2021-04-29 Completed [facility] of Vaccine (3+ yrs) 00:00:00 [facility] Influenza Virus 2021-04-29 Completed [facility] of Vaccine (3+ yrs) 00:00:00 [facility] Influenza Virus 2021-04-29 Completed [facility] y of Vaccine (3+ yrs) 00:00:00 [facility] Influenza Virus 2021-04-29 Completed [facility] y of Vaccine (3+ yrs) 00:00:00 [facility] Influenza Virus 2021-04-29 Completed [facility] y of Vaccine (3+ yrs) 00:00:00 [facility] Influenza Virus 2021-04-29 Completed [facility] y of Vaccine (3+ yrs) 00:00:00 [facility] Influenza Virus 2021-04-29 Completed [facility] y of Vaccine (3+ yrs) 00:00:00 [facility] Influenza Virus 2021-04-29 Completed [facility] y of Vaccine (3+ yrs) 00:00:00 [facility] Influenza Virus 2021-04-29 Completed [facility] y of Vaccine (3+ yrs) 00:00:00 [facility] Influenza Virus 2021-04-29 Completed [facility] y of Vaccine (3+ yrs) 00:00:00 [facility] Influenza Virus 2021-04-29 Completed [facility] y of Vaccine (3+ yrs) 00:00:00 [facility] Influenza Virus 2021-04-29 Completed [facility] y of Vaccine (3+ yrs) 00:00:00 [facility] Influenza Virus 2021-04-29 Completed [facility] y of Vaccine (3+ yrs) 00:00:00 [facility] Influenza Virus 2021-04-29 Completed [facility] y of Vaccine (3+ yrs) 00:00:00 [facility] Influenza Virus 2021-04-29 Completed [facility] y of Vaccine (3+ yrs) 00:00:00 [facility] Influenza Virus 2021-04-29 Completed [facility] of Vaccine (3+ yrs) 00:00:00 [facility] Influenza Virus 2021-04-29 Completed [facility] y of Vaccine (3+ yrs) 00:00:00 [facility] Influenza Virus 2021-04-29 Completed [facility] y of Vaccine (3+ yrs) 00:00:00 [facility] Influenza Virus 2021-04-29 Completed [facility] y of Vaccine (3+ yrs) 00:00:00 [facility] Influenza Virus 2021-04-29 Completed [facility] y of Vaccine (3+ yrs) 00:00:00 [facility] Influenza Virus 2021-04-29 Completed [facility] of Vaccine (3+ yrs) 00:00:00 [facility] Influenza Virus 2021-04-29 Completed [facility] y of Vaccine (3+ yrs) 00:00:00 [facility] Influenza Virus 2021-04-29 Completed [facility] y of Vaccine (3+ yrs) 00:00:00 [facility] Influenza Virus 2021-04-29 Completed [facility] of Vaccine (3+ yrs) 00:00:00 [facility] Influenza Virus 2021-04-29 Completed [facility] of Vaccine (3+ yrs) 00:00:00 [facility] Influenza Virus 2021-04-29 Completed [facility] Vaccine (3+ yrs) 00:00:00 [facility] Influenza Virus 2021-04-29 Completed [facility] Vaccine (3+ yrs) 00:00:00 [facility] Influenza Virus 2021-04-29 Completed [facility] y of Vaccine (3+ yrs) 00:00:00 [facility] Influenza Virus 2021-04-29 Completed [facility] of Vaccine (3+ yrs) 00:00:00 [facility] Influenza Virus 2021-04-29 Completed [facility] of Vaccine (3+ yrs) 00:00:00 [facility] Influenza Virus 2021-04-29 Completed [facility] y of Vaccine (3+ yrs) 00:00:00 [facility] Influenza Virus 2021-04-29 Completed [facility] y of Vaccine (3+ yrs) 00:00:00 [facility] Influenza Virus 2021-04-29 Completed [facility] of Vaccine (3+ yrs) 00:00:00 [facility] Influenza Virus 2021-04-29 Completed [facility] y of Vaccine (3+ yrs) 00:00:00 [facility] Influenza Virus 2021-04-29 Completed [facility] of Vaccine (3+ yrs) 00:00:00 [facility] Influenza Virus 2021-04-29 Completed [facility] of Vaccine (3+ yrs) 00:00:00 [facility] Influenza Virus 2021-04-29 Completed [facility] of Vaccine (3+ yrs) 00:00:00 [facility] Influenza Virus 2021-04-29 Completed [facility] y of Vaccine (3+ yrs) 00:00:00 [facility] Influenza Virus 2021-04-29 Completed [facility] y of Vaccine (3+ yrs) 00:00:00 [facility] Influenza Virus 2021-04-29 Completed [facility] y of Vaccine (3+ yrs) 00:00:00 [facility] Influenza Virus 2021-04-29 Completed [facility] y of Vaccine (3+ yrs) 00:00:00 [facility] Influenza Virus 2021-04-29 Completed [facility] y of Vaccine (3+ yrs) 00:00:00 [facility] Influenza Virus 2021-04-29 Completed [facility] y of Vaccine (3+ yrs) 00:00:00 [facility] Influenza Virus 2021-04-29 Completed [facility] of Vaccine (3+ yrs) 00:00:00 [facility] Influenza Virus 2021-04-29 Completed [facility] y of Vaccine (3+ yrs) 00:00:00 [facility] Influenza Virus 2021-04-29 Completed [facility] y of Vaccine (3+ yrs) 00:00:00 [facility] Influenza Virus 2021-04-29 Completed [facility] y of Vaccine (3+ yrs) 00:00:00 [facility] Influenza Virus 2021-04-29 Completed [facility] of Vaccine (3+ yrs) 00:00:00 [facility] Influenza Virus 2021-04-29 Completed [facility] y of Vaccine (3+ yrs) 00:00:00 [facility] Influenza Virus 2021-04-29 Completed [facility] of Vaccine (3+ yrs) 00:00:00 [facility] Influenza Virus 2021-04-29 Completed [facility] y of Vaccine (3+ yrs) 00:00:00 [facility] Influenza Virus 2021-04-29 Completed [facility] y of Vaccine (3+ yrs) 00:00:00 [facility] Influenza Virus 2021-04-29 Completed [facility] of Vaccine (3+ yrs) 00:00:00 [facility] Influenza Virus 2021-04-29 Completed [facility] y of Vaccine (3+ yrs) 00:00:00 [facility] Influenza Virus 2021-04-29 Completed [facility] y of Vaccine (3+ yrs) 00:00:00 [facility] Influenza Virus 2021-04-29 Completed [facility] of Vaccine (3+ yrs) 00:00:00 [facility] Influenza Virus 2021-04-29 Completed [facility] y of Vaccine (3+ yrs) 00:00:00 [facility] Influenza Virus 2021-04-29 Completed [facility] y of Vaccine (3+ yrs) 00:00:00 [facility] Influenza Virus 2021-04-29 Completed [facility] y of Vaccine (3+ yrs) 00:00:00 [facility] Influenza Virus 2021-04-29 Completed [facility] y of Vaccine (3+ yrs) 00:00:00 [facility] Influenza Virus 2021-04-29 Completed [facility] y of Vaccine (3+ yrs) 00:00:00 [facility] Influenza Virus 2021-04-29 Completed [facility] y of Vaccine (3+ yrs) 00:00:00 [facility] Influenza Virus 2021-04-29 Completed [facility] y of Vaccine (3+ yrs) 00:00:00 [facility] Influenza Virus 2021-04-29 Completed [facility] y of Vaccine (3+ yrs) 00:00:00 [facility] Influenza Virus 2021-04-29 Completed [facility] y of Vaccine (3+ yrs) 00:00:00 [facility] Influenza Virus 2021-04-29 Completed [facility] y of Vaccine (3+ yrs) 00:00:00 [facility] Influenza Virus 2021-04-29 Completed [facility] y of Vaccine (3+ yrs) 00:00:00 [facility] Influenza Virus 2021-04-29 Completed [facility] y of Vaccine (3+ yrs) 00:00:00 [facility] Influenza Virus 2017-07-27 Completed [facility] of Vaccine (3+ yrs) 00:00:00 [facility] Influenza Virus 2017-07-27 Completed [facility] y of Vaccine (3+ yrs) 00:00:00 [facility] Influenza Virus 2017-07-27 Completed [facility] y of Vaccine (3+ yrs) 00:00:00 [facility] Influenza Virus 2017-07-27 Completed [facility] y of Vaccine (3+ yrs) 00:00:00 [facility] Influenza Virus 2017-07-27 Completed [facility] y of Vaccine (3+ yrs) 00:00:00 [facility] Influenza Virus 2017-07-27 Completed [facility] of Vaccine (3+ yrs) 00:00:00 [facility] Influenza Virus 2017-07-27 Completed [facility] of Vaccine (3+ yrs) 00:00:00 [facility] Influenza Virus 2017-07-27 Completed [facility] of Vaccine (3+ yrs) 00:00:00 [facility] Influenza Virus 2017-07-27 Completed [facility] of Vaccine (3+ yrs) 00:00:00 [facility] Influenza Virus 2017-07-27 Completed [facility] of Vaccine (3+ yrs) 00:00:00 [facility] Influenza Virus 2017-07-27 Completed [facility] of Vaccine (3+ yrs) 00:00:00 [facility] Influenza Virus 2017-07-27 Completed [facility] of Vaccine (3+ yrs) 00:00:00 [facility] Influenza Virus 2017-07-27 Completed [facility] of Vaccine (3+ yrs) 00:00:00 [facility] Influenza Virus 2017-07-27 Completed [facility] of Vaccine (3+ yrs) 00:00:00 [facility] Influenza Virus 2017-07-27 Completed [facility] of Vaccine (3+ yrs) 00:00:00 [facility] Influenza Virus 2017-07-27 Completed [facility] of Vaccine (3+ yrs) 00:00:00 [facility] Influenza Virus 2017-07-27 Completed [facility] of Vaccine (3+ yrs) 00:00:00 [facility] Influenza Virus 2017-07-27 Completed [facility] of Vaccine (3+ yrs) 00:00:00 [facility] Influenza Virus 2017-07-27 Completed [facility] y of Vaccine (3+ yrs) 00:00:00 [facility] Influenza Virus 2017-07-27 Completed [facility] y of Vaccine (3+ yrs) 00:00:00 [facility] Influenza Virus 2017-07-27 Completed [facility] of Vaccine (3+ yrs) 00:00:00 [facility] Influenza Virus 2017-07-27 Completed [facility] of Vaccine (3+ yrs) 00:00:00 [facility] Influenza Virus 2017-07-27 Completed [facility] of Vaccine (3+ yrs) 00:00:00 [facility] Influenza Virus 2017-07-27 Completed [facility] of Vaccine (3+ yrs) 00:00:00 [facility] Influenza Virus 2017-07-27 Completed [facility] of Vaccine (3+ yrs) 00:00:00 [facility] Influenza Virus 2017-07-27 Completed [facility] of Vaccine (3+ yrs) 00:00:00 [facility] Influenza Virus 2017-07-27 Completed [facility] of Vaccine (3+ yrs) 00:00:00 [facility] Influenza Virus 2017-07-27 Completed [facility] of Vaccine (3+ yrs) 00:00:00 [facility] Influenza Virus 2017-07-27 Completed [facility] of Vaccine (3+ yrs) 00:00:00 [facility] Influenza Virus 2017-07-27 Completed [facility] of Vaccine (3+ yrs) 00:00:00 [facility] Influenza Virus 2017-07-27 Completed [facility] of Vaccine (3+ yrs) 00:00:00 [facility] Influenza Virus 2017-07-27 Completed [facility] Vaccine (3+ yrs) 00:00:00 [facility] Influenza Virus 2017-07-27 Completed [facility] Vaccine (3+ yrs) 00:00:00 [facility] Influenza Virus 2017-07-27 Completed [facility] Vaccine (3+ yrs) 00:00:00 [facility] Influenza Virus 2017-07-27 Completed [facility] Vaccine (3+ yrs) 00:00:00 [facility] Influenza Virus 2017-07-27 Completed [facility] Vaccine (3+ yrs) 00:00:00 [facility] Influenza Virus 2017-07-27 Completed [facility] of Vaccine (3+ yrs) 00:00:00 [facility] Influenza Virus 2017-07-27 Completed [facility] Vaccine (3+ yrs) 00:00:00 [facility] Influenza Virus 2017-07-27 Completed [facility] Vaccine (3+ yrs) 00:00:00 [facility] Influenza Virus 2017-07-27 Completed [facility] Vaccine (3+ yrs) 00:00:00 [facility] Influenza Virus 2017-07-27 Completed [facility] Vaccine (3+ yrs) 00:00:00 [facility] Influenza Virus 2017-07-27 Completed [facility] Vaccine (3+ yrs) 00:00:00 [facility] Influenza Virus 2017-07-27 Completed [facility] Vaccine (3+ yrs) 00:00:00 [facility] Influenza Virus 2017-07-27 Completed [facility] Vaccine (3+ yrs) 00:00:00 [facility] Influenza Virus 2017-07-27 Completed [facility] Vaccine (3+ yrs) 00:00:00 [facility] Influenza Virus 2017-07-27 Completed [facility] Vaccine (3+ yrs) 00:00:00 [facility] Influenza Virus 2017-07-27 Completed [facility] Vaccine (3+ yrs) 00:00:00 [facility] Influenza Virus 2017-07-27 Completed [facility] Vaccine (3+ yrs) 00:00:00 [facility] Influenza Virus 2017-07-27 Completed [facility] of Vaccine (3+ yrs) 00:00:00 [facility] Influenza Virus 2017-07-27 Completed [facility] Vaccine (3+ yrs) 00:00:00 [facility] Influenza Virus 2017-07-27 Completed [facility] Vaccine (3+ yrs) 00:00:00 [facility] Influenza Virus 2017-07-27 Completed [facility] Vaccine (3+ yrs) 00:00:00 [facility] Influenza Virus 2017-07-27 Completed [facility] Vaccine (3+ yrs) 00:00:00 [facility] Influenza Virus 2017-07-27 Completed [facility] Vaccine (3+ yrs) 00:00:00 [facility] Influenza Virus 2017-07-27 Completed [facility] Vaccine (3+ yrs) 00:00:00 [facility] Influenza Virus 2017-07-27 Completed [facility] Vaccine (3+ yrs) 00:00:00 [facility] Influenza Virus 2017-07-27 Completed [facility] Vaccine (3+ yrs) 00:00:00 [facility] Influenza Virus 2017-07-27 Completed [facility] Vaccine (3+ yrs) 00:00:00 [facility] Influenza Virus 2017-07-27 Completed [facility] Vaccine (3+ yrs) 00:00:00 [facility] Influenza Virus 2017-07-27 Completed [facility] Vaccine (3+ yrs) 00:00:00 [facility] Influenza Virus 2017-07-27 Completed [facility] Vaccine (3+ yrs) 00:00:00 [facility] Influenza Virus 2017-07-27 Completed [facility] Vaccine (3+ yrs) 00:00:00 [facility] Influenza Virus 2017-07-27 Completed [facility] Vaccine (3+ yrs) 00:00:00 [facility] Influenza Virus 2017-07-27 Completed [facility] Vaccine (3+ yrs) 00:00:00 [facility] Influenza Virus 2017-07-27 Completed [facility] Vaccine (3+ yrs) 00:00:00 [facility] Influenza Virus 2017-07-27 Completed [facility] Vaccine (3+ yrs) 00:00:00 [facility] Influenza Virus 2017-07-27 Completed [facility] Vaccine (3+ yrs) 00:00:00 [facility] Influenza Virus 2017-07-27 Completed [facility] Vaccine (3+ yrs) 00:00:00 [facility] Influenza Virus 2017-07-27 Completed [facility] Vaccine (3+ yrs) 00:00:00 [facility] Influenza Virus 2017-07-27 Completed [facility] Vaccine (3+ yrs) 00:00:00 [facility] Influenza Virus 2017-07-27 Completed [facility] Vaccine (3+ yrs) 00:00:00 [facility] Influenza Virus 2017-07-27 Completed [facility] Vaccine (3+ yrs) 00:00:00 [facility] Influenza Virus 2017-07-27 Completed [facility] Vaccine (3+ yrs) 00:00:00 [facility] Influenza Virus 2017-07-27 Completed [facility] Vaccine (3+ yrs) 00:00:00 [facility] Influenza Virus 2017-07-27 Completed [facility] Vaccine (3+ yrs) 00:00:00 [facility] Influenza Virus 2017-07-27 Completed [facility] Vaccine (3+ yrs) 00:00:00 [facility] Influenza Virus 2017-07-27 Completed [facility] Vaccine (3+ yrs) 00:00:00 [facility] Influenza Virus 2017-07-27 Completed [facility] Vaccine (3+ yrs) 00:00:00 [facility] Pneumococcal 2017-03-06 Completed [facility] Polysaccharide, 00:00:00 [place] [facility] PPSV23 (PNEUMOVAX) Branch Pneumococcal 2017-03-06 Completed [facility] f Polysaccharide, 00:00:00 [facility] PPSV23 (PNEUMOVAX) [facility] Pneumococcal 2017-03-06 Completed [facility] Polysaccharide, 00:00:00 [facility] PPSV23 (PNEUMOVAX) Branch Pneumococcal 2017-03-06 [...] [facility] Vaccine (3+ yrs) 00:00:00 [facility] Influenza Virus 2016-06-06 Completed [facility] Vaccine (3+ yrs) 00:00:00 [facility] Influenza Virus 2016-06-06 Completed [facility] Vaccine (3+ yrs) 00:00:00 [facility] Influenza Virus 2016-06-06 Completed [facility] Vaccine (3+ yrs) 00:00:00 [facility] Influenza Virus 2016-06-06 Completed [facility] Vaccine (3+ yrs) 00:00:00 [facility] Influenza Virus 2016-06-06 Completed [facility] Vaccine (3+ yrs) 00:00:00 [facility] Influenza Virus 2016-06-06 Completed [facility] Vaccine (3+ yrs) 00:00:00 [facility] Influenza Virus 2016-06-06 Completed [facility] Vaccine (3+ yrs) 00:00:00 [facility] Influenza Virus 2016-06-06 Completed [facility] Vaccine (3+ yrs) 00:00:00 [facility] Influenza Virus 2016-06-06 Completed [facility] Vaccine (3+ yrs) 00:00:00 [facility] Influenza Virus 2016-06-06 Completed [facility] Vaccine (3+ yrs) 00:00:00 [facility] Influenza Virus 2016-06-06 Completed [facility] Vaccine (3+ yrs) 00:00:00 [facility] Influenza Virus 2016-06-06 Completed [facility] Vaccine (3+ yrs) 00:00:00 [facility] Influenza Virus 2016-06-06 Completed [facility] Vaccine (3+ yrs) 00:00:00 [facility] Influenza Virus 2016-06-06 Completed [facility] Vaccine (3+ yrs) 00:00:00 [facility] Influenza Virus 2016-06-06 Completed [facility] Vaccine (3+ yrs) 00:00:00 [facility] Influenza Virus 2016-06-06 Completed [facility] Vaccine (3+ yrs) 00:00:00 [facility] Influenza Virus 2016-06-06 Completed [facility] Vaccine (3+ yrs) 00:00:00 [facility] Influenza Virus 2016-06-06 Completed [facility] Vaccine (3+ yrs) 00:00:00 [facility] Influenza Virus 2016-06-06 Completed [facility] Vaccine (3+ yrs) 00:00:00 [facility] Influenza Virus 2016-06-06 Completed [facility] Vaccine (3+ yrs) 00:00:00 [facility] Influenza Virus 2016-06-06 Completed [facility] Vaccine (3+ yrs) 00:00:00 [facility] Influenza Virus 2016-06-06 Completed [facility] Vaccine (3+ yrs) 00:00:00 [facility] Influenza Virus 2016-06-06 Completed [facility] Vaccine (3+ yrs) 00:00:00 [facility] Influenza Virus 2016-06-06 Completed [facility] Vaccine (3+ yrs) 00:00:00 [facility] Influenza Virus 2016-06-06 Completed [facility] Vaccine (3+ yrs) 00:00:00 [facility] Influenza Virus 2016-06-06 Completed [facility] Vaccine (3+ yrs) 00:00:00 [facility] Influenza Virus 2016-06-06 Completed [facility] Vaccine (3+ yrs) 00:00:00 [facility] Influenza Virus 2016-06-06 Completed [facility] Vaccine (3+ yrs) 00:00:00 [facility] Influenza Virus 2016-06-06 Completed [facility] Vaccine (3+ yrs) 00:00:00 [facility] Influenza Virus 2016-06-06 Completed [facility] Vaccine (3+ yrs) 00:00:00 [facility] Influenza Virus 2016-06-06 Completed [facility] Vaccine (3+ yrs) 00:00:00 [facility] Influenza Virus 2016-06-06 Completed [facility] Vaccine (3+ yrs) 00:00:00 [facility] Influenza Virus 2016-06-06 Completed [facility] Vaccine (3+ yrs) 00:00:00 [facility] Influenza Virus 2016-06-06 Completed [facility] Vaccine (3+ yrs) 00:00:00 [facility] Influenza Virus 2016-06-06 Completed [facility] Vaccine (3+ yrs) 00:00:00 [facility] Influenza Virus 2016-06-06 Completed [facility] Vaccine (3+ yrs) 00:00:00 [facility] Influenza Virus 2016-06-06 Completed [facility] Vaccine (3+ yrs) 00:00:00 [facility] Influenza Virus 2016-06-06 Completed [facility] Vaccine (3+ yrs) 00:00:00 [facility] Influenza Virus 2016-06-06 Completed [facility] Vaccine (3+ yrs) 00:00:00 [facility] Influenza Virus 2016-06-06 Completed [facility] Vaccine (3+ yrs) 00:00:00 [facility] Influenza Virus 2016-06-06 Completed [facility] Vaccine (3+ yrs) 00:00:00 [facility] Influenza Virus 2016-06-06 Completed [facility] Vaccine (3+ yrs) 00:00:00 [facility] Influenza Virus 2016-06-06 Completed [facility] Vaccine (3+ yrs) 00:00:00 [facility] Influenza Virus 2016-06-06 Completed [facility] Vaccine (3+ yrs) 00:00:00 [facility] Influenza Virus 2016-06-06 Completed [facility] Vaccine (3+ yrs) 00:00:00 [facility] Influenza Virus 2016-06-06 Completed [facility] Vaccine (3+ yrs) 00:00:00 [facility] Influenza Virus 2016-06-06 Completed [facility] Vaccine (3+ yrs) 00:00:00 [facility] Influenza Virus 2016-06-06 Completed [facility] Vaccine (3+ yrs) 00:00:00 [facility] Influenza Virus 2016-06-06 Completed [facility] Vaccine (3+ yrs) 00:00:00 [facility] Influenza Virus 2016-06-06 Completed [facility] Vaccine (3+ yrs) 00:00:00 [facility] Influenza Virus 2016-06-06 Completed [facility] Vaccine (3+ yrs) 00:00:00 [facility] Influenza Virus 2016-06-06 Completed [facility] Vaccine (3+ yrs) 00:00:00 [facility] Influenza Virus 2016-06-06 Completed [facility] Vaccine (3+ yrs) 00:00:00 [facility] Influenza Virus 2016-06-06 Completed [facility] Vaccine (3+ yrs) 00:00:00 [facility] Influenza Virus 2016-06-06 Completed [facility] Vaccine (3+ yrs) 00:00:00 [facility] Influenza Virus 2016-06-06 Completed [facility] Vaccine (3+ yrs) 00:00:00 [facility] Influenza Virus 2016-06-06 Completed [facility] Vaccine (3+ yrs) 00:00:00 [facility] Influenza Virus 2016-06-06 Completed [facility] Vaccine (3+ yrs) 00:00:00 [facility] Influenza Virus 2016-06-06 Completed [facility] Vaccine (3+ yrs) 00:00:00 [facility] Influenza Virus 2016-06-06 Completed [facility] Vaccine (3+ yrs) 00:00:00 [facility] Influenza Virus 2016-06-06 Completed [facility] Vaccine (3+ yrs) 00:00:00 [facility] Influenza Virus 2016-06-06 Completed [facility] Vaccine (3+ yrs) 00:00:00 [facility] Influenza Virus 2016-06-06 Completed [facility] Vaccine (3+ yrs) 00:00:00 [facility] Influenza Virus 2016-06-06 Completed [facility] Vaccine (3+ yrs) 00:00:00 [facility] Influenza Virus 2016-06-06 Completed [facility] Vaccine (3+ yrs) 00:00:00 [facility] Influenza Virus 2016-06-06 Completed [facility] Vaccine (3+ yrs) 00:00:00 [facility] Influenza Virus 2016-06-06 Completed [facility] Vaccine (3+ yrs) 00:00:00 [facility] Influenza Virus 2016-06-06 Completed [facility] Vaccine (3+ yrs) 00:00:00 [facility] Influenza Virus 2016-06-06 Completed [facility] Vaccine (3+ yrs) 00:00:00 [facility] Influenza Virus 2016-06-06 Completed [facility] Vaccine (3+ yrs) 00:00:00 [facility] Influenza Virus 2016-06-06 Completed [facility] Vaccine (3+ yrs) 00:00:00 [facility] Influenza Virus 2016-06-06 Completed [facility] Vaccine (3+ yrs) 00:00:00 [facility] Influenza Virus 2016-06-06 Completed [facility] Vaccine (3+ yrs) 00:00:00 [facility] Influenza Virus 2016-06-06 Completed [facility] Vaccine (3+ yrs) 00:00:00 [facility] Influenza Virus 2016-06-06 Completed [facility] Vaccine (3+ yrs) 00:00:00 [facility] Influenza Virus 2016-06-06 Completed [facility] Vaccine (3+ yrs) 00:00:00 [facility] Influenza Virus 2016-06-06 Completed [facility] Vaccine (3+ yrs) 00:00:00 [facility] Influenza Virus 2015-06-22 Completed [facility] Vaccine (3+ yrs) 00:00:00 [facility] Pneumococcal 2015-06-22 Completed [facility] o [facility] Polysaccharide, 00:00:00 [facility] PPSV23 (PNEUMOVAX) Branch Influenza Virus 2015-06-22 Completed [facility] Vaccine (3+ yrs) 00:00:00 [facility] Pneumococcal 2015-06-22 Completed [facility] Polysaccharide, 00:00:00 [place] [facility] PPSV23 (PNEUMOVAX) [facility] Influenza Virus 2015-06-22 Completed [facility] Vaccine (3+ yrs) 00:00:00 [facility] Pneumococcal 2015-06-22 Completed [facility] Polysaccharide, 00:00:00 [place] [facility] PPSV23 (PNEUMOVAX) [facility] Influenza Virus 2015-06-22 Completed [facility] Vaccine (3+ yrs) 00:00:00 [facility] Pneumococcal 2015-06-22 Completed [facility] o f Polysaccharide, 00:00:00 [place] [facility] PPSV23 (PNEUMOVAX) [facility] Influenza Virus 2015-06-22 Completed [facility] Vaccine (3+ yrs) 00:00:00 [facility] P[facility] 2015-06-22 Completed [facility] f Polysaccharide, 00:00:00 [place] [facility] PPSV23 (PNEUMOVAX) [facility] Influenza Virus 2015-06-22 Completed [facility] Vaccine (3+ yrs) 00:00:00 [facility] Pneumococcal 2015-06-22 Completed [facility] o f Polysaccharide, 00:00:00 [place] [facility] PPSV23 (PNEUMOVAX) Branch Influenza Virus 2015-06-22 Completed [facility] Vaccine (3+ yrs) 00:00:00 [facility] Pneumococcal 2015-06-22 Completed [facility] o f Polysaccharide, 00:00:00 [place] [facility] PPSV23 (PNEUMOVAX) Branch Influenza Virus 2015-06-22 Completed [facility] Vaccine (3+ yrs) 00:00:00 [facility] Pneumococcal 2015-06-22 Completed [facility] o f Polysaccharide, 00:00:00 [place] [facility] PPSV23 (PNEUMOVAX) [facility] Influenza Virus 2015-06-22 Completed [facility] Vaccine (3+ yrs) 00:00:00 [facility] Pneumococcal 2015-06-22 Completed [facility] o f Polysaccharide, 00:00:00 [place] [facility] PPSV23 (PNEUMOVAX) Branch Influenza Virus 2015-06-22 Completed [facility] Vaccine (3+ yrs) 00:00:00 [facility] Pneumococcal 2015-06-22 Completed [facility] o f Polysaccharide, 00:00:00 [place] [facility] PPSV23 (PNEUMOVAX) [facility] Influenza Virus 2015-06-22 Completed [facility] Vaccine (3+ yrs) 00:00:00 [facility] Pneumococcal 2015-06-22 Completed [facility] o f Polysaccharide, 00:00:00 [place] [facility] PPSV23 (PNEUMOVAX) [facility] Influenza Virus 2015-06-22 Completed [facility] Vaccine (3+ yrs) 00:00:00 [facility] Pneumococcal 2015-06-22 Completed [facility] Polysaccharide, 00:00:00 [place] [facility] PPSV23 (PNEUMOVAX) [facility] Influenza Virus 2015-06-22 Completed [facility] Vaccine (3+ yrs) 00:00:00 [facility] Pneumococcal 2015-06-22 Completed [facility] Polysaccharide, 00:00:00 [place] [facility] PPSV23 (PNEUMOVAX) [facility] Influenza Virus 2015-06-22 Completed [facility] Vaccine (3+ yrs) 00:00:00 [facility] Pneumococcal 2015-06-22 Completed [facility] Polysaccharide, 00:00:00 [facility] PPSV23 (PNEUMOVAX) [facility] Influenza Virus 2015-06-22 Completed [facility] Vaccine (3+ yrs) 00:00:00 [facility] Pneumococcal 2015-06-22 Completed [facility] Polysaccharide, 00:00:00 [place] [facility] PPSV23 (PNEUMOVAX) [facility] Influenza Virus 2015-06-22 Completed [facility] Vaccine (3+ yrs) 00:00:00 [facility] Pneumococcal 2015-06-22 Completed [facility] Polysaccharide, 00:00:00 [place] [facility] PPSV23 (PNEUMOVAX) [facility] Influenza Virus 2015-06-22 Completed [facility] Vaccine (3+ yrs) 00:00:00 [facility] Pneumococcal 2015-06-22 Completed [facility] o f Polysaccharide, 00:00:00 [place] [facility] PPSV23 (PNEUMOVAX) Branch Influenza Virus 2015-06-22 Completed [facility] Vaccine (3+ yrs) 00:00:00 [facility] Pneumococcal 2015-06-22 Completed [facility] o f Polysaccharide, 00:00:00 [place] [facility] PPSV23 (PNEUMOVAX) Branch Influenza Virus 2015-06-22 Completed [facility] Vaccine (3+ yrs) 00:00:00 [facility] Pneumococcal 2015-06-22 Completed [facility] Polysaccharide, 00:00:00 [place] [facility] PPSV23 (PNEUMOVAX) [facility] Influenza Virus 2015-06-22 Completed [facility] Vaccine (3+ yrs) 00:00:00 [facility] Pneumococcal 2015-06-22 Completed [facility] Polysaccharide, 00:00:00 [place] [facility] PPSV23 (PNEUMOVAX) [facility] Influenza Virus 2015-06-22 Completed [facility] Vaccine (3+ yrs) 00:00:00 [facility] Pneumococcal 2015-06-22 Completed [facility] o f Polysaccharide, 00:00:00 [place] [facility] PPSV23 (PNEUMOVAX) Branch Influenza Virus 2015-06-22 Completed [facility] Vaccine (3+ yrs) 00:00:00 [facility] Pneumococcal 2015-06-22 Completed [facility] o f Polysaccharide, 00:00:00 [place] [facility] PPSV23 (PNEUMOVAX) Branch Influenza Virus 2015-06-22 Completed [facility] Vaccine (3+ yrs) 00:00:00 [facility] Pneumococcal 2015-06-22 Completed [facility] o f Polysaccharide, 00:00:00 [place] [facility] PPSV23 (PNEUMOVAX) Branch Influenza Virus 2015-06-22 Completed [facility] Vaccine (3+ yrs) 00:00:00 [facility] Pneumococcal 2015-06-22 Completed [facility] o f Polysaccharide, 00:00:00 [place] [facility] PPSV23 (PNEUMOVAX) Branch Influenza Virus 2015-06-22 Completed [facility] Vaccine (3+ yrs) 00:00:00 [facility] Pneumococcal 2015-06-22 Completed [facility] o f Polysaccharide, 00:00:00 [place] [facility] PPSV23 (PNEUMOVAX) Branch Influenza Virus 2015-06-22 Completed [facility] Vaccine (3+ yrs) 00:00:00 [facility] Pneumococcal 2015-06-22 Completed [facility] o f Polysaccharide, 00:00:00 [place] [facility] PPSV23 (PNEUMOVAX) Branch Influenza Virus 2015-06-22 Completed [facility] Vaccine (3+ yrs) 00:00:00 [facility] Pneumococcal 2015-06-22 Completed [facility] o f Polysaccharide, 00:00:00 [place] [facility] PPSV23 (PNEUMOVAX) Branch Influenza Virus 2015-06-22 Completed [facility] Vaccine (3+ yrs) 00:00:00 [facility] Pneumococcal 2015-06-22 Completed [facility] o f Polysaccharide, 00:00:00 [place] [facility] PPSV23 (PNEUMOVAX) Branch Influenza Virus 2015-06-22 Completed [facility] Vaccine (3+ yrs) 00:00:00 [facility] Pneumococcal 2015-06-22 Completed [facility] o f Polysaccharide, 00:00:00 [place] [facility] PPSV23 (PNEUMOVAX) [facility] Influenza Virus 2015-06-22 Completed [facility] Vaccine (3+ yrs) 00:00:00 [facility] Pneumococcal 2015-06-22 Completed [facility] o f Polysaccharide, 00:00:00 [place] [facility] PPSV23 (PNEUMOVAX) Branch Influenza Virus 2015-06-22 Completed [facility] Vaccine (3+ yrs) 00:00:00 [facility] Pneumococcal 2015-06-22 Completed [facility] o f Polysaccharide, 00:00:00 [place] [facility] PPSV23 (PNEUMOVAX) Branch Influenza Virus 2015-06-22 Completed [facility] Vaccine (3+ yrs) 00:00:00 [facility] Pneumococcal 2015-06-22 Completed [facility] o f Polysaccharide, 00:00:00 [place] [facility] PPSV23 (PNEUMOVAX) Branch Influenza Virus 2015-06-22 Completed [facility] Vaccine (3+ yrs) 00:00:00 [facility] Pneumococcal 2015-06-22 Completed [facility] o f Polysaccharide, 00:00:00 [place] [facility] PPSV23 (PNEUMOVAX) Branch Influenza Virus 2015-06-22 Completed [facility] Vaccine (3+ yrs) 00:00:00 [facility] Pneumococcal 2015-06-22 Completed [facility] Polysaccharide, 00:00:00 [place] [facility] PPSV23 (PNEUMOVAX) [facility] Influenza Virus 2015-06-22 Completed [facility] Vaccine (3+ yrs) 00:00:00 [facility] Pneumococcal 2015-06-22 Completed [facility] o f Polysaccharide, 00:00:00 [place] [facility] PPSV23 (PNEUMOVAX) Branch Influenza Virus 2015-06-22 Completed [facility] Vaccine (3+ yrs) 00:00:00 [facility] Pneumococcal 2015-06-22 Completed [facility] o f Polysaccharide, 00:00:00 [place] [facility] PPSV23 (PNEUMOVAX) [facility] Influenza Virus 2015-06-22 Completed [facility] Vaccine (3+ yrs) 00:00:00 [facility] Pneumococcal 2015-06-22 Completed [facility] o f Polysaccharide, 00:00:00 [place] [facility] PPSV23 (PNEUMOVAX) [facility] Influenza Virus 2015-06-22 Completed [facility] Vaccine (3+ yrs) 00:00:00 [facility] Pneumococcal 2015-06-22 Completed [facility] o f Polysaccharide, 00:00:00 [place] [facility] PPSV23 (PNEUMOVAX) [facility] Influenza Virus 2015-06-22 Completed [facility] Vaccine (3+ yrs) 00:00:00 [facility] Pneumococcal 2015-06-22 Completed [facility] o f Polysaccharide, 00:00:00 [place] [facility] PPSV23 (PNEUMOVAX) Branch Influenza Virus 2015-06-22 Completed [facility] Vaccine (3+ yrs) 00:00:00 [facility] Pneumococcal 2015-06-22 Completed [facility] o f Polysaccharide, 00:00:00 [place] [facility] PPSV23 (PNEUMOVAX) Branch Influenza Virus 2015-06-22 Completed [facility] Vaccine (3+ yrs) 00:00:00 [facility] Pneumococcal 2015-06-22 Completed [facility] o f Polysaccharide, 00:00:00 [place] [facility] PPSV23 (PNEUMOVAX) [facility] Influenza Virus 2015-06-22 Completed [facility] Vaccine (3+ yrs) 00:00:00 [facility] Pneumococcal 2015-06-22 Completed [facility] o f Polysaccharide, 00:00:00 [place] [facility] PPSV23 (PNEUMOVAX) Branch Influenza Virus 2015-06-22 Completed [facility] Vaccine (3+ yrs) 00:00:00 [facility] Pneumococcal 2015-06-22 Completed [facility] o f Polysaccharide, 00:00:00 [place] [facility] PPSV23 (PNEUMOVAX) [facility] Influenza Virus 2015-06-22 Completed [facility] Vaccine (3+ yrs) 00:00:00 [facility] Pneumococcal 2015-06-22 Completed [facility] o f Polysaccharide, 00:00:00 [place] [facility] PPSV23 (PNEUMOVAX) Branch Influenza Virus 2015-06-22 Completed [facility] Vaccine (3+ yrs) 00:00:00 [facility] Pneumococcal 2015-06-22 Completed [facility] o f Polysaccharide, 00:00:00 [place] [facility] PPSV23 (PNEUMOVAX) Branch Influenza Virus 2015-06-22 Completed [facility] Vaccine (3+ yrs) 00:00:00 [facility] Pneumococcal 2015-06-22 Completed [facility] o f Polysaccharide, 00:00:00 [place] [facility] PPSV23 (PNEUMOVAX) Branch Influenza Virus 2015-06-22 Completed [facility] Vaccine (3+ yrs) 00:00:00 [facility] Pneumococcal 2015-06-22 Completed [facility] o f Polysaccharide, 00:00:00 [place] [facility] PPSV23 (PNEUMOVAX) Branch Influenza Virus 2015-06-22 Completed [facility] Vaccine (3+ yrs) 00:00:00 [facility] Pneumococcal 2015-06-22 Completed [facility] o f Polysaccharide, 00:00:00 [place] [facility] PPSV23 (PNEUMOVAX) Branch Influenza Virus 2015-06-22 Completed [facility] Vaccine (3+ yrs) 00:00:00 [facility] Pneumococcal 2015-06-22 Completed [facility] o f Polysaccharide, 00:00:00 [place] [facility] PPSV23 (PNEUMOVAX) Branch Influenza Virus 2015-06-22 Completed [facility] Vaccine (3+ yrs) 00:00:00 [facility] Pneumococcal 2015-06-22 Completed [facility] o f Polysaccharide, 00:00:00 [place] [facility] PPSV23 (PNEUMOVAX) Branch Influenza Virus 2015-06-22 Completed [facility] Vaccine (3+ yrs) 00:00:00 [facility] Pneumococcal 2015-06-22 Completed [facility] o f Polysaccharide, 00:00:00 [place] [facility] PPSV23 (PNEUMOVAX) Branch Influenza Virus 2015-06-22 Completed [facility] Vaccine (3+ yrs) 00:00:00 [facility] Pneumococcal 2015-06-22 Completed [facility] o f Polysaccharide, 00:00:00 [place] [facility] PPSV23 (PNEUMOVAX) Branch Influenza Virus 2015-06-22 Completed [facility] Vaccine (3+ yrs) 00:00:00 [facility] Pneumococcal 2015-06-22 Completed [facility] o f Polysaccharide, 00:00:00 [place] [facility] PPSV23 (PNEUMOVAX) [facility] Influenza Virus 2015-06-22 Completed [facility] Vaccine (3+ yrs) 00:00:00 [facility] Pneumococcal 2015-06-22 Completed [facility] o f Polysaccharide, 00:00:00 [place] [facility] PPSV23 (PNEUMOVAX) [facility] Influenza Virus 2015-06-22 Completed [facility] Vaccine (3+ yrs) 00:00:00 [facility] Pneumococcal 2015-06-22 Completed [facility] o f Polysaccharide, 00:00:00 [place] [facility] PPSV23 (PNEUMOVAX) [facility] Influenza Virus 2015-06-22 Completed [facility] Vaccine (3+ yrs) 00:00:00 [facility] Pneumococcal 2015-06-22 Completed [facility] o f Polysaccharide, 00:00:00 [place] [facility] PPSV23 (PNEUMOVAX) Branch Influenza Virus 2015-06-22 Completed [facility] Vaccine (3+ yrs) 00:00:00 [facility] Pneumococcal 2015-06-22 Completed [facility] o f Polysaccharide, 00:00:00 [facility] ical PPSV23 (PNEUMOVAX) Branch Influenza Virus 2015-06-22 Completed Universit y of Vaccine (3+ yrs) 00:00:00 [facility] dical Branch Pneumococcal 2015-06-22 Completed University o f Polysaccharide, 00:00:00 [facility] ical PPSV23 (PNEUMOVAX) Branch Influenza Virus 2015-06-22 Completed Universit y of Vaccine (3+ yrs) 00:00:00 [facility] Pneumococcal 2015-06-22 Completed University o f Polysaccharide, 00:00:00 [place] [facility] PPSV23 (PNEUMOVAX) Branch Influenza Virus 2015-06-22 Completed Universit y of Vaccine (3+ yrs) 00:00:00 [facility] dical Branch Pneumococcal 2015-06-22 Completed University o f Polysaccharide, 00:00:00 [place] [facility] ical PPSV23 (PNEUMOVAX) Branch Influenza Virus 2015-06-22 Completed Universit y of Vaccine (3+ yrs) 00:00:00 [facility] dical Branch Pneumococcal 2015-06-22 Completed University o f Polysaccharide, 00:00:00 [place] [facility] ical PPSV23 (PNEUMOVAX) Branch Influenza Virus 2015-06-22 Completed Universit y of Vaccine (3+ yrs) 00:00:00 [place] [facility] Pneumococcal 2015-06-22 Completed University o f Polysaccharide, 00:00:00 [place] [facility] PPSV23 (PNEUMOVAX) Branch Influenza Virus 2015-06-22 Completed Universit y of Vaccine (3+ yrs) 00:00:00 [facility] dical Branch Pneumococcal 2015-06-22 Completed University o f Polysaccharide, 00:00:00 [place] [facility] ical PPSV23 (PNEUMOVAX) Branch Influenza Virus 2015-06-22 Completed Universit y of Vaccine (3+ yrs) 00:00:00 [facility] dicvt Branch Pneumococcal 2015-06-22 Completed University o f Polysaccharide, 00:00:00 [place] [facility] PPSV23 (PNEUMOVAX) Branch Influenza Virus 2015-06-22 Completed Universit y of Vaccine (3+ yrs) 00:00:00 [facility] Pneumococcal 2015-06-22 Completed University o f Polysaccharide, 00:00:00 [place] [facility] PPSV23 (PNEUMOVAX) Branch Influenza Virus 2015-06-22 Completed Universit y of Vaccine (3+ yrs) 00:00:00 [facility] Pneumococcal 2015-06-22 Completed University o f Polysaccharide, 00:00:00 [place] [facility] ical PPSV23 (PNEUMOVAX) Branch Influenza Virus 2015-06-22 Completed Universit y of Vaccine (3+ yrs) 00:00:00 [facility] Pneumococcal 2015-06-22 Completed University o f Polysaccharide, 00:00:00 [place] [facility] ical PPSV23 (PNEUMOVAX) Branch Influenza Virus 2015-06-22 Completed Universit y of Vaccine (3+ yrs) 00:00:00 [facility] Pneumococcal 2015-06-22 Completed University o f Polysaccharide, 00:00:00 [place] [facility] ical PPSV23 (PNEUMOVAX) Branch Influenza Virus 2015-06-22 Completed Universit y of Vaccine (3+ yrs) 00:00:00 [facility] 2015-06-22 Completed University o f Polysaccharide, 00:00:00 [place] [facility] ical PPSV23 (PNEUMOVAX) Branch Influenza Virus 2015-06-22 Completed Universit y of Vaccine (3+ yrs) 00:00:00 [facility] Pneumococcal 2015-06-22 Completed University o f Polysaccharide, 00:00:00 [place] [facility] ical PPSV23 (PNEUMOVAX) Branch Influenza Virus 2015-06-22 Completed Universit y of Vaccine (3+ yrs) 00:00:00 [facility] dical Branch Pneumococcal 2015-06-22 Completed University o f Polysaccharide, 00:00:00 [place] [facility] ical PPSV23 (PNEUMOVAX) Branch Influenza Virus 2015-06-22 Completed Universit y of Vaccine (3+ yrs) 00:00:00 [facility] dical Branch Pneumococcal 2015-06-22 Completed University o f Polysaccharide, 00:00:00 [place] [facility] ical PPSV23 (PNEUMOVAX) Branch Influenza Virus 2015-06-22 Completed Universit y of Vaccine (3+ yrs) 00:00:00 [facility] dical Branch Pneumococcal 2015-06-22 Completed University o f Polysaccharide, 00:00:00 [place] [facility] ical PPSV23 (PNEUMOVAX) Branch Influenza Virus 2015-06-22 Completed Universit y of Vaccine (3+ yrs) 00:00:00 [facility] dicvt Branch Pneumococcal 2015-06-22 Completed University o f Polysaccharide, 00:00:00 [place] [facility] ical PPSV23 (PNEUMOVAX) Branch Influenza Virus 2015-06-22 Completed Universit y of Vaccine (3+ yrs) 00:00:00 [facility]vt Branch Pneumococcal 2015-06-22 Completed University o f Polysaccharide, 00:00:00 [place] [facility] ical PPSV23 (PNEUMOVAX) Branch Influenza Virus 2015-06-22 Completed Universit y of Vaccine (3+ yrs) 00:00:00 [facility] Pneumococcal 2015-06-22 Completed University o f Polysaccharide, 00:00:00 [place] [facility] ical PPSV23 (PNEUMOVAX) Branch Influenza Virus 2015-06-22 Completed Universit y of Vaccine (3+ yrs) 00:00:00 [facility] dicvt Branch Pneumococcal 2015-06-22 Completed University o f Polysaccharide, 00:00:00 [place] [facility] ical PPSV23 (PNEUMOVAX) Branch Influenza Virus 2015-06-22 Completed Universit y of Vaccine (3+ yrs) 00:00:00 [facility] Branch Pneumococcal 2015-06-22 Completed University o f Polysaccharide, 00:00:00 [facility] ical PPSV23 (PNEUMOVAX) Branch Vital Signs Vital Name Observation Time Observation Value Comments Source Systolic blood 2022-11-29 130 mm[Hg] University of pressure 21:02:00 [facility] Diastolic blood 2022-11-29 68 mm[Hg] University o f pressure 21:02:00 [facility] Heart rate 2022-11-29 66 /min University of 21:02:00 [facility] Body height 2022-11-29 162.6 cm University of 21:02:00 [facility] Body weight 2022-11-29 65.817 kg University of 21:02:00 [facility] BMI 2022-11-29 24.91 kg/m2 University of 21:02:00 [facility] Oxygen saturation 2022-11-29 96 /min University of in Arterial blood 21:02:00 [facility] alejandra by Pulse oximetry Branch Systolic blood 2022-11-16 129 mm[Hg] University of pressure 15:34:00 [facility] Diastolic blood 2022-11-16 67 mm[Hg] University o f pressure 15:34:00 [facility] Heart rate 2022-11-16 65 /min University of 15:34:00 [facility] Body temperature 2022-11-16 36.56 Kristina University of 15:34:00 [facility] Respiratory rate 2022-11-16 16 /min University of 15:34:00 [facility] Body height 2022-11-16 162.6 cm University of 15:34:00 [facility] Body weight 2022-11-16 66.543 kg University of 15:34:00 [facility] BMI 2022-11-16 25.18 kg/m2 University of 15:34:00 [facility] Oxygen saturation 2022-11-16 95 /min University of in Arterial blood 15:34:00 [facility] alejandra by Pulse oximetry Branch Systolic blood 2022-10-30 166 mm[Hg] University of pressure 16:16:00 [facility] Diastolic blood 2022-10-30 70 mm[Hg] University o f pressure 16:16:00 [facility] Heart rate 2022-10-30 74 /min University of 16:16:00 [facility] Body temperature 2022-10-30 37.56 Kristina University of 16:15:00 [facility] Respiratory rate 2022-10-30 16 /min University of 16:15:00 [facility] Body height 2022-10-30 162.6 cm University of 16:15:00 [facility] Body weight 2022-10-30 68.04 kg University of 16:15:00 [facility] BMI 2022-10-30 25.75 kg/m2 University of 16:15:00 [facility] Oxygen saturation 2022-10-30 95 /min University of in Arterial blood 16:15:00 [facility] alejandra by Pulse oximetry Branch Systolic blood 2022-10-26 185 mm[Hg] University of pressure 21:22:00 [facility] Diastolic blood 2022-10-26 72 mm[Hg] University o f pressure 21:22:00 [facility] Heart rate 2022-10-26 67 /min University of 21:14:00 [facility] Body temperature 2022-10-26 36.39 Kristina University of 21:14:00 [facility] Respiratory rate 2022-10-26 16 /min University of 21:14:00 [facility] Body height 2022-10-26 154.9 cm University of 21:14:00 [facility] Body weight 2022-10-26 68.448 kg University of 21:14:00 [facility] BMI 2022-10-26 28.51 kg/m2 University of 21:14:00 [facility] Oxygen saturation 2022-10-26 97 /min University in Arterial blood 21:14:00 [facility] by Pulse oximetry Branch Systolic blood 2022-10-03 160 mm[Hg] states that University of pressure 15:13:00 this is good [place] [facility] was 180/85 Branch recently at PCP-does not want retake Diastolic blood 2022-10-03 68 mm[Hg] states that University o f pressure 15:13:00 this is good [place] [facility] was 180/85 Branch recently at PCP-does not want retake Heart rate 2022-10-03 62 /min University of 15:13:00 [facility] Systolic blood 2022-09-21 165 mm[Hg] University of pressure 22:16:00 [facility] Diastolic blood 2022-09-21 73 mm[Hg] University o f pressure 22:16:00 [facility] Heart rate 2022-09-21 72 /min University of 22:15:00 [facility] Branch Respiratory rate 2022-09-21 18 /min University of 22:15:00 [facility] Body height 2022-09-21 162.6 cm University of 22:15:00 [facility] Body weight 2022-09-21 72.576 kg University of 22:15:00 [facility] BMI 2022-09-21 27.46 kg/m2 University of 22:15:00 [facility] Oxygen saturation 2022-09-21 95 /min University of in Arterial blood 22:15:00 [place] [facility] alejandra by Pulse oximetry Branch Systolic blood 2022-09-05 166 mm[Hg] University of pressure 15:34:00 [facility] Diastolic blood 2022-09-05 67 mm[Hg] University o f pressure 15:34:00 [facility] Oxygen saturation 2022-09-05 67 /min University of in Arterial blood 15:34:00 [facility] alejandra by Pulse oximetry Branch Systolic blood 2022-09-01 158 mm[Hg] University of pressure 14:18:00 [facility] Diastolic blood 2022-09-01 78 mm[Hg] University o f pressure 14:18:00 [facility] Heart rate 2022-09-01 62 /min University of 14:18:00 [facility] Respiratory rate 2022-09-01 18 /min University of 14:14:00 [facility] Body weight 2022-09-01 73.029 kg University of 14:14:00 [facility] BMI 2022-09-01 27.64 kg/m2 University of 14:14:00 [facility] Oxygen saturation 2022-09-01 96 /min University of in Arterial blood 14:14:00 [facility] by Pulse oximetry Branch Systolic blood 2022-08-23 165 mm[Hg] University of pressure 22:30:00 [facility] Diastolic blood 2022-08-23 80 mm[Hg] University o f pressure 22:30:00 [facility] Heart rate 2022-08-23 66 /min University of 22:16:00 [facility] Body temperature 2022-08-23 36.78 Kristina University of 22:16:00 [facility] Body height 2022-08-23 162.6 cm University of 22:16:00 [facility] Body weight 2022-08-23 72.576 kg University of 22:16:00 [facility] BMI 2022-08-23 27.46 kg/m2 University of 22:16:00 [facility] Oxygen saturation 2022-08-23 95 /min University of in Arterial blood 22:16:00 [facility] alejandra by Pulse oximetry Branch Systolic blood 2022-08-09 162 mm[Hg] University of pressure 14:44:00 [facility] Diastolic blood 2022-08-09 70 mm[Hg] University o f pressure 14:44:00 [facility] Heart rate 2022-08-09 73 /min University of 14:43:00 [facility] Body temperature 2022-08-09 36.89 Kristina University of 14:43:00 [facility] Body height 2022-08-09 162.6 cm University of 14:43:00 [facility] Body weight 2022-08-09 71.215 kg University of 14:43:00 [facility] BMI 2022-08-09 26.95 kg/m2 University of 14:43:00 [facility] Oxygen saturation 2022-08-09 96 /min University of in Arterial blood 14:43:00 [place] [facility] by Pulse oximetry Branch Systolic blood 2022-08-07 158 mm[Hg] University of pressure 22:18:00 [facility] Diastolic blood 2022-08-07 62 mm[Hg] University o f pressure 22:18:00 [facility] Heart rate 2022-08-07 65 /min University of 22:17:00 [facility] Body temperature 2022-08-07 37.11 Kristina University of 22:17:00 [facility] Body height 2022-08-07 162.6 cm University of 22:17:00 [facility] Body weight 2022-08-07 73.936 kg University of 22:17:00 [facility] BMI 2022-08-07 27.98 kg/m2 University of 22:17:00 [facility] Oxygen saturation 2022-08-07 97 /min University of in Arterial blood 22:17:00 [place] [facility] alejandra by Pulse oximetry Branch Systolic blood 2022-08-05 164 mm[Hg] University of pressure 15:15:00 [facility] Diastolic blood 2022-08-05 61 mm[Hg] University o f pressure 15:15:00 [facility] Heart rate 2022-08-05 69 /min University of 15:15:00 [facility] Body height 2022-08-05 162.6 cm University of 14:06:00 [facility] Body weight 2022-08-05 73.029 kg University of 14:06:00 [facility] BMI 2022-08-05 27.64 kg/m2 University of 14:06:00 [facility] Oxygen saturation 2022-08-05 94 /min University of in Arterial blood 14:06:00 [place] [facility] ale[facility]andra by Pulse oximetry Branch Systolic blood 2022-08-03 168 mm[Hg] University of pressure 21:48:00 [facility] Branch Diastolic blood 2022-08-03 72 mm[Hg] University o f pressure 21:48:00 [facility] Heart rate 2022-08-03 77 /min University of 21:04:00 [facility] Body height 2022-08-03 162.6 cm University of 21:04:00 [facility] Body weight 2022-08-03 73.029 kg University of 21:04:00 [facility] BMI 2022-08-03 27.64 kg/m2 University of 21:04:00 [facility] Oxygen saturation 2022-08-03 95 /min University of in Arterial blood 21:04:00 [facility] alejandra by Pulse oximetry Branch Systolic blood 2022-08-01 168 mm[Hg] University of pressure 14:53:00 [facility] Diastolic blood 2022-08-01 64 mm[Hg] University o f pressure 14:53:00 [facility] Heart rate 2022-08-01 69 /min University of 14:53:00 [facility] Body height 2022-08-01 162.6 cm University of 14:50:00 [facility] Body weight 2022-08-01 73.483 kg University of 14:50:00 [facility] BMI 2022-08-01 27.81 kg/m2 University of 14:50:00 [facility] Oxygen saturation 2022-08-01 96 /min University of in Arterial blood 14:50:00 [place] [facility] alejandra by Pulse oximetry Branch Systolic blood 2022-07-11 137 mm[Hg] University of pressure 19:58:00 [facility] Diastolic blood 2022-07-11 57 mm[Hg] University o f pressure 19:58:00 [facility] Heart rate 2022-07-11 67 /min University of 19:58:00 [facility] Oxygen saturation 2022-07-11 95 /min University of in Arterial blood 19:58:00 [place] [facility] alejandra by Pulse oximetry Branch Body temperature 2022-07-11 36.44 Kristina University of 19:56:00 [facility] Respiratory rate 2022-07-11 16 /min University of 19:56:00 [facility] Body height 2022-07-11 162.6 cm per pt [facility] 19:56:00 [facility] Body weight 2022-07-11 72.031 kg [facility] 19:56:00 [facility] BMI 2022-07-11 27.26 kg/m2 [facility] 19:56:00 [facility] Systolic blood 2022-07-09 135 mm[Hg] [facility] pressure 18:27:00 [facility] Diastolic blood 2022-07-09 78 mm[Hg] [place] o pressure 18:27:00 [facility] Heart rate 2022-07-09 65 /min [facility] 18:27:00 [facility] Body temperature 2022-07-09 37 Kristina [facility] 18:27:00 [facility] Respiratory rate 2022-07-09 16 /min [facility] 18:27:00 [facility] Body weight 2022-07-09 68.04 kg [facility] 18:27:00 [facility] Oxygen saturation 2022-07-09 96 /min [facility] Arterial blood 18:27:00 [facility] by Pulse oximetry [place] Procedures Procedure Date / Time Performing Clinician Source Performed HOME HEALTH - OTHER 2022-12-07 05:01:00 [facility] (AUTOMATED) 2022-11-16 16:23:00 Corina [facility] AUTHORIZATION FOR 2022-11-14 05:01:00 Doctor Unassigned, No [facility] RELEASE OF PHI [facility] CT ABDOMEN PELVIS W 2022-11-08 15:22:31 [facility] CT THORAX W CONTRAST 2022-11-08 15:21:21 Corina [facility] CONSENT/REFUSAL FOR 2022-11-08 14:30:47 Doctor Unassigned, No [facility] DIAGNOSIS AND TREATMENT [facility] ASSIGNMENT OF BENEFITS 2022-11-08 14:30:30 Doctor Unassigned, No [facility] POCT URINALYSIS 2022-10-30 16:33:00 Jacquie Lennon [place] o f [facility] NM BRAIN SPECT (DATSCAN) 2022-09-21 20:19:00 [facility] NM BRAIN SPECT (DATSCAN) 2022-09-21 20:19:00 [facility] NM BRAIN SPECT (DATSCAN) 2022-09-21 20:19:00 [facility] HOME HEALTH - OTHER 2022-09-08 06:01:00 [facility] [place] MODIFIED BARIUM 2022-08-31 18:26:06 Corina [facility] SWALLOW [place] [facility] EXTERNAL PROVIDER 2022-08-24 06:01:00 Doctor Unassigned, No [facility] MR BRAIN WO CONTRAST 2022-08-16 14:59:37 Jesus Fernandez Un [facility] AUTHORIZATION TO RELEASE 2022-08-03 06:01:00 Doctor Unassigned, No [facility] PHI TO [facility] POCT HEMOGLOBIN A1C TEST 2022-08-03 00:00:00 Heather [facility]STION[facility] 2022-07-19 06:01:00 Doctor Unassigned, No [facility] HB ECG ROUTINE & RHYTHM 2022-07-11 20:00:[address] [facility] POCT URINALYSIS 2022-07-09 18:29:00 [facility] Plan of Care Planned Activity Planned Date Details Comments Source Future Scheduled Test COLON CANCER SCREENING: [facility] COLONOSCOPY [code = Medicine COLON CANCER SCREENING: COLONOSCOPY] Future Scheduled Test MAMMOGRAM ANNUAL [code [facility] = MAMMOGRAM ANNUAL] Medicine Future Scheduled Test MEDICARE AWV [code = [facility] MEDICARE AWV] Medicine Future Scheduled Test TETANUS SHOT (ADULT) [facility] [code = TETANUS SHOT Medicin e (ADULT)] Future Scheduled Test HEPATITIS C SCREENING [facility] [code = HEPATITIS C Medicine SCREENING] Future Scheduled Test FALL SCREEN [code = [facility] FALL SCREEN] Medicine Future Scheduled Test OSTEOPOROSIS SCREENING [facility] [code = OSTEOPOROSIS Medicin e SCREENING] Future Scheduled Test PNEUMOVAX >=65 (PPSV23) [facility] [code = PNEUMOVAX >=65 Medic ine (PPSV23)] Future Scheduled Test PREVNAR >= 65 (PCV13) [facility] [code = PREVNAR >= 65 Medici ne (PCV13)] Future Scheduled Test FLU VACCINE > 6 MONTHS [facility] [code = FLU VACCINE > 6 Medi cine MONTHS] Future Scheduled Test COLON CANCER SCREENING: [facility] COLONOSCOPY [code = Medicine COLON CANCER SCREENING: COLONOSCOPY] Future Scheduled Test MAMMOGRAM ANNUAL [code [facility] = MAMMOGRAM ANNUAL] Medicine Future Scheduled Test MEDICARE AWV [code = [facility] MEDICARE AWV] Medicine Future Scheduled Test TETANUS SHOT (ADULT) [facility] [code = TETANUS SHOT Medicin e (ADULT)] Future Scheduled Test HEPATITIS C SCREENING [facility] [code = HEPATITIS C Medicine SCREENING] Future Scheduled Test FALL SCREEN [code = [facility] FALL SCREEN] Medicine Future Scheduled Test OSTEOPOROSIS SCREENING [facility] [code = OSTEOPOROSIS Medicin e SCREENING] Future Scheduled Test PNEUMOVAX >=65 (PPSV23) [facility] [code = PNEUMOVAX >=65 Medic ine (PPSV23)] Future Scheduled Test PREVNAR >= 65 (PCV13) [facility] [code = PREVNAR >= 65 Medici ne (PCV13)] Future Scheduled Test FLU VACCINE > 6 MONTHS [facility] [code = FLU VACCINE > 6 Medi cine MONTHS] Encounters Start End Encounter Admission Attending Care Care Encounter Source Date/Time Date/Time Type Type Clinicians Facility Department ID 2023-02-21 2023-02-21 Outpatient R CORINA [facility] [id number] Univers 09:40:00 09:40:00 , [place] e[place] [facility] 2023-01-02 2023-01-02 Outpatient R SHARON, [facility] [id number] Univers 15:20:00 15:20:00 ATTENDING татьяна [facility] 2022-12-30 2022-12-30 Telephone [facility] 1.2.840.114 [id number] Univers 00:00:00 00:00:00 , [place] ORR [id number] ity Mark DE PAZ [id number] Oseas as YOSVANY?BLEA [id number] Me [address] OFFICE [facility] 2022-12-29 2022-12-29 [facility] TONIO Mcdonald [id number] Univers 10:24:00 23:59:00 Encounter Denise Genevieve [id number] ity of [facility] [id number] Oseas as [id number] [address] 2022-12-29 2022-12-29 [facility] [id number] Univers 00:00:00 23:59:00 DENISE ity of [facility] 2022-12-29 2022-12-29 [facility]phone [facility] [id number] Univers 00:00:00 00:00:00 , [place] HE[facility] [id number] ity of [place] [id number] Oseas as YOSVANY?BLEA [id number] [address] 2022-12-28 2022-12-28 Telephone [facility] [id number] Univers 00:00:00 00:00:00 , [place] HEALTH [id number] ity of [place] [id number] Oseas as YOSVANY?BLEA [id number] [address] 2022-12-15 2022-12-15 Telephone [facility] [id number] Univers 00:00:00 00:00:00 , [place] HEALTH [id number] ity of [place] [id number] Oseas as YOSVANY?BLEA [id number] [address] OFFICE [facility] 2022-12-14 2022-12-14 Telephone [facility] [id number] Univers 00:00:00 00:00:00 , [place] [facility] [id number] ity of [place] [id number] Oseas as YOSVANY?BLEA [id number] [address] OFFICE [facility] 2022-12-07 2022-12-07 Orders Doctor AMANDA 1.2.840.114 [id number] Univers 00:00:00 00:00:00 Only Unassigned, ARTURO [id number] ity of [place] [facility] [id number] Oseas as [id number] [address] 2022-11-30 2022-11-30 Telephone [facility] [id number] Univers 00:00:00 00:00:00 , [place] [id number] [facility] [facility] [id number] Oseas as YOSVANY?BLEA [id number] [address] MEDICAL OFFICE BUILDING 2022-11-29 2022-11-29 Outpatient R [facility] [id number] Univers 16:00:00 16:30:02 , [place] [facility] 2022-11-29 2022-11-29 Office [facility] 1.2.840.114 [id number] Univers 16:00:00 16:30:02 Visit , [place] [id number] ity [facility] [id number] Oseas as YOSVANY?BLEA [id number] [address] MEDICAL OFFICE BUILDING 2022-11-24 2022-11-24 [facility] [id number] Univers 16:15:00 16:15:00 , [place] [facility] 2022-11-24 2022-11-24 Telephone [facility] 1.2.840.114 [id number] Univers 00:00:00 00:00:00 , [place] [id number] ity of [place] [id number] Oseas as YOSVANY?BLEA [id number] [address] MEDICAL OFFICE BUILDING 2022-11-23 2022-11-23 Telephone [facility] [id number] Univers 00:00:00 00:00:00 , [place] [facility] 350.1.13.10 ity of M [facility] 4.2.7.2.686 Oseas as YOSVANY?BLEA [phone] [facility] [address] MEDICAL OFFICE [facility] 2022-11-18 2022-11-18 Patient Kobi [facility] 1.2.840.114 [id number] Univers 00:00:00 00:00:00 Outreach Gauri [place] HE[facility] 350.1.13.10 i ty of [place] 4.2.7.2.686 Oseas as YOSVANY?BLEA [id number] [address] MEDICAL OFFICE [facility] 2022-11-18 2022-11-18 Telephone [facility] 1.2.840.114 [id number] Univers 00:00:00 00:00:00 , [place] [facility] 350.1.13.10 ity of M [place] 4.2.7.2.686 Oseas as YOSVANY?BLEA [id number] [address] OFFICE [facility] 2022-11-16 2022-11-16 [facility], Dirk - Rashaad [facility] 1.2.840.1 14 [id number] Univers 16:15:00 16:57:51 Visit [place] Arriaga HEALTH 350.1 .13.10 ity of [place] 4.2.7.2.686 Oseas as YOSVANY?BLEA [id number] [facility] 353 [facility] OFFICE [facility] 2022-11-16 2022-11-16 Outpatient R [facility] [id number] Univers 10:30:00 11:56:28 , [place] it y of [facility] 2022-11-16 2022-11-16 Office [facility] 1.2.840.114 10 [id number] Univers 10:30:00 11:56:28 Visit , [place] [facility] 350.1.13.10 ity of M [place] 4.2.7.2.686 Oseas as YOSVANY?BLEA [id number] [address] OFFICE [facility] 2022-11-16 2022-11-16 Telephone [facility] 1.2.840.114 [id number] Univers 00:00:00 00:00:00 , [place] [facility] 350.1.13.10 ity of M [place] 4.2.7.2.686 Oseas as YOSVANY?BLEA [phone] [address] MEDICAL OFFICE [facility] 2022-11-15 2022-11-15 [facility] 1.2.840.114 [id number] Univers 00:00:00 00:00:00 , [place] [facility] 350.1.13.10 ity of Gema [place] 4.2.7.2.686 Oseas as YOSVANY?BLEA [id number] [address] MEDICAL OFFICE [facility] 2022-11-14 2022-11-14 Orders Doctor AMANDA 1.2.840.114 [id number] Univers 00:00:00 00:00:00 Only Unassigned, ARTURO 350.1.13.10 ity of [place] [facility] 4.2.7.2.686 Oseas as [id number] [address] 2022-11-09 2022-11-09 Case [facility] 1.2.840.114 10 [id number] Univers 00:00:00 00:00:00 Management , [place] [facility] 350.1.13.10 ity of [place] 4.2.7.2.686 Oseas as YOSVANY?BLEA [phone] [address] OFFICE [facility] 2022-11-08 2022-11-08 [facility] 1.2.840.114 1 [id number] Univers 09:32:45 23:59:00 Encounter , [place] DE PAZ 350.1.13.10 ity of [place].2.[place] [id number] [facility] [address] 2022-11-08 2022-11-08 Outpatient R [facility] [id number] Univers 09:32:06 23:59:00 , [place] it y of [facility] 2022-11-08 2022-11-08 [facility] 1.2.840.114 [id number] Univers 09:32:06 23:59:00 Encounter , [place] DE PAZ 350.1.13.10 ity of [place] [id number] [address] 2022-10-31 2022-10-31 Telephone Charlie PAOLA 1.2.636.437 [id number] Univers 00:00:00 00:00:00 Juan ARTURO 350.1.13.10 it y of [facility] 4.2.7.2.686 Oseas as [id number] [address] 2022-10-30 2022-10-30 Urgent Saji Ankitflip [facility] 1.2.840.114 [id number] Univers 11:00:00 11:20:00 Care Unknown, Attending HEALTH 350.1.13.10 ity of [place] 4.2.7.2.686 Oseas as YOSVANY?BLEA [phone] [facility] [address] MEDICAL OFFICE BUILDING 2022-10-30 2022-10-30 Outpatient R SAJI [facility] [id number] Univers 11:00:00 11:00:00 JACQUIE [facility] 2022-10-28 2022-10-28 Telephone PAOLA Guerra 1.2.068.949 [id number] Univers 00:00:00 00:00:00 Juan ARTURO 350.1.13.10 it y of [facility] 4.2.7.2.686 Oseas as [phone] [address] 2022-10-26 2022-10-26 [facility], Hugh [facility] 1.2.840.1 14 [id number] Univers 16:45:00 17:00:00 Visit [place] Arriaga [facility] 350.1 .13.10 ity of [place] 4.2.7.2.686 Oseas as YOSVANY?BLEA [id number] [facility] [address] MEDICAL OFFICE BUILDING 2022-10-26 2022-10-26 Outpatient R CORINA [facility] [id number] Univers 16:15:00 16:44:29 [place] [facility] 2022-10-26 2022-10-26 Office [facility] 1.2.840.114 10 [id number] Univers 16:15:00 16:44:29 Visit [place] 350.1.13.10 ity of [place] [facility] 4.2.7.2.686 Oseas as YOSVANY?BLEA [phone] Ct azael WILSON [address] MEDICAL OFFICE [facility] 2022-10-21 2022-10-21 Telephone [place] [facility] 1.2.840.114 [id number] Univers 00:00:00 00:00:00 , [facility] 350.1.13.10 ity of [place] [facility] 4.2.7.2.686 Oseas as YOSVANY?BLEA [phone] Ct azael PADRON [address] MEDICAL OFFICE [facility] 2022-10-20 2022-10-20 Outpatient R [facility] [id number] Univers 15:45:00 15:45:00 , [place] baron [facility] 2022-10-20 2022-10-20 Outpatient [facility] [id number] [address] [place] [address] 09:17:48 10:25:07 ABRAHAM [facility] 2022-10-20 2022-10-20 Telephone PAOLA Guerra 1.2.932.213 [id number] [facility] 00:00:00 00:00:00 [facility] 350.1.13.10 it y of [facility] 4.2.7.2.686 Oseas as [id number] [address] 2022-10-19 2022-10-19 Outpatient R [facility] [id number] [facility] 15:45:00 15:45:00 , [place] draper [facility] 2022-10-03 2022-10-03 Office Per [facility] .2.840.114 [id number] Univers 09:20:00 09:46:55 Visit [facility] 350.1.13.10 ity of [facility] 4.2.7.2.686 Oseas as YOSVANY?BLEA [id number] Ct azael WILSON 092 [facility] OFFICE [facility] 2022-10-03 2022-10-03 Outpatient R JESUS FERNANDEZ [facility] [id number] [facility] 09:20:00 09:46:55 JESUS FERNANDEZ [facility] 2022-09-30 2022-09-30 Telephone PAOLA Guerra .2.897.257 [id number] Univers 00:00:00 00:00:00 Juan ARTURO 350.1.13.10 it y of HOSPITAL 4.2.7.2.686 Oseas as [id number] [facility] [address] 2022-09-21 2022-09-21 [facility] 1.2.127.004 [id number] Univers 08:53:11 23:59:00 Encounter Jesus Gene SPECIALTY 350.1.13.10 ity of [place].2.[place].2.686 [place] C[place] AT [phone] Ct dicmagali HENDERSON [address] [place] [address] 2022-09-21 2022-09-21 Office [place] [facility] 1.2.840.114 10 [id number] Univers 16:15:00 16:39:42 Visit , [place] [facility] 350.1.13.10 ity of [place] 4.2.7.2.686 Oseas as YOSVANY?BLEA [phone] Ct yumikomagali WILSON [address] [place] [address] MEDICAL OFFICE BUILDING 2022-09-21 2022-09-21 [facility] 1.2.980.435 [id number] Univers 08:52:30 08:52:30 Encounter Jesus Gene SPECIALTY 350.1.13.10 it[place] of [place]2.[place].2.[place] C[place] AT [id number] Ct azael HENDERSON [address] [place] [address] 2022-09-21 2022-09-21 [facility] 1.2.760.508 [id number] Univers 08:51:37 08:51:37 Encounter Jesus Gene SPECIALTY 350.1.13.10 it[place] of [place]2.[place].2.[place] C[place] AT [phone] Ct azael HENDERSON [address] [place] [address] 2022-09-21 2022-09-21 Outpatient JESUS ROBB [facility] [id number] Univers 08:51:37 08:51:37 JESUS FERNANDEZ ity [facility] 2022-09-13 2022-09-13 Telephone [facility] 1.2.970.713 [id number] Univers 00:00:00 00:00:00 Juan ZANDRA 350.1.13.10 i ty of [facility] 4.2.7.2.[place] ESSIO [phone] Ct dical NEELAM 059 [facility] 2022-09-09 2022-09-09 Outpatient LEANDRA HAWLEY [facility] [id number] [facility] 09:27:28 10:53:26 ABRAHAM alexander of Medicin e 2022-09-08 2022-09-08 Orders Doctor AMANDA 1.2.840.114 [id number] Univers 00:00:00 00:00:00 Only Unassigned, ARTURO 350.1.13.10 ity of [place] [facility] 4.2.7.2.686 Oseas as [phone] [address] 2022-09-08 2022-09-08 Telephone [facility] 1.2.840.114 [id number] Univers 00:00:00 00:00:00 , [facility] 350.1.13.10 ity of [place] 4.2.7.2.686 Oseas as YOSVANY?BLEA [id number] Ct dicmagali VITOMARISOL 044 [facility] OFFICE [facility] 2022-09-05 2022-09-05 Office Per [facility] 1.2.840.114 [id number] Univers 09:20:00 10:00:04 Visit Jesus [facility] 350.1.13.10 ity of [facility] 4.2.7.2.686 Oseas as YOSVANY?BLEA [id number] Ct yumikomagali VITOMARISOL 092 [facility] OFFICE [facility] 2022-09-05 2022-09-05 Outpatient JESUS ROBB [facility] [id number] Univers 09:20:00 10:00:04 JESUS FERNANDEZ [facility] 2022-09-05 2022-09-05 Outpatient JESUS ROBB [facility] [id number] Univers 09:20:00 09:20:00 JESUS FERNANDEZ [facility] 2022-09-02 2022-09-02 Telephone [facility] 1.2.840.114 [id number] Univers 00:00:00 00:00:00 , [facility] 350.1.13.10 ity of M ZANDRA 4.2.7.2.686 Oseas as YOSVANY?BLEA [id number] Ct dical KNEY 044 [facility] OFFICE BUILDING 2022-09-01 2022-09-01 Outpatient R CHARLIE [facility] [id number] Univers 08:20:00 08:45:46 JUAN ity of [facility] 2022-09-01 2022-09-01 Office Charlie [facility] 1.2.840.114 [id number] Univers 08:20:00 08:45:46 Visit Juanreginald DE PAZ 350.1.13.10 i ty of [facility] 4.2.7.2.[place] PROFESS[place] [id number] Ct dical NAL 059 [facility] 2022-08-31 2022-08-31 Outpatient R CORINA [facility] [id number] Univers 10:57:42 23:59:00 , [place] draper y of [facility] 2022-08-31 2022-08-31 [facility] 1.2.840.114 [id number] Univers 10:57:42 23:59:00 Encounter , [place] DE PAZ 350.1.13.10 ity of [facility] 4.2.7.2.[place] [id number] [facility] [address] 2022-08-31 2022-08-31 Outpatient R UNIQUE [facility] [id number] Univers 13:45:00 14:36:03 MARIANO vaz [facility] 2022-08-31 2022-08-31 Ancillary Miranda Montenegro [facility] 1.2.8 40.114 [id number] Univers 13:45:00 14:36:03 Visit Mariano Calhoun 350.1.13.10 ity [facility] 4.2.7.2.686 [place] PROFESS[place] [id number] Ct dical NAL 145 [facility] 2022-08-26 2022-08-26 Outpatient R JESUS FERNANDEZ [facility] [id number] Univers 09:40:00 09:40:00 JESUS FERNANDEZ itbabar [facility] 2022-08-24 2022-08-24 Orders Doctor PATEL 1.2.840.114 [id number] Univers 00:00:00 00:00:00 Only Unassigned, ARTURO 350.1.13.10 ity of [place] [facility] 4.2.7.2.686 Oseas as [id number] [facility] [address] 2022-08-23 2022-08-23 Outpatient R [facility] [id number] Univers 16:00:00 16:39:01 , [place] it y of [facility] 2022-08-23 2022-08-23 Office [facility] 1.2.840.114 [id number] [facility] 16:00:00 16:39:01 Visit , [place] KIRBY 350.1.13.10 ity of [place] [facility] 4.2.7.2.686 Oseas as YOSVANY?BLEA [id number] [address] MEDICAL OFFICE BUILDING 2022-08-23 2022-08-23 Outpatient R [facility] [id number] [facility] 10:00:00 10:00:00 , [place] draper y of [facility] 2022-08-17 2022-08-17 Outpatient LEANDRA STONE [facility] [id number] [facility] 14:24:57 16:05:13 JULES jaffe of Medicin e 2022-08-16 2022-08-16 Outpatient R JESUS FERNANDEZ [facility] [id number] Univers 08:06:52 23:59:00 PER JESUS ity of [facility] 2022-08-16 2022-08-16 [facility] 1.2.489.014 [id number] Univers 08:06:52 23:59:00 Encounter Jesus Bhanu [place] 350.1.13.10 ity of [place]2.7.2.[place] [id number] [facility] [address] 2022-08-11 2022-08-[address] [facility] 1.2.840.114 [id number] Univers 00:00:00 00:00:00 Management , [place] ORR 350.1.13.10 ity of [place] [facility] 4.2.7.2.686 Oseas as YOSVANY?BLEA [phone] [address] MEDICAL OFFICE [facility] 2022-08-10 2022-08-10 Telephone Corina [facility] 1.2.840.114 [id number] Univers 00:00:00 00:00:00 , [place] ORR 350.1.13.10 ity of Gema [place] 4.2.7.2.686 Oseas as YOSVANY?BLEA [id number] [address] OFFICE [facility] 2022-08-09 2022-08-09 [facility], Ang - [facility] 1.2.840.1 14 [id number] Univers 09:30:00 09:45:00 Visit [place] Arriaga HEALTH 350.1 .13.10 ity of ZANDRA 4.2.7.2.686 Oseas as YOSVANY?BLEA [id number] [facility] WIL[facility] 353 [facility] OFFICE [facility] 2022-08-09 2022-08-09 Outpatient R CORINA [facility] [id number] Univers 08:30:00 09:17:03 , [place] it y of [facility] 2022-08-09 2022-08-09 Office [facility] 1.2.840.114 [id number] Univers 08:30:00 09:17:03 Visit , [place] ORR 350.1.13.10 ity of G[place] 4.2.7.2.686 Oseas as YOSVANY?BLEA [id number] [address] OFFICE [facility] 2022-08-09 2022-08-09 Telephone [facility] 1.2.391.434 [id number] Univers 00:00:00 00:00:00 Nitza Yared ZANDRA 350.1.13.10 i ty of [facility] 4.2.7.2.[place] [id number] Ct azael RICHTER 059 [facility] 2022-08-07 2022-08-07 Outpatient R STACEY [facility] [id number] Univers 16:20:00 16:34:39 ALYCIA vaz o f [facility] 2022-08-07 2022-08-07 Urgent Alycia Soria [facility] 1.2.840 .114 [id number] Univers 16:20:00 16:34:39 Care Unknown, [facility] 350.1.13.10 ity of [facility] 4.2.7.2.686 Oseas as YOSVANY?BLEA [phone] Ct dicmagali WILSON [address] MEDICAL OFFICE [facility] 2022-08-05 2022-08-05 Outpatient R JESUS FERNANDEZ [facility] [id number] Univers 08:00:00 09:24:43 JESUS FERNANDEZ ity [facility] 2022-08-05 2022-08-05 Office [facility] 1.2.840.114 [id number] Univers 08:00:00 09:24:43 Visit Jesus [facility] 350.1.13.10 ity of [facility] 4.2.7.2.686 Oseas as YOSVANY?BLEA [phone] Ct azael WILSON 092 [facility] OFFICE [facility] 2022-08-04 2022-08-04 Patient Kobi [facility] 1.2.840.114 [id number] Univers 00:00:00 00:00:00 Outreach Gauri [facility] 350.1.13.10 i ty of [place] 4.2.7.2.686 Oseas as YOSVANY?BLEA [phone] Ct azael WILSON 044 [facility] OFFICE [facility] 2022-08-03 2022-08-03 Outpatient R CORINA [facility] [id number] Univers 15:00:00 16:25:15 , [place] baron y of [facility] 2022-08-03 2022-08-03 Office [facility] 1.2.840.114 [id number] Univers 15:00:00 16:25:15 Visit , [place] [facility] 350.1.13.10 ity of Gema [place] 4.2.7.2.686 Oseas as YOSVANY?BLEA [id number] Ct dicmagali WILSON [address] MEDICAL OFFICE [facility] 2022-08-03 2022-08-03 Orders Doctor PATEL 1.2.840.114 [id number] Univers 00:00:00 00:00:00 Only Unassigned, ARTURO 350.1.13.10 ity of [place] [facility] 4.2.7.2.686 Oseas as [id number] [address] 2022-08-01 2022-08-01 Outpatient R NILES, [facility] [id number] Univers 08:40:00 09:24:21 NITZA itbabar of [facility] 2022-08-01 2022-08-01 Office [facility] 1.2.840.114 [id number] Univers 08:40:00 09:24:21 Visit Nitza Yared [place] PA[place] 350.1.13.10 i ty of [facility] 4.2.7.2.[place] [id number] [address] 2022-07-29 2022-07-29 Outpatient R [facility] [id number] Univers 08:58:29 08:58:29 CHRISTINAORESTES татьяна o [facility] 2022-07-28 2022-07-28 Outpatient R [facility] [id number] Univers 11:00:00 23:59:00 MANDYLEE ANN татьяна o [facility] 2022-07-28 2022-07-28 Patient [facility] 1.2.840.114 [id number] Univers 00:00:00 00:00:00 Outreach Gauri Yared [place] 350.1.13.10 ity of [facility] 4.2.7.2.[place] [id number] [address] 2022-07-20 2022-07-20 Outpatient R [facility], [facility] [id number] Univers 16:00:00 23:59:00 SUBHASH vaz o [facility] 2022-07-19 2022-07-19 Telephone [facility] 1.2.613.342 [id number] Univers 00:00:00 00:00:00 Subhash [place] 350.1.13.10 ity of [facility] 4.2.7.2.[place] [id number] [address] 2022-07-19 2022-07-19 Orders Doctor PATEL 1.2.840.114 [id number] Univers 00:00:00 00:00:00 Only Unassigned, ARTURO 350.1.13.10 ity of [place] [facility] 4.2.7.2.686 Oseas as [id number] [address] 2022-07-18 2022-07-18 Outpatient R NORMAN [facility] [id number] Univers 12:54:03 23:59:00 SUBHASH ity o f [facility] 2022-07-18 2022-07-18 Telephone [facility] 1.2.134.175 [id number] Univers 00:00:00 00:00:00 Subhash DE PAZ 350.1.13.10 ity of [place].2.7.2.[place] [id number] Ct dical NAL [address] [place] [address] 2022-07-14 2022-07-14 Telephone [facility] 1.2.662.305 [id number] Univers 00:00:00 00:00:00 Subhash DE PAZ 350.1.13.10 ity of [place] 4.2.7.2.[place] [id number] Ct dicmagali NEELAM 059 [facility] 2022-07-12 2022-07-12 Telephone [facility] 1.2.516.964 [id number] Univers 00:00:00 00:00:00 Subhash DE PAZ 350.1.13.10 ity of [place] 4.2.7.2.[place] [id number] Ct dicmagali NAL 059 [facility] 2022-07-11 2022-07-11 Skeiner 2, Adc Lab [facility] 1.2.840.114 [id number] Univers 15:00:00 15:15:00 Visit Subhash Dumont 350.1.13.10 ity of [place] 4.2.7.2.[place] [id number] Ct dicmagali NAL 353 [facility] 2022-07-11 2022-07-11 Office [facility] 1.2.840.114 [id number] Univers 13:40:00 14:26:01 Visit Subhash DE PAZ 350.1.13.10 ity of [place] 4.2.7.2.[place] [id number] Ct dical NAL [address] BUILDING 2022-07-11 2022-07-11 Outpatient R NORMAN [facility] [id number] Univers 13:40:00 14:26:01 SUBHASH montelongo [facility] 2022-07-09 2022-07-09 Urgent Radha Burrows [facility] 1.2.840. 114 [id number] Univers 12:00:00 12:56:23 Care Unknown, Attending HEALTH 350.1.13.10 ity [facility] 4.2.7.2.686 Oseas as YOSVANY?BLEA [id number] Ct azael WILSON [address] MEDICAL OFFICE BUILDING 2022-07-09 2022-07-09 Outpatient R STORMY [facility] [id number] Univers 12:00:00 12:56:23 RADHA montelongo [facility] 2022-04-21 2022-04-21 Outpatient JENNIFER [facility] [id number] [facility] 08:47:28 10:32:52 ABRAHAM Colleg e of Medicin e 2022-02-14 2022-02-14 Outpatient JESSIE [facility] [id number] [facility] 09:47:21 10:31:38 JULES Colle ge of Medicin e 2021-12-20 2021-12-20 Outpatient JENNIFER [facility] [id number] [facility] 13:12:30 14:48:43 ABRAHAM Colleg e of Medicin e 2021-09-01 2021-09-01 Outpatient JESSIE [facility] [id number] [facility] 12:38:03 13:39:03 JULES Colle ge of Medicin e 2021-08-23 2021-08-23 Outpatient JENNIFER [facility] [id number] [facility] 13:00:30 13:27:58 ARBAHAM Colleg e of Medicin e 2021-06-30 2021-06-30 Outpatient KOLTON [facility] [id number] [facility] 14:39:19 15:46:54 JONE Gordong e of Medicin e 2021-06-09 2021-06-09 Outpatient JESSIE [facility] [id number] [facility] 15:39:16 16:24:09 JULES Colle ge of Medicin e 2021-06-04 2021-06-04 Outpatient LEANDRA STONE [facility] [id number] [facility] 13:20:22 16:02:14 JULES Evan ge of Medicin e 2021-04-23 2021-04-23 Outpatient LEANDRA HAWLEY Gema [id number] [facility] 14:25:15 16:32:18 ABRAHAM George e of Medicin e 2019-05-17 2019-05-17 Office LEANDRA Hawley 1.2.840.114 [id number] [facility] 13:25:40 13:35:40 Visit Abraham AMBULATOR 350.1.13.21 College Tae[employer]in Y 0.2.7.2.686 of [id number] Medi didi 300 e 2019-03-06 2019-03-06 Office LEANDRA Stone [id number] [facility] 09:14:55 09:29:55 Visit Jules To AMBULATOR 350.1.13.21 College Y 0.2.7.2.686 of [id number] Medi didi 300 e Results Test Description Test Time Test Comments Results Result Comments Source POCT GLUCOSE (AUTOMATED) 2022-11-16 16:27:10 Test Item Value Reference Range Interpretation Comme nts POCT GLU (test code = 9668881364) 128 mg/dL 70-110 H Lab Interpretation (test code = 27090-4) Abnormal [facility] GLUCOSE (AUTOMATED)2022-11-16 16:27:10 Test Item Value Reference Range Interpretation Comments POCT GLU (test code = 0488763075) 128 mg/dL 70-110 H Lab Interpretation (test code = Abnormal 47672-9) [facility] GLUCOSE (AUTOMATED)2022-11-16 16:27:10 Test Item Value Reference Range Interpretation Comments POCT GLU (test code = 7664458029) 128 mg/dL 70-110 H Lab Interpretation (test code = Abnormal 08961-0) [facility] GLUCOSE (AUTOMATED)2022-11-16 16:27:10 Test Item Value Reference Range Interpretation Comments POCT GLU (test code = 8834111215) 128 mg/dL 70-110 H Lab Interpretation (test code = Abnormal 31360-7) [facility] GLUCOSE (AUTOMATED)2022-11-16 16:27:10 Test Item Value Reference Range Interpretation Comments POCT GLU (test code = 8222998145) 128 mg/dL 70-110 H Lab Interpretation (test code = Abnormal 49728-4) [facility] URINALYSIS W SPECIFIC [id number] 16:39:00 Test Item Value Reference Range Interpretation Comments POCT U SP GRAV (test code = 1.010 mg/dl 1.005-1.025 3255) POCT PH U (test code = 3254) 7 mg/dl 5-8 POCT U LEUK EST (test code = neg Negative - Negative 3263) POCT U NIT (test code = 3262) neg Negative - Negative POCT U PROT (test code = 30 Negative - Negative 3259) POCT U GLU (test code = 3256) normal Negative - Negative POCT U KETONE (test code = ++ Negative - Negative 3258) POCT U UROBILI (test code = normal 0.2-1 0) POCT U BILI (test code = neg Negative - Negative 3261) POCT U BLD (test code = 3257) trace Negative - Negative POCT U COLOR (test code = yellow 3266) POCT U APPEAR (test code = vlear 3267) Lab Interpretation (test code Abnormal = 97140-7) [facility] HEMOGLOBIN A1C [id number] 22:16:00 Test Item Value Reference Range Interpretation Comments POCT HBA1C (test code = 4548-4) 7.0 % 4-6 A Lab Interpretation (test code = Abnormal 47754-2) [facility] HEMOGLOBIN A1C [id number] 22:16:00 Test Item Value Reference Range Interpretation Comments POCT HBA1C (test code = 4548-4) 7.0 % 4-6 A Lab Interpretation (test code = Abnormal 49936-9) [facility] HEMOGLOBIN A1C [id number] 22:16:00 Test Item Value Reference Range Interpretation Comments POCT HBA1C (test code = 4548-4) 7.0 % 4-6 A Lab Interpretation (test code = Abnormal 94002-7) [facility] URINALYSIS W SPECIFIC [id number] 18:30:00 Test Item Value Reference Range Interpretation [...] 3267) Lab Interpretation (test code Abnormal = 85449-3) [id number]:17[facility]00 Test Item Value Reference Range Interpretation Comments POC-GLUCOSE METER 162 mg/dL 70-110 H TESTED AT [facility] 7200 (JUNIOR) (test code [address] [place] = 1538) [place] [address]
[2023-01-02 17:12] LABS: Absolute Lymphocytes (CBC) 1.8 K/uL (0.7-4.9); Hematocrit 38.8 % (36.0-45.0); Lymphocytes % 27.4 % (15.3-44.8); MCV 85.1 fL (80-100); MPV 8.2 fL (7.6-11.3); RBC Red Blood Cell Count 4.56 M/uL (3.86-4.86)
[2023-01-02 17:30] LABS: Albumin 3.3 g/dL (3.4-5.0); Bilirubin Total 1.3 mg/dL (0.2-1.0); Protein, Total 6.4 g/dL (6.4-8.2)
[2023-01-02 18:33] LABS: Specific Gravity 1.016 (1.005-1.030); Transitional Epithelial <5 /HPF (None Seen); Urine Bacteria <20 /HPF (<20); Urine Bilirubin NEGATIVE (Negative); Urine Blood Negative (Negative); Urine Clarity Turbid (Clear); Urine Color Yellow (Yellow); Urine Glucose NEGATIVE (Negative); Urine Mucus Slight /HPF (None Seen); Urine Protein 1+ (Negative); Urine RBC <5 /HPF (None Seen); Urine Urobilinogen 1+ (Normal); Urine pH 5.5 (5.0-7.0)
[2023-01-02] MEDS ORDERED: MAGNESIUM SULFATE 1 gm IVPB 1 GM/100 ML BAG IV ONE (18:51)
[2023-01-02] MEDS ORDERED: KCL 20 MEQ/100 mL IVPB 100 ML IV ONE (18:51)
--- NOTE | 2023-01-02 19:06 | EDPHYS ---
Physician Documentation [facility] Name: Indira Dunbar Age: 77 yrs Sex: Female : 1945 Arrival Date: 01/02/2023 Time: 16:15 Bed 15 Private MD: ED Physician Mikey Gordillo HPI: 01/02 16:56 This 77 yrs old Female presents to ER via Wheelchair with complaints of Abnormal Lab snw Results. 16:56 Onset: The symptoms/episode began/occurred 12/29/22. Pt states, "I feel pretty good". snw Historical: - Allergies: 16:27 No Known Allergies; hb - Home Meds: 16:27 aspirin 81 mg Oral cap 1 cap once daily [Active]; donepezil 10 mg Oral tab 1 tab once hb daily [Active]; escitalopram oxalate 10 mg Oral tab 1 tab once daily [Active]; hydrochlorothiazide 25 mg Oral tab 1 tab once daily [Active]; losartan 50 mg Oral tab once daily [Active]; metformin 1,000 mg Oral tab 1 tab 2 times per day [Active]; simvastatin 40 mg Oral tab 1 tab once daily [Active]; B12 [Active]; - PMHx: 16:27 Alzheimer's disease; Dementia; diabetes mellitus; Glaucoma; Hypercholesterolemia; hb Parkinson's disease; - PSHx: 16:27 None; hb - Immunization history:: Adult Immunizations up to date. - Social history:: Smoking status: Patient denies any tobacco usage or history of. ROS: 16:55 Eyes: Negative for injury, pain, redness, and discharge, ENT: Negative for injury, snw pain, and discharge, Neck: Negative for injury, pain, and swelling, Cardiovascular: Negative for chest pain, palpitations, and edema, Respiratory: Negative for shortness of breath, cough, wheezing, and pleuritic chest pain, Abdomen/GI: Negative for abdominal pain, nausea, vomiting, diarrhea, and constipation, Back: Negative for injury and pain, : Negative for injury, bleeding, discharge, and swelling, MS/Extremity: Negative for injury and deformity, Skin: Negative for injury, rash, and discoloration, Neuro: Negative for headache, weakness, numbness, tingling, and seizure, Psych: Negative for depression, anxiety, suicide ideation, homicidal ideation, and hallucinations. 16:55 Constitutional: Positive for severe electrolyte abnormalities found at [facility] 12/29/22. Daughter states pt is less alert than normal.. Exam: 16:55 Constitutional: This is a well developed, well nourished patient who is awake, alert, snw and in no acute distress. Head/Face: Normocephalic, atraumatic. Eyes: Pupils equal round and reactive to light, extra-ocular motions intact. Lids and lashes normal. Conjunctiva and sclera are non-icteric and not injected. Cornea within normal limits. Periorbital areas with no swelling, redness, or edema. ENT: Nares patent. No nasal discharge, no septal abnormalities noted. Tympanic membranes are normal and external auditory canals are clear. Oropharynx with no redness, swelling, or masses, exudates, or evidence of obstruction, uvula midline. Mucous membranes moist. Neck: Trachea midline, no thyromegaly or masses palpated, and no cervical lymphadenopathy. Supple, full range of motion without nuchal rigidity, or vertebral point tenderness. No Meningismus. Chest/axilla: Normal chest wall appearance and motion. Nontender with no deformity. No lesions are appreciated. Cardiovascular: Regular rate and rhythm with a normal S1 and S2. No gallops, murmurs, or rubs. Normal PMI, no JVD. No pulse deficits. Respiratory: Lungs have equal breath sounds bilaterally, clear to auscultation and percussion. No rales, rhonchi or wheezes noted. No increased work of breathing, no retractions or nasal flaring. Abdomen/GI: Soft, non-tender, with normal bowel sounds. No distension or tympany. No guarding or rebound. No evidence of tenderness throughout. Back: No spinal tenderness. No costovertebral tenderness. Full range of motion. Skin: Warm, dry with normal turgor. Normal color with no rashes, no lesions, and no evidence of cellulitis. MS/ Extremity: Pulses equal, no cyanosis. Neurovascular intact. Full, normal range of motion. Neuro: Awake and alert, GCS 15, oriented to person, place, time, and situation. Cranial nerves II-XII grossly intact. Motor strength 5/5 in all extremities. Sensory grossly intact. Cerebellar exam normal. Normal gait. Psych: Awake, alert, with orientation to person, place and time. Behavior, mood, and affect are within normal limits. Vital Signs: 16:21 BP 156 / 83; Pulse 61; Resp 16; Temp 98.5; Pulse Ox 97% on R/A; Weight 68.04 kg; Height hb 5 ft. 4 in. ; Pain 0/10; 19:13 BP 168 / 74; Pulse 71; Resp 18; Pulse Ox 94% on R/A; nj1 20:00 BP 162 / 92; Pulse 68; Resp 18; Pulse Ox 96% on R/A; nj1 21:27 BP 184 / 81; Pulse 72; Resp 19 S; Pulse Ox 96% on R/A; as6 16:21 Body Mass Index 25.75 (68.04 kg, 162.56 cm) hb 16:21 Pain Scale: Adult hb MDM: 16:22 Patient medically screened. snw 18:33 Differential diagnosis: electrolyte derangement. Data reviewed: vital signs, nurses snw notes, lab test result(s). I considered the following discharge prescriptions or medication management in the emergency department Medications were administered in the Emergency Department. See MAR. Historians other than the Patient: Daughter/Son: Daughter. Response to treatment: the patient's symptoms have mildly improved after treatment. Special discussion: Based on the history and exam findings, there is no indication for further emergent testing or inpatient evaluation. I discussed with the patient/guardian the need to see the primary care provider for further evaluation of the symptoms. 01/02 16:24 Order name: CBC with Diff; Complete Time: 17:19 snw 01/02 16:24 Order name: CMP; Complete Time: 18:01 snw 01/02 16:24 Order name: Lipase; Complete Time: 18:01 snw 01/02 16:24 Order name: Urinalysis w/ reflexes; Complete Time: 19:04 snw 01/02 18:19 Order name: Add On-Lab snw 01/02 18:23 Order name: Magnesium; Complete Time: 18:32 EDMS 01/02 19:06 Order name: Urine Culture EDWI 01/02 16:24 Order name: IV Saline Lock; Complete Time: 16:57 snw 01/02 16:24 Order name: Labs collected and sent; Complete Time: 16:57 snw Administered Medications: 21:26 Discontinued: NS 0.9% IV 1000 ml IV at 75 ml/hr continuous as6 17:24 Drug: NS 0.9% IV 1000 ml Route: IV; Rate: 75 ml/hr; Site: right hand; ap3 21:26 Follow up: Response: No adverse reaction; IV Status: Order to discontinue infusion; IV as6 Intake: 200ml 19:12 Drug: Potassium Chloride IV 20 mEq Route: IV; Rate: calculated rate; Site: right wrist; nj1 21:26 Follow up: Response: No adverse reaction; IV Status: Completed infusion; IV Intake: as6 100ml 19:12 Drug: Magnesium Sulfate IVPB 1 grams Route: IVPB; Infused Over: 1 hrs; Site: right nj1 wrist; 20:14 Follow up: Response: No adverse reaction; IV Status: Completed infusion; IV Intake: nj1 100ml Disposition Summary: 01/02/23 19:05 Discharge Ordered Location: Home snw Condition: Stable snw Diagnosis - Hypomagnesemia snw - Hypokalemia snw Followup: snw - With: Emergency Department - When: As needed - Reason: Worsening of condition Followup: snw - With: Private Physician - When: 2 - 3 days - Reason: Recheck today's complaints, Continuance of care, Re-evaluation by your physician Discharge Instructions: - Discharge Summary Sheet snw - Potassium Content of Foods snw - Hypomagnesemia snw - Hypokalemia snw Forms: - Medication Reconciliation Form snw - Thank You Letter snw - Antibiotic Education snw - Prescription Opioid Use snw Signatures: Dispatcher [employer] EDLuna Hair FNP-C TELEGRAPHIC TYPEWRITER REPAIRER-Csnw Mally Coleman RN RN Maki Lancaster RN RN ap3 Mariam Samano RN RN nj1 Dominick Mcmahon RN as6 Corrections: (The following items were deleted from the chart) 16:29 16:27 Home Meds: glipizide 10 mg Oral tab 1 tab once daily; hb hb
--- NOTE | 2023-01-02 19:06 | ER ---
Nurse's Notes [facility] Name: Indira Dunbar Age: 77 yrs Sex: Female : 1945 Arrival Date: 01/02/2023 Time: 16:15 Bed 15 Private MD: Diagnosis: Hypomagnesemia;Hypokalemia Presentation: 01/02 16:21 Chief complaint: Daughter reports recent blood work showed UTI, K 3.0, BGL 32, pt has hb been lethargic and has had lack of appetite for last few days. Coronavirus screen: At this time, the client does not indicate any symptoms associated with coronavirus-19. Ebola Screen: No symptoms or risks identified at this time. Initial Sepsis Screen: Does the patient meet any 2 criteria? No. Patient's initial sepsis screen is negative. Does the patient have a suspected source of infection? No. Patient's initial sepsis screen is negative. Risk Assessment: Do you want to hurt yourself or someone else? Patient reports no desire to harm self or others. Onset of symptoms was January 02, 2023. 16:21 Method Of Arrival: Wheelchair hb 16:21 Acuity: KYMBERLY 3 hb Historical: - Allergies: 16:27 No Known Allergies; hb - Home Meds: 16:27 aspirin 81 mg Oral cap 1 cap once daily [Active]; donepezil 10 mg Oral tab 1 tab once hb daily [Active]; escitalopram oxalate 10 mg Oral tab 1 tab once daily [Active]; hydrochlorothiazide 25 mg Oral tab 1 tab once daily [Active]; losartan 50 mg Oral tab once daily [Active]; metformin 1,000 mg Oral tab 1 tab 2 times per day [Active]; simvastatin 40 mg Oral tab 1 tab once daily [Active]; B12 [Active]; - PMHx: 16:27 Alzheimer's disease; Dementia; diabetes mellitus; Glaucoma; Hypercholesterolemia; hb Parkinson's disease; - PSHx: 16:27 None; hb - Immunization history:: Adult Immunizations up to date. - Social history:: Smoking status: Patient denies any tobacco usage or history of. Screenin:26 Abuse screen: Denies threats or abuse. Nutritional screening: No deficits noted. ap3 Tuberculosis screening: No symptoms or risk factors identified. 21:27 [facility] ED Fall Risk Assessment (Adult) Score/Fall Risk Level 3 or more points = High as6 Risk. Assessment: 17:26 General: Appears comfortable, Behavior is calm, cooperative, appropriate for age. Pain: ap3 Denies pain. Neuro: Level of Consciousness is awake, alert, obeys commands, Oriented to person, place, time, situation, Speech is normal. Cardiovascular: Patient's skin is warm and dry. Respiratory: Airway is patent Respiratory effort is even, unlabored, Respiratory pattern is regular, symmetrical. 19:12 Reassessment: Patient appears in no apparent distress at this time. Patient and/or nj1 family updated on plan of care and expected duration. Pain level reassessed. Patient is alert, oriented x 3, equal unlabored respirations, skin warm/dry/pink. Patient denies pain at this time. 20:00 Reassessment: Patient appears in no apparent distress at this time. Patient and/or nj1 family updated on plan of care and expected duration. Pain level reassessed. Patient is alert, oriented x 3, equal unlabored respirations, skin warm/dry/pink. Vital Signs: 16:21 BP 156 / 83; Pulse 61; Resp 16; Temp 98.5; Pulse Ox 97% on R/A; Weight 68.04 kg; Height hb 5 ft. 4 in. ; Pain 0/10; 19:13 BP 168 / 74; Pulse 71; Resp 18; Pulse Ox 94% on R/A; nj1 20:00 BP 162 / 92; Pulse 68; Resp 18; Pulse Ox 96% on R/A; nj1 21:27 BP 184 / 81; Pulse 72; Resp 19 S; Pulse Ox 96% on R/A; as6 16:21 Body Mass Index 25.75 (68.04 kg, 162.56 cm) hb 16:21 Pain Scale: Adult hb ED Course: 16:18 Patient arrived in ED. im 16:21 Luna Rodriguez [facility]-C [facility] snw 16:21 Mikey Gordillo MD is Attending Physician. snw 16:23 Triage completed. hb 16:27 Arm band placed on. hb 16:57 Initial lab(s) drawn, by me, sent to lab. Inserted saline lock: 20 gauge in right em1 wrist, using aseptic technique. Blood collected. 17:11 Maki Lancaster, MARIO is Primary Nurse. ap3 17:26 Patient has correct armband on for positive identification. Bed in low position. Call ap3 light in reach. Side rails up X2. Adult w/ patient. Pulse ox on. NIBP on. Door closed. Noise minimized. 21:27 No provider procedures requiring assistance completed. IV discontinued, intact, as6 bleeding controlled, No redness/swelling at site. Pressure dressing applied. Administered Medications: 21:26 Discontinued: NS 0.9% IV 1000 ml IV at 75 ml/hr continuous as6 17:24 Drug: NS 0.9% IV 1000 ml Route: IV; Rate: 75 ml/hr; Site: right hand; ap3 21:26 Follow up: Response: No adverse reaction; IV Status: Order to discontinue infusion; IV as6 Intake: 200ml 19:12 Drug: Potassium Chloride IV 20 mEq Route: IV; Rate: calculated rate; Site: right wrist; nj1 21:26 Follow up: Response: No adverse reaction; IV Status: Completed infusion; IV Intake: as6 100ml 19:12 Drug: Magnesium Sulfate IVPB 1 grams Route: IVPB; Infused Over: 1 hrs; Site: right nj1 wrist; 20:14 Follow up: Response: No adverse reaction; IV Status: Completed infusion; IV Intake: nj1 100ml Medication: 17:27 VIS not applicable for this client. ap3 Intake: 20:14 IV: 100ml; Total: 100ml. nj1 21:26 IV: 200ml; Total: 300ml. as6 21:26 IV: 100ml; Total: 400ml. as6 Outcome: 19:05 Discharge ordered by MD. carrasco 21:27 Discharged to home via wheelchair, with family. as6 21:27 Condition: stable 21:27 Discharge instructions given to patient, family, Instructed on discharge instructions, follow up and referral plans. Demonstrated understanding of instructions, follow-up care. 21:28 Patient left the ED. as6 Signatures: Luna Rodriguez, BC COMB CAPPER-Raghu Marcelino em1 Mally Coleman, RN RN Maki Lancaster RN RN ap3 Dominick Mcmahon RN RN as6 Mariam Samano RN RN nj1 Babita Peters Corrections: (The following items were deleted from the chart) 16:27 16:21 Chief complaint: Daughter reports recent blood work showed UTI and low potassium, hb pt has been lethargic and has lack of appetitive for last few days hb 16:29 16:27 Home Meds: glipizide 10 mg Oral tab 1 tab once daily; hb hb
[2023-01-02 22:44] VITALS: TEMP 98.5
[2023-01-02 22:47] VITALS: O2SAT 96
[2023-01-02 22:49] VITALS: BP 184/81
== END 2023-01-02 21:28 | disposition home or self-care (01) ==
LOC: ER 16:15
DX: E83.42 Hypomagnesemia (principal); E87.6 Hypokalemia; G30.9 Alzheimer's disease, unspecified; F02.80 Dementia in other diseases classified elsewhere, unspecified severity, without behavioral disturbance, psychotic disturbance, mood disturbance, and anxiety; E11.9 Type 2 diabetes mellitus without complications; Z79.82 Long term (current) use of aspirin
CPT/HCPCS: 96365; 96361; 96368; 87088; 85025; 81001; 87086; 36415; 83735; 83690; 80053; 99284; 96366; J3480; J3475

== ENCOUNTER 2025-03-09 12:22 | Emergency (ER) | payer OTHER ==
[2025-03-09 13:06] LABS: Absolute Lymphocytes (CBC) 2.0 K/uL (0.7-4.9); Hematocrit 39.9 % (36.0-45.0); Hemoglobin 13.6 g/dL (12.0-15.0); MCH 30.6 pg (27.0-35.0); MCHC 34.2 g/dL (32.0-36.0); MCV 89.6 fL (80-100); MPV 9.4 fL (7.6-11.3); Nucleated RBC Absolute Count 0.0 (0-0); Nucleated Red Blood Cells % 0.3 % (0-0); RBC Red Blood Cell Count 4.45 M/uL (3.86-4.86); White Blood Count 9.10 thou/uL (4.3-10.9)
[2025-03-09 13:14] LABS: PT Prothrombin Time 11.9 SECONDS (10-13.0); Protime INR 1.05
--- NOTE | 2025-03-09 13:33 | RAD REPORT ---
EXAMINATION: Head Brain Wo Cont CLINICAL INDICATION: Female, 79 years old.SEIZURE TECHNIQUE: Axial CT images from the skull base to the vertex without intravenous contrast. Coronal an d sagittal reformatted images were created from the data set. One or more of the following dose reduction techniques were used: Automated exposure control, adjustment of the mA and/or kV according to patient size, and/or iterative reconstruction. Unless otherwise specified, incidental findings do not require dedicated imaging follow-up. [id number]. COMPARISON: 09/08/2022 FINDINGS: INTRACRANIAL: No acute intracranial hemorrhage. No acute large vascular territory infarct. No hydroce phalus. No mass effect or midline shift. Mild chronic small vessel ischemic changes.Mild cerebral atrophy. VASCULATURE: No visualized abnormalities in the arteries or dural venous sinuses. SCALP/SKULL: No calvarial fracture identified. No acute soft tissue abnormality. SINUSES: The visualized paranasal sinuses are mostly clear. No significant mastoid fluid. IMPRESSION: No acute intracranial abnormality.
[2025-03-09 13:39] LABS: PTT, Activated Partial Thromb 19.2 SECONDS (27.2-37.4)
[2025-03-09 13:49] LABS: Anion Gap 12.2 mEq/L (5.0-15.0); BUN Blood Urea Nitrogen 27.0 mg/dL (7-18); Glucose Level 187.0 mg/dL (74-106); Potassium 3.2 mEq/L (3.5-5.1); Troponin High Sensitivity 29.6 pg/mL (<58.9)
[2025-03-09 13:52] LABS: Sqamous Epithelial <5 /HPF (None Seen); Urine Crystals Unidentified Few /HPF (None Seen); Urine Micro Reflex YN NO BILL MICROSCOPIC
[2025-03-09 13:54] LABS: White Blood Cell Scan OK (OK)
[2025-03-09 13:55] LABS: Blood Morphology Comment NOT SEEN (NOT SEEN); Platelets Clumped FEW
[2025-03-09] MEDS ORDERED: NA CHLORIDE 0.9% 250 ML ONE (14:42)
[2025-03-09] MEDS ORDERED: KCL 20 MEQ/100 mL IVPB 100 ML IV ONE (14:42)
[2025-03-09] MEDS ORDERED: LEVETIRACETAM 500 MG/5 ML VIAL IV ONE (15:20)
[2025-03-09] MEDS ORDERED: NA CHLORIDE 0.9% 100 ML ONE (15:20)
--- NOTE | 2025-03-09 15:38 | ER ---
Nurse's Notes [facility] Name: Indira Dunbar Age: 79 yrs Sex: Female : 1945 Arrival Date: 03/09/2025 Time: 12:22 Bed 3 Private MD: Diagnosis: Other seizures;Hypokalemia;Hyperglycemia, unspecified Presentation: 03/09 12:48 Chief complaint: EMS states: toned out for seizures. Daughter was assisting patient to [facility] the restroom and she had just sat on the toilet and had a seizure. Postictal on EMS arrival. RA sat was 85%, up to 90% on 4 lpm nc. BGL 156. 18g LFA. Coronavirus screen: At this time, the client does not indicate any symptoms associated with coronavirus-19. Ebola Screen: No symptoms or risks identified at this time. Initial Sepsis Screen: Does the patient meet any 2 criteria? HR > 90 bpm. Does the patient have a suspected source of infection? No. Patient's initial sepsis screen is negative. Risk Assessment: Do you want to hurt yourself or someone else? Patient reports no desire to harm self or others. Onset of symptoms was March 09, 2025 at 11:30. 12:48 Method Of Arrival: EMS: [facility] 12:48 Acuity: KYMBERLY 3 me1 Triage Assessment: 12:52 General: Appears in no apparent distress. well groomed, well developed, well nourished, me1 Behavior is cooperative, appropriate for age. Pain: Denies pain. EENT: No signs and/or symptoms were reported regarding the EENT system. Neuro: Level of Consciousness is awake, alert, Oriented to person, Appropriate for age. Cardiovascular: Patient's skin is warm and dry. Respiratory: Airway is patent Respiratory effort is even, unlabored, Respiratory pattern is regular, symmetrical. GI: No signs and/or symptoms were reported involving the gastrointestinal system. : No signs and/or symptoms were reported regarding the genitourinary system. Derm: Skin is intact, is healthy with good turgor, Skin is pink, warm \T\ dry. Musculoskeletal: No signs and/or symptoms reported regarding the musculoskeletal system. Reports daughter reports at baseline patient is weight bearing and can transfer with assistance but unable to ambulate. Historical: - Allergies: 12:51 No Known Allergies; me1 - PMHx: 12:51 Alzheimer's disease; Dementia; diabetes mellitus; Glaucoma; Hypercholesterolemia; me1 Parkinson's disease; - PSHx: 12:51 eye surgery (Unknown); me1 - Immunization history:: Adult Immunizations up to date. - Infectious Disease History:: Denies. - Social history:: Smoking status: Patient denies any tobacco usage or history of. Screenin:54 [facility] ED Fall Risk Assessment (Adult) History of falling in the last 3 months, me1 including since admission No falls in past 3 months (0 pts) Confusion or Disorientation Yes (5 pts) Intoxicated or Sedated No (0 pts) Impaired Gait Yes (1 pt) Mobility Assist Device Used Yes (1 pt) Altered Elimination No (0 pt) Score/Fall Risk Level 0 - 2 = Low Risk Maintained a safe environment, Provided non-skid footwear, Hourly rounding (assess needs \T\ fall precautionary measures) done. Abuse screen: Denies threats or abuse. Nutritional screening: No deficits noted. Tuberculosis screening: No symptoms or risk factors identified. Assessment: 12:54 General: See triage assessment. me1 13:45 Reassessment: family remains at bedside. me1 15:41 Reassessment: Discharge delayed for potassium to finish infusing. me1 Vital Signs: 12:48 BP 143 / 45; Pulse 99; Resp 19; Temp 98.2; Pulse Ox 99% ; Weight 66.5 kg; Height 5 ft. me1 2 in. ; 13:00 BP 144 / 72; Pulse 92; Resp 17; Pulse Ox 98% ; me1 14:00 BP 124 / 61; Pulse 91; Resp 17; Pulse Ox 97% ; me1 15:00 BP 131 / 66; Pulse 89; Resp 16; Pulse Ox 96% on R/A; cf3 16:00 BP 121 / 65; Pulse 87; Resp 16; Pulse Ox 96% on R/A; cf3 17:00 BP 128 / 70; Pulse 91; Resp 16; Pulse Ox 94% on R/A; cf3 12:48 Body Mass Index 26.81 (66.50 kg, 157.48 cm) me1 ED Course: 12:47 Patient arrived in ED. cf3 12:48 Natasha Taylor, MARIO is Primary Nurse. me1 12:50 Elin Crowley MD is Attending Physician. sw6 12:51 Triage completed. me1 12:51 Arm band placed on Patient placed in an exam room. me1 12:54 Patient has correct armband on for positive identification. Bed in low position. Call me1 light in reach. Side rails up X2. Provided Education on: POC. Verbalized understanding.. Client placed on continuous cardiac and pulse oximetry monitoring. NIBP monitoring applied. compliance monitor on. Pulse ox on. NIBP on. 12:54 No provider procedures requiring assistance completed. Maintain EMS IV. Dressing me1 intact. Good blood return noted. Site clean \T\ dry. Gauge \T\ site: 18g Lfa. Flushed with 10 mL NS. 12:55 Basic Metabolic Panel Sent. me1 12:55 CBC with Diff Sent. me1 12:55 High Sensitivity Troponin Sent. me1 12:55 Protime (+inr) Sent. me1 12:55 Ptt, Activated Sent. me1 12:55 Initial lab(s) drawn, by ct, sent to lab. EKG done, by ED staff, reviewed by Elin Crowley MD. 13:09 UA W/ Microscopic Sent. me1 13:25 CT Head Brain wo Cont In Process Unspecified. EDMS 15:37 Duane Thompson MD is Referral Physician. sw6 17:23 IV discontinued, intact, bleeding controlled, No redness/swelling at site. Pressure cf3 dressing applied. Administered Medications: 14:50 Drug: Potassium Chloride IV 10 mEq IV at calculated rate once; administer over 1-2 me1 hours Route: IV; Rate: calculated rate; Site: left forearm; 15:37 Follow up: Response: No adverse reaction; IV Status: Completed infusion cf3 15:32 Drug: Keppra IV 500 mg IV at calculated rate once Route: IV; Rate: calculated rate; cf3 Site: left forearm; 15:41 Follow up: Response: No adverse reaction; IV Status: Completed infusion me1 Medication: 12:54 VIS not applicable for this client. me1 Outcome: 15:38 Discharge ordered by . sw6 17:22 Discharged to home via ambulance, cf3 17:22 Condition: improved 17:22 Discharge instructions given to family, Instructed on discharge instructions, follow up and referral plans. Demonstrated understanding of instructions, 17:23 Patient left the ED. cf3 Signatures: Dispatcher MedNatasha Mata RN RN me1 Elin Crowley MD MD sw6 Tanner Carlisle RN RN cf3
--- NOTE | 2025-03-09 15:38 | EDPHYS ---
Physician Documentation [facility] Name: Indira Dunbar Age: 79 yrs Sex: Female : 1945 Arrival Date: 03/09/2025 Time: 12:22 Bed 3 Private MD: PENNY Physician Elin Crowley HPI: 03/09 13:31 This 79 yrs old Female presents to ER via EMS with complaints of seizure. sw6 13:31 The patient presents from home for evaluation after a possible seizure that occurred sw6 just prior to arrival. She does have a history of Parkinson's as well as dementia and lives at home with her daughter. She is bedbound and does not ambulate. Her daughter had her up in the restroom to use the restroom before taking a bath when she reports she noticed her having a 7 to 8-minute seizure where she appeared stiff and was shaking. The patient's daughter reports she is used to her having twitches from her Parkinson's but reports that this was different. EMS was then called who reports the patient appeared postictal to them. No medications were given and she was brought to the ER for evaluation. She did not fall off of the toilet or hit her head. The daughter reports she had been in bed prior to her getting up to use the restroom and she had no fall or trauma throughout the night. The patient is unable to provide further information herself. Here for evaluation.. Historical: - Allergies: 12:51 No Known Allergies; me1 - PMHx: 12:51 Alzheimer's disease; Dementia; diabetes mellitus; Glaucoma; Hypercholesterolemia; me1 Parkinson's disease; - PSHx: 12:51 eye surgery (Unknown); me1 - Immunization history:: Adult Immunizations up to date. - Infectious Disease History:: Denies. - Social history:: Smoking status: Patient denies any tobacco usage or history of. ROS: 13:31 Unable to obtain ROS due to baseline dementia, sw6 15:38 Constitutional: Negative for fever, chills, and weight loss, sw6 Exam: 13:31 Neck: Trachea midline, no thyromegaly or masses palpated, and no cervical sw6 lymphadenopathy. Supple, full range of motion without nuchal rigidity, or vertebral point tenderness. No Meningismus. 13:31 Constitutional: The patient appears comfortable, non-diaphoretic, non-toxic, The patient responds to her name otherwise repeats "quit it" and "stop it". This is normal per her daughter. 13:31 Eyes: Blind bilaterally. 13:31 Chest/axilla: Palpation: is normal, no tenderness, 13:31 Cardiovascular: Rate: normal, Rhythm: regular, 13:31 Respiratory: the patient does not display signs of respiratory distress, Respirations: normal, Breath sounds: are clear throughout, 13:31 Abdomen/GI: Inspection: abdomen appears normal, Palpation: abdomen is soft and non-tender, in all quadrants, rebound tenderness, is not appreciated, 13:31 Skin: Appearance: Color: normal in color, 13:31 Neuro: The patient is at baseline history of dementia. She does respond when her name is called. She has noted to move all extremities x 4 but not to command., 14:25 ECG was reviewed by the Attending Physician. Vital Signs: 12:48 BP 143 / 45; Pulse 99; Resp 19; Temp 98.2; Pulse Ox 99% ; Weight 66.5 kg; Height 5 ft. me1 2 in. ; 13:00 BP 144 / 72; Pulse 92; Resp 17; Pulse Ox 98% ; me1 14:00 BP 124 / 61; Pulse 91; Resp 17; Pulse Ox 97% ; me1 15:00 BP 131 / 66; Pulse 89; Resp 16; Pulse Ox 96% on R/A; cf3 16:00 BP 121 / 65; Pulse 87; Resp 16; Pulse Ox 96% on R/A; cf3 17:00 BP 128 / 70; Pulse 91; Resp 16; Pulse Ox 94% on R/A; cf3 12:48 Body Mass Index 26.81 (66.50 kg, 157.48 cm) me1 MDM: 12:50 Medical Screening Exam initiated sw6 13:31 Differential diagnosis: Intracranial bleeding, seizure, electrolyte abnormality, UTI. 6 Data reviewed: vital signs, nurses notes, EMS record. 15:20 Management of patient was discussed with the following: Makeup Sales Advisor: Dr. Thompson with 6 the neurology service. Will start the patient on antiepileptics and recommend outpatient follow-up in 1 to 2 weeks.. Historians other than the Patient: Daughter/Son: daughter. ED course: The patient is doing well hernia. She is back to her baseline self per her daughter. The CT of her head shows no acute intracranial abnormalities. Her laboratory studies show a slight elevation in her glucose but no signs of DKA. Her BMP also showed a low potassium level of 3.2 which was replaced here in the ER. Her urinalysis showed no infection. I did speak with Dr. Thompson with the neurology service who recommends initiation of antiepileptic medication as well as outpatient follow-up for continued workup. Therefore she was given a dose of IV Keppra here in the ER. She remained stable here in the ER and is okay for discharge home with outpatient PCP follow-up in 1 week.. 15:39 Data reviewed: lab test result(s), CBC, electrolytes, urinalysis, EKG, radiologic [facility] studies, CT scan. 03/09 12:51 Order name: Basic Metabolic Panel; Complete Time: 14:27 03/09 14:27 Interpretation: Normal except: GLUC 187; K 3.2; Hyperglycemia, Hypokalemia. 03/09 12:51 Order name: CBC with Diff; Complete Time: 14:27 03/09 13:40 Interpretation: Within normal limits. 03/09 12:51 Order name: High Sensitivity Troponin; Complete Time: 14:27 03/09 12:51 Order name: Protime (+inr); Complete Time: 13:40 03/09 13:40 Interpretation: Within normal limits: INR <p>1.05</p>. 03/09 12:51 Order name: Ptt, Activated; Complete Time: 13:40 03/09 13:40 Interpretation: Within normal limits: PTT 19.2. 03/09 12:51 Order name: UA W/ Microscopic; Complete Time: 14:27 03/09 13:20 Order name: CBC Smear Scan; Complete Time: 14:27 EDNM 03/09 12:51 Order name: CT Head Brain wo Cont; Complete Time: 13:40 03/09 13:40 Interpretation: No acute disease. 03/09 12:51 Order name: Accucheck; Complete Time: 14:39 03/09 12:51 Order name: Cardiac monitoring; Complete Time: 12:55 03/09 12:51 Order name: EKG - Nurse/Tech; Complete Time: 12:55 03/09 12:51 Order name: IV Saline Lock; Complete Time: 12:55 03/09 12:51 Order name: Labs collected and sent; Complete Time: 12:55 03/09 12:51 Order name: NPO; Complete Time: 12:55 03/09 12:51 Order name: O2 Per Protocol; Complete Time: 12:55 03/09 12:51 Order name: O2 Sat Monitoring; Complete Time: 12:03/09 13:10 Order name: Labs - recollect needed: green; Complete Time: 13:52 sp 03/09 13:14 Order name: Labs - recollect needed: blue; Complete Time: 13:52 sp EC:25 Rate is 98 beats/min. Rhythm is regular. QRS interval is normal. QT interval is normal. sw6 No Q waves. T waves are Normal. No ST changes noted. Clinical impression: Normal ECG. Administered Medications: 14:50 Drug: Potassium Chloride IV 10 mEq IV at calculated rate once; administer over 1-2 me1 hours Route: IV; Rate: calculated rate; Site: left forearm; 15:37 Follow up: Response: No adverse reaction; IV Status: Completed infusion cf3 15:32 Drug: Keppra IV 500 mg IV at calculated rate once Route: IV; Rate: calculated rate; cf3 Site: left forearm; 15:41 Follow up: Response: No adverse reaction; IV Status: Completed infusion me1 Disposition Summary: 03/09/25 15:38 Discharge Ordered Notes: Location: Home sw6 Problem: new sw6 Symptoms: have improved sw6 Condition: Stable sw6 Diagnosis - Other seizures sw6 - Hypokalemia sw6 - Hyperglycemia, unspecified sw6 Followup: sw6 - With: Duane Thompson MD - When: 5 - 6 days - Reason: Continuance of care Discharge Instructions: - Discharge Summary Sheet sw6 - Seizure, Adult, Crlz-re-Rehs sw6 - Hypokalemia sw6 Forms: - Medication Reconciliation Form sw6 - Antibiotic Education sw6 - Prescription Opioid Use sw6 - Patient Portal Instructions sw6 - Leadership Thank You Letter sw6 Prescriptions: - Keppra 250 mg Oral tablet - take 1 tablet ORAL route 2 times per day; 60 tablet; Refills: 0, Product sw6 Selection Permitted Signatures: Dispatcher [employer] EDMS Deisy Langston Michelle, MARIO RN me1 Elin Crowley MD MD sw6 Tanner Carlisle, RN RN cf3 Corrections: (The following items were deleted from the chart) 12:52 12:52 BASIC METABOLIC PANEL+C.LAB.BRZ ordered. EDMS EDMS 12:52 12:52 CBC+H.LAB.BRZ ordered. EDMS EDMS 12: 12:52 Troponin High Sensitivity+C.LAB.BRZ ordered. EDMS EDMS 12:52 12:52 PROTIME (+INR)+COAG.LAB.BRZ ordered. EDMS EDMS 12:52 12:52 PTT, ACTIVATED+COAG.LAB.BRZ ordered. EDMS EDMS 12: 12:52 UA W/ Microscopic+U.LAB.BRZ ordered. EDMS EDMS 12:52 12:52 Head Brain Wo Cont+CT.RAD.BRZ ordered. EDMS EDMS 14:27 14:27 Normal except: GLUC 187; Hyperglycemia. sw6 sw6
[2025-03-09 17:42] VITALS: TEMP 98.2
[2025-03-09 17:50] VITALS: BP 128/70; O2SAT 94
== END 2025-03-09 17:23 | disposition home or self-care (01) ==
LOC: ER 12:22
DX: G40.89 Other seizures (principal); E87.6 Hypokalemia; E11.65 Type 2 diabetes mellitus with hyperglycemia; G30.9 Alzheimer's disease, unspecified; F02.80 Dementia in other diseases classified elsewhere, unspecified severity, without behavioral disturbance, psychotic disturbance, mood disturbance, and anxiety; G20.A1 Parkinson's disease without dyskinesia, without mention of fluctuations
CPT/HCPCS: 96365; 93005; 85025; 81001; 80048; 36415; 85610; 85730; 84484; 70450; 96375; 99285; J3480; J1953; J7050

== ENCOUNTER 2025-03-10 17:32 | Emergency (ER) | payer OTHER ==
[2025-03-10] MEDS ORDERED: NA CHLORIDE 0.9% 500 ML ONE (18:09)
[2025-03-10 18:15] LABS: Absolute Lymphocytes (CBC) 1.3 K/uL (0.7-4.9); Hematocrit 36.8 % (36.0-45.0); Hemoglobin 12.7 g/dL (12.0-15.0); MCH 30.4 pg (27.0-35.0); MCHC 34.5 g/dL (32.0-36.0); MCV 88.0 fL (80-100); MPV 8.5 fL (7.6-11.3); Nucleated RBC Absolute Count 0.0 (0-0); Nucleated Red Blood Cells % 0.0 % (0-0); RBC Red Blood Cell Count 4.18 M/uL (3.86-4.86); White Blood Count 11.60 thou/uL (4.3-10.9)
[2025-03-10 18:24] LABS: PT Prothrombin Time 13.4 SECONDS (10-13.0); Protime INR 1.19
[2025-03-10 18:35] LABS: ALT/SGPT 21.0 U/L (13-56); AST/SGOT 16.0 U/L (15-37); Albumin 3.0 g/dL (3.4-5.0); Albumin/Globulin Ratio 1.0 (1.1-1.8); Alkaline Phosphatase 42.0 U/L (45-117); Anion Gap 10.6 mEq/L (5.0-15.0); BUN Blood Urea Nitrogen 27.0 mg/dL (7-18); Bilirubin Indirect, Calculated 2.0 mg/dL (0.2-0.8); Globulin 2.9 g/dL (2.3-3.5); Glucose Level 260.0 mg/dL (74-106); Lipase 20.0 U/L (13-75); Magnesium 1.5 mg/dL (1.6-2.4); NT PRO-BNP 4960.0 pg/mL (<450); Potassium 3.6 mEq/L (3.5-5.1)
[2025-03-10 18:41] LABS: Troponin High Sensitivity 336.6 pg/mL (<58.9)
[2025-03-10] MEDS ORDERED: Magnesium Sulfate 2gm IVPB 2 G/50 ML BAG IV ONE (19:02)
--- NOTE | 2025-03-10 19:04 | RAD REPORT ---
EXAMINATION: Shoulder Left 2+ Views CLINICAL INDICATION: Female, 79 years old. PAIN COMPARISON: No prior exam. FINDINGS: No acute fracture. No malalignment/dislocation. Moderate left AC joint and mild left glenohumeral joint degenerative changes. Other: n/a IMPRESSION: No acute osseous abnormality.
--- NOTE | 2025-03-10 19:08 | RAD REPORT ---
EXAMINATION: Shoulder Right 2+ Views VIEWS: Two views CLINICAL INDICATION: Female, 79 years old. PAIN RIGHT COMPARISON: No prior exam. IMPRESSION: Mildly comminuted multipart fracture of the right proximal humerus involving the surgical neck and gr eater tuberosity. Displacement is mild. No dislocation. Mild right AC joint and glenohumeral joint degenerative changes.
--- NOTE | 2025-03-10 19:10 | RAD REPORT ---
EXAM: Chest Single View HISTORY: 79 years Female COUGH COMPARISON: 11/28/2022 FINDINGS: LUNGS/PLEURA: Low lung volumes with increased prominence of the pulmonary vasculature. CARDIAC/MEDIASTINUM: Magnified by portable technique, but probably within normal limits. UPPER ABDOMEN: No significant abnormality. BONES: Right proximal humerus fracture. LINES/TUBES/OTHER: N/A IMPRESSION: Low lung volumes with increased vascular prominence likely either representing vascular congestion/ed sarah or related to portable technique/low lung volumes. A chest CT is pending.
--- NOTE | 2025-03-10 19:17 | ER ---
Nurse's Notes [facility] Name: Indira Dunbar Age: 79 yrs Sex: Female : 1945 Arrival Date: 03/10/2025 Time: 17:32 Bed 13 Private MD: Diagnosis: Fracture of greater tuberosity of humerus;Hypomagnesemia;Non ST elevation [place];Type 2 diabetes mellitus with hyperglycemia;2-part nondisplaced fracture of surgical neck of right humerus;Do not resuscitate-hospice care only Presentation: 03/10 17:40 Chief complaint: EMS states: patient was in pain on left shoulder since she was rg5 discharge yesterday from seizure and the pain was triggering to start her seizure this morning. 17:40 Coronavirus screen: Client denies travel out of the [place] in the last 14 days. Ebola rg5 Screen: Patient negative for fever greater than or equal to 101.5 degrees Fahrenheit, and additional compatible Ebola Virus Disease symptoms Patient denies exposure to infectious person. Patient denies travel to an Ebola-affected area in the 21 days before illness onset. Initial Sepsis Screen: Does the patient meet any 2 criteria? No. Patient's initial sepsis screen is negative. Does the patient have a suspected source of infection? No. Patient's initial sepsis screen is negative. Risk Assessment: Do you want to hurt yourself or someone else? Patient reports no desire to harm self or others. Onset of symptoms was March 10, 2025. Care prior to arrival: Glucose check: 298. Activity prior to arrival: seizure. 17:40 Method Of Arrival: EMS rg5 17:40 Acuity: KYMBERLY 3 rg5 Triage Assessment: 17:40 General: Appears uncomfortable, Behavior is calm, cooperative, appropriate for age. rg5 Pain: Complains of pain in right arm Quality of pain is described as aching. EENT: No deficits noted. Neuro: Level of Consciousness is awake, Oriented to person, place, time, situation. Cardiovascular: Patient's skin is warm and dry. Respiratory: Airway is patent Trachea midline. GI: Abdomen is round non-distended. : No signs and/or symptoms were reported regarding the genitourinary system. Derm: Skin is intact, Skin is dry, Skin is normal. Musculoskeletal: Circulation, motion, and sensation intact. Range of motion: intact in all extremities. Historical: - Allergies: 17:40 No Known Allergies; rg5 - PMHx: 17:40 Alzheimer's disease; Dementia; diabetes mellitus; Glaucoma; Hypercholesterolemia; rg5 Parkinson's disease; - PSHx: 17:40 eye surgery; rg5 - Immunization history:: Adult Immunizations unknown. - Infectious Disease History:: Denies. - Social history:: Smoking status: unknown. - Family history:: not pertinent. Assessment: 17:40 General: Appears comfortable, Behavior is calm, cooperative, appropriate for age. rg5 17:40 Pain: Complains of pain in right arm Quality of pain is described as aching. rg5 18:00 Reassessment: No changes from previously documented assessment. Patient and/or family rg5 updated on plan of care and expected duration. Pain level reassessed. Patient is alert, oriented x 3, equal unlabored respirations, skin warm/dry/pink. 19:25 Reassessment: No changes from previously documented assessment. Patient and/or family rg5 updated on plan of care and expected duration. Pain level reassessed. Patient is alert, oriented x 3, equal unlabored respirations, skin warm/dry/pink. Vital Signs: 18:18 BP 133 / 92; Pulse 65; Resp 16; Pulse Ox 96% on 2 lpm NC; iw 20:11 BP 150 / 61; Pulse 86; Resp 18; Pulse Ox 95% on 2 lpm NC; Pain 2/10; rg5 20:11 Pain Scale: Adult rg5 Jaquan Coma Score: 19:12 Eye Response: spontaneous(4). Motor Response: obeys commands(6). Verbal Response: [place] oriented(5). Total: 15. ED Course: 17:37 Patient arrived in ED. ll1 17:48 Mikey Gordillo MD is Attending Physician. [place] 17:50 Viktor Rolle, MARIO is Primary Nurse. rg5 18:31 Triage completed. rg5 18:41 Notified ED physician of a critical lab result(s). troponin 336.8. ll1 18:50 XRAY Chest (1 view) In Process Unspecified. EDMS 18:50 Shoulder Right (2 View) XRAY In Process Unspecified. EDMS 18:50 Shoulder Left (2 View) XRAY In Process Unspecified. EDMS 19:16 Trung Rasheed MD is Referral Physician. [place] 19:16 Anjum Laboy MD is Referral Physician. [place] 20:14 IV discontinued, bleeding controlled, No redness/swelling at site. Pressure dressing rg5 applied. Administered Medications: 18:13 Drug: NS 0.9% IV 500 ml 500 ml IV at 1 bolus once; to be given as a bolus over 30 rg5 minutes Volume: 500 ml; Route: IV; Rate: 1 bolus; Site: right wrist; 19:59 Follow up: IV Status: Completed infusion; IV Intake: 500ml rg5 19:03 Drug: Magnesium Sulfate IVPB 2 grams IVPB once over 2 hrs Route: IVPB; Infused Over: 2 rg5 hrs; Site: right wrist; 19:37 Drug: Ondansetron IVP 4 mg IVP once; over 2 minutes Route: IVP; Site: right forearm; rg5 19:58 Follow up: Response: No adverse reaction; Pain is decreased rg5 19:38 Drug: Aspirin PO Chewable Tablet 81 mg PO once Route: PO; rg5 19:59 Follow up: Response: No adverse reaction; Pain is decreased rg5 19:38 Drug: Hydrocodone-Acetaminophen PO (7.5 mg-325 mg) 1 tabs PO once Route: PO; rg5 19:59 Follow up: Response: No adverse reaction; Pain is decreased rg5 Intake: 19:59 IV: 500ml; Total: 500ml. rg5 Outcome: 19:17 Discharge ordered by . [place] 20:13 Discharged to home via ambulance, rg5 20:13 Condition: stable 20:13 Instructed on discharge instructions, follow up and referral plans. Demonstrated understanding of instructions, follow-up care, medications, Prescriptions given X 2, 20:14 Patient left the ED. rg5 Signatures: Dispatcher [employer] EDMikey Cardona MD MD cha Williams, Irene, RN RN iw Jono Medley RN RN ll1 Viktor Rolle RN RN rg5
--- NOTE | 2025-03-10 19:17 | EDPHYS ---
Physician Documentation [facility] Name: Indira Dunbar Age: 79 yrs Sex: Female : 1945 Arrival Date: 03/10/2025 Time: 17:32 Bed 13 Private MD: ED Physician Mikey Gordillo HPI: 03/10 18:55 This 79 yrs old Female presents to ER via EMS with complaints of Shoulder [place] Pain. 18:55 The patient or guardian complains of decreased range of motion, pain. right shoulder. [place] Context: The problem was sustained at home, resulted from an unknown reason, The patient experiences decreased range of motion, The patient reports no obvious deformity. Modifying factors: the symptoms are alleviated by remaining still, The symptoms are aggravated by lifting weight, movement. Associated signs and symptoms: The patient has no apparent associated signs or symptoms. Severity of symptoms: At their worst the symptoms were moderate, in the emergency department the symptoms are unchanged. Treatment prior to arrival includes: no previous treatment. The patient has not experienced similar symptoms in the past. Historical: - Allergies: 17:40 No Known Allergies; rg5 - PMHx: 17:40 Alzheimer's disease; Dementia; diabetes mellitus; Glaucoma; Hypercholesterolemia; rg5 Parkinson's disease; - PSHx: 17:40 eye surgery; rg5 - Immunization history:: Adult Immunizations unknown. - Infectious Disease History:: Denies. - Social history:: Smoking status: unknown. - Family history:: not pertinent. ROS: 18:55 Constitutional: Negative for fever, chills, and weight loss, Eyes: Negative for injury, [place] pain, redness, and discharge, ENT: Negative for injury, pain, and discharge, Neck: Negative for injury, pain, and swelling, Cardiovascular: Negative for chest pain, palpitations, and edema, Respiratory: Negative for shortness of breath, cough, wheezing, and pleuritic chest pain, Abdomen/GI: Negative for abdominal pain, nausea, vomiting, diarrhea, and constipation, Back: Negative for injury and pain, : Negative for injury, bleeding, discharge, and swelling, Skin: Negative for injury, rash, and discoloration, Neuro: Negative for headache, weakness, numbness, tingling, and seizure, 18:55 MS/extremity: Positive for decreased range of motion, pain, of the anterior aspect of right shoulder and posterior aspect of right shoulder, Exam: 18:55 Constitutional: This is a well developed, well nourished patient who is awake, alert, [place] and in no acute distress. Head/Face: Normocephalic, atraumatic. Eyes: Pupils equal round and reactive to light, extra-ocular motions intact. Lids and lashes normal. Conjunctiva and sclera are non-icteric and not injected. Cornea within normal limits. Periorbital areas with no swelling, redness, or edema. ENT: Nares patent. No nasal discharge, no septal abnormalities noted. Tympanic membranes are normal and external auditory canals are clear. Oropharynx with no redness, swelling, or masses, exudates, or evidence of obstruction, uvula midline. Mucous membranes moist. Neck: Trachea midline, no thyromegaly or masses palpated, and no cervical lymphadenopathy. Supple, full range of motion without nuchal rigidity, or vertebral point tenderness. No Meningismus. Chest/axilla: Normal chest wall appearance and motion. Nontender with no deformity. No lesions are appreciated. Cardiovascular: Regular rate and rhythm with a normal S1 and S2. No gallops, murmurs, or rubs. Normal PMI, no JVD. No pulse deficits. Respiratory: Lungs have equal breath sounds bilaterally, clear to auscultation and percussion. No rales, rhonchi or wheezes noted. No increased work of breathing, no retractions or nasal flaring. Abdomen/GI: Soft, non-tender, with normal bowel sounds. No distension or tympany. No guarding or rebound. No evidence of tenderness throughout. Back: No spinal tenderness. No costovertebral tenderness. Full range of motion. Female : Normal external genitalia. Skin: Warm, dry with normal turgor. Normal color with no rashes, no lesions, and no evidence of cellulitis. Neuro: Awake and alert, GCS 15, oriented to person, place, time, and situation. Cranial nerves II-XII grossly intact. Motor strength 5/5 in all extremities. Sensory grossly intact. Cerebellar exam normal. Normal gait. Psych: Awake, alert, with orientation to person, place and time. Behavior, mood, and affect are within normal limits. 18:55 Musculoskeletal/extremity: ROM: no acute changes, Circulation is intact in all extremities. Sensation intact. Compartment Syndrome exam of affected extremity: is normal. DVT Exam: No signs of deep vein thrombosis. no pain, no swelling, no tenderness, negative Homans' sign noted on exam, no appreciated bluish discoloration, no erythema, no increased warmth, 19:16 ECG was reviewed by the Attending Physician. [facility] Vital Signs: 18:18 BP 133 / 92; Pulse 65; Resp 16; Pulse Ox 96% on 2 lpm NC; iw 20:11 BP 150 / 61; Pulse 86; Resp 18; Pulse Ox 95% on 2 lpm NC; Pain 2/10; rg5 20:11 Pain Scale: Adult rg5 Jaquan Coma Score: 19:12 Eye Response: spontaneous(4). Motor Response: obeys commands(6). Verbal Response: [place] oriented(5). Total: 15. MDM: 17:48 Medical Screening Exam initiated [place] 19:00 Differential diagnosis: Anterior dislocation with fracture, Anterior dislocation [place] without fracture, Posterior dislocation with fracture, Posterior dislocation without fracture, humeral head fracture, glenoid fracture, DJD, tendonitis. Data reviewed: vital signs, nurses notes, lab test result(s), EKG, radiologic studies, plain films. Consideration of Admission/Observation Escalation of care including admission/observation considered. I considered the following discharge prescriptions or medication management in the emergency department Medications were administered in the Emergency Department. See MAR. Independent interpretation of the following test(s) in the Emergency Department EKG: See my EKG interpretation above X-Ray: My interpretation is cxr. Care significantly affected by the following chronic conditions: Diabetes, Hypertension, parkinsonism, alz, glaucoma, high cholesterol. 19:13 ED course: daughter mena, aware of all labs, elevated trop, pt her mom is on hospice , [place] want comfort only, no cardiac cath , labs, estrada. 03/10 17:49 Order name: Basic Metabolic Panel; Complete Time: 18:47 [facility] 03/10 17:49 Order name: CBC with Diff; Complete Time: 18:47 [facility] 03/10 17:49 Order name: LFT's; Complete Time: 18:47 [facility] 03/10 17:49 Order name: Magnesium; Complete Time: 18:47 [facility] 03/10 17:49 Order name: NT PRO-BNP; Complete Time: 18:47 [facility] 03/10 17:49 Order name: PT-INR; Complete Time: 18:47 [facility] 03/10 17:49 Order name: Troponin HS; Complete Time: 18:47 [facility] 03/10 17:49 Order name: Lipase; Complete Time: 18:47 [facility] 03/10 17:49 Order name: XRAY Chest (1 view); Complete Time: 19:11 [facility] 03/10 17:49 Order name: Shoulder Right (2 View) XRAY; Complete Time: 19:11 [facility] 03/10 17:49 Order name: Shoulder Left (2 View) XRAY; Complete Time: 19:07 [facility] 03/10 17:49 Order name: EKG; Complete Time: 17:50 [facility] 03/10 17:49 Order name: Cardiac monitoring; Complete Time: 19:06 [facility] 03/10 17:49 Order name: EKG - Nurse/Tech; Complete Time: 18:52 [facility] 03/10 17:49 Order name: IV Saline Lock; Complete Time: 18:13 [facility] 03/10 17:49 Order name: Labs collected and sent; Complete Time: 18:13 [facility] 03/10 17:49 Order name: O2 Per Protocol; Complete Time: 18:13 [facility] 03/10 17:49 Order name: O2 Sat Monitoring; Complete Time: 18:13 [facility] 03/10 18:49 Order name: Sling; Complete Time: 20:11 [facility] 03/10 19:09 Order name: Ice pack; Complete Time: 19:13 [facility] EC:16 Rate is 85 beats/min. Rhythm is regular. QRS [place] is Normal. [place] interval is normal. QRS [place] interval is normal. QT interval is normal. No Q waves. T waves are Normal. No ST changes noted. Clinical impression: NSR w/ Non-specific ST/T Changes and No evidence of ischemia. Interpreted by me. Reviewed by me. Administered Medications: 18:13 Drug: NS 0.9% IV 500 ml 500 ml IV at 1 bolus once; to be given as a bolus over 30 rg5 minutes Volume: 500 ml; Route: IV; Rate: 1 bolus; Site: right wrist; 19:59 Follow up: IV Status: Completed infusion; IV Intake: 500ml rg5 19:03 Drug: Magnesium Sulfate IVPB 2 grams IVPB once over 2 hrs Route: IVPB; Infused Over: 2 rg5 hrs; Site: right wrist; 19:37 Drug: Ondansetron IVP 4 mg IVP once; over 2 minutes Route: IVP; Site: right forearm; rg5 19:58 Follow up: Response: No adverse reaction; Pain is decreased rg5 19:38 Drug: Aspirin PO Chewable Tablet 81 mg PO once Route: PO; rg5 19:59 Follow up: Response: No adverse reaction; Pain is decreased rg5 19:38 Drug: Hydrocodone-Acetaminophen PO (7.5 mg-325 mg) 1 tabs PO once Route: PO; rg5 19:59 Follow up: Response: No adverse reaction; Pain is decreased rg5 Disposition Summary: 03/10/25 19:17 Discharge Ordered Notes: Location: Home [place] Problem: new [place] Symptoms: have improved [place] Condition: Fair [place] Diagnosis - Fracture of greater tuberosity of humerus [place] - Hypomagnesemia [place] - Non ST elevation AR [place] - Type 2 diabetes mellitus with hyperglycemia [place] - 2-part nondisplaced fracture of surgical neck of right humerus [place] - Do not resuscitate - hospice care only [place] Followup: [place] - With: Private Physician - When: 2 - 3 days - Reason: Recheck today's complaints, Continuance of care, Re-evaluation by your physician Followup: [place] - With: Trung Rasheed MD - When: 2 - 3 days - Reason: Recheck today's complaints, Re-evaluation by your physician Followup: [place] - With: Anjum Laboy MD - When: 2 - 3 days - Reason: Recheck today's complaints, Re-evaluation by your physician Discharge Instructions: - Discharge Summary Sheet [place] - Humerus Fracture Treated With Immobilization [place] - Hypomagnesemia [place] - Humerus Fracture Treated With Immobilization, Mmiy-ph-Tipl [place] - Hospice [place] - Diabetes Mellitus and Nutrition, Adult [place] - Aspirin and Your Heart [facility] Forms: - Medication Reconciliation Form [place] - Antibiotic Education [place] - Prescription Opioid Use [place] - Patient Portal Instructions [place] - Leadership Thank You Letter [facility] - SBAR form rv1 Prescriptions: - ondansetron 4 mg Oral Tablet,disintegrating - take 1 tablet ORAL route every 6 hours as needed for nausea and vomiting; 20 [place] tablet; Refills: 0, Product Selection Permitted - Tylenol-Codeine #3 300mg-30mg Oral tablet - take 2 tablets ORAL route every 6 hours As needed; 20 tablet; Refills: 0, [place] Product Selection Permitted Signatures: Dispatcher [employer] EDMS Duy, Mikey, MD MD [place] Rolle, Viktor, RN RN rg5 Corrections: (The following items were deleted from the chart) 17: 17:50 Head C Spine Cap Wo [id number].[id number] ordered. EDMS EDMS : 17:57 Chest Abd Pelvis Wo Con ordered. EDMS EDMS : 17:59 Head C Spine Mpr Wo Con ordered. EDMS EDMS
[2025-03-10] MEDS ORDERED: HYDROCODONE/APAP 7.5/325 MG TAB ONE (19:29)
[2025-03-10] MEDS ORDERED: ASPIRIN 81 MG CHEWABLE TABLET ONE (19:29)
[2025-03-10] MEDS ORDERED: ONDANSETRON 4 MG/2 ML VIAL ONE (19:29)
[2025-03-10 21:32] VITALS: BP 150/61; O2SAT 95
== END 2025-03-10 20:14 | disposition home or self-care (01) ==
LOC: ER 17:32
DX: S42.251A Displaced fracture of greater tuberosity of right humerus, initial encounter for closed fracture (principal); S42.224A 2-part nondisplaced fracture of surgical neck of right humerus, initial encounter for closed fracture; I21.4 Non-ST elevation (NSTEMI) myocardial infarction; E83.42 Hypomagnesemia; E11.65 Type 2 diabetes mellitus with hyperglycemia; Z66 Do not resuscitate; G30.9 Alzheimer's disease, unspecified; F02.80 Dementia in other diseases classified elsewhere, unspecified severity, without behavioral disturbance, psychotic disturbance, mood disturbance, and anxiety; G20.A1 Parkinson's disease without dyskinesia, without mention of fluctuations
CPT/HCPCS: 93005; 85025; 80048; 36415; 83735; 85610; 80076; 84484; 83690; 83880; 71045; 73030 ×2; 99284; J3475; J2405; J7040